=== PATIENT | male | born 1955 | race Caucasian/White ===

== ENCOUNTER → 2017-06-28 | Outpatient (CLI) | payer BC ==
--- NOTE | 2017-06-29 08:43 | CT ---
EXAMINATION TYPE: CT chest wo con DATE OF EXAM: 06/28/2017 COMPARISON: NONE HISTORY: Cough for [address] DLP: 187 mGycm. Automated Exposure Control for Dose Reduction was Utilized. TECHNIQUE: CT scan of the thorax is performed without IV contrast in the high-resolution chest CT pr otocol. This limits evaluation for pulmonary nodules given noncontiguous slices. FINDINGS: LUNGS: There is moderate centrilobular and paraseptal emphysema with scattered bulla in the left lung apex and blebs on the right. Peripheral basilar predominant honeycombing is present most pronounced at the right lung base. There is cylindrical type bronchiectasis throughout although also most pronou nced at the right lung base. No evidence of interlobular septal thickening. No focal consolidation, p leural effusion or pneumothorax. No evidence of air trapping between the supine and prone images. Mor e focal area of nodularity is seen within the right upper lobe peripherally on series 4 image 17 and series 7 image 21. This measures 6 mm and could relate to fibrosis as there is adjacent fibrosis more cranially and anteriorly, atelectasis or less likely pulmonary nodule. Focal pleural thickening is s een along the right upper lobe anteriorly on series 4 image 26. MEDIASTINUM: Lack of IV contrast is noted to limit evaluation for mediastinal and especially hilar ad enopathy. There are no definitive greater than 1 cm hilar or mediastinal lymph nodes. Multiple promin ent 1.0 cm lymph nodes are seen within the mediastinum. No cardiomegaly or pericardial effusion is s een. Mild coronary artery calcifications are noted. OTHER: There is thickening of the left adrenal gland although the adrenal gland maintains its normal adreniform shape. This finding is most likely related to adrenal gland hyperplasia. No discrete nodul arity. Multilevel moderate degenerative changes of the thoracic spine are seen. IMPRESSION: 1. Findings most compatible with pulmonary fibrosis, appearing moderate in degree. 2. 6 mm right upper lobe nodularity that could relate to fibrosis as there are other areas of adjacen t fibrosis, atelectasis or less likely pulmonary nodule. Follow-up CT is recommended in 12 months to ensure no interval growth. Additionally area of right upper lobe focal pleural thickening can be reas sessed at this time. 3. Prominent but nonenlarged mediastinal lymph nodes are likely reactive. 4. No focal consolidation to indicate pneumonia.
== END | disposition home or self-care (01) ==
LOC: RADCTMAIN 14:52
PROVIDERS: ATTEND Internal Medicine Critical Care Medicine
DX: R91.1 Solitary pulmonary nodule (principal); Z88.0 Allergy status to penicillin
CPT/HCPCS: 71250

== ENCOUNTER 2017-09-21 11:28 | Inpatient (IN) | payer BC ==
[2017-09-21] MEDS ORDERED: IPRATROPIUM-ALBUTEROL 3 ML NEB INHALATION PRN (12:45)
[2017-09-21] MEDS ORDERED: LEVOFLOXACIN 750MG-D5W PMX 750 MG in DEXTROSE/WATER 1 150ML.BAG IVPB SCH (13:00)
[2017-09-21] MEDS ORDERED: AZTREONAM 2 GM in SODIUM CHLORIDE 0.9% 100 ML IVPB SCH (14:00)
[2017-09-21 14:46] LABS: Anisocytosis Slight; Basophils % (A) 0 %; Eosinophils # (A) 0.1 k/uL (0-0.7); Eosinophils % (A) 0 %; HCT 35.9 % (39.0-53.0); HGB 11.8 gm/dL (13.0-17.5); Lymphocytes # (A) 0.5 k/uL (1.0-4.8); Lymphocytes % (A) 4 %; MCH 28.8 pg (25.0-35.0); MCV 87.3 fL (80.0-100.0); Mean Platelet Volume 7.5; Monocytes # (A) 0.7 k/uL (0-1.0); Monocytes % (A) 6 %; Neutrophils # (A) 11.1 k/uL (1.3-7.7); Neutrophils % (A) 87 %; Platelet Count 271 k/uL (150-450); RBC 4.11 m/uL (4.30-5.90); RDW 18.2 % (11.5-15.5); WBC 12.8 k/uL (3.8-10.6)
[2017-09-21 15:23] LABS: Albumin 3.4 g/dL (3.5-5.0); Calcium 8.1 mg/dL (8.4-10.2); Potassium 3.6 mmol/L (3.5-5.1); Total Bilirubin 0.6 mg/dL (0.2-1.3)
[2017-09-21] MEDS: methylPREDNISolone SOD SUCCI 40 MG/ML 1 ML VIAL IV SCH ×2 (16:13→23:43)
[2017-09-21] MEDS: IPRATROPIUM-ALBUTEROL 3 ML NEB INHALATION SCH ×2 (16:23→19:54)
--- NOTE | 2017-09-21 16:35 | P.CNPUL ---
History of Present Illness Consult date: 09/21/17 Reason for consult: dyspnea, COPD, pulmonary fibrosis History of present illness: This is a 62-year-old male patient, 1 on my own patients from the office, was seen today in our office for increased shortness of breath. The patient comes in with a one-week history of cough, fever and chills and shortness of breath and his condition was progressively getting worse. The patient had a chest x- ray showed airspace disease in the right upper lobe and the left upper lobe worse compared to the previous chest x-rays was done our office. He was also found to be more hypoxic and his pulse ox was in the 70s on room air. Note that he was not on any home oxygen prior. The patient was seen in our office and he was advised to be admitted to the hospital for antibiotic treatment for possible pneumonia. For that reason he was sent over to the hospital and a pulmonary consultation was requested also. The initial blood work also showed a component of acute kidney injury. The patient's creatinine was up to 5.8. Upon further questioning, the patient reported that he was having migraine headaches and he was getting high dose Motrin for headaches and he has taken around 5-6 tablets. At the same time he was having some diarrhea approximately 3 days ago which ultimately subsided. Currently does not have any ongoing diarrhea and nausea vomiting or abdominal pain. The patient noted some diminished urine output over the past 24 hours. The patient is not known to have any previous history of kidney injury is of kidney failures. No nephrolithiasis. The patient also admitted to have exposure to a friend who was hospitalized down in amount, as for an underlying pneumonia. This patient is known to me. I saw him in consultation on 06/17/2017. The patient as part of further workup underwent a high-resolution CAT scan of the chest and upon review of the films there is extensive emphysema in the upper lobes bilaterally addition to subpleural pulmonary fibrosis involving the lower lobes and early changes of honeycombing in the lung bases. This was consistent with IPF based on the radiographic findings. The pulmonary function test showed an FVC of 74% and a total lung capacity of 64% with a diffusion capacity of 50% of predicted consistent with a component of restrictive lung disease. His room air pulse ox back then was 97% and the patient back then did not qualify for oxygen. The patient was trying to quit smoking. Based on the overall clinical picture, I recommended this patient to start on anti-fibrotic treatment and the patient was started on Ovef, nintadanib, after confirming the patient's liver function tests her baseline were within normal limits. He was asked to continue the Ventolin rescue inhaler mastoids basis. Smoking cessation counseling was also done in the office back in June 2017. 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 He is living in [facility]. He lives in a farm. He has outdoor animals including a goat and a Pig and a horse. He has no exposure to birds products. No exposure to chicken, pigeons or doves. Review of Systems Constitutional Constitutional: no fever, no night sweats, no significant weight gain, no significant weight loss, no exercise intolerance Eyes Eyes: no dry eyes, no vision change, no irritation ENMT Ears: no difficulty hearing, no ear pain Nose: no frequent nosebleeds, no nose problems, no sinus problems Mouth/Throat: no sore throat, no bleeding gums, no snoring, no dry mouth, no mouth ulcers, no oral abnormalities, no teeth problems Cardiovascular Cardiovascular: no chest pain, no arm pain on exertion, no shortness of breath when lying down, no palpitations, no known heart murmur, shortness of breath when walking Respiratory Respiratory: no coughing up blood, no sleep apnea, cough, shortness of breath with interval worsening over the past 1 week in addition to development of an acute hypoxic respiratory failure Gastrointestinal Gastrointestinal: no abdominal pain, no nausea, no vomiting, no constipation, normal appetite, no diarrhea, not vomiting blood, no dyspepsia, no GERD Genitourinary Genitourinary: no incontinence, no difficulty urinating, no hematuria, no increased frequency Musculoskeletal Musculoskeletal: no muscle aches, no muscle weakness, no arthralgias/joint pain , no back pain, no swelling in the extremities Integumentary Skin: no abnormal mole, no jaundice, no rashes, no laceration Neurologic Neurologic: no loss of consciousness, no weakness, no numbness, no seizures, no dizziness, no migraines, no headaches, no tremor Psychiatric Psych: no depression, no sleep disturbances, feeling safe in a relationship, no alcohol abuse, no anxiety, no hallucinations, no suicidal thoughts Endocrine Endocrine: no fatigue Hematologic/Lymphatic Hematologic/Lymphatic no swollen glands, no bruising, no excessive bleeding Allergic/Immunologic Allergy/Immunologic: no runny nose, no sinus pressure, no itching, no hives, no frequent sneezing Past Medical History Past Medical History: COPD, Diabetes Mellitus, GERD/Reflux, Pneumonia Additional Past Medical History / Comment(s): Interstitial pulmonary fibrosis, emphysema with upper lobe predominance, smoker NIDDM type II, sinus problems, slight fatty liver, eczema, past hemeoccult positive stool-colonoscopy done. Hypertension, hyperlipidemia, depression, acid reflux History of Any Multi-Drug Resistant Organisms: None Reported Past Surgical History: Orthopedic Surgery Additional Past Surgical History / Comment(s): RT thumb mass removed, EGD/ colonoscopies Past Anesthesia/Blood Transfusion Reactions: No Reported Reaction Smoking Status: Former smoker - Past Family History Father Family Medical History: Myocardial Infarction ([place]) Additional Family Medical History / Comment(s): Father of a massive [place] at the age of 52 or 53yrs. Mother Family Medical History: Cancer Additional Family Medical History / Comment(s): Mother of breast cancer in her 60's. Medications and Allergies Home Medications Medication Instructions Recorded Confirmed Type ALPRAZolam [Xanax] 2 mg PO HS 08/31/13 09/21/17 History Aspirin 81 mg PO HS 08/31/13 09/21/17 History Atorvastatin Calcium [Lipitor] 40 mg PO HS 08/31/13 09/21/17 History Methylphenidate HCl 10 mg PO DAILY 08/31/13 09/21/17 History [Methylphenidate ER] Omeprazole [PriLOSEC] 20 mg PO AC-BRKFST 08/31/13 09/21/17 History Pioglitazone HCl [Actos] 45 mg PO DAILY 08/31/13 09/21/17 History lamoTRIgine [LaMICtal] 100 mg PO DAILY 08/31/13 09/21/17 History Cyanocobalamin (Vitamin B-12) 1,000 mcg PO DAILY 09/21/17 09/21/17 History [Vitamin B-12] Escitalopram [Lexapro] 20 mg PO DAILY 09/21/17 09/21/17 History Nintedanib Esylate [Ofev] 150 mg PO BID 09/21/17 09/21/17 History buPROPion XL [Wellbutrin Xl] 150 mg PO DAILY 09/21/17 09/21/17 History glipiZIDE XL [Glucotrol Xl] 2.5 mg PO DAILY 09/21/17 09/21/17 History Allergies Allergy/AdvReac Type Severity Reaction Status Date / Time aspartame Allergy Unknown MUSCLE Verified 09/21/17 13:10 PAINS Penicillins Allergy Unknown Rapid Verified 09/21/17 13:10 Heart Rate Physical Exam Vitals: Vital Signs Temp Pulse Resp BP Pulse Ox 09/21/17 12:51 97.3 F L 76 18 106/66 96 Intake and Output 09/20/17 09/21/17 09/21/17 22:59 06:59 14:59 Other: Weight 68.6 kg General Appearance no diaphoresis, no respiratory distress, speech not interrupted by breaths, no dyspnea, no pallor, not cachectic, well nourished, appears well HEENT no pursed lip breathing, no jugular venous distention, no mucous membrane cyanosis, no perioral cyanosis, mallampati classification: class 1 Chest no barrel chest, no retractions, no sternocleidomastoid muscle contractions, no supraclavicular retractions, no intercostal retractions, no decreased air movement, no rhonchi, no hyperinflation, (normal) adventitious sounds: rales / crackles: bilaterally: midlung sanchez, decreased air movement ( crackles in the lung bases) Heart no right ventricular heave, no distant heart sounds, no s3 gallop, (normal ) jugular vein: jugular venous distention: by 0cm, (normal) jugular vein GI bowel sounds: hyperactive (borborygmi), bowel sounds: diminished or absent Extremities no cyanosis, no clubbing, no edema Neurologic no decreased mental status, no somnolence, no confusion Assisstive Devices: ambulates with no assitive devices Gait and Mobility: gait WNL, full weight bearing Examination of the skin revealed no evidence of significant rashes, suspicious appearing nevi or other concerning lesions. Results - Laboratory Findings CBC and BMP: 09/21/17 14:23 09/21/17 14:23 Assessment and Plan Plan: Assessment 1 acute hypoxic history failure, likely on the basis of an underlying pneumonia 2 idiopathic pulmonary fibrosis involving the lung bases maintained on anti- fibrotic treatment/OVEF on outpatient basis 3 COPD with bullous emphysematous changes involving the left lobes bilaterally 4 acute kidney injury, probably due to a component of intravascular volume depletion/diarrhea in addition to use of nonsteroidal anti-inflammatory medications. The patient had a creatinine of 5.8 and a BUN of 68 and he is oliguric at this point. 5 hyperlipidemia 6 diabetes mellitus 7 smoker 8 depression 9 abnormal LFTs, probably secondary to OVEF 10 hypertension 11 acid reflux Plan Obtain sputum Gram stain and culture. Obtain blood cultures. Cover the patient with accommodation Levaquin and aztreonam. IV Solu-Medrol. Continue DuoNeb about treatments on the clock. Hold the OVEF treatment for now. Supplement the patient with oxygen 2 L/m nasal cannula. Initiate IV fluids at the rate of 100 mL an hour of normal saline. Obtain ultrasound the kidneys. Check a urine analysis. Nephrology consultation. Avoid nephrotoxic agents. Stop glipizide. Stop pioglitazone.. We'll review the chest x-ray. Monitor the blood sugar.
--- NOTE | 2017-09-21 16:38 | HP ---
Addendum patient creatinine 5.8 and BUN 68 and his baseline creatinine 0.9 and the BUN 14 which indicate new diagnosis of acute kidney injury with nonoliguric. Consultation with nephrology was requested. Patient also was immunocompromise under treatment for IPF with no suspicious of pneumonia medication was held and his agreement with Dr. Arzate. #3 also medication is adjusted with discontinuation of metformin as well pioglitazone as well as glipizide and currently he is on insulin to scale with the NovoLog/ Humalog short-acting if he is persistent the high will start him on long-acting as well. Patient on 2 antibiotic IV piggyback was started by the pulmonary. And adjusted the dose by the pharmacy. HISTORY AND PHYSICAL DATA: A 5 foot 5 inches, height, weight 68.6 kg. BSA 1.76 meter square, BMI 25.2 kg/ m2. ALLERGY: IS TO PENICILLIN AND ASPARTAME. CHIEF COMPLAINT: The patient was seen with the prolonged history of coughing, with phlegm and fever and diarrhea. Seen by Dr. Castro in his office and subsequently had a chest x-ray in his office and sent to the hospital for admission with the presence of pneumonia. HISTORY OF PRESENT ILLNESS: The patient history: He started his symptoms on September 11. He did not feel well and he continue with the fever intermittently, but at that time, he did not check it. He had on the Tuesday, coughing and phlegm and he had diarrhea and weak and Tuesday and Tuesday he was able to take his medication which has been prescribed by Dr. Cervantes for IPF, which is Ofev which Nintedanib capsule 150 mg twice a day and he taken 150 mg twice a day. However, the pill he has with it another medication that they sent with these medicines because of the side affect is diarrhea. It is unclear to me what is the medicine and we do not have it from Dr. Cervantes. However, he had this pills and did help the diarrhea and he took 2 and then 1 every 6 hours. Total pills received is 3 pills. The patient, his pill started was ended June 17 and then he reviewed it and subsequently he is doing better with the diarrhea, but he also stated that he lost his energy at 4:00 pm on Tuesday recently. He woke up feeling good. By 4 o'clock he has lost his energy and he had appointment for dinner. He cancelled it and he was sweating and Tuesday night a lot and as well as Tuesday with a fever. He thought that this is a sweating secondary to broke of the fever, but subsequently he started to check his temperature and was 101.4 and 101 and 100 started on September 18 and and with this continued coughing, he stayed in bed all the time and he called Dr. Cervantes's office and at that time, they saw him by Dr. Castro, and he did a x-ray in his office to compare it with the previous x-ray and he found that a big difference and indicating probability of pneumonia. At that time, he started him on Levaquin IV piggyback 750 mg once a day and actually in the hospital is already hanging on. He has also as he admitted direct admission by Dr. Castro, consultation with Dr. Cervantes was placed as well to follow the patient and who is Billy, his actually the pulmonary doctor. In the hospital, laboratory was only available just taken 12.8 white count with leukocytosis. His hemoglobin is 11.8 with mild anemia and his MCV 87.3, and his platelet count 271. Otherwise, we do not have any other data from the laboratories. He still as he admitted he had a sputum collection as well at his side. Today he felt better with coughing has been improving and no diarrhea, but he has still sore throat and he stated that he had migraine headaches in the past, however, not present at the time of the admission and he treated with ibuprofen. No heartburn and no hematochezia or hematemesis or melena, but he has severe generalized weakness and he has no soreness in any other places. He has a history of social alcohol intake and 3-4 per week. He had pets and that is 1 horse and 1 pig. He is a diabetic and he is on treatment, but also he is on high protein low carb diet and he drinks expresso coffee once a day. 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 He has 2 children, 2 boys. He is a former smoker, but he was a heavy smoker and he did it for 30 years. He used to do two packs and occasional 3, but most of them burned without inhalation. HIS ALLERGY IS MENTIONED, PENICILLIN AND ASPARTAME. ACTIVE MEDICATION: He was on vitamin C once a day 500 mg. He is on metoprolol tartrate 25 mg twice a day. He was on pioglitazone 45 mg 1 tablet daily for the diabetes mellitus and he was also on glipizide 2.5 mg once a day. He is on omeprazole 20 mg capsule, 1 capsule a.c. breakfast and he has atorvastatin 40 mg 1 tablet daily and aspirin enteric- coated 81 mg and he uses occasionally for stuffiness of his nose fluticasone nasal spray 2 sprays each nostril at bedtime. He also had history of vitamin D insufficiency and he has taken 2000 international unit capsules once a day. With the underlying depression, he has been treated by Dr. Wills the psychiatrist and he is taken lamotrigine 100 mg and he is also on alprazolam 0.[address] Wills, as well as he is on Methylphenidate 10 mg once a day by Dr. Wills. Also, he gets Propione 100 mg once a day. REVIEW OF THE SYSTEM: Mainly the shortness of breath. The cough, the fever, the chills, the sweating and underlying diabetes mellitus. Cardiovascular: He had no chest pain or anginal pain. On the respiratory, he is having short of breath which he understands with the association of the IPF as diagnosed. He has currently pneumonia and but we do not know the etiology of that pneumonia as we will be checking with the Pulmonary in that regard. He had basilar crackles from the interstitial lung disease. Gastrointestinal: He had diarrhea, however, not present at this time. Genitourinary: He has no tenderness on the bladder and his urine is fine and flowing normally. MUSCULOSKELETAL: Generalized weakness. No history of fractures and no edema of the lower extremities. Skin: Is fine, warm and dry. Neurological: Alert, oriented x3. No evidence of abnormality. With the underlying also added history that he was last week with friends and they were in a green party and they had contact with these green party and 1 of these friends he was sick and he went to the hospital and he was having pneumonia. We do not know if he had attracted that from him or not. IMPRESSION: 1. Underlying leukocytosis with cough and expectoration and community-acquired pneumonia with the chest x-ray per Dr. Castro who told the patient that he has pneumonia. Unfortunately, we do not have copy of the x-rays here in the hospital to review that. 2. Underlying interstitial lung the disease with IPF and he has been treated by Dr. Cervantes with the Ofev capsule which is Nintedanib capsule 150 mg twice a day for the time being with that could be affecting his immune response with holding until Dr. Cervantes sees the patient. 3. Diabetes mellitus type 2. Hemoglobin A1c was ordered, but he is on the treatment and will continue the current treatment for that purpose. 4. We will also obtain for Legionella urine antigen to see if any signs of infection. He had also sputum for culture and sensitivity. He has also a blood culture was ordered by Dr. Cervantes. PLAN: 1. We continue the Levaquin 750 and further treatment as lab ordered again for tomorrow and monitoring his temperature and also he has oxygen 2 L/minutes. 2. Further treatment depend on the result. YOSEPH / TIFFANY: [id number] / MTDD
[2017-09-21 16:39] LABS: INR 1.1 (<1.2); Partial Thromboplastin Time 28.1 sec (22.0-30.0)
[2017-09-21 16:51] LABS: Glucose,Whole Blood 171 mg/dL (75-99)
[2017-09-21] MEDS: INSULIN ASPART 100 UNIT/ML 1 ML 10 ML VIAL SQ SCH ×2 (17:34→22:00)
[2017-09-21] MEDS: SODIUM CHLORIDE 0.9% 1,000 ML IV SCH ×2 (17:48→22:02)
--- NOTE | 2017-09-21 18:01 | XR ---
EXAMINATION TYPE: XR chest 2V DATE OF EXAM: 09/21/2017 COMPARISON: 06/17/2017 HISTORY: Cough TECHNIQUE: Frontal and lateral views of the chest are obtained. FINDINGS: There is moderate diffuse pulmonary interstitial edema. Heart appears enlarged. Pulmonary vascularity is difficult to evaluate because of the extensive lung disease. There is no pleural effus ion. I see no definite heart failure. IMPRESSION: Extensive pulmonary interstitial infiltrates likely related to interstitial fibrosis gabrielle t has progressed compared to last exam. Cardiomegaly.
[2017-09-21] MEDS: BUDESONIDE 0.5 MG/2 ML NEBU INHALATION SCH (19:54)
[2017-09-21 20:23] LABS: Glucose,Whole Blood 249 mg/dL (75-99)
[2017-09-21] MEDS: ALPRAZolam 0.5 MG TAB PO SCH (22:01)
[2017-09-21] MEDS: ASPIRIN 81 MG PO SCH (22:09)
[2017-09-21] MEDS: ATORVASTATIN 40 MG TAB PO SCH (22:09)
[2017-09-21 23:01] LABS: Hemoglobin A1C 6.9 % (4.0-6.0)
[2017-09-21] MEDS: HEPARIN SODIUM,PORCINE 5,000 UNIT/ML 1 ML VIAL SQ SCH (23:42)
[2017-09-21] MEDS: AZTREONAM 1 GM in SODIUM CHLORIDE 0.9% 50 ML IVPB SCH (23:42)
--- NOTE | 2017-09-22 03:25 | US ---
EXAMINATION TYPE: US kidneys/renal and bladder DATE OF EXAM: 09/21/2017 COMPARISON: NONE CLINICAL HISTORY: MERRICK. MERRICK EXAM MEASUREMENTS: Right Kidney: 10.6 x 6.2 x 4.5 cm Left Kidney: 10.7 x 5.9 x 5.1 cm Right Kidney: Lobulated cortex. Left Kidney: Lobulated cortex question dromedary hump. Bladder: Anechoic Bilateral Jets seen: Yes There is no evidence for hydronephrosis at this point in time. No nephrolithiasis is seen. No jean s are identified. The urinary bladder is anechoic. Bilateral ureteral jets are seen. Bilateral lobulated cortex of kidneys. Suggestive of dromedary hump left kidney. IMPRESSION: No evidence of renal stone or obstruction. Normal urinary bladder.
[2017-09-22 07:04] LABS: Glucose,Whole Blood 266 mg/dL (75-99)
[2017-09-22] MEDS: IPRATROPIUM-ALBUTEROL 3 ML NEB INHALATION SCH ×4 (07:04→19:21)
[2017-09-22] MEDS: BUDESONIDE 0.5 MG/2 ML NEBU INHALATION SCH ×2 (07:04→19:18)
[2017-09-22] MEDS: AZTREONAM 1 GM in SODIUM CHLORIDE 0.9% 50 ML IVPB SCH ×2 (07:28→15:41)
[2017-09-22] MEDS: INSULIN ASPART 100 UNIT/ML 1 ML 10 ML VIAL SQ SCH ×4 (07:29→21:21)
[2017-09-22] MEDS: methylPREDNISolone SOD SUCCI 40 MG/ML 1 ML VIAL IV SCH ×2 (07:29→15:41)
[2017-09-22] MEDS: PANTOPRAZOLE 40 MG TABLET PO SCH (07:29)
[2017-09-22] MEDS: ESCITALOPRAM 20 MG TAB PO SCH (07:29)
[2017-09-22] MEDS: HEPARIN SODIUM,PORCINE 5,000 UNIT/ML 1 ML VIAL SQ SCH ×2 (07:29→15:41)
[2017-09-22] MEDS: buPROPion XL 150 MG TAB.ER.24H PO SCH (07:29)
[2017-09-22] MEDS: METHYLPHENIDATE HCL 5 MG TAB PO SCH ×2 (07:29→12:47)
[2017-09-22] MEDS: lamoTRIgine 100 MG TAB PO SCH (08:14)
[2017-09-22 08:27] LABS: Anisocytosis Slight; Basophils % (A) 0 %; Eosinophils % (A) 0 %; HCT 33.8 % (39.0-53.0); HGB 10.6 gm/dL (13.0-17.5); Hypochromasia Slight; Lymphocytes # (A) 0.3 k/uL (1.0-4.8); Lymphocytes % (A) 4 %; MCH 27.8 pg (25.0-35.0); MCHC 31.5 g/dL (31.0-37.0); MCV 88.3 fL (80.0-100.0); Mean Platelet Volume 8.5; Monocytes # (A) 0.2 k/uL (0-1.0); Monocytes % (A) 3 %; Neutrophils # (A) 7.1 k/uL (1.3-7.7); Neutrophils % (A) 92 %; Platelet Count 278 k/uL (150-450); RBC 3.83 m/uL (4.30-5.90); RDW 18.3 % (11.5-15.5); WBC 7.7 k/uL (3.8-10.6)
[2017-09-22 08:49] LABS: Albumin 2.9 g/dL (3.5-5.0); Calcium 7.8 mg/dL (8.4-10.2); Magnesium 2.5 mg/dL (1.6-2.3); Potassium 4.2 mmol/L (3.5-5.1); Total Bilirubin 0.4 mg/dL (0.2-1.3); Total Protein 5.9 g/dL (6.3-8.2)
[2017-09-22] MEDS ORDERED: ENOXAPARIN 40 MG/0.4 ML SYRINGE SQ SCH (09:00)
[2017-09-22] MEDS ORDERED: PIOGLITAZONE 45 MG TAB PO SCH (09:00)
--- NOTE | 2017-09-22 09:31 | XR ---
EXAMINATION TYPE: XR chest 2V DATE OF EXAM: 09/22/2017 COMPARISON: 09/21/2017 HISTORY: History of pneumonia TECHNIQUE: Frontal and lateral views of the chest are obtained. FINDINGS: There are persistent multifocal reticular opacities throughout the lungs most consolidated within the left upper lung and retrocardiac airspace. There is peripheral subpleural reticulation po ssibly relating to underlying fibrosis. Cardiomediastinal silhouette is mildly enlarged. Multilevel m oderate degenerative changes of the thoracic spine is seen with mild acromioclavicular arthropathy bi laterally. IMPRESSION: Similar-appearing multifocal reticular opacities that may represent atypical pneumonitis on a background of interstitial lung disease/pulmonary fibrosis. These are unchanged from the exam e emelina on the same date.
[2017-09-22 12:00] LABS: Glucose,Whole Blood 310 mg/dL (75-99)
[2017-09-22] MEDS ORDERED: BENZOCAINE/MENTHOL LOZENG 1 EACH LOZENGE MUCOUS MEM PRN (12:18)
[2017-09-22] MEDS: SODIUM CHLORIDE 0.9% 1,000 ML IV SCH ×2 (12:48→20:28)
--- NOTE | 2017-09-22 14:03 | PN ---
PROGRESS NOTE DATE OF SERVICE: 09/22/2017 DATA: His height is 5 foot 5 inches, weight 68.6 kg, BSA 1.76 m2, BMI 25.2 kg/m2. Allergy to PENICILLIN and ASPARTAME. His current diagnosis: The patient admitted with underlying worsening of his IPF as well as he is suspicious of pneumonia with the interstitial pneumonitis and was initially seen in the office of the Pulmonary group, seen by Dr. Castro, subsequently followed here in the hospital by Dr. Cervantes. Also found in his diagnosis, the second is acute kidney injury with the sudden rise with the baseline of creatinine 0.8 and BUN of 14. Currently, with the BUN was 68 on admission, his creatinine 5.8 and BUN 68. His coagulation was normal and at that time, yesterday on admission, his white count is 12.8 with a hemoglobin 11.8 with the presence of also mild anemia. With the elevated level of renal function with acute kidney injury, no previous history of chronic kidney disease, consultation with the Nephrology doctor, Dr. Angeles/Dr. Pierre. Patient at this time he has also underlying hemoglobin A1c on admission 6.9 and his plasma lactic acid was 1.1 on the admission date. His calcium is 8.1, sodium 135. His carbon dioxide was 18 on the acidotic side and his blood sugar has been fluctuating between 266 and 249, 171. With elevated creatinine, we stopped all the oral hypoglycemic agent and started only on insulin to scale. On the current since the patient in the morning and the patient was conscious, alert, oriented. He was going to be having the chest x-ray, which we reviewed it, subsequently and the chest x-ray repeat indicating multifocal reticular opacities and represent atypical pneumonitis on the background of interstitial lung disease and pulmonary fibrosis. LABORATORY: As was done today and his white count now is 7.7 with hemoglobin 10.6 and hematocrit 33.8, and platelet count is 278. His electrolyte was stable except that today his carbon dioxide is 18, which indicating that due to the acute kidney injury. His blood sugar is 249 and was done in the morning, subsequently 3:10 am and we will continue covering with the insulin to scale. His magnesium is 2.5 with calcium 7.8 and AST was elevated to 97 and ALT 70, alk phos was 189. His total protein slightly low 5.9 and albumin 2.9. PHYSICAL EXAMINATION: Patient is conscious, alert, oriented x3. He has still loss of appetite and his vital sign was Maharaj. His vital sign today indicating temperature 98, pulse rate 73, blood pressure 113/64 with mean pressure 80. His oxygen saturation was low 91 on 2 L nasal cannula. On the examination patient is conscious, alert, oriented. He had no icterus of the conjunctivae. Pupils equal, reactive. Oropharynx is negative. Neck was supple and the chest was there are dry rhonchi on the bases of the lung bilaterally and the heart was PMI in the 5th intercostal space. Normal S1, S2. No gallop. The abdomen was soft, nontender, positive bowel sounds and extremities no edema and positive pulses. No neurological deficit. ASSESSMENT: We did consult Nephrology as well as Dr. Cervantes. I did discuss with him yesterday with the underlying impression added to the IPF and interstitial pneumonitis as well as leukocytosis on admission with shortness of breath. He continued on inhalation therapy per Dr. Cervantes as well as the antibiotic and with the acute kidney injury, patient had a consultation with Nephrology, but so far they did not see him yet. . PLAN: We are continuing his IV fluids and probably we may have to start him on sodium bicarb once a day 325 mg or 650. Further evaluation by Nephrology will be followed as well. MMODL / IJN: [id number] /
[2017-09-22] MEDS: SODIUM BICARBONATE TAB 650 MG TAB PO SCH ×2 (15:41→21:22)
--- NOTE | 2017-09-22 15:49 | P.PN ---
Subjective Progress Note Date: 09/22/17 Principal diagnosis: This is a 62-year-old male patient, 1 on my own patients from the office, was seen today in our office for increased shortness of breath. The patient comes in with a one-week history of cough, fever and chills and shortness of breath and his condition was progressively getting worse. The patient had a chest x- ray showed airspace disease in the right upper lobe and the left upper lobe worse compared to the previous chest x-rays was done our office. He was also found to be more hypoxic and his pulse ox was in the 70s on room air. Note that he was not on any home oxygen prior. The patient was seen in our office and he was advised to be admitted to the hospital for antibiotic treatment for possible pneumonia. For that reason he was sent over to the hospital and a pulmonary consultation was requested also. The initial blood work also showed a component of acute kidney injury. The patient's creatinine was up to 5.8. Upon further questioning, the patient reported that he was having migraine headaches and he was getting high dose Motrin for headaches and he has taken around 5-6 tablets. At the same time he was having some diarrhea approximately 3 days ago which ultimately subsided. Currently does not have any ongoing diarrhea and nausea vomiting or abdominal pain. The patient noted some diminished urine output over the past 24 hours. The patient is not known to have any previous history of kidney injury is of kidney failures. No nephrolithiasis. The patient also admitted to have exposure to a friend who was hospitalized down in amount, as for an underlying pneumonia. This patient is known to me. I saw him in consultation on 06/17/2017. The patient as part of further workup underwent a high-resolution CAT scan of the chest and upon review of the films there is extensive emphysema in the upper lobes bilaterally addition to subpleural pulmonary fibrosis involving the lower lobes and early changes of honeycombing in the lung bases. This was consistent with IPF based on the radiographic findings. The pulmonary function test showed an FVC of 74% and a total lung capacity of 64% with a diffusion capacity of 50% of predicted consistent with a component of restrictive lung disease. His room air pulse ox back then was 97% and the patient back then did not qualify for oxygen. The patient was trying to quit smoking. Based on the overall clinical picture, I recommended this patient to start on anti-fibrotic treatment and the patient was started on Ovef, nintadanib, after confirming the patient's liver function tests her baseline were within normal limits. He was asked to continue the Ventolin rescue inhaler mastoids basis. Smoking cessation counseling was also done in the office back in June 2017. 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 He is living in [facility]. He lives in a farm. He has outdoor animals including a goat and a Pig and a horse. He has no exposure to birds products. No exposure to chicken, pigeons or doves. On 09/22/2017 patient seen again in follow-up on medical surgical floor. Resting in bed, still complaining of weakness and fatigue. But overall is feeling better. Not bringing up any sputum, denies any chest wall tenderness, lung sounds are positive for coarse crackles over left lower lobe, no wheezing. Today's labs were reviewed, and a PVC 7.7, hemoglobin is 10.6, renal profile is improving, BUN is down to 60, creatinine is 4.29. Patient is remains on IV hydration, receiving 0.9 normal saline at a rate of 100 per hour. Patient remains on empiric coverage in the form of Azactam, and Levaquin, today's chest x-ray showed multifocal reticular opacity pneumonia in the left lower and left upper lobe Objective - Vital Signs Vital signs: Vital Signs Temp 98.0 F 09/22/17 05:15 Pulse 76 09/22/17 15:19 Resp 18 09/22/17 07:58 BP 113/64 09/22/17 05:15 Pulse Ox 91 L 09/22/17 05:15 Intake & Output 09/21/17 09/22/17 09/22/17 18:59 06:59 18:59 Intake Total 850 800 Balance 850 800 Weight 68.6 kg Intake: Intake, IV Titration 850 800 Amount Aztreonam 1 gm In Sodium 50 Chloride 0.9% 50 ml @ 50 mls/hr IVPB Q8HR [facility] Rx#: [id number] Aztreonam 2 gm In Sodium 100 Chloride 0.9% 100 ml @ 100 mls/hr IVPB Q8HR [facility] Rx#:[id number] Sodium Chloride 0.9% 1, 800 700 000 ml @ 100 mls/hr IV . Q10H [facility] Rx#:[id number] Other: Voiding Method Toilet Toilet Toilet # Voids 2 - Exam General Appearance no diaphoresis, no respiratory distress, speech not interrupted by breaths, no dyspnea, no pallor, not cachectic, well nourished, appears well HEENT no pursed lip breathing, no jugular venous distention, no mucous membrane cyanosis, no perioral cyanosis, mallampati classification: class 1 Chest no barrel chest, no retractions, no sternocleidomastoid muscle contractions, no supraclavicular retractions, no intercostal retractions, no decreased air movement, no rhonchi, no hyperinflation, (normal) adventitious sounds: rales / crackles: bilaterally: midlung sanchez, decreased air movement ( crackles in the lung bases, worse over left posterior lower lobe) Heart no right ventricular heave, no distant heart sounds, no s3 gallop, (normal ) jugular vein: jugular venous distention: by 0cm, (normal) jugular vein GI bowel sounds: hyperactive (borborygmi), bowel sounds: diminished or absent Extremities no cyanosis, no clubbing, no edema Neurologic no decreased mental status, no somnolence, no confusion Assisstive Devices: ambulates with no assitive devices Gait and Mobility: gait WNL, full weight bearing Examination of the skin revealed no evidence of significant rashes, suspicious appearing nevi or other concerning lesions. - Labs CBC & Chem 7: 09/22/17 07:17 09/22/17 07:17 Labs: Abnormal Lab Results - Last 24 Hours (Table) 09/21/17 09/21/17 09/21/17 Range/Units 14:23 16:49 20:21 RBC (4.30-5.90) m/uL Hgb (13.0-17.5) gm/dL Hct (39.0-53.0) % RDW (11.5-15.5) % Lymphocytes # (1.0-4.8) k/uL Sodium (137-145) mmol/L Carbon Dioxide (22-30) mmol/L BUN (9-20) mg/dL Creatinine (0.66-1.25) mg/dL Glucose (74-99) mg/dL POC Glucose (mg/dL) 171 H 249 H (75-99) mg/dL Hemoglobin A1c 6.9 H (4.0-6.0) % Calcium (8.4-10.2) mg/dL Magnesium (1.6-2.3) mg/dL AST (17-59) U/L Alkaline Phosphatase (38-126) U/L Total Protein (6.3-8.2) g/dL Albumin (3.5-5.0) g/dL 09/22/17 09/22/17 09/22/17 Range/Units 07:01 07:17 07:17 RBC 3.83 L (4.30-5.90) m/uL Hgb 10.6 L (13.0-17.5) gm/dL Hct 33.8 L (39.0-53.0) % RDW 18.3 H (11.5-15.5) % Lymphocytes # 0.3 L (1.0-4.8) k/uL Sodium 135 L (137-145) mmol/L Carbon Dioxide 18 L (22-30) mmol/L BUN 68 H (9-20) mg/dL Creatinine 4.29 H (0.66-1.25) mg/dL Glucose 249 H (74-99) mg/dL POC Glucose (mg/dL) 266 H (75-99) mg/dL Hemoglobin A1c (4.0-6.0) % Calcium 7.8 L (8.4-10.2) mg/dL Magnesium 2.5 H (1.6-2.3) mg/dL AST 97 H (17-59) U/L Alkaline Phosphatase 189 H (38-126) U/L Total Protein 5.9 L (6.3-8.2) g/dL Albumin 2.9 L (3.5-5.0) g/dL 09/22/17 Range/Units 11:32 RBC (4.30-5.90) m/uL Hgb (13.0-17.5) gm/dL Hct (39.0-53.0) % RDW (11.5-15.5) % Lymphocytes # (1.0-4.8) k/uL Sodium (137-145) mmol/L Carbon Dioxide (22-30) mmol/L BUN (9-20) mg/dL Creatinine (0.66-1.25) mg/dL Glucose (74-99) mg/dL POC Glucose (mg/dL) 310 H (75-99) mg/dL Hemoglobin A1c (4.0-6.0) % Calcium (8.4-10.2) mg/dL Magnesium (1.6-2.3) mg/dL AST (17-59) U/L Alkaline Phosphatase (38-126) U/L Total Protein (6.3-8.2) g/dL Albumin (3.5-5.0) g/dL Assessment and Plan Plan: Assessment: 1 acute hypoxic history failure, likely on the basis of an underlying pneumonia 2 idiopathic pulmonary fibrosis involving the lung bases maintained on anti- fibrotic treatment/OVEF on outpatient basis 3 COPD with bullous emphysematous changes involving the left lobes bilaterally 4 acute kidney injury, probably due to a component of intravascular volume depletion/diarrhea in addition to use of nonsteroidal anti-inflammatory medications. The patient had a creatinine of 5.8 and a BUN of 68 and he is oliguric at this point. Today's labs on 09/22/2017 showing improvement in her renal profile and the patient is receiving IV hydration 5 hyperlipidemia 6 diabetes mellitus 7 smoker 8 depression 9 abnormal LFTs, probably secondary to OVEF 10 hypertension 11 acid reflux Plan Continue current antibiotic coverage, today's chest x-ray has been reviewed, and shows multifocal opacity in the left lower and left upper lobe consistent with pneumonia, cultures remain negative, patient is afebrile, not bringing up any sputum. Clinically he remains stable, renal profile is improving, continue with IV hydration. I performed a history & physical examination of the patient and discussed their management with my nurse practitioner, Kamila Pineda. I reviewed the nurse practitioner's note and agree with the documented findings and plan of care. Lung sounds are positive for coarse crackles over left lower lung. The findings and the impression was discussed with the patient. I attest to the documentation by the nurse practitioner. Time with Patient: Less than 30
[2017-09-22 17:17] LABS: Glucose,Whole Blood 389 mg/dL (75-99)
--- NOTE | 2017-09-22 17:51 | CONS ---
CONSULTATION REASON FOR CONSULT: Renal failure. HISTORY OF PRESENT ILLNESS: The patient is a 62-year-old male who was admitted to the hospital yesterday with a history of fever, cough and not feeling well. The patient also had diarrhea at home, which is now improved. He denies any prior history of kidney disease. He did admit to use of NSAIDs. He also took Imodium for diarrhea prior to admission. Serum creatinine was found to be 5.8 mg/dL this admission. Previous creatinine was 1.03 on 12/17/2013. Blood pressure has been on the lower side with systolic about 106 mmHg. Patient was not on MARILEE inhibitors at home. He did admit to use of nonsteroidal anti-inflammatory agents. Currently, he is maintained on IV fluids and patient states that his urine output has improved since he has been admitted. PAST MEDICAL HISTORY: Significant for type 2 diabetes, gastroesophageal reflux disease, bipolar disorder. SOCIAL HISTORY: Positive for the patient being a former smoker. There has been previous history of cocaine use as well. MEDICATIONS: Prior to admission included Glucotrol, Lamictal, Wellbutrin, Actos, Prilosec, Methylphenidate, Lexapro, vitamin B12, Lipitor, aspirin, Xanax. REVIEW OF SYSTEMS: As per HPI. Other systems negative. EXAMINATION: Patient is comfortable, awake, alert, oriented x3, not in any acute distress. Blood pressure is 123/63, heart rate 76 per minute. He is afebrile. Examination of the heart S1, S2. Examination of lungs bilateral breath sounds are heard. Abdomen is soft, nontender. Examination of lower extremities shows no evidence of edema. COMPOSITE BOND TECHNICIAN exam is grossly intact. Patient moving all 4 extremities. LAB: Show sodium 135, potassium 4.2, BUN of 68, serum creatinine 4.29, CO2 is 18, hemoglobin 10.6 g/dL, magnesium 2.5, calcium 7.8. UA is not available. ASSESSMENT: 1. Acute kidney injury, likely prerenal with some improvement with IV hydration. Most likely patient had acute tubular necrosis secondary to hypovolemia. I will check a urinalysis. We also need to check an ultrasound to rule out underlying obstruction. 2. Metabolic acidosis secondary to advanced renal failure, maintained on sodium bicarb, which we will continue. 3. Gastroesophageal reflux disease. 4. History of bipolar disorder. 5. Dyslipidemia, maintained on Lipitor. PLAN: Continue IV fluids. Check UA. Follow up on the ultrasound of the kidneys which was ordered. Check iron studies to workup the anemia. Thank you for this consultation. We will continue to follow the patient with you during his hospitalization. The patient does not need renal replacement therapy at this time. YOSEPH / TIFFANY: [id number] /
[2017-09-22 20:00] LABS: Glucose,Whole Blood 395 mg/dL (75-99)
[2017-09-22 20:01] LABS: Glucose,Whole Blood 407 mg/dL (75-99)
[2017-09-22] MEDS ORDERED: INSULIN DETEMIR 100 UNIT/ML 10 ML VIAL SQ SCH (21:00)
[2017-09-22] MEDS: ALPRAZolam 0.5 MG TAB PO SCH (21:20)
[2017-09-22] MEDS: ATORVASTATIN 40 MG TAB PO SCH (21:22)
[2017-09-22] MEDS: ASPIRIN 81 MG PO SCH (21:22)
[2017-09-23] MEDS: AZTREONAM 1 GM in SODIUM CHLORIDE 0.9% 50 ML IVPB SCH ×2 (00:34→07:38)
[2017-09-23] MEDS: HEPARIN SODIUM,PORCINE 5,000 UNIT/ML 1 ML VIAL SQ SCH ×3 (00:35→16:18)
[2017-09-23] MEDS: methylPREDNISolone SOD SUCCI 40 MG/ML 1 ML VIAL IV SCH ×3 (00:35→16:19)
[2017-09-23 02:12] LABS: Glucose,Whole Blood 376 mg/dL (75-99)
[2017-09-23 05:48] LABS: Appearance,Urine Clear (Clear); Bilirubin,Urine Negative (Negative); Blood,Urine Negative (Negative); Color,Urine Light Yellow; Glucose,Urine (UA) 2+ (Negative); Ketones,Urine Negative (Negative); Leukocyte Esterase,Urine Negative (Negative); Nitrite,Urine Negative (Negative); PH, Urine 5.5 (5.0-8.0); Protein,Urine Trace (Negative); Specific Gravity,Urine 1.009 (1.001-1.035); Urobilinogen,Urine <2.0 mg/dL (<2.0)
[2017-09-23] MEDS: IPRATROPIUM-ALBUTEROL 3 ML NEB INHALATION SCH ×4 (06:59→20:15)
[2017-09-23] MEDS: BUDESONIDE 0.5 MG/2 ML NEBU INHALATION SCH ×2 (06:59→20:15)
[2017-09-23 07:08] LABS: Glucose,Whole Blood 348 mg/dL (75-99)
[2017-09-23] MEDS: buPROPion XL 150 MG TAB.ER.24H PO SCH (07:42)
[2017-09-23] MEDS: lamoTRIgine 100 MG TAB PO SCH (07:42)
[2017-09-23] MEDS: PANTOPRAZOLE 40 MG TABLET PO SCH (07:42)
[2017-09-23] MEDS: METHYLPHENIDATE HCL 5 MG TAB PO SCH ×2 (07:42→14:01)
[2017-09-23] MEDS: SODIUM BICARBONATE TAB 650 MG TAB PO SCH ×3 (07:42→23:39)
[2017-09-23] MEDS: ESCITALOPRAM 20 MG TAB PO SCH (07:43)
[2017-09-23 07:45] LABS: Calcium 8.5 mg/dL (8.4-10.2); Potassium 3.9 mmol/L (3.5-5.1)
[2017-09-23] MEDS: INSULIN ASPART 100 UNIT/ML 1 ML 10 ML VIAL SQ SCH ×2 (07:54→12:16)
[2017-09-23] MEDS: LEVOFLOXACIN 500MG-D5W PMX 500 MG in DEXTROSE/WATER 1 100ML.BAG IVPB SCH (09:37)
[2017-09-23 11:37] LABS: Glucose,Whole Blood 357 mg/dL (75-99)
[2017-09-23 12:41] LABS: ABG Base Excess -8.9 mmol/L; ABG HCO3 18 mmol/L (21-25); ABG Oxygen Saturation 97.5 % (94-97); ABG PCO2 37 mmHg (35-45); ABG PH 7.29 (7.35-7.45); ABG PO2 100 mmHg (83-108); ABG TCO2 19 mmol/L (19-24)
[2017-09-23 12:53] LABS: Anisocytosis Slight; Basophils % (A) 0 %; Eosinophils % (A) 0 %; HCT 29.7 % (39.0-53.0); HGB 9.3 gm/dL (13.0-17.5); Hypochromasia Slight; Lymphocytes # (A) 0.3 k/uL (1.0-4.8); Lymphocytes % (A) 2 %; MCH 27.5 pg (25.0-35.0); MCHC 31.3 g/dL (31.0-37.0); MCV 87.8 fL (80.0-100.0); Mean Platelet Volume 7.7; Monocytes # (A) 0.6 k/uL (0-1.0); Monocytes % (A) 4 %; Neutrophils # (A) 14.1 k/uL (1.3-7.7); Neutrophils % (A) 93 %; Platelet Count 323 k/uL (150-450); RBC 3.38 m/uL (4.30-5.90); RDW 18.4 % (11.5-15.5); WBC 15.1 k/uL (3.8-10.6)
[2017-09-23] MEDS ORDERED: INSULIN REGULAR BOLUS (FROM DRIP BAG) IV PRN (12:53)
--- NOTE | 2017-09-23 12:55 | PN ---
PROGRESS NOTE Patient is seen for followup for acute kidney injury. His creatinine is improved from 5.8 on initial admission to 3.0 now. Patient is maintained on aggressive IV hydration. PHYSICAL EXAMINATION: Blood pressure today is 118/68, heart rate 83 per minute. He is afebrile. Examination of the heart, S1, S2. Examination of the lungs, bilateral breath sounds are heard. Abdomen is soft, nontender. Examination of the lower extremities shows no evidence of edema. EMPLOYEE DEVELOPMENT DIRECTOR exam is grossly intact. LABS: Show sodium 136, potassium 3.9, BUN 62, serum creatinine 3.0. ASSESSMENT: 1. Acute kidney injury, prerenal, currently improving with IV fluids. 2. Intravascular volume depletion, maintained on IV fluids. 3. Type 2 diabetes. 4. History of bipolar disorder. 5. Metabolic acidosis on oral sodium bicarb, which we will continue. PLAN: Continue with IV hydration. Repeat labs in a.m.. MMODL / IJN: [id number] /
--- NOTE | 2017-09-23 12:56 | XR ---
EXAMINATION TYPE: XR chest 1V portable DATE OF EXAM: 09/23/2017 COMPARISON: 09/22/2017 HISTORY: Shortness of breath TECHNIQUE: Frontal and lateral views of the chest are obtained. FINDINGS: Scattered senescent parenchymal changes noted. Hyperinflation compatible with COPD. Increased settling predominantly alveolar infiltrates left midlung zone and left lower lobe as well a s right mid lung zone. Correlate for underlying pneumonia. Heart size is stable. Mediastinal structures are stable and grossly unremarkable. No evidence for hilar prominence. Degenerative changes dorsal spine. IMPRESSION: 1. Increased settling predominantly alveolar infiltrates left midlung zone and left lower lobe as wel l as right mid lung zone. Correlate for underlying pneumonia.
[2017-09-23 13:52] LABS: Glucose,Whole Blood 373 mg/dL (75-99)
[2017-09-23] MEDS: SODIUM CHLORIDE 0.9% 1,000 ML IV SCH ×2 (13:59→18:37)
[2017-09-23] MEDS ORDERED: FUROSEMIDE 10 MG/ML 4 ML VIAL IV STA (14:26)
--- NOTE | 2017-09-23 14:34 | PN ---
PROGRESS NOTE DATE OF SERVICE: 09/23/2017 NEW DATA: Height 5 feet 5 inches. Weight 68.6 kg. BSA 1.76 meter square. BMI 25.2 kg/ meter square. ALLERGY AND ADVERSE EFFECT: PENICILLINS and ASPARTAME. The patient seen today evaluated on the date of service of 09/23/2017. At the time we seen patient, he has underlying acute hypoxemia with the oxygen saturation 54 and he had started to get the chest x-ray and I looked at it with the screen the portable and it appeared to be increased reticulation and questionable the infiltrate on the left lung. Also he was started on high-flow oxygen at 15 L until he will be transferred to telemetry units or ICU per the Critical Care Team, Dr. Cervantes. His laboratory, the ABGs was indicating his metabolic acidosis and that could be associated with the renal failure and the carbon dioxide 17. Today in spite that he is started on bicarb 325 mg twice a day and probably will be increasing. His estimated glomerular filtration rate is 21 and his blood sugar has been from the 200 to 300 persistently in spite that we increased his insulin to scale with NovoLog to steroid and adjust it as well and probably also with the adding Lantus and probably patient may be on insulin drip. His lactic acid has been also elevated and probably causing increase of the acidosis and could be associated with respiratory as well or mixed type and his lactic acid as I ordered it yesterday and found to be 3 lactic acid and prior to that was 2.7. His urinalysis today was 2+ glucose and no ketones. As the blood sugar was fluctuating between 348 and 357, and the lactic acid back again to 1.4 and calcium is 8.5. His ABG was indicating that a pH of 7.29 and the bicarb is 18, - 8.9. His sodium was 136 today, as well as the carbon dioxide. The patient on admission he has acute kidney injury associated with elevated creatinine to 5.8, as well as BUN. On reviewing the note of Dr. Angeles and consultation and she indicating in her note that her impression that the patient had acute kidney injury, likely prerenal some improvement with IV hydration and the patient may likely acute ATN and hypovolemia. She recommended checking the urine analysis which negative. Metabolic acidosis secondary advanced renal failure and will be maintained on sodium bicarb and we will continue that. However, the dose is minor and I will be adjusting it today. He had a GERD disease and he had a bipolar disorder and dyslipidemia and he is on Lipitor. She advised to the IV fluid and ultrasound of the kidney and patient does not need renal replacement therapy at this time. With continuation of the current vital sign indicating temperature today afebrile, 97.8, pulse rate 83, blood pressure 118/68 with mean 84. He has high flow at this time with the desaturation to 54 with acute hypoxemia. He had underlying IPF, which is deteriorating. On the chest x-ray that was done and we do not have the official report yet, however, I did look at it and it seems to me that there is some worsening of the left lung and retrocardiac with the underlying reticulation and progression of the disease to 2/3 of the left lung and with also fluffy infiltrate. We did order the urine for Legionella and it is sent out and we do not have the results yet available to us. On examination, patient is still conscious, alert, oriented. He has no confusion. He has a Ventimask for high-flow oxygen. His lung is respiratory expiratory dry rhonchi mainly the x-ray was affected on the left side more than right side, but present bilaterally with the extension to the upper lobe on the left and retrocardiac. The heart is currently tachycardic that is because of the current emotion and the hypoxemia that started and the PA of Dr. Cervantes is present at the time of the discussion and she told me that the patient will be moved up to selective or ICU . His abdomen is soft, positive bowel sounds and extremities no edema. His medications has been continued the same including the steroid, however, the steroid has been adjusted and because of the high sugar glucose in the blood due to the steroid effect with the underlying diabetes mellitus. He is currently getting now 40 mg of IV methylprednisolone every 8 hours per the Pulmonary and he is also getting the sodium bicarb, which we will be addressing that to increase it from 325 to 650 three times a day. His blood pressure as mentioned 118/68 and the patient unstable at this time and will be moved to pvc monitor bed upstairs or the ICU per the Critical Care order and continue the insulin and probably he may be on insulin drips for controlling blood sugars. The patient's prognosis is guarded with his underlyin. IPF. 2. Interstitial pneumonitis. 3. Underlying other viral versus bacterial pneumonia as well. 4. History of chronic obstructive pulmonary disease as well as underlying gastroesophageal reflux disease as well. PLAN: Continue the current treatment. Check laboratory tomorrow and he had a chest x-ray today as mentioned above. Continue the antibiotic. MMODL / IJN: [id number] /
--- NOTE | 2017-09-23 14:52 | P.PN ---
Subjective Progress Note Date: 09/23/17 This is a 62-year-old male patient, 1 on my own patients from the office, was seen today in our office for increased shortness of breath. The patient comes in with a one-week history of cough, fever and chills and shortness of breath and his condition was progressively getting worse. The patient had a chest x- ray showed airspace disease in the right upper lobe and the left upper lobe worse compared to the previous chest x-rays was done our office. He was also found to be more hypoxic and his pulse ox was in the 70s on room air. Note that he was not on any home oxygen prior. The patient was seen in our office and he was advised to be admitted to the hospital for antibiotic treatment for possible pneumonia. For that reason he was sent over to the hospital and a pulmonary consultation was requested also. The initial blood work also showed a component of acute kidney injury. The patient's creatinine was up to 5.8. Upon further questioning, the patient reported that he was having migraine headaches and he was getting high dose Motrin for headaches and he has taken around 5-6 tablets. At the same time he was having some diarrhea approximately 3 days ago which ultimately subsided. Currently does not have any ongoing diarrhea and nausea vomiting or abdominal pain. The patient noted some diminished urine output over the past 24 hours. The patient is not known to have any previous history of kidney injury is of kidney failures. No nephrolithiasis. The patient also admitted to have exposure to a friend who was hospitalized down in amount, as for an underlying pneumonia. This patient is known to me. I saw him in consultation on 06/17/2017. The patient as part of further workup underwent a high-resolution CAT scan of the chest and upon review of the films there is extensive emphysema in the upper lobes bilaterally addition to subpleural pulmonary fibrosis involving the lower lobes and early changes of honeycombing in the lung bases. This was consistent with IPF based on the radiographic findings. The pulmonary function test showed an FVC of 74% and a total lung capacity of 64% with a diffusion capacity of 50% of predicted consistent with a component of restrictive lung disease. His room air pulse ox back then was 97% and the patient back then did not qualify for oxygen. The patient was trying to quit smoking. Based on the overall clinical picture, I recommended this patient to start on anti-fibrotic treatment and the patient was started on Ovef, nintadanib, after confirming the patient's liver function tests her baseline were within normal limits. He was asked to continue the Ventolin rescue inhaler mastoids basis. Smoking cessation counseling was also done in the office back in June 2017. 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 He is living in [facility]. He lives in a farm. He has outdoor animals including a goat and a Pig and a horse. He has no exposure to birds products. No exposure to chicken, pigeons or doves. On 09/22/2017 patient seen again in follow-up on medical surgical floor. Resting in bed, still complaining of weakness and fatigue. But overall is feeling better. Not bringing up any sputum, denies any chest wall tenderness, lung sounds are positive for coarse crackles over left lower lobe, no wheezing. Today's labs were reviewed, and a PVC 7.7, hemoglobin is 10.6, renal profile is improving, BUN is down to 60, creatinine is 4.29. Patient is remains on IV hydration, receiving 0.9 normal saline at a rate of 100 per hour. Patient remains on empiric coverage in the form of Azactam, and Levaquin, today's chest x-ray showed multifocal reticular opacity pneumonia in the left lower and left upper lobe On 09/23/2017, the patient was seen in follow-up. I noted that the patient was progressively getting more short of breath and lethargic. Earlier this morning the patient became significantly hypoxic and he desaturated. He was placed on 100% nonrebreather facemask. A chest x-ray was done and showed worsening of the right the pulmonary infiltrates with increased alveolar infiltrates in the left midlung zone on the left lower lobe as well as the right midlung area. Note that the patient was already covered with antibiotics and was receiving a combination of Levaquin and aztreonam. Afebrile. Hemodynamically stable currently 100% on a beta facemasks. Blood gases was done and showed a pH of 7.29 with a pCO2 of 37 and pO2 100%. The patient got transferred to the ICU. No chest pain. No fever. No chills. No nausea. No vomiting. No diarrhea. He was receiving normal saline at the rate of 100 mL an hour and the creatinine is down to 3.0. Objective - Vital Signs Vital signs: Vital Signs Temp 97.8 F 09/23/17 05:17 Pulse 69 09/23/17 11:00 Resp 16 09/23/17 07:55 BP 118/68 09/23/17 05:17 Pulse Ox 90 L 09/23/17 05:17 Intake & Output 09/22/17 09/23/17 09/23/17 18:59 06:59 18:59 Intake Total 800 750 20 Output Total 400 0 Balance 800 350 20 Weight 68.6 kg Intake: IV 20 Sodium Chloride 0.9% 1, 20 000 ml @ 100 mls/hr IV . Q10H JIMENEZ Rx#:[id number] Intake, IV Titration 800 750 Amount Aztreonam 1 gm In Sodium 50 Chloride 0.9% 50 ml @ 50 mls/hr IVPB Q8HR JIMENEZ Rx#: [id number] Aztreonam 2 gm In Sodium 100 Chloride 0.9% 100 ml @ 100 mls/hr IVPB Q8HR JIMENEZ Rx#:[id number] Sodium Chloride 0.9% 1, 700 700 000 ml @ 100 mls/hr IV . Q10H JIMENEZ Rx#:[id number] Output: Urine 400 0 Other: Voiding Method Toilet Toilet Toilet # Voids 1 0 - Exam General Appearance no diaphoresis, no respiratory distress, speech not interrupted by breaths, no dyspnea, no pallor, not cachectic, well nourished, appears well HEENT no pursed lip breathing, no jugular venous distention, no mucous membrane cyanosis, no perioral cyanosis, mallampati classification: class 1 Chest no barrel chest, no retractions, no sternocleidomastoid muscle contractions, no supraclavicular retractions, no intercostal retractions, no decreased air movement, no rhonchi, no hyperinflation, (normal) adventitious sounds: rales / crackles: bilaterally: midlung sanchez, decreased air movement ( crackles in the lung bases, worse over left posterior lower lobe) Heart no right ventricular heave, no distant heart sounds, no s3 gallop, (normal ) jugular vein: jugular venous distention: by 0cm, (normal) jugular vein GI bowel sounds: hyperactive (borborygmi), bowel sounds: diminished or absent Extremities no cyanosis, no clubbing, no edema Neurologic no decreased mental status, no somnolence, no confusion Assisstive Devices: ambulates with no assitive devices Gait and Mobility: gait WNL, full weight bearing Examination of the skin revealed no evidence of significant rashes, suspicious appearing nevi or other concerning lesions. - Labs CBC & Chem 7: 09/23/17 12:34 09/23/17 07:15 Labs: Abnormal Lab Results - Last 24 Hours (Table) 09/21/17 09/22/17 09/22/17 Range/Units 17:41 16:56 19:52 WBC (3.8-10.6) k/uL RBC (4.30-5.90) m/uL Hgb (13.0-17.5) gm/dL Hct (39.0-53.0) % RDW (11.5-15.5) % Neutrophils # (1.3-7.7) k/uL Lymphocytes # (1.0-4.8) k/uL ABG pH (7.35-7.45) ABG HCO3 (21-25) mmol/L ABG O2 Saturation (94-97) % Sodium (137-145) mmol/L Chloride (98-107) mmol/L Carbon Dioxide (22-30) mmol/L BUN (9-20) mg/dL Creatinine (0.66-1.25) mg/dL Glucose (74-99) mg/dL POC Glucose (mg/dL) 389 H (75-99) mg/dL Plasma Lactic Acid Heriberto 2.7 H* (0.7-2.0) mmol/L Urine Protein (Negative) Urine Glucose (UA) (Negative) Urine Legionella Ag DETECTED H (Not detected) 09/22/17 09/22/17 09/22/17 Range/Units 19:58 20:00 23:45 WBC (3.8-10.6) k/uL RBC (4.30-5.90) m/uL Hgb (13.0-17.5) gm/dL Hct (39.0-53.0) % RDW (11.5-15.5) % Neutrophils # (1.3-7.7) k/uL Lymphocytes # (1.0-4.8) k/uL ABG pH (7.35-7.45) ABG HCO3 (21-25) mmol/L ABG O2 Saturation (94-97) % Sodium (137-145) mmol/L Chloride (98-107) mmol/L Carbon Dioxide (22-30) mmol/L BUN (9-20) mg/dL Creatinine (0.66-1.25) mg/dL Glucose (74-99) mg/dL POC Glucose (mg/dL) 395 H 407 H (75-99) mg/dL Plasma Lactic Acid Heriberto 3.0 H* (0.7-2.0) mmol/L Urine Protein (Negative) Urine Glucose (UA) (Negative) Urine Legionella Ag (Not detected) 09/23/17 09/23/17 09/23/17 Range/Units 02:10 04:58 07:07 WBC (3.8-10.6) k/uL RBC (4.30-5.90) m/uL Hgb (13.0-17.5) gm/dL Hct (39.0-53.0) % RDW (11.5-15.5) % Neutrophils # (1.3-7.7) k/uL Lymphocytes # (1.0-4.8) k/uL ABG pH (7.35-7.45) ABG HCO3 (21-25) mmol/L ABG O2 Saturation (94-97) % Sodium (137-145) mmol/L Chloride (98-107) mmol/L Carbon Dioxide (22-30) mmol/L BUN (9-20) mg/dL Creatinine (0.66-1.25) mg/dL Glucose (74-99) mg/dL POC Glucose (mg/dL) 376 H 348 H (75-99) mg/dL Plasma Lactic Acid Heriberto (0.7-2.0) mmol/L Urine Protein Trace H (Negative) Urine Glucose (UA) 2+ H (Negative) Urine Legionella Ag (Not detected) 09/23/17 09/23/17 09/23/17 Range/Units 07:15 11:36 12:30 WBC (3.8-10.6) k/uL RBC (4.30-5.90) m/uL Hgb (13.0-17.5) gm/dL Hct (39.0-53.0) % RDW (11.5-15.5) % Neutrophils # (1.3-7.7) k/uL Lymphocytes # (1.0-4.8) k/uL ABG pH 7.29 L (7.35-7.45) ABG HCO3 18 L (21-25) mmol/L ABG O2 Saturation 97.5 H (94-97) % Sodium 136 L (137-145) mmol/L Chloride 108 H (98-107) mmol/L Carbon Dioxide 17 L (22-30) mmol/L BUN 62 H (9-20) mg/dL Creatinine 3.00 H (0.66-1.25) mg/dL Glucose 299 H (74-99) mg/dL POC Glucose (mg/dL) 357 H (75-99) mg/dL Plasma Lactic Acid Heriberto (0.7-2.0) mmol/L Urine Protein (Negative) Urine Glucose (UA) (Negative) Urine Legionella Ag (Not detected) 09/23/17 09/23/17 Range/Units 12:34 13:50 WBC 15.1 H (3.8-10.6) k/uL RBC 3.38 L (4.30-5.90) m/uL Hgb 9.3 L (13.0-17.5) gm/dL Hct 29.7 L (39.0-53.0) % RDW 18.4 H (11.5-15.5) % Neutrophils # 14.1 H (1.3-7.7) k/uL Lymphocytes # 0.3 L (1.0-4.8) k/uL ABG pH (7.35-7.45) ABG HCO3 (21-25) mmol/L ABG O2 Saturation (94-97) % Sodium (137-145) mmol/L Chloride (98-107) mmol/L Carbon Dioxide (22-30) mmol/L BUN (9-20) mg/dL Creatinine (0.66-1.25) mg/dL Glucose (74-99) mg/dL POC Glucose (mg/dL) 373 H (75-99) mg/dL Plasma Lactic Acid Heriberto (0.7-2.0) mmol/L Urine Protein (Negative) Urine Glucose (UA) (Negative) Urine Legionella Ag (Not detected) Microbiology - Last 24 Hours (Table) 09/21/17 14:29 Blood Culture - Preliminary Blood No Growth after 24 hours 09/21/17 14:23 Blood Culture - Preliminary Blood No Growth after 24 hours Assessment and Plan Plan: Assessment 1 acute hypoxic history failure, likely on the basis of an underlying pneumonia. The patient's condition decompensated on today's evaluation the patient was found to be progressively more hypoxic and currently is on NONREBREATHER FACEMASK WITH INTERVAL WORSENING OF THE BILATERAL PULMONARY INFILTRATES. RULE OUT WORSENING PNEUMONIA. RULE OUT DEVELOPMENT OF FLUID OVERLOAD/CHF. 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 The patient had a creatinine of 5.8 and the patient was resuscitated IV fluids and currently the creatinine is down to 3.0. 5 hyperlipidemia 6 diabetes mellitus 7 smoker 8 depression 9 abnormal LFTs, probably secondary to OVEF 10 hypertension 11 acid reflux 12 non-anion gap metabolic acidosis 13 chronic anemia Plan Hold the patient to the intensive care unit. Kept on IV fluids to 40 mL an hour. Given a dose of Lasix 40 mg IV push. Obtain an echocardiogram. Stopped aztreonam and broaden antibiotic coverage to include a combination of cefepime and Levaquin. Keep the 100% nonrebreather facemask. Continue the bronchodilators. Continue the systemic steroids. Continue monitoring the renal function. We'll continue to follow.
[2017-09-23 15:03] LABS: Glucose,Whole Blood 363 mg/dL (75-99)
[2017-09-23] MEDS: INSULIN REGULAR 100 UNIT in SODIUM CHLORIDE 0.9% 100 ML IV SCH ×2 (15:05→21:49)
[2017-09-23 15:20] LABS: Glucose,Whole Blood 369 mg/dL (75-99)
[2017-09-23 15:31] LABS: Glucose,Whole Blood 373 mg/dL (75-99)
[2017-09-23 15:44] LABS: Glucose,Whole Blood 356 mg/dL (75-99)
[2017-09-23 16:03] LABS: Glucose,Whole Blood 347 mg/dL (75-99)
[2017-09-23 16:18] LABS: Glucose,Whole Blood 344 mg/dL (75-99)
[2017-09-23] MEDS: CEFEPIME 2 GM in SODIUM CHLORIDE 0.9% 50 ML IVPB SCH (16:45)
[2017-09-23 16:51] LABS: Glucose,Whole Blood 307 mg/dL (75-99)
[2017-09-23 17:57] LABS: Glucose,Whole Blood 236 mg/dL (75-99)
[2017-09-23] MEDS ORDERED: VANCOMYCIN IV PER PHARMACY 1 EACH MISC MISCELLANE PRN (18:32)
[2017-09-23 18:58] LABS: Glucose,Whole Blood 251 mg/dL (75-99)
[2017-09-23] MEDS ORDERED: VANCOMYCIN 1,500 MG in SODIUM CHLORIDE 0.9% 250 ML IVPB ONE (19:00)
[2017-09-23 19:05] LABS: Glucose,Whole Blood 228 mg/dL (75-99)
[2017-09-23 20:13] LABS: Glucose,Whole Blood 226 mg/dL (75-99)
[2017-09-23 20:50] LABS: Glucose,Whole Blood 230 mg/dL (75-99)
[2017-09-23] MEDS ORDERED: INSULIN DETEMIR 100 UNIT/ML 10 ML VIAL SQ SCH (21:00)
[2017-09-23] MEDS: ATORVASTATIN 40 MG TAB PO SCH (21:34)
[2017-09-23] MEDS: ASPIRIN 81 MG PO SCH (21:34)
[2017-09-23] MEDS: ALPRAZolam 0.5 MG TAB PO SCH (21:34)
[2017-09-23 21:49] LABS: Glucose,Whole Blood 256 mg/dL (75-99)
[2017-09-23 22:31] LABS: Glucose,Whole Blood 265 mg/dL (75-99)
[2017-09-23 23:27] LABS: Glucose,Whole Blood 222 mg/dL (75-99)
[2017-09-24] MEDS: HEPARIN SODIUM,PORCINE 5,000 UNIT/ML 1 ML VIAL SQ SCH ×3 (00:07→16:41)
[2017-09-24] MEDS: methylPREDNISolone SOD SUCCI 40 MG/ML 1 ML VIAL IV SCH ×3 (00:07→16:42)
[2017-09-24 00:11] LABS: Glucose,Whole Blood 240 mg/dL (75-99)
[2017-09-24 00:59] LABS: Glucose,Whole Blood 194 mg/dL (75-99)
[2017-09-24 02:12] LABS: Glucose,Whole Blood 186 mg/dL (75-99)
[2017-09-24] MEDS: CEFEPIME 2 GM in SODIUM CHLORIDE 0.9% 50 ML IVPB SCH (02:44)
[2017-09-24 02:59] LABS: Glucose,Whole Blood 184 mg/dL (75-99)
[2017-09-24 03:58] LABS: Glucose,Whole Blood 140 mg/dL (75-99)
[2017-09-24] MEDS: INSULIN REGULAR 100 UNIT in SODIUM CHLORIDE 0.9% 100 ML IV SCH ×2 (03:58→15:55)
[2017-09-24 05:01] LABS: Glucose,Whole Blood 144 mg/dL (75-99)
[2017-09-24 06:04] LABS: Anisocytosis Slight; Basophils % (A) 0 %; Eosinophils % (A) 0 %; HCT 29.9 % (39.0-53.0); HGB 9.4 gm/dL (13.0-17.5); Hypochromasia Slight; Lymphocytes # (A) 0.2 k/uL (1.0-4.8); Lymphocytes % (A) 1 %; MCH 27.8 pg (25.0-35.0); MCHC 31.5 g/dL (31.0-37.0); MCV 88.3 fL (80.0-100.0); Mean Platelet Volume 8.3; Monocytes # (A) 0.7 k/uL (0-1.0); Monocytes % (A) 4 %; Neutrophils # (A) 15.6 k/uL (1.3-7.7); Neutrophils % (A) 94 %; Platelet Count 364 k/uL (150-450); RBC 3.39 m/uL (4.30-5.90); RDW 18.7 % (11.5-15.5); WBC 16.7 k/uL (3.8-10.6)
[2017-09-24 06:05] LABS: Glucose,Whole Blood 149 mg/dL (75-99)
[2017-09-24 06:20] LABS: ABG Base Excess -4.7 mmol/L; ABG HCO3 22 mmol/L (21-25); ABG Oxygen Saturation 93.5 % (94-97); ABG PCO2 47 mmHg (35-45); ABG PH 7.28 (7.35-7.45); ABG PO2 74 mmHg (83-108); ABG TCO2 24 mmol/L (19-24)
[2017-09-24 06:31] LABS: Albumin 2.7 g/dL (3.5-5.0); Calcium 8.9 mg/dL (8.4-10.2); Magnesium 2.3 mg/dL (1.6-2.3); Phosphorus 3.7 mg/dL (2.5-4.5); Total Bilirubin 0.5 mg/dL (0.2-1.3); Total Protein 5.7 g/dL (6.3-8.2)
--- NOTE | 2017-09-24 06:54 | XR ---
EXAMINATION TYPE: XR chest 1V DATE OF EXAM: 09/24/2017 HISTORY: pneumonia. REFERENCE: Previous study dated 09/23/2017. FINDINGS: There is worsening, bilateral airspace disease. The heart is enlarged. No definite pleural fluid is seen. IMPRESSION: 1. WORSENING, BILATERAL INFILTRATES. 2. CARDIOMEGALY.
[2017-09-24 07:01] LABS: Glucose,Whole Blood 125 mg/dL (75-99)
[2017-09-24] MEDS: BUDESONIDE 0.5 MG/2 ML NEBU INHALATION SCH ×3 (08:07→20:15)
[2017-09-24] MEDS: IPRATROPIUM-ALBUTEROL 3 ML NEB INHALATION SCH ×5 (08:07→20:15)
[2017-09-24 08:09] LABS: Glucose,Whole Blood 148 mg/dL (75-99)
[2017-09-24] MEDS: PANTOPRAZOLE 40 MG TABLET PO SCH (08:19)
[2017-09-24] MEDS: buPROPion XL 150 MG TAB.ER.24H PO SCH (08:20)
[2017-09-24] MEDS: lamoTRIgine 100 MG TAB PO SCH (08:20)
[2017-09-24] MEDS: ESCITALOPRAM 20 MG TAB PO SCH (08:21)
[2017-09-24] MEDS: SODIUM BICARBONATE TAB 650 MG TAB PO SCH ×3 (08:21→21:42)
[2017-09-24] MEDS: METHYLPHENIDATE HCL 5 MG TAB PO SCH (08:45)
--- NOTE | 2017-09-24 08:45 | ECHOF ---
Referral Reason:shortness of breath, hypoxemia MEASUREMENTS -------- HEIGHT: 165.1 cm WEIGHT: 68.5 kg BP: 131/65 IVSd: 1.3 cm (0.6 - 1.1) LVIDd: 3.5 cm (3.9 - 5.3) LVPWd: 1.2 cm (0.6 - 1.1) IVSs: 1.6 cm LVIDs: 3.3 cm LVPWs: 1.1 cm LA Diam: 2.8 cm (2.7 - 3.8) LAESV Index (A-L): 26.34 ml/m Ao Diam: 3.5 cm (2.0 - 3.7) AV Cusp: 1.7 cm (1.5 - 2.6) LA Diam: 3.7 cm (2.7 - 3.8) MV EXCURSION: 20.130 mm (> 18.000) MV EF SLOPE: 103 mm/s (70 - 150) EPSS: 0.4 cm MV E Lamont: 1.23 m/s MV DecT: 285 ms MV A Lamont: 1.13 m/s MV E/A Ratio: 1.09 RAP: 5.00 mmHg RVSP: 73.56 mmHg FINDINGS -------- Sinus rhythm. This was a technically adequate study. The left ventricular size is normal. There is mild concentric left ventricular hypertrophy. Overa ll left ventricular systolic function is normal with, an EF between 55 - 60 %. The right ventricle is normal in size. The left atrial size is normal. The right atrial size is normal. There is mild aortic valve sclerosis. There is no evidence of aortic regurgitation. Mild mitral annular calcification present. Mild mitral regurgitation is present. Mild tricuspid regurgitation present. There is moderate to severe pulmonary hypertension. The rig ht ventricular systolic pressure, as measured by Doppler, is 73.56mmHg. Trace/mild (physiologic) pulmonic regurgitation. The aortic root size is normal. Normal inferior vena cava with normal inspiratory collapse consistent with estimated right atrial pre ssure of 5 mmHg. There is no pericardial effusion. CONCLUSIONS -------- 1. The left ventricular size is normal. 2. There is mild concentric left ventricular hypertrophy. 3. Overall left ventricular systolic function is normal with, an EF between 55 - 60 %. 4. The right ventricle is normal in size. 5. The left atrial size is normal. 6. The right atrial size is normal. 7. There is mild aortic valve sclerosis. 8. Mild mitral annular calcification present. 9. Mild mitral regurgitation is present. 10. Mild tricuspid regurgitation present. 11. There is moderate to severe pulmonary hypertension. 12. The right ventricular systolic pressure, as measured by Doppler, is 73.56mmHg. 13. Trace/mild (physiologic) pulmonic regurgitation. 14. The aortic root size is normal. 15. Normal inferior vena cava with normal inspiratory collapse consistent with estimated right atrial pressure of 5 mmHg. 16. There is no pericardial effusion. CORE DRILLING SUPERVISOR: Jordana Min RDCS
[2017-09-24 09:02] LABS: Glucose,Whole Blood 170 mg/dL (75-99)
[2017-09-24] MEDS ORDERED: PROPOFOL 100 ML IV ONE (09:57)
[2017-09-24] MEDS ORDERED: CISATRACURIUM 2 MG/ML 5 ML VIAL IV ONE ×3 (09:59→14:23)
[2017-09-24 10:10] LABS: Glucose,Whole Blood 173 mg/dL (75-99)
--- NOTE | 2017-09-24 10:49 | P.PN ---
Subjective Patient is seen in follow-up for acute kidney injury. Renal function continues to improve with creatinine down to 2.6 today. Patient was intubated this morning. He is noted to have Legionella pneumonia. He is nonoliguric. He is currently maintained on normal saline at 40 mL an hour. Not on pressors. Vital signs are stable. General: Intubated. HEENT: Head exam is unremarkable. Neck is without jugular venous distension. LUNGS: Scattered rhonchi. HEART: Rate and Rhythm are regular. First and second heart sounds normal. No murmurs, rubs or gallops. ABDOMEN: Abdominal exam reveals normal bowel sounds. Non-tender and non- distended. No evidence of peritonitis. EXTREMITITES: No clubbing, cyanosis, or edema. Objective - Vital Signs Vital signs: Vital Signs Temp 98.6 F 09/24/17 04:00 Pulse 100 09/24/17 08:20 Resp 41 H 09/24/17 08:00 BP 125/63 09/24/17 08:00 Pulse Ox 93 L 09/24/17 08:00 Intake & Output 09/23/17 09/24/17 09/24/17 18:59 06:59 18:59 Intake Total 273.092 658.119 118.986 Output Total 800 1150 0 Balance -526.908 -491.881 118.986 Weight 68.6 kg 63.1 kg Intake: IV 210 530 80 Cefepime 2 gm In Sodium 50 50 Chloride 0.9% 50 ml @ 100 mls/hr IVPB Q12H [facility] Rx# :[id number] Sodium Chloride 0.9% 1, 160 480 80 000 ml @ 40 mls/hr IV . Q24H [facility] Rx#:[id number] Intake, IV Titration 63.092 128.119 38.986 Amount Insulin Regular 100 unit 63.092 128.119 38.986 In Sodium Chloride 0.9% 100 ml @ Per Protocol IV .Q0M [facility] Rx#:[id number] Output: Urine 800 1150 0 Other: Voiding Method Toilet Urinal Urinal # Voids 0 0 0 - Labs CBC & Chem 7: 09/24/17 05:05 09/24/17 05:05 Labs: Abnormal Lab Results - Last 24 Hours (Table) 09/21/17 09/23/17 09/23/17 Range/Units 17:41 11:36 12:30 WBC (3.8-10.6) k/uL RBC (4.30-5.90) m/uL Hgb (13.0-17.5) gm/dL Hct (39.0-53.0) % RDW (11.5-15.5) % Neutrophils # (1.3-7.7) k/uL Lymphocytes # (1.0-4.8) k/uL ABG pH 7.29 L (7.35-7.45) ABG pCO2 (35-45) mmHg ABG pO2 (83-108) mmHg ABG HCO3 18 L (21-25) mmol/L ABG O2 Saturation 97.5 H (94-97) % Chloride (98-107) mmol/L Carbon Dioxide (22-30) mmol/L BUN (9-20) mg/dL Creatinine (0.66-1.25) mg/dL Glucose (74-99) mg/dL POC Glucose (mg/dL) 357 H (75-99) mg/dL AST (17-59) U/L ALT (21-72) U/L Alkaline Phosphatase (38-126) U/L Total Protein (6.3-8.2) g/dL Albumin (3.5-5.0) g/dL Urine Legionella Ag DETECTED H (Not detected) 09/23/17 09/23/17 09/23/17 Range/Units 12:34 13:50 15:01 WBC 15.1 H (3.8-10.6) k/uL RBC 3.38 L (4.30-5.90) m/uL Hgb 9.3 L (13.0-17.5) gm/dL Hct 29.7 L (39.0-53.0) % RDW 18.4 H (11.5-15.5) % Neutrophils # 14.1 H (1.3-7.7) k/uL Lymphocytes # 0.3 L (1.0-4.8) k/uL ABG pH (7.35-7.45) ABG pCO2 (35-45) mmHg ABG pO2 (83-108) mmHg ABG HCO3 (21-25) mmol/L ABG O2 Saturation (94-97) % Chloride (98-107) mmol/L Carbon Dioxide (22-30) mmol/L BUN (9-20) mg/dL Creatinine (0.66-1.25) mg/dL Glucose (74-99) mg/dL POC Glucose (mg/dL) 373 H 363 H (75-99) mg/dL AST (17-59) U/L ALT (21-72) U/L Alkaline Phosphatase (38-126) U/L Total Protein (6.3-8.2) g/dL Albumin (3.5-5.0) g/dL Urine Legionella Ag (Not detected) 09/23/17 09/23/17 09/23/17 Range/Units 15:18 15:29 15:43 WBC (3.8-10.6) k/uL RBC (4.30-5.90) m/uL Hgb (13.0-17.5) gm/dL Hct (39.0-53.0) % RDW (11.5-15.5) % Neutrophils # (1.3-7.7) k/uL Lymphocytes # (1.0-4.8) k/uL ABG pH (7.35-7.45) ABG pCO2 (35-45) mmHg ABG pO2 (83-108) mmHg ABG HCO3 (21-25) mmol/L ABG O2 Saturation (94-97) % Chloride (98-107) mmol/L Carbon Dioxide (22-30) mmol/L BUN (9-20) mg/dL Creatinine (0.66-1.25) mg/dL Glucose (74-99) mg/dL POC Glucose (mg/dL) 369 H 373 H 356 H (75-99) mg/dL AST (17-59) U/L ALT (21-72) U/L Alkaline Phosphatase (38-126) U/L Total Protein (6.3-8.2) g/dL Albumin (3.5-5.0) g/dL Urine Legionella Ag (Not detected) 09/23/17 09/23/17 09/23/17 Range/Units 16:01 16:16 16:50 WBC (3.8-10.6) k/uL RBC (4.30-5.90) m/uL Hgb (13.0-17.5) gm/dL Hct (39.0-53.0) % RDW (11.5-15.5) % Neutrophils # (1.3-7.7) k/uL Lymphocytes # (1.0-4.8) k/uL ABG pH (7.35-7.45) ABG pCO2 (35-45) mmHg ABG pO2 (83-108) mmHg ABG HCO3 (21-25) mmol/L ABG O2 Saturation (94-97) % Chloride (98-107) mmol/L Carbon Dioxide (22-30) mmol/L BUN (9-20) mg/dL Creatinine (0.66-1.25) mg/dL Glucose (74-99) mg/dL POC Glucose (mg/dL) 347 H 344 H 307 H (75-99) mg/dL AST (17-59) U/L ALT (21-72) U/L Alkaline Phosphatase (38-126) U/L Total Protein (6.3-8.2) g/dL Albumin (3.5-5.0) g/dL Urine Legionella Ag (Not detected) 09/23/17 09/23/17 09/23/17 Range/Units 17:56 18:39 19:03 WBC (3.8-10.6) k/uL RBC (4.30-5.90) m/uL Hgb (13.0-17.5) gm/dL Hct (39.0-53.0) % RDW (11.5-15.5) % Neutrophils # (1.3-7.7) k/uL Lymphocytes # (1.0-4.8) k/uL ABG pH (7.35-7.45) ABG pCO2 (35-45) mmHg ABG pO2 (83-108) mmHg ABG HCO3 (21-25) mmol/L ABG O2 Saturation (94-97) % Chloride (98-107) mmol/L Carbon Dioxide (22-30) mmol/L BUN (9-20) mg/dL Creatinine (0.66-1.25) mg/dL Glucose (74-99) mg/dL POC Glucose (mg/dL) 236 H 251 H 228 H (75-99) mg/dL AST (17-59) U/L ALT (21-72) U/L Alkaline Phosphatase (38-126) U/L Total Protein (6.3-8.2) g/dL Albumin (3.5-5.0) g/dL Urine Legionella Ag (Not detected) 09/23/17 09/23/17 09/23/17 Range/Units 20:09 20:49 21:48 WBC (3.8-10.6) k/uL RBC (4.30-5.90) m/uL Hgb (13.0-17.5) gm/dL Hct (39.0-53.0) % RDW (11.5-15.5) % Neutrophils # (1.3-7.7) k/uL Lymphocytes # (1.0-4.8) k/uL ABG pH (7.35-7.45) ABG pCO2 (35-45) mmHg ABG pO2 (83-108) mmHg ABG HCO3 (21-25) mmol/L ABG O2 Saturation (94-97) % Chloride (98-107) mmol/L Carbon Dioxide (22-30) mmol/L BUN (9-20) mg/dL Creatinine (0.66-1.25) mg/dL Glucose (74-99) mg/dL POC Glucose (mg/dL) 226 H 230 H 256 H (75-99) mg/dL AST (17-59) U/L ALT (21-72) U/L Alkaline Phosphatase (38-126) U/L Total Protein (6.3-8.2) g/dL Albumin (3.5-5.0) g/dL Urine Legionella Ag (Not detected) 09/23/17 09/23/17 09/24/17 Range/Units 22:28 23:24 00:10 WBC (3.8-10.6) k/uL RBC (4.30-5.90) m/uL Hgb (13.0-17.5) gm/dL Hct (39.0-53.0) % RDW (11.5-15.5) % Neutrophils # (1.3-7.7) k/uL Lymphocytes # (1.0-4.8) k/uL ABG pH (7.35-7.45) ABG pCO2 (35-45) mmHg ABG pO2 (83-108) mmHg ABG HCO3 (21-25) mmol/L ABG O2 Saturation (94-97) % Chloride (98-107) mmol/L Carbon Dioxide (22-30) mmol/L BUN (9-20) mg/dL Creatinine (0.66-1.25) mg/dL Glucose (74-99) mg/dL POC Glucose (mg/dL) 265 H 222 H 240 H (75-99) mg/dL AST (17-59) U/L ALT (21-72) U/L Alkaline Phosphatase (38-126) U/L Total Protein (6.3-8.2) g/dL Albumin (3.5-5.0) g/dL Urine Legionella Ag (Not detected) 09/24/17 09/24/17 09/24/17 Range/Units 00:57 02:10 02:57 WBC (3.8-10.6) k/uL RBC (4.30-5.90) m/uL Hgb (13.0-17.5) gm/dL Hct (39.0-53.0) % RDW (11.5-15.5) % Neutrophils # (1.3-7.7) k/uL Lymphocytes # (1.0-4.8) k/uL ABG pH (7.35-7.45) ABG pCO2 (35-45) mmHg ABG pO2 (83-108) mmHg ABG HCO3 (21-25) mmol/L ABG O2 Saturation (94-97) % Chloride (98-107) mmol/L Carbon Dioxide (22-30) mmol/L BUN (9-20) mg/dL Creatinine (0.66-1.25) mg/dL Glucose (74-99) mg/dL POC Glucose (mg/dL) 194 H 186 H 184 H (75-99) mg/dL AST (17-59) U/L ALT (21-72) U/L Alkaline Phosphatase (38-126) U/L Total Protein (6.3-8.2) g/dL Albumin (3.5-5.0) g/dL Urine Legionella Ag (Not detected) 09/24/17 09/24/17 09/24/17 Range/Units 03:57 04:59 05:05 WBC 16.7 H (3.8-10.6) k/uL RBC 3.39 L (4.30-5.90) m/uL Hgb 9.4 L (13.0-17.5) gm/dL Hct 29.9 L (39.0-53.0) % RDW 18.7 H (11.5-15.5) % Neutrophils # 15.6 H (1.3-7.7) k/uL Lymphocytes # 0.2 L (1.0-4.8) k/uL ABG pH (7.35-7.45) ABG pCO2 (35-45) mmHg ABG pO2 (83-108) mmHg ABG HCO3 (21-25) mmol/L ABG O2 Saturation (94-97) % Chloride (98-107) mmol/L Carbon Dioxide (22-30) mmol/L BUN (9-20) mg/dL Creatinine (0.66-1.25) mg/dL Glucose (74-99) mg/dL POC Glucose (mg/dL) 140 H 144 H (75-99) mg/dL AST (17-59) U/L ALT (21-72) U/L Alkaline Phosphatase (38-126) U/L Total Protein (6.3-8.2) g/dL Albumin (3.5-5.0) g/dL Urine Legionella Ag (Not detected) 09/24/17 09/24/17 09/24/17 Range/Units 05:05 06:04 06:14 WBC (3.8-10.6) k/uL RBC (4.30-5.90) m/uL Hgb (13.0-17.5) gm/dL Hct (39.0-53.0) % RDW (11.5-15.5) % Neutrophils # (1.3-7.7) k/uL Lymphocytes # (1.0-4.8) k/uL ABG pH 7.28 L (7.35-7.45) ABG pCO2 47 H (35-45) mmHg ABG pO2 74 L (83-108) mmHg ABG HCO3 (21-25) mmol/L ABG O2 Saturation 93.5 L (94-97) % Chloride 111 H (98-107) mmol/L Carbon Dioxide 19 L (22-30) mmol/L BUN 53 H (9-20) mg/dL Creatinine 2.60 H (0.66-1.25) mg/dL Glucose 132 H (74-99) mg/dL POC Glucose (mg/dL) 149 H (75-99) mg/dL AST 91 H (17-59) U/L ALT 79 H (21-72) U/L Alkaline Phosphatase 179 H (38-126) U/L Total Protein 5.7 L (6.3-8.2) g/dL Albumin 2.7 L (3.5-5.0) g/dL Urine Legionella Ag (Not detected) 09/24/17 09/24/17 09/24/17 Range/Units 06:59 08:06 09:00 WBC (3.8-10.6) k/uL RBC (4.30-5.90) m/uL Hgb (13.0-17.5) gm/dL Hct (39.0-53.0) % RDW (11.5-15.5) % Neutrophils # (1.3-7.7) k/uL Lymphocytes # (1.0-4.8) k/uL ABG pH (7.35-7.45) ABG pCO2 (35-45) mmHg ABG pO2 (83-108) mmHg ABG HCO3 (21-25) mmol/L ABG O2 Saturation (94-97) % Chloride (98-107) mmol/L Carbon Dioxide (22-30) mmol/L BUN (9-20) mg/dL Creatinine (0.66-1.25) mg/dL Glucose (74-99) mg/dL POC Glucose (mg/dL) 125 H 148 H 170 H (75-99) mg/dL AST (17-59) U/L ALT (21-72) U/L Alkaline Phosphatase (38-126) U/L Total Protein (6.3-8.2) g/dL Albumin (3.5-5.0) g/dL Urine Legionella Ag (Not detected) 09/24/17 Range/Units 10:08 WBC (3.8-10.6) k/uL RBC (4.30-5.90) m/uL Hgb (13.0-17.5) gm/dL Hct (39.0-53.0) % RDW (11.5-15.5) % Neutrophils # (1.3-7.7) k/uL Lymphocytes # (1.0-4.8) k/uL ABG pH (7.35-7.45) ABG pCO2 (35-45) mmHg ABG pO2 (83-108) mmHg ABG HCO3 (21-25) mmol/L ABG O2 Saturation (94-97) % Chloride (98-107) mmol/L Carbon Dioxide (22-30) mmol/L BUN (9-20) mg/dL Creatinine (0.66-1.25) mg/dL Glucose (74-99) mg/dL POC Glucose (mg/dL) 173 H (75-99) mg/dL AST (17-59) U/L ALT (21-72) U/L Alkaline Phosphatase (38-126) U/L Total Protein (6.3-8.2) g/dL Albumin (3.5-5.0) g/dL Urine Legionella Ag (Not detected) Microbiology - Last 24 Hours (Table) 09/21/17 14:29 Blood Culture - Preliminary Blood No Growth after 48 hours 09/21/17 14:23 Blood Culture - Preliminary Blood No Growth after 48 hours Assessment and Plan Plan: Assessment: 1. Nonoliguric acute kidney injury mostly prerenal improving with IV hydration. Creatinine down to 2.6 today. Urinalysis is quite benign. 2. Legionella pneumonia. Maintain on antibiotics. 3. Acute hypoxic respiratory failure secondary to pneumonia and ARDS. 4. History of pulmonary fibrosis. 5. Metabolic acidosis. 6. Diabetes mellitus. Plan: Increase normal saline to 75 mL an hour. Monitor bicarb. Avoid nephrotoxic agents and hypotensive episodes. Continue to monitor renal function and urine output closely. Wean FiO2 as tolerated.
[2017-09-24 10:52] LABS: ABG Base Excess -6.4 mmol/L; ABG HCO3 23 mmol/L (21-25); ABG Oxygen Saturation 94.8 % (94-97); ABG PCO2 65 mmHg (35-45); ABG PO2 92 mmHg (83-108); ABG TCO2 25 mmol/L (19-24)
--- NOTE | 2017-09-24 10:52 | P.PN ---
Subjective Progress Note Date: 09/24/17 Principal diagnosis: Diagnosis: #1 bilateral pneumonia with the organism probably Legionella with the positive urine antigen for Legionella. #2 respiratory failure acute #3 transferred to the ICU 614 bed 1, patient intubated by Dr. Rowland now at 10 :30 AM with the underlying bronchoscopy and NG tube placement. #4 metabolic acidosis. #5 acute renal failure with the basal lying creatinine 0.9 admitted with creatinine 5.8. #6 diabetes mellitus type 2 with the associated hyperglycemia secondary to steroid, currently insulin-dependent. 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 #8 prognosis very guarded. #9 patient on high oxygen flow and currently he will be on ventilatory. #9 patient on quinolone group for Legionella and questionable if need Bactrim IV which may cause problem with the presence of diabetes. This is a dictation on progress note date of service is 09/24/2017. Patient was on the fifth floor admitted directly from Dr. Edwards and Dr. Cervantes from the office. Patient progressively worsening, and his shortness of breath has progressed. They did the Legionella urine antigen on admission was send out and we don't have the result until today which was positive, indicating patient had Legionella disease could be contacted with different source. And it is reportable to the health department. Patient found also that he had acute kidney injury with the high creatinine on admission with the acute ATN. Patient vital sign still stable no vasopressors per. And he is now intubated. On examination prior to the intubation he was awake alert conscious, and his HEENT was negative, the lung was bilateral dry bronchitis and extended on the left side by the chest x-ray yesterday with the bilateral pneumonia. Patient is having increased respiratory rate with the progressing to ARDS. With the prognosis is worsening. His heart is tachycardic at this time with the compensation for his lung. And the abdomen was soft positive bowel sounds probably he will have also NG tube for his medication. Currently he is on bicarb tablet 650 3 times a day he still borderline acidotic. Extremities no edema and positive pulses bilateral and symmetric. The Assessment: Patient worsening condition with the underlying Legionella bilateral pneumonia, acute renal failure has been improving with the improving the creatinine with the underlying ATN. Increasing respiratory rate status post intubation today on the 714 at 10:15 AM. Plan patient in ICU. We'll continue monitoring by , monitoring the patient closely in the ICU prognosis is guarded. Objective - Vital Signs Vital signs: Vital Signs Temp 98.6 F 09/24/17 04:00 Pulse 100 09/24/17 08:20 Resp 41 H 09/24/17 08:00 BP 125/63 09/24/17 08:00 Pulse Ox 93 L 09/24/17 08:00 Intake & Output 09/23/17 09/24/17 09/24/17 18:59 06:59 18:59 Intake Total 273.092 658.119 118.986 Output Total 800 1150 0 Balance -526.908 -491.881 118.986 Weight 68.6 kg 63.1 kg Intake: IV 210 530 80 Cefepime 2 gm In Sodium 50 50 Chloride 0.9% 50 ml @ 100 mls/hr IVPB Q12H [facility] Rx# :[id number] Sodium Chloride 0.9% 1, 160 480 80 000 ml @ 40 mls/hr IV . Q24H [facility] Rx#:[id number] Intake, IV Titration 63.092 128.119 38.986 Amount Insulin Regular 100 unit 63.092 128.119 38.986 In Sodium Chloride 0.9% 100 ml @ Per Protocol IV .Q0M [facility] Rx#:[id number] Output: Urine 800 1150 0 Other: Voiding Method Toilet Urinal Urinal # Voids 0 0 0 - Labs CBC & Chem 7: 09/24/17 05:05 09/24/17 05:05 Labs: Abnormal Lab Results - Last 24 Hours (Table) 09/21/17 09/23/17 09/23/17 Range/Units 17:41 11:36 12:30 WBC (3.8-10.6) k/uL RBC (4.30-5.90) m/uL Hgb (13.0-17.5) gm/dL Hct (39.0-53.0) % RDW (11.5-15.5) % Neutrophils # (1.3-7.7) k/uL Lymphocytes # (1.0-4.8) k/uL ABG pH 7.29 L (7.35-7.45) ABG pCO2 (35-45) mmHg ABG pO2 (83-108) mmHg ABG HCO3 18 L (21-25) mmol/L ABG O2 Saturation 97.5 H (94-97) % Chloride (98-107) mmol/L Carbon Dioxide (22-30) mmol/L BUN (9-20) mg/dL Creatinine (0.66-1.25) mg/dL Glucose (74-99) mg/dL POC Glucose (mg/dL) 357 H (75-99) mg/dL AST (17-59) U/L ALT (21-72) U/L Alkaline Phosphatase (38-126) U/L Total Protein (6.3-8.2) g/dL Albumin (3.5-5.0) g/dL Urine Legionella Ag DETECTED H (Not detected) 09/23/17 09/23/17 09/23/17 Range/Units 12:34 13:50 15:01 WBC 15.1 H (3.8-10.6) k/uL RBC 3.38 L (4.30-5.90) m/uL Hgb 9.3 L (13.0-17.5) gm/dL Hct 29.7 L (39.0-53.0) % RDW 18.4 H (11.5-15.5) % Neutrophils # 14.1 H (1.3-7.7) k/uL Lymphocytes # 0.3 L (1.0-4.8) k/uL ABG pH (7.35-7.45) ABG pCO2 (35-45) mmHg ABG pO2 (83-108) mmHg ABG HCO3 (21-25) mmol/L ABG O2 Saturation (94-97) % Chloride (98-107) mmol/L Carbon Dioxide (22-30) mmol/L BUN (9-20) mg/dL Creatinine (0.66-1.25) mg/dL Glucose (74-99) mg/dL POC Glucose (mg/dL) 373 H 363 H (75-99) mg/dL AST (17-59) U/L ALT (21-72) U/L Alkaline Phosphatase (38-126) U/L Total Protein (6.3-8.2) g/dL Albumin (3.5-5.0) g/dL Urine Legionella Ag (Not detected) 09/23/17 09/23/17 09/23/17 Range/Units 15:18 15:29 15:43 WBC (3.8-10.6) k/uL RBC (4.30-5.90) m/uL Hgb (13.0-17.5) gm/dL Hct (39.0-53.0) % RDW (11.5-15.5) % Neutrophils # (1.3-7.7) k/uL Lymphocytes # (1.0-4.8) k/uL ABG pH (7.35-7.45) ABG pCO2 (35-45) mmHg ABG pO2 (83-108) mmHg ABG HCO3 (21-25) mmol/L ABG O2 Saturation (94-97) % Chloride (98-107) mmol/L Carbon Dioxide (22-30) mmol/L BUN (9-20) mg/dL Creatinine (0.66-1.25) mg/dL Glucose (74-99) mg/dL POC Glucose (mg/dL) 369 H 373 H 356 H (75-99) mg/dL AST (17-59) U/L ALT (21-72) U/L Alkaline Phosphatase (38-126) U/L Total Protein (6.3-8.2) g/dL Albumin (3.5-5.0) g/dL Urine Legionella Ag (Not detected) 09/23/17 09/23/17 09/23/17 Range/Units 16:01 16:16 16:50 WBC (3.8-10.6) k/uL RBC (4.30-5.90) m/uL Hgb (13.0-17.5) gm/dL Hct (39.0-53.0) % RDW (11.5-15.5) % Neutrophils # (1.3-7.7) k/uL Lymphocytes # (1.0-4.8) k/uL ABG pH (7.35-7.45) ABG pCO2 (35-45) mmHg ABG pO2 (83-108) mmHg ABG HCO3 (21-25) mmol/L ABG O2 Saturation (94-97) % Chloride (98-107) mmol/L Carbon Dioxide (22-30) mmol/L BUN (9-20) mg/dL Creatinine (0.66-1.25) mg/dL Glucose (74-99) mg/dL POC Glucose (mg/dL) 347 H 344 H 307 H (75-99) mg/dL AST (17-59) U/L ALT (21-72) U/L Alkaline Phosphatase (38-126) U/L Total Protein (6.3-8.2) g/dL Albumin (3.5-5.0) g/dL Urine Legionella Ag (Not detected) 09/23/17 09/23/17 09/23/17 Range/Units 17:56 18:39 19:03 WBC (3.8-10.6) k/uL RBC (4.30-5.90) m/uL Hgb (13.0-17.5) gm/dL Hct (39.0-53.0) % RDW (11.5-15.5) % Neutrophils # (1.3-7.7) k/uL Lymphocytes # (1.0-4.8) k/uL ABG pH (7.35-7.45) ABG pCO2 (35-45) mmHg ABG pO2 (83-108) mmHg ABG HCO3 (21-25) mmol/L ABG O2 Saturation (94-97) % Chloride (98-107) mmol/L Carbon Dioxide (22-30) mmol/L BUN (9-20) mg/dL Creatinine (0.66-1.25) mg/dL Glucose (74-99) mg/dL POC Glucose (mg/dL) 236 H 251 H 228 H (75-99) mg/dL AST (17-59) U/L ALT (21-72) U/L Alkaline Phosphatase (38-126) U/L Total Protein (6.3-8.2) g/dL Albumin (3.5-5.0) g/dL Urine Legionella Ag (Not detected) 09/23/17 09/23/17 09/23/17 Range/Units 20:09 20:49 21:48 WBC (3.8-10.6) k/uL RBC (4.30-5.90) m/uL Hgb (13.0-17.5) gm/dL Hct (39.0-53.0) % RDW (11.5-15.5) % Neutrophils # (1.3-7.7) k/uL Lymphocytes # (1.0-4.8) k/uL ABG pH (7.35-7.45) ABG pCO2 (35-45) mmHg ABG pO2 (83-108) mmHg ABG HCO3 (21-25) mmol/L ABG O2 Saturation (94-97) % Chloride (98-107) mmol/L Carbon Dioxide (22-30) mmol/L BUN (9-20) mg/dL Creatinine (0.66-1.25) mg/dL Glucose (74-99) mg/dL POC Glucose (mg/dL) 226 H 230 H 256 H (75-99) mg/dL AST (17-59) U/L ALT (21-72) U/L Alkaline Phosphatase (38-126) U/L Total Protein (6.3-8.2) g/dL Albumin (3.5-5.0) g/dL Urine Legionella Ag (Not detected) 09/23/17 09/23/17 09/24/17 Range/Units 22:28 23:24 00:10 WBC (3.8-10.6) k/uL RBC (4.30-5.90) m/uL Hgb (13.0-17.5) gm/dL Hct (39.0-53.0) % RDW (11.5-15.5) % Neutrophils # (1.3-7.7) k/uL Lymphocytes # (1.0-4.8) k/uL ABG pH (7.35-7.45) ABG pCO2 (35-45) mmHg ABG pO2 (83-108) mmHg ABG HCO3 (21-25) mmol/L ABG O2 Saturation (94-97) % Chloride (98-107) mmol/L Carbon Dioxide (22-30) mmol/L BUN (9-20) mg/dL Creatinine (0.66-1.25) mg/dL Glucose (74-99) mg/dL POC Glucose (mg/dL) 265 H 222 H 240 H (75-99) mg/dL AST (17-59) U/L ALT (21-72) U/L Alkaline Phosphatase (38-126) U/L Total Protein (6.3-8.2) g/dL Albumin (3.5-5.0) g/dL Urine Legionella Ag (Not detected) 09/24/17 09/24/17 09/24/17 Range/Units 00:57 02:10 02:57 WBC (3.8-10.6) k/uL RBC (4.30-5.90) m/uL Hgb (13.0-17.5) gm/dL Hct (39.0-53.0) % RDW (11.5-15.5) % Neutrophils # (1.3-7.7) k/uL Lymphocytes # (1.0-4.8) k/uL ABG pH (7.35-7.45) ABG pCO2 (35-45) mmHg ABG pO2 (83-108) mmHg ABG HCO3 (21-25) mmol/L ABG O2 Saturation (94-97) % Chloride (98-107) mmol/L Carbon Dioxide (22-30) mmol/L BUN (9-20) mg/dL Creatinine (0.66-1.25) mg/dL Glucose (74-99) mg/dL POC Glucose (mg/dL) 194 H 186 H 184 H (75-99) mg/dL AST (17-59) U/L ALT (21-72) U/L Alkaline Phosphatase (38-126) U/L Total Protein (6.3-8.2) g/dL Albumin (3.5-5.0) g/dL Urine Legionella Ag (Not detected) 09/24/17 09/24/17 09/24/17 Range/Units 03:57 04:59 05:05 WBC 16.7 H (3.8-10.6) k/uL RBC 3.39 L (4.30-5.90) m/uL Hgb 9.4 L (13.0-17.5) gm/dL Hct 29.9 L (39.0-53.0) % RDW 18.7 H (11.5-15.5) % Neutrophils # 15.6 H (1.3-7.7) k/uL Lymphocytes # 0.2 L (1.0-4.8) k/uL ABG pH (7.35-7.45) ABG pCO2 (35-45) mmHg ABG pO2 (83-108) mmHg ABG HCO3 (21-25) mmol/L ABG O2 Saturation (94-97) % Chloride (98-107) mmol/L Carbon Dioxide (22-30) mmol/L BUN (9-20) mg/dL Creatinine (0.66-1.25) mg/dL Glucose (74-99) mg/dL POC Glucose (mg/dL) 140 H 144 H (75-99) mg/dL AST (17-59) U/L ALT (21-72) U/L Alkaline Phosphatase (38-126) U/L Total Protein (6.3-8.2) g/dL Albumin (3.5-5.0) g/dL Urine Legionella Ag (Not detected) 09/24/17 09/24/17 09/24/17 Range/Units 05:05 06:04 06:14 WBC (3.8-10.6) k/uL RBC (4.30-5.90) m/uL Hgb (13.0-17.5) gm/dL Hct (39.0-53.0) % RDW (11.5-15.5) % Neutrophils # (1.3-7.7) k/uL Lymphocytes # (1.0-4.8) k/uL ABG pH 7.28 L (7.35-7.45) ABG pCO2 47 H (35-45) mmHg ABG pO2 74 L (83-108) mmHg ABG HCO3 (21-25) mmol/L ABG O2 Saturation 93.5 L (94-97) % Chloride 111 H (98-107) mmol/L Carbon Dioxide 19 L (22-30) mmol/L BUN 53 H (9-20) mg/dL Creatinine 2.60 H (0.66-1.25) mg/dL Glucose 132 H (74-99) mg/dL POC Glucose (mg/dL) 149 H (75-99) mg/dL AST 91 H (17-59) U/L ALT 79 H (21-72) U/L Alkaline Phosphatase 179 H (38-126) U/L Total Protein 5.7 L (6.3-8.2) g/dL Albumin 2.7 L (3.5-5.0) g/dL Urine Legionella Ag (Not detected) 09/24/17 09/24/17 09/24/17 Range/Units 06:59 08:06 09:00 WBC (3.8-10.6) k/uL RBC (4.30-5.90) m/uL Hgb (13.0-17.5) gm/dL Hct (39.0-53.0) % RDW (11.5-15.5) % Neutrophils # (1.3-7.7) k/uL Lymphocytes # (1.0-4.8) k/uL ABG pH (7.35-7.45) ABG pCO2 (35-45) mmHg ABG pO2 (83-108) mmHg ABG HCO3 (21-25) mmol/L ABG O2 Saturation (94-97) % Chloride (98-107) mmol/L Carbon Dioxide (22-30) mmol/L BUN (9-20) mg/dL Creatinine (0.66-1.25) mg/dL Glucose (74-99) mg/dL POC Glucose (mg/dL) 125 H 148 H 170 H (75-99) mg/dL AST (17-59) U/L ALT (21-72) U/L Alkaline Phosphatase (38-126) U/L Total Protein (6.3-8.2) g/dL Albumin (3.5-5.0) g/dL Urine Legionella Ag (Not detected) 09/24/17 Range/Units 10:08 WBC (3.8-10.6) k/uL RBC (4.30-5.90) m/uL Hgb (13.0-17.5) gm/dL Hct (39.0-53.0) % RDW (11.5-15.5) % Neutrophils # (1.3-7.7) k/uL Lymphocytes # (1.0-4.8) k/uL ABG pH (7.35-7.45) ABG pCO2 (35-45) mmHg ABG pO2 (83-108) mmHg ABG HCO3 (21-25) mmol/L ABG O2 Saturation (94-97) % Chloride (98-107) mmol/L Carbon Dioxide (22-30) mmol/L BUN (9-20) mg/dL Creatinine (0.66-1.25) mg/dL Glucose (74-99) mg/dL POC Glucose (mg/dL) 173 H (75-99) mg/dL AST (17-59) U/L ALT (21-72) U/L Alkaline Phosphatase (38-126) U/L Total Protein (6.3-8.2) g/dL Albumin (3.5-5.0) g/dL Urine Legionella Ag (Not detected) Microbiology - Last 24 Hours (Table) 09/21/17 14:29 Blood Culture - Preliminary Blood No Growth after 48 hours 09/21/17 14:23 Blood Culture - Preliminary Blood No Growth after 48 hours
[2017-09-24 10:53] LABS: ABG PH 7.15 (7.35-7.45)
--- NOTE | 2017-09-24 11:12 | XR ---
EXAMINATION TYPE: XR chest 1V portable DATE OF EXAM: 09/24/2017 HISTORY: Tube placement. REFERENCE: Previous study dated 09/24/2017. FINDINGS: The patient has been intubated. ET tube is in satisfactory position approximately 4.8 cm fr om the celi. A left subclavian catheter is been inserted. Its tip is in the superior vena cava. There is improved aeration of both lungs. The heart is enlarged. Pleural spaces are clear. IMPRESSION: 1. SATISFACTORY ET TUBE PLACEMENT. 2. SLIGHT IMPROVEMENT IN AERATION OF BOTH LUNGS.
--- NOTE | 2017-09-24 11:17 | P.PN ---
Subjective Progress Note Date: 09/24/17 This is a 62-year-old male patient, 1 on my own patients from the office, was seen today in our office for increased shortness of breath. The patient comes in with a one-week history of cough, fever and chills and shortness of breath and his condition was progressively getting worse. The patient had a chest x- ray showed airspace disease in the right upper lobe and the left upper lobe worse compared to the previous chest x-rays was done our office. He was also found to be more hypoxic and his pulse ox was in the 70s on room air. Note that he was not on any home oxygen prior. The patient was seen in our office and he was advised to be admitted to the hospital for antibiotic treatment for possible pneumonia. For that reason he was sent over to the hospital and a pulmonary consultation was requested also. The initial blood work also showed a component of acute kidney injury. The patient's creatinine was up to 5.8. Upon further questioning, the patient reported that he was having migraine headaches and he was getting high dose Motrin for headaches and he has taken around 5-6 tablets. At the same time he was having some diarrhea approximately 3 days ago which ultimately subsided. Currently does not have any ongoing diarrhea and nausea vomiting or abdominal pain. The patient noted some diminished urine output over the past 24 hours. The patient is not known to have any previous history of kidney injury is of kidney failures. No nephrolithiasis. The patient also admitted to have exposure to a friend who was hospitalized down in amount, as for an underlying pneumonia. This patient is known to me. I saw him in consultation on 06/17/2017. The patient as part of further workup underwent a high-resolution CAT scan of the chest and upon review of the films there is extensive emphysema in the upper lobes bilaterally addition to subpleural pulmonary fibrosis involving the lower lobes and early changes of honeycombing in the lung bases. This was consistent with IPF based on the radiographic findings. The pulmonary function test showed an FVC of 74% and a total lung capacity of 64% with a diffusion capacity of 50% of predicted consistent with a component of restrictive lung disease. His room air pulse ox back then was 97% and the patient back then did not qualify for oxygen. The patient was trying to quit smoking. Based on the overall clinical picture, I recommended this patient to start on anti-fibrotic treatment and the patient was started on Ovef, nintadanib, after confirming the patient's liver function tests her baseline were within normal limits. He was asked to continue the Ventolin rescue inhaler mastoids basis. Smoking cessation counseling was also done in the office back in June 2017. 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 He is living in [facility]. He lives in a farm. He has outdoor animals including a goat and a Pig and a horse. He has no exposure to birds products. No exposure to chicken, pigeons or doves. On 09/22/2017 patient seen again in follow-up on medical surgical floor. Resting in bed, still complaining of weakness and fatigue. But overall is feeling better. Not bringing up any sputum, denies any chest wall tenderness, lung sounds are positive for coarse crackles over left lower lobe, no wheezing. Today's labs were reviewed, and a PVC 7.7, hemoglobin is 10.6, renal profile is improving, BUN is down to 60, creatinine is 4.29. Patient is remains on IV hydration, receiving 0.9 normal saline at a rate of 100 per hour. Patient remains on empiric coverage in the form of Azactam, and Levaquin, today's chest x-ray showed multifocal reticular opacity pneumonia in the left lower and left upper lobe On 09/23/2017, the patient was seen in follow-up. I noted that the patient was progressively getting more short of breath and lethargic. Earlier this morning the patient became significantly hypoxic and he desaturated. He was placed on 100% nonrebreather facemask. A chest x-ray was done and showed worsening of the right the pulmonary infiltrates with increased alveolar infiltrates in the left midlung zone on the left lower lobe as well as the right midlung area. Note that the patient was already covered with antibiotics and was receiving a combination of Levaquin and aztreonam. Afebrile. Hemodynamically stable currently 100% on a beta facemasks. Blood gases was done and showed a pH of 7.29 with a pCO2 of 37 and pO2 100%. The patient got transferred to the ICU. No chest pain. No fever. No chills. No nausea. No vomiting. No diarrhea. He was receiving normal saline at the rate of 100 mL an hour and the creatinine is down to 3.0. On 09/24/2017, the patient ICU yesterday because of worsening shortness of breath and respiratory failure and worsening oxygenation and hypoxic respiratory failure. The patient initially was on 100% nonrebreather facemask. He was placed on high flow oxygen and he failed and subsequently the patient was placed on a BiPAP at a pressure of 10/5 with an FiO2 of 100%. Earlier this morning he was breathing in the mid 40s and he was struggling to breathe and he was very short of breath using excessive muscle breathing and he was having periodic desaturations was pulsatile drop in the low 80s. At that point he was also diagnosed having Legionella pneumonia and a chest x-ray was getting worse. Progressive worsening of breath upon infiltrates and I suspect underlying IPF with a superimposed Legionella pneumonia and ARDS picture. I intubated this patient and put him on assist-control mode at the rate of 26 with a tidal volume of 400 with an FiO2 of 100% and a PEEP of 18. The patient is sedated with Diprivan and is calm and comfortable and hemodynamically stable. Blood gases and chest x-ray post intubation are still pending. Meanwhile a triple lumen catheter and a Artline Was also inserted for hemodynamic monitoring. As mentioned, the Legionella urine antigen was positive. The patient will be kept on cefepime and Levaquin combination. We'll discontinue the vancomycin. We'll continue the IV Solu-Medrol. We'll continue the supportive care. A bronchoscopy will be done to rule out any superimposed infection on top of his Legionella pneumonia. His white count is elevated at 16.7. Hemoglobin stable at 9.4. Objective - Vital Signs Vital signs: Vital Signs Temp 98.6 F 09/24/17 04:00 Pulse 100 09/24/17 08:20 Resp 41 H 09/24/17 08:00 BP 125/63 09/24/17 08:00 Pulse Ox 93 L 09/24/17 08:00 Intake & Output 09/23/17 09/24/17 09/24/17 18:59 06:59 18:59 Intake Total 273.092 658.119 118.986 Output Total 800 1150 0 Balance -526.908 -491.881 118.986 Weight 68.6 kg 63.1 kg Intake: IV 210 530 80 Cefepime 2 gm In Sodium 50 50 Chloride 0.9% 50 ml @ 100 mls/hr IVPB Q12H JIMENEZ Rx# :[id number] Sodium Chloride 0.9% 1, 160 480 80 000 ml @ 40 mls/hr IV . Q24H JIMENEZ Rx#:[id number] Intake, IV Titration 63.092 128.119 38.986 Amount Insulin Regular 100 unit 63.092 128.119 38.986 In Sodium Chloride 0.9% 100 ml @ Per Protocol IV .Q0M JIMENEZ Rx#:[id number] Output: Urine 800 1150 0 Other: Voiding Method Toilet Urinal Urinal # Voids 0 0 0 - Exam General Appearance a mechanical ventilator. Orotracheal tube is in place. The patient is sedated with propofol Head exam was generally normal. There was no scleral icterus or corneal arcus. Mucous membranes were moist. Neck was supple and without jugular venous distension, thyromegaly, or carotid bruits. Carotids were easily palpable bilaterally. There was no adenopathy. Heart no right ventricular heave, no distant heart sounds, no s3 gallop, (normal ) jugular vein: jugular venous distention: by 0cm, (normal) jugular vein GI bowel sounds: hyperactive (borborygmi), bowel sounds: diminished or absent We'll coarse crackles in the mid and lower lung sanchez bilaterally. The patient currently on an assist-control mode of ventilation. Extremities no cyanosis, no clubbing, no edema Neurologic synchronous with the mechanical ventilator. Examination of the skin revealed no evidence of significant rashes, suspicious appearing nevi or other concerning lesions. - Labs CBC & Chem 7: 09/24/17 05:05 09/24/17 05:05 Labs: Abnormal Lab Results - Last 24 Hours (Table) 09/21/17 09/23/17 09/23/17 Range/Units 17:41 11:36 12:30 WBC (3.8-10.6) k/uL RBC (4.30-5.90) m/uL Hgb (13.0-17.5) gm/dL Hct (39.0-53.0) % RDW (11.5-15.5) % Neutrophils # (1.3-7.7) k/uL Lymphocytes # (1.0-4.8) k/uL ABG pH 7.29 L (7.35-7.45) ABG pCO2 (35-45) mmHg ABG pO2 (83-108) mmHg ABG HCO3 18 L (21-25) mmol/L ABG O2 Saturation 97.5 H (94-97) % Chloride (98-107) mmol/L Carbon Dioxide (22-30) mmol/L BUN (9-20) mg/dL Creatinine (0.66-1.25) mg/dL Glucose (74-99) mg/dL POC Glucose (mg/dL) 357 H (75-99) mg/dL AST (17-59) U/L ALT (21-72) U/L Alkaline Phosphatase (38-126) U/L Total Protein (6.3-8.2) g/dL Albumin (3.5-5.0) g/dL Urine Legionella Ag DETECTED H (Not detected) 09/23/17 09/23/17 09/23/17 Range/Units 12:34 13:50 15:01 WBC 15.1 H (3.8-10.6) k/uL RBC 3.38 L (4.30-5.90) m/uL Hgb 9.3 L (13.0-17.5) gm/dL Hct 29.7 L (39.0-53.0) % RDW 18.4 H (11.5-15.5) % Neutrophils # 14.1 H (1.3-7.7) k/uL Lymphocytes # 0.3 L (1.0-4.8) k/uL ABG pH (7.35-7.45) ABG pCO2 (35-45) mmHg ABG pO2 (83-108) mmHg ABG HCO3 (21-25) mmol/L ABG O2 Saturation (94-97) % Chloride (98-107) mmol/L Carbon Dioxide (22-30) mmol/L BUN (9-20) mg/dL Creatinine (0.66-1.25) mg/dL Glucose (74-99) mg/dL POC Glucose (mg/dL) 373 H 363 H (75-99) mg/dL AST (17-59) U/L ALT (21-72) U/L Alkaline Phosphatase (38-126) U/L Total Protein (6.3-8.2) g/dL Albumin (3.5-5.0) g/dL Urine Legionella Ag (Not detected) 09/23/17 09/23/17 09/23/17 Range/Units 15:18 15:29 15:43 WBC (3.8-10.6) k/uL RBC (4.30-5.90) m/uL Hgb (13.0-17.5) gm/dL Hct (39.0-53.0) % RDW (11.5-15.5) % Neutrophils # (1.3-7.7) k/uL Lymphocytes # (1.0-4.8) k/uL ABG pH (7.35-7.45) ABG pCO2 (35-45) mmHg ABG pO2 (83-108) mmHg ABG HCO3 (21-25) mmol/L ABG O2 Saturation (94-97) % Chloride (98-107) mmol/L Carbon Dioxide (22-30) mmol/L BUN (9-20) mg/dL Creatinine (0.66-1.25) mg/dL Glucose (74-99) mg/dL POC Glucose (mg/dL) 369 H 373 H 356 H (75-99) mg/dL AST (17-59) U/L ALT (21-72) U/L Alkaline Phosphatase (38-126) U/L Total Protein (6.3-8.2) g/dL Albumin (3.5-5.0) g/dL Urine Legionella Ag (Not detected) 09/23/17 09/23/17 09/23/17 Range/Units 16:01 16:16 16:50 WBC (3.8-10.6) k/uL RBC (4.30-5.90) m/uL Hgb (13.0-17.5) gm/dL Hct (39.0-53.0) % RDW (11.5-15.5) % Neutrophils # (1.3-7.7) k/uL Lymphocytes # (1.0-4.8) k/uL ABG pH (7.35-7.45) ABG pCO2 (35-45) mmHg ABG pO2 (83-108) mmHg ABG HCO3 (21-25) mmol/L ABG O2 Saturation (94-97) % Chloride (98-107) mmol/L Carbon Dioxide (22-30) mmol/L BUN (9-20) mg/dL Creatinine (0.66-1.25) mg/dL Glucose (74-99) mg/dL POC Glucose (mg/dL) 347 H 344 H 307 H (75-99) mg/dL AST (17-59) U/L ALT (21-72) U/L Alkaline Phosphatase (38-126) U/L Total Protein (6.3-8.2) g/dL Albumin (3.5-5.0) g/dL Urine Legionella Ag (Not detected) 09/23/17 09/23/17 09/23/17 Range/Units 17:56 18:39 19:03 WBC (3.8-10.6) k/uL RBC (4.30-5.90) m/uL Hgb (13.0-17.5) gm/dL Hct (39.0-53.0) % RDW (11.5-15.5) % Neutrophils # (1.3-7.7) k/uL Lymphocytes # (1.0-4.8) k/uL ABG pH (7.35-7.45) ABG pCO2 (35-45) mmHg ABG pO2 (83-108) mmHg ABG HCO3 (21-25) mmol/L ABG O2 Saturation (94-97) % Chloride (98-107) mmol/L Carbon Dioxide (22-30) mmol/L BUN (9-20) mg/dL Creatinine (0.66-1.25) mg/dL Glucose (74-99) mg/dL POC Glucose (mg/dL) 236 H 251 H 228 H (75-99) mg/dL AST (17-59) U/L ALT (21-72) U/L Alkaline Phosphatase (38-126) U/L Total Protein (6.3-8.2) g/dL Albumin (3.5-5.0) g/dL Urine Legionella Ag (Not detected) 09/23/17 09/23/17 09/23/17 Range/Units 20:09 20:49 21:48 WBC (3.8-10.6) k/uL RBC (4.30-5.90) m/uL Hgb (13.0-17.5) gm/dL Hct (39.0-53.0) % RDW (11.5-15.5) % Neutrophils # (1.3-7.7) k/uL Lymphocytes # (1.0-4.8) k/uL ABG pH (7.35-7.45) ABG pCO2 (35-45) mmHg ABG pO2 (83-108) mmHg ABG HCO3 (21-25) mmol/L ABG O2 Saturation (94-97) % Chloride (98-107) mmol/L Carbon Dioxide (22-30) mmol/L BUN (9-20) mg/dL Creatinine (0.66-1.25) mg/dL Glucose (74-99) mg/dL POC Glucose (mg/dL) 226 H 230 H 256 H (75-99) mg/dL AST (17-59) U/L ALT (21-72) U/L Alkaline Phosphatase (38-126) U/L Total Protein (6.3-8.2) g/dL Albumin (3.5-5.0) g/dL Urine Legionella Ag (Not detected) 09/23/17 09/23/17 09/24/17 Range/Units 22:28 23:24 00:10 WBC (3.8-10.6) k/uL RBC (4.30-5.90) m/uL Hgb (13.0-17.5) gm/dL Hct (39.0-53.0) % RDW (11.5-15.5) % Neutrophils # (1.3-7.7) k/uL Lymphocytes # (1.0-4.8) k/uL ABG pH (7.35-7.45) ABG pCO2 (35-45) mmHg ABG pO2 (83-108) mmHg ABG HCO3 (21-25) mmol/L ABG O2 Saturation (94-97) % Chloride (98-107) mmol/L Carbon Dioxide (22-30) mmol/L BUN (9-20) mg/dL Creatinine (0.66-1.25) mg/dL Glucose (74-99) mg/dL POC Glucose (mg/dL) 265 H 222 H 240 H (75-99) mg/dL AST (17-59) U/L ALT (21-72) U/L Alkaline Phosphatase (38-126) U/L Total Protein (6.3-8.2) g/dL Albumin (3.5-5.0) g/dL Urine Legionella Ag (Not detected) 09/24/17 09/24/17 09/24/17 Range/Units 00:57 02:10 02:57 WBC (3.8-10.6) k/uL RBC (4.30-5.90) m/uL Hgb (13.0-17.5) gm/dL Hct (39.0-53.0) % RDW (11.5-15.5) % Neutrophils # (1.3-7.7) k/uL Lymphocytes # (1.0-4.8) k/uL ABG pH (7.35-7.45) ABG pCO2 (35-45) mmHg ABG pO2 (83-108) mmHg ABG HCO3 (21-25) mmol/L ABG O2 Saturation (94-97) % Chloride (98-107) mmol/L Carbon Dioxide (22-30) mmol/L BUN (9-20) mg/dL Creatinine (0.66-1.25) mg/dL Glucose (74-99) mg/dL POC Glucose (mg/dL) 194 H 186 H 184 H (75-99) mg/dL AST (17-59) U/L ALT (21-72) U/L Alkaline Phosphatase (38-126) U/L Total Protein (6.3-8.2) g/dL Albumin (3.5-5.0) g/dL Urine Legionella Ag (Not detected) 09/24/17 09/24/17 09/24/17 Range/Units 03:57 04:59 05:05 WBC 16.7 H (3.8-10.6) k/uL RBC 3.39 L (4.30-5.90) m/uL Hgb 9.4 L (13.0-17.5) gm/dL Hct 29.9 L (39.0-53.0) % RDW 18.7 H (11.5-15.5) % Neutrophils # 15.6 H (1.3-7.7) k/uL Lymphocytes # 0.2 L (1.0-4.8) k/uL ABG pH (7.35-7.45) ABG pCO2 (35-45) mmHg ABG pO2 (83-108) mmHg ABG HCO3 (21-25) mmol/L ABG O2 Saturation (94-97) % Chloride (98-107) mmol/L Carbon Dioxide (22-30) mmol/L BUN (9-20) mg/dL Creatinine (0.66-1.25) mg/dL Glucose (74-99) mg/dL POC Glucose (mg/dL) 140 H 144 H (75-99) mg/dL AST (17-59) U/L ALT (21-72) U/L Alkaline Phosphatase (38-126) U/L Total Protein (6.3-8.2) g/dL Albumin (3.5-5.0) g/dL Urine Legionella Ag (Not detected) 09/24/17 09/24/17 09/24/17 Range/Units 05:05 06:04 06:14 WBC (3.8-10.6) k/uL RBC (4.30-5.90) m/uL Hgb (13.0-17.5) gm/dL Hct (39.0-53.0) % RDW (11.5-15.5) % Neutrophils # (1.3-7.7) k/uL Lymphocytes # (1.0-4.8) k/uL ABG pH 7.28 L (7.35-7.45) ABG pCO2 47 H (35-45) mmHg ABG pO2 74 L (83-108) mmHg ABG HCO3 (21-25) mmol/L ABG O2 Saturation 93.5 L (94-97) % Chloride 111 H (98-107) mmol/L Carbon Dioxide 19 L (22-30) mmol/L BUN 53 H (9-20) mg/dL Creatinine 2.60 H (0.66-1.25) mg/dL Glucose 132 H (74-99) mg/dL POC Glucose (mg/dL) 149 H (75-99) mg/dL AST 91 H (17-59) U/L ALT 79 H (21-72) U/L Alkaline Phosphatase 179 H (38-126) U/L Total Protein 5.7 L (6.3-8.2) g/dL Albumin 2.7 L (3.5-5.0) g/dL Urine Legionella Ag (Not detected) 09/24/17 09/24/17 09/24/17 Range/Units 06:59 08:06 09:00 WBC (3.8-10.6) k/uL RBC (4.30-5.90) m/uL Hgb (13.0-17.5) gm/dL Hct (39.0-53.0) % RDW (11.5-15.5) % Neutrophils # (1.3-7.7) k/uL Lymphocytes # (1.0-4.8) k/uL ABG pH (7.35-7.45) ABG pCO2 (35-45) mmHg ABG pO2 (83-108) mmHg ABG HCO3 (21-25) mmol/L ABG O2 Saturation (94-97) % Chloride (98-107) mmol/L Carbon Dioxide (22-30) mmol/L BUN (9-20) mg/dL Creatinine (0.66-1.25) mg/dL Glucose (74-99) mg/dL POC Glucose (mg/dL) 125 H 148 H 170 H (75-99) mg/dL AST (17-59) U/L ALT (21-72) U/L Alkaline Phosphatase (38-126) U/L Total Protein (6.3-8.2) g/dL Albumin (3.5-5.0) g/dL Urine Legionella Ag (Not detected) 09/24/17 Range/Units 10:08 WBC (3.8-10.6) k/uL RBC (4.30-5.90) m/uL Hgb (13.0-17.5) gm/dL Hct (39.0-53.0) % RDW (11.5-15.5) % Neutrophils # (1.3-7.7) k/uL Lymphocytes # (1.0-4.8) k/uL ABG pH (7.35-7.45) ABG pCO2 (35-45) mmHg ABG pO2 (83-108) mmHg ABG HCO3 (21-25) mmol/L ABG O2 Saturation (94-97) % Chloride (98-107) mmol/L Carbon Dioxide (22-30) mmol/L BUN (9-20) mg/dL Creatinine (0.66-1.25) mg/dL Glucose (74-99) mg/dL POC Glucose (mg/dL) 173 H (75-99) mg/dL AST (17-59) U/L ALT (21-72) U/L Alkaline Phosphatase (38-126) U/L Total Protein (6.3-8.2) g/dL Albumin (3.5-5.0) g/dL Urine Legionella Ag (Not detected) Microbiology - Last 24 Hours (Table) 09/21/17 14:29 Blood Culture - Preliminary Blood No Growth after 48 hours 09/21/17 14:23 Blood Culture - Preliminary Blood No Growth after 48 hours Assessment and Plan Plan: Assessment 1 acute hypoxic history failure, pneumonia with progressive worsening in by the pulmonary infiltrates, possibly secondary to evolving ARDS. Currently intubated on a mechanical ventilator. Bronchoscopy was done. We'll use a low tidal volume strategy and will monitor the chest x-ray and a blood gas and make further adjustments accordingly. 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 5 hyperlipidemia 6 diabetes mellitus, on insulin drip for BS control 7 smoker 8 depression 9 abnormal LFTs, probably secondary to OVEF 10 hypertension 11 acid reflux 12 non-anion gap metabolic acidosis 13 chronic anemia Plan Ventilator. Continue vent support. Use low tidal volume strategy. Monitor chest x-ray. Monitor blood gases. Continue IV Levaquin. Continue cefepime. Dr. vancomycin. Initiate tube feeds. Continue the systemic steroids. Family was updated on the condition. Condition is critical. The patient carries a very high mortality based on the above-mentioned comorbidities. I think the patient is currently in acute respiratory failure secondary to pneumonia/ARDS. the evaluation was done in > than 40 minutes excluding time to do any procedures. Time with Patient: Greater than 30
[2017-09-24] MEDS ORDERED: CISATRACURIUM 2 MG/ML 5 ML VIAL IV STA (11:44)
[2017-09-24] MEDS ORDERED: VANCOMYCIN 1,250 MG in SODIUM CHLORIDE 0.9% 250 ML IVPB ONE (12:00)
[2017-09-24] MEDS: fentaNYL (PF) 2,500 MCG in SODIUM CHLORIDE 0.9% 200 ML IV SCH (12:10)
[2017-09-24 12:21] LABS: Glucose,Whole Blood 156 mg/dL (75-99)
[2017-09-24 12:42] LABS: Appearance,BF Bloody; Color,BF Red; Nucleated Cells, Body Fluid 60 /uL; RBC, Body Fluid 80300 /uL
[2017-09-24 12:44] LABS: Mononuclear WBC,Body Fluid 10 %; Polynuclear WBC,Body Fluid 90 %; Total Cells Counted,Body Fluid 100
[2017-09-24] MEDS: PROPOFOL 1,000 MG in EMPTY BAG 1 BAG IV SCH ×2 (13:57→19:51)
[2017-09-24 14:49] LABS: Glucose,Whole Blood 158 mg/dL (75-99)
[2017-09-24] MEDS: CISATRACURIUM 200 MG in SODIUM CHLORIDE 0.9% 180 ML IV SCH (14:49)
[2017-09-24 15:11] LABS: ABG Base Excess -10.8 mmol/L; ABG HCO3 20 mmol/L (21-25); ABG Oxygen Saturation 99.6 % (94-97); ABG PO2 231 mmHg (83-108); ABG TCO2 22 mmol/L (19-24)
[2017-09-24 15:13] LABS: ABG PCO2 70 mmHg (35-45); ABG PH 7.06 (7.35-7.45)
--- NOTE | 2017-09-24 15:23 | PCN ---
PROCEDURE NOTE TRIPLE LUMEN CATHETER PLACEMENT: Indication Hemodynamic monitoring/Intravenous access. A time-out was completed verifying correct patient, procedure, site, positioning, and implant(s) or special equipment if applicable. The patient was placed in a dependent position appropriate for triple lumen catheter placement based on the vein to be cannulated. The patient's left shoulder was prepped and draped in sterile fashion. Lidocaine 1% was used to anesthetize the surrounding skin area. A triple lumen 9F Cordis catheter was introduced into the left subclavian vein using Seldinger technique. The catheter was threaded smoothly over the guidewire and appropriate blood return was obtained. Each lumen of the catheter was evacuated of air and flushed with sterile saline. The catheter was then sutured in place to the skin and a sterile dressing applied. Perfusion to the extremity distal to the point of catheter insertion was checked and found to be adequate. No bedside complications or bleeding. No pneumothorax. MMODL / IJN: [id number] /
--- NOTE | 2017-09-24 15:23 | PCN ---
PROCEDURE NOTE PREOPERATIVE DIAGNOSIS: Acute respiratory failure/bilateral pneumonia. POSTOPERATIVE DIAGNOSIS: Acute respiratory failure/bilateral pneumonia. PROCEDURE: Intubation. DESCRIPTION OF PROCEDURE: A time-out was completed verifying correct patient, procedure, site, positioning, and implant(s) or special equipment if applicable. The patient was positioned appropriately and I used a #4 MAC blade and the patient was intubated by a #8 orotracheal tube. Orotracheal tube was placed under direct laryngoscopy. The tube was anchored at 22 cm at the teeth. Correct placement was confirmed by presence of bilateral breath sounds without air sounds in the abdomen on auscultation. An end-tidal CO2 monitor was also used to confirm tracheal placement of the orotracheal tube. A chest x-ray was ordered to assess for pneumothorax and verify orotracheal tube placement. The patient tolerated the procedure well and there were no complications. MMODL / IJN: [id number] /
--- NOTE | 2017-09-24 15:23 | PCN ---
PROCEDURE NOTE ARTERIAL LINE PLACEMENT: Indications: Hemodynamic monitoring. A time-out was completed verifying correct patient, procedure, site, positioning, and implant(s) or special equipment if applicable. Xavi's test was performed to ensure adequate perfusion. The patient's right wrist was prepped and draped in sterile fashion. Lidocaine 1% was used to anesthetize the area. An 18G Arrow arterial line was introduced into the right radial artery. The catheter was threaded over the guidewire and the needle was removed with appropriate pulsatile blood return. Blood loss was minimal. The catheter was then sutured in place to the skin and a sterile dressing applied. Perfusion to the extremity distal to the point of catheter insertion was checked and found to be adequate. The patient tolerated the procedure well and there were no complications. MMNEELAML / IJN: [id number] /
--- NOTE | 2017-09-24 15:26 | PCN ---
PROCEDURE NOTE PROCEDURE: Bronchoscopy. PREOPERATIVE DIAGNOSIS: Acute respiratory failure with bilateral pneumonia. POSTOPERATIVE DIAGNOSIS: Acute respiratory failure with bilateral pneumonia. This procedure was done in the intensive care unit. The patient was already intubated on a mechanical ventilator. The patient was sedated with Diprivan. The patient was hemodynamically stable. The patient was on 18 of PEEP with an FiO2 of 100%. An adapter was attached to the orotracheal tube and following that, a flexible bronchoscope was advanced through the orotracheal tube. It was advanced to the lower trachea. The tip of the orotracheal tube was seen around 2 cm above the celi. A quick airway inspection was done. There were some bloody respiratory secretions throughout the airway and the mucosa was somewhat inflamed and erythematous. Diffuse mucosal inflammatory changes were seen bilaterally in the upper and lower lobes. Airway inspection was completed and the visualized airways included trachea, bilateral mainstem bronchi, right upper lobe bronchus, bronchus intermedius, right middle lobe bronchus, right lower lobe bronchus, left upper lobe bronchus, left lower lobe bronchus, left mainstem bronchus. The airways were patent and there were no foreign bodies or any abnormalities such as lesions or tumors. As mentioned, the mucosa itself was inflamed and erythematous. The bronchoscope was wedged in the lingula. A total of 100 mL of fluid was infused and 25 to 30 mL of bronchoalveolar lavage was aspirated from the superior segment of the lingula. The patient tolerated the procedure well. Pulse ox remained above 90% throughout the procedure. Bronchoscope was removed and the fluid was sent for microbial analysis. No complications during the procedure. MMODL / IJN: [id number] /
[2017-09-24] MEDS: NOREPINEPHRIN 16 MG-0.9%NS PMX 16 MG/250 ML ML IV SCH (15:30)
--- NOTE | 2017-09-24 15:31 | P.CONS ---
History of Present Illness - Reason for Consult Consult date: 09/24/17 - Chief Complaint Shortness of breath - History of Present Illness 62-year-old male who has a long-standing history of pulmonary fibrosis which is treated with Ofev, Presented to Hospital with rapidly progressive shortness of breath. He had x-rays performed that shows evidence of right upper lobe and left upper lobe worsening infiltration and there is evidence of progressive hypoxemia. At the time he presents to Hospital after being seen in the office there is evidence of acute renal failure. It is noted that the patient was having headache associated with the increasing shortness of breath and was taking [id number] Motrin and somewhat high dose for at least 3 days before he came in. He also is having some difficulty with some diarrhea and progressive weakness. At presentation he is with evidence of significant shortness of breath he required intubation with sedation and mechanical ventilation. Today there has been some further difficulties and likely will require paralysis and vasopressor therapy. 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 They have a pond in the utilize their well to pump some of the water to the pond. The patient apparently was working on the pump with the filters last week. It neck she has just a few days before he started to get sick with the progressive shortness of breath and then the diarrhea. The patient's is not ill at all. They do live in the same home. She relates that there is been no work on the hot water tank for the home. There is one well that supplies water for the home as well as the barn. The barn his home to a miniature horse a goat and a pig. The patient himself provides most of the care for the animals. Including taking care of the maneuver. The however do not have chickens or other bird exposures. The relates that he's had no recent travel. He does not have experience or international travel. Pets dog and cat do live in the home. 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 Review of Systems ROS unobtainable: due to endotracheal tube Past Medical History Past Medical History: COPD, Diabetes Mellitus, GERD/Reflux, Pneumonia Additional Past Medical History / Comment(s): Interstitial pulmonary fibrosis, emphysema with upper lobe predominance, smoker NIDDM type II, sinus problems, slight fatty liver, eczema, past hemeoccult positive stool-colonoscopy done. Hypertension, hyperlipidemia, depression, acid reflux History of Any Multi-Drug Resistant Organisms: None Reported Past Surgical History: Orthopedic Surgery Additional Past Surgical History / Comment(s): RT thumb mass removed, EGD/ colonoscopies Past Anesthesia/Blood Transfusion Reactions: No Reported Reaction Smoking Status: Former smoker - Past Family History Father Family Medical History: Myocardial Infarction (MD) Additional Family Medical History / Comment(s): Father of a massive MD at the age of 52 or 53yrs. Mother Family Medical History: Cancer Additional Family Medical History / Comment(s): Mother of breast cancer in her 60's. Medications and Allergies Home Medications and Allergies Comment(s): Current Medications Albuterol/Ipratropium (Duoneb 0.5 Mg-3 Mg/3 Ml Soln) 3 ml INHALATION RT-QID [facility] Last Admin: 09/24/17 12:20 Dose: 3 ml Albuterol/Ipratropium (Duoneb 0.5 Mg-3 Mg/3 Ml Soln) 3 ml INHALATION RT-QID PRN PRN Reason: Shortness Of Breath Or Wheezing Last Admin: 09/22/17 05:14 Dose: 3 ml Aspirin (Aspirin) 81 mg PO HS [facility] Last Admin: 09/23/17 21:34 Dose: 81 mg Atorvastatin Calcium (Lipitor) 40 mg PO HS [facility] Last Admin: 09/23/17 21:34 Dose: 40 mg Budesonide (Pulmicort) 0.5 mg INHALATION RT-BID [facility] Last Admin: 09/24/17 08:07 Dose: 0.5 mg Bupropion HCl (Wellbutrin Xl) 150 mg PO DAILY [facility] Last Admin: 09/24/17 08:20 Dose: 150 mg Chlorhexidine Gluconate (Peridex) 15 ml MUCOUS MEM BID [facility] Escitalopram Oxalate (Lexapro) 20 mg PO DAILY [facility] Last Admin: 09/24/17 08:21 Dose: 20 mg Heparin Sodium (Porcine) (Heparin) 5,000 unit SQ Q8HR [facility] Last Admin: 09/24/17 08:19 Dose: 5,000 unit Sodium Chloride (Saline 0.9%) 1,000 mls @ 75 mls/hr IV .[id number] [facility] Last Admin: 09/23/17 18:37 Dose: Not Given Levofloxacin 500 mg/ IV (Solution) 100 mls @ 100 mls/hr IVPB Q48H [facility] Last Admin: 09/23/17 09:37 Dose: 100 mls/hr Insulin Human Regular 100 unit (/ Sodium Chloride) 101 mls @ 0 mls/hr IV .Q0M [facility]; Protocol Last Titration: 09/24/17 14:48 Dose: 9 unit/hr, 9.09 mls/hr Propofol 1,000 mg/ IV Solution 100 mls @ 0 mls/hr IV .Q0M [facility]; Protocol Last Admin: 09/24/17 13:57 Dose: 50 mcg/kg/min, 18.93 mls/hr Fentanyl Citrate 2,500 mcg/ (Sodium Chloride) 250 mls @ 10 mls/hr IV .Q24H [facility] ; Protocol Last Admin: 09/24/17 12:10 Dose: 100 mcg/hr, 10 mls/hr Cisatracurium Besylate 200 mg/ (Sodium Chloride) 200 mls @ 3.78 mls/hr IV .Q24H [facility]; Protocol Last Admin: 09/24/17 14:49 Dose: 1 mcg/kg/min, 3.78 mls/hr Norepinephrine Bitartrate (Levophed-0.9% Nacl 16 Mg/250ml Pmx) 16 mg in 250 mls @ 0 mls/hr IV .Q0M [facility]; Protocol Cefepime HCl 2 gm/ Sodium (Chloride) 50 mls @ 100 mls/hr IVPB DAILY [facility] Lamotrigine (Lamictal) 100 mg PO DAILY [facility] Last Admin: 09/24/17 08:20 Dose: 100 mg Methylprednisolone Sodium Succinate (Solu-Medrol) 40 mg IV Q8HR [facility] Last Admin: 09/24/17 08:20 Dose: 40 mg Miscellaneous Information (Pharmacy To Dose Iv Vancomycin) 1 each MISCELLANE DIRECTED PRN PRN Reason: Per Protocol Pantoprazole Sodium (Protonix) 40 mg PO AC-BRKFST [facility] Last Admin: 09/24/17 08:19 Dose: 40 mg Sodium Bicarbonate (Sodium Bicarbonate Tab) 650 mg PO TID [facility] Last Admin: 09/24/17 08:21 Dose: 650 mg Home Medications Medication Instructions Recorded Confirmed Type ALPRAZolam [Xanax] 2 mg PO 08/31/13 09/21/17 History Aspirin 81 mg PO HS 08/31/13 09/21/17 History Atorvastatin Calcium [Lipitor] 40 mg PO HS 08/31/13 09/21/17 History Methylphenidate HCl 10 mg PO DAILY 08/31/13 09/21/17 History [Methylphenidate ER] Omeprazole [PriLOSEC] 20 mg PO AC-BRKFST 08/31/13 09/21/17 History Pioglitazone HCl [Actos] 45 mg PO DAILY 08/31/13 09/21/17 History lamoTRIgine [LaMICtal] 100 mg PO DAILY 08/31/13 09/21/17 History Cyanocobalamin (Vitamin B-12) 1,000 mcg PO DAILY 09/21/17 09/21/17 History [Vitamin B-12] Escitalopram [Lexapro] 20 mg PO DAILY 09/21/17 09/21/17 History Nintedanib Esylate [Ofev] 150 mg PO BID 09/21/17 09/21/17 History buPROPion XL [Wellbutrin Xl] 150 mg PO DAILY 09/21/17 09/21/17 History glipiZIDE XL [Glucotrol Xl] 2.5 mg PO DAILY 09/21/17 09/21/17 History Allergies Allergy/AdvReac Type Severity Reaction Status Date / Time aspartame Allergy Unknown MUSCLE Verified 09/21/17 13:10 PAINS Penicillins Allergy Unknown Rapid Verified 09/21/17 13:10 Heart Rate Physical Exam Vitals: Vital Signs Temp Pulse Pulse Resp BP Pulse Ox 09/24/17 13:00 136 H 26 H 145/73 96 09/24/17 12:33 125 H 09/24/17 12:30 135 H 26 H 145/73 96 09/24/17 12:23 125 H 09/24/17 12:00 120 H 26 H 145/73 94 L 09/24/17 11:00 121 H 29 H 93 L 09/24/17 10:30 105 H 25 H 161/81 81 L 09/24/17 10:20 107 H 36 H 177/110 66 L 09/24/17 10:00 115 H 43 H 157/74 91 L 09/24/17 09:30 96 34 H 135/67 89 L 09/24/17 09:00 93 41 H 125/61 93 L 09/24/17 08:30 101 H 39 H 124/54 89 L 09/24/17 08:20 100 09/24/17 08:07 90 09/24/17 08:00 98 F 90 41 H 125/63 93 L 09/24/17 07:00 84 26 H 129/68 95 09/24/17 06:00 78 35 H 137/69 93 L 09/24/17 05:00 83 32 H 133/65 94 L 09/24/17 04:00 98.6 F 88 22 117/64 93 L 09/24/17 03:00 95 22 123/64 88 L 09/24/17 02:00 80 20 121/62 87 L 09/24/17 01:08 95 09/24/17 01:00 87 28 H 120/60 92 L 09/24/17 00:00 98.2 F 86 27 H 119/62 95 09/23/17 23:27 82 20 122/65 93 L 09/23/17 23:14 96 09/23/17 23:00 93 20 99/72 90 L 09/23/17 22:17 93 L 09/23/17 22:00 81 21 114/54 97 09/23/17 21:30 92 L 09/23/17 21:00 90 27 H 99/53 90 L 09/23/17 20:36 78 09/23/17 20:16 80 94 L 09/23/17 20:00 97.3 F L 93 83 26 H 102/63 84 L 09/23/17 19:00 85 18 124/57 95 09/23/17 18:55 92 L 09/23/17 18:00 94 20 135/63 89 L 09/23/17 17:00 86 21 140/66 94 L 09/23/17 16:00 97.7 F 91 83 18 140/66 93 L Intake and Output 09/24/17 09/24/17 09/24/17 06:59 14:59 22:59 Intake Total 455.547 693.442 Output Total 800 730 Balance -344.453 -36.558 Intake: IV 370 600 Cefepime 2 gm In Sodium 50 Chloride 0.9% 50 ml @ 100 mls/hr IVPB Q12H [facility] Rx# :[id number] Sodium Chloride 0.9% 1, 320 350 000 ml @ 75 mls/hr IV . [id number] [facility] Rx#:[id number] Vancomycin 1,250 mg In 250 Sodium Chloride 0.9% 250 ml @ 125 mls/hr IVPB ONCE ONE Rx#:[id number] Intake, IV Titration 85.547 93.442 Amount Insulin Regular 100 unit 85.547 93.442 In Sodium Chloride 0.9% 100 ml @ Per Protocol IV .Q0M [facility] Rx#:[id number] Output: Urine 800 730 Other: Voiding Method Urinal Urinal # Voids 0 0 Weight 63.1 kg 63.1 kg ABP, PAP, CO, CI - Last 8 Hours Arterial Blood Pressure 105/60 Arterial Blood Pressure 112/61 Arterial Blood Pressure 100/52 Arterial Blood Pressure 155/75 62-year-old male who is intubated sedated and mechanically ventilated, seems comfortable but is having difficulty with full syncope with the ventilator. Blood pressure is also starting to drift below. HEENT: Anicteric conjunctiva are pink and moist nasal mucosa grossly intact without significant lesions, there is no thrush. Pupils were reactive. Neck: The neck is supple without significant lymphadenopathy or thyromegaly. Lungs: There is symmetrical bilateral air entry. There are coarse crackles and wheezes to the lung sanchez. Heart: Tachycardic but regular with an audible S1 and S2 soft S4 no distinct murmur click or rub Abdomen: Positive bowel sounds soft nonrigid without palpable masses or organomegaly. Extremities: The upper extremities have excellent pulses they are symmetric, no significant petechiae or telangiectasia. No splinter hemorrhages were noted. The lower extremities are free from significant edema. The peripheral pulses were 2+ and symmetric. IV sites are intact Neuro: Intubated sedated and mechanically ventilated Results CBC & Chem 7: 09/24/17 05:05 09/24/17 05:05 Labs: Abnormal Lab Results - Last 24 Hours (Table) 09/23/17 09/23/17 09/23/17 Range/Units 15:18 15:29 15:43 WBC (3.8-10.6) k/uL RBC (4.30-5.90) m/uL Hgb (13.0-17.5) gm/dL Hct (39.0-53.0) % RDW (11.5-15.5) % Neutrophils # (1.3-7.7) k/uL Lymphocytes # (1.0-4.8) k/uL ABG pH (7.35-7.45) ABG pCO2 (35-45) mmHg ABG pO2 (83-108) mmHg ABG HCO3 (21-25) mmol/L ABG Total CO2 (19-24) mmol/L ABG O2 Saturation (94-97) % Chloride (98-107) mmol/L Carbon Dioxide (22-30) mmol/L BUN (9-20) mg/dL Creatinine (0.66-1.25) mg/dL Glucose (74-99) mg/dL POC Glucose (mg/dL) 369 H 373 H 356 H (75-99) mg/dL AST (17-59) U/L ALT (21-72) U/L Alkaline Phosphatase (38-126) U/L Total Protein (6.3-8.2) g/dL Albumin (3.5-5.0) g/dL 09/23/17 09/23/17 09/23/17 Range/Units 16:01 16:16 16:50 WBC (3.8-10.6) k/uL RBC (4.30-5.90) m/uL Hgb (13.0-17.5) gm/dL Hct (39.0-53.0) % RDW (11.5-15.5) % Neutrophils # (1.3-7.7) k/uL Lymphocytes # (1.0-4.8) k/uL ABG pH (7.35-7.45) ABG pCO2 (35-45) mmHg ABG pO2 (83-108) mmHg ABG HCO3 (21-25) mmol/L ABG Total CO2 (19-24) mmol/L ABG O2 Saturation (94-97) % Chloride (98-107) mmol/L Carbon Dioxide (22-30) mmol/L BUN (9-20) mg/dL Creatinine (0.66-1.25) mg/dL Glucose (74-99) mg/dL POC Glucose (mg/dL) 347 H 344 H 307 H (75-99) mg/dL AST (17-59) U/L ALT (21-72) U/L Alkaline Phosphatase (38-126) U/L Total Protein (6.3-8.2) g/dL Albumin (3.5-5.0) g/dL 09/23/17 09/23/17 09/23/17 Range/Units 17:56 18:39 19:03 WBC (3.8-10.6) k/uL RBC (4.30-5.90) m/uL Hgb (13.0-17.5) gm/dL Hct (39.0-53.0) % RDW (11.5-15.5) % Neutrophils # (1.3-7.7) k/uL Lymphocytes # (1.0-4.8) k/uL ABG pH (7.35-7.45) ABG pCO2 (35-45) mmHg ABG pO2 (83-108) mmHg ABG HCO3 (21-25) mmol/L ABG Total CO2 (19-24) mmol/L ABG O2 Saturation (94-97) % Chloride (98-107) mmol/L Carbon Dioxide (22-30) mmol/L BUN (9-20) mg/dL Creatinine (0.66-1.25) mg/dL Glucose (74-99) mg/dL POC Glucose (mg/dL) 236 H 251 H 228 H (75-99) mg/dL AST (17-59) U/L ALT (21-72) U/L Alkaline Phosphatase (38-126) U/L Total Protein (6.3-8.2) g/dL Albumin (3.5-5.0) g/dL 09/23/17 09/23/17 09/23/17 Range/Units 20:09 20:49 21:48 WBC (3.8-10.6) k/uL RBC (4.30-5.90) m/uL Hgb (13.0-17.5) gm/dL Hct (39.0-53.0) % RDW (11.5-15.5) % Neutrophils # (1.3-7.7) k/uL Lymphocytes # (1.0-4.8) k/uL ABG pH (7.35-7.45) ABG pCO2 (35-45) mmHg ABG pO2 (83-108) mmHg ABG HCO3 (21-25) mmol/L ABG Total CO2 (19-24) mmol/L ABG O2 Saturation (94-97) % Chloride (98-107) mmol/L Carbon Dioxide (22-30) mmol/L BUN (9-20) mg/dL Creatinine (0.66-1.25) mg/dL Glucose (74-99) mg/dL POC Glucose (mg/dL) 226 H 230 H 256 H (75-99) mg/dL AST (17-59) U/L ALT (21-72) U/L Alkaline Phosphatase (38-126) U/L Total Protein (6.3-8.2) g/dL Albumin (3.5-5.0) g/dL 09/23/17 09/23/17 09/24/17 Range/Units 22:28 23:24 00:10 WBC (3.8-10.6) k/uL RBC (4.30-5.90) m/uL Hgb (13.0-17.5) gm/dL Hct (39.0-53.0) % RDW (11.5-15.5) % Neutrophils # (1.3-7.7) k/uL Lymphocytes # (1.0-4.8) k/uL ABG pH (7.35-7.45) ABG pCO2 (35-45) mmHg ABG pO2 (83-108) mmHg ABG HCO3 (21-25) mmol/L ABG Total CO2 (19-24) mmol/L ABG O2 Saturation (94-97) % Chloride (98-107) mmol/L Carbon Dioxide (22-30) mmol/L BUN (9-20) mg/dL Creatinine (0.66-1.25) mg/dL Glucose (74-99) mg/dL POC Glucose (mg/dL) 265 H 222 H 240 H (75-99) mg/dL AST (17-59) U/L ALT (21-72) U/L Alkaline Phosphatase (38-126) U/L Total Protein (6.3-8.2) g/dL Albumin (3.5-5.0) g/dL 09/24/17 09/24/17 09/24/17 Range/Units 00:57 02:10 02:57 WBC (3.8-10.6) k/uL RBC (4.30-5.90) m/uL Hgb (13.0-17.5) gm/dL Hct (39.0-53.0) % RDW (11.5-15.5) % Neutrophils # (1.3-7.7) k/uL Lymphocytes # (1.0-4.8) k/uL ABG pH (7.35-7.45) ABG pCO2 (35-45) mmHg ABG pO2 (83-108) mmHg ABG HCO3 (21-25) mmol/L ABG Total CO2 (19-24) mmol/L ABG O2 Saturation (94-97) % Chloride (98-107) mmol/L Carbon Dioxide (22-30) mmol/L BUN (9-20) mg/dL Creatinine (0.66-1.25) mg/dL Glucose (74-99) mg/dL POC Glucose (mg/dL) 194 H 186 H 184 H (75-99) mg/dL AST (17-59) U/L ALT (21-72) U/L Alkaline Phosphatase (38-126) U/L Total Protein (6.3-8.2) g/dL Albumin (3.5-5.0) g/dL 09/24/17 09/24/17 09/24/17 Range/Units 03:57 04:59 05:05 WBC 16.7 H (3.8-10.6) k/uL RBC 3.39 L (4.30-5.90) m/uL Hgb 9.4 L (13.0-17.5) gm/dL Hct 29.9 L (39.0-53.0) % RDW 18.7 H (11.5-15.5) % Neutrophils # 15.6 H (1.3-7.7) k/uL Lymphocytes # 0.2 L (1.0-4.8) k/uL ABG pH (7.35-7.45) ABG pCO2 (35-45) mmHg ABG pO2 (83-108) mmHg ABG HCO3 (21-25) mmol/L ABG Total CO2 (19-24) mmol/L ABG O2 Saturation (94-97) % Chloride (98-107) mmol/L Carbon Dioxide (22-30) mmol/L BUN (9-20) mg/dL Creatinine (0.66-1.25) mg/dL Glucose (74-99) mg/dL POC Glucose (mg/dL) 140 H 144 H (75-99) mg/dL AST (17-59) U/L ALT (21-72) U/L Alkaline Phosphatase (38-126) U/L Total Protein (6.3-8.2) g/dL Albumin (3.5-5.0) g/dL 09/24/17 09/24/17 09/24/17 Range/Units 05:05 06:04 06:14 WBC (3.8-10.6) k/uL RBC (4.30-5.90) m/uL Hgb (13.0-17.5) gm/dL Hct (39.0-53.0) % RDW (11.5-15.5) % Neutrophils # (1.3-7.7) k/uL Lymphocytes # (1.0-4.8) k/uL ABG pH 7.28 L (7.35-7.45) ABG pCO2 47 H (35-45) mmHg ABG pO2 74 L (83-108) mmHg ABG HCO3 (21-25) mmol/L ABG Total CO2 (19-24) mmol/L ABG O2 Saturation 93.5 L (94-97) % Chloride 111 H (98-107) mmol/L Carbon Dioxide 19 L (22-30) mmol/L BUN 53 H (9-20) mg/dL Creatinine 2.60 H (0.66-1.25) mg/dL Glucose 132 H (74-99) mg/dL POC Glucose (mg/dL) 149 H (75-99) mg/dL AST 91 H (17-59) U/L ALT 79 H (21-72) U/L Alkaline Phosphatase 179 H (38-126) U/L Total Protein 5.7 L (6.3-8.2) g/dL Albumin 2.7 L (3.5-5.0) g/dL 09/24/17 09/24/17 09/24/17 Range/Units 06:59 08:06 09:00 WBC (3.8-10.6) k/uL RBC (4.30-5.90) m/uL Hgb (13.0-17.5) gm/dL Hct (39.0-53.0) % RDW (11.5-15.5) % Neutrophils # (1.3-7.7) k/uL Lymphocytes # (1.0-4.8) k/uL ABG pH (7.35-7.45) ABG pCO2 (35-45) mmHg ABG pO2 (83-108) mmHg ABG HCO3 (21-25) mmol/L ABG Total CO2 (19-24) mmol/L ABG O2 Saturation (94-97) % Chloride (98-107) mmol/L Carbon Dioxide (22-30) mmol/L BUN (9-20) mg/dL Creatinine (0.66-1.25) mg/dL Glucose (74-99) mg/dL POC Glucose (mg/dL) 125 H 148 H 170 H (75-99) mg/dL AST (17-59) U/L ALT (21-72) U/L Alkaline Phosphatase (38-126) U/L Total Protein (6.3-8.2) g/dL Albumin (3.5-5.0) g/dL 09/24/17 09/24/17 09/24/17 Range/Units 10:08 10:51 12:20 WBC (3.8-10.6) k/uL RBC (4.30-5.90) m/uL Hgb (13.0-17.5) gm/dL Hct (39.0-53.0) % RDW (11.5-15.5) % Neutrophils # (1.3-7.7) k/uL Lymphocytes # (1.0-4.8) k/uL ABG pH 7.15 L* (7.35-7.45) ABG pCO2 65 H (35-45) mmHg ABG pO2 (83-108) mmHg ABG HCO3 (21-25) mmol/L ABG Total CO2 25 H (19-24) mmol/L ABG O2 Saturation (94-97) % Chloride (98-107) mmol/L Carbon Dioxide (22-30) mmol/L BUN (9-20) mg/dL Creatinine (0.66-1.25) mg/dL Glucose (74-99) mg/dL POC Glucose (mg/dL) 173 H 156 H (75-99) mg/dL AST (17-59) U/L ALT (21-72) U/L Alkaline Phosphatase (38-126) U/L Total Protein (6.3-8.2) g/dL Albumin (3.5-5.0) g/dL 09/24/17 09/24/17 Range/Units 14:46 15:10 WBC (3.8-10.6) k/uL RBC (4.30-5.90) m/uL Hgb (13.0-17.5) gm/dL Hct (39.0-53.0) % RDW (11.5-15.5) % Neutrophils # (1.3-7.7) k/uL Lymphocytes # (1.0-4.8) k/uL ABG pH 7.06 L* (7.35-7.45) ABG pCO2 70 H* (35-45) mmHg ABG pO2 231 H (83-108) mmHg ABG HCO3 20 L (21-25) mmol/L ABG Total CO2 (19-24) mmol/L ABG O2 Saturation 99.6 H (94-97) % Chloride (98-107) mmol/L Carbon Dioxide (22-30) mmol/L BUN (9-20) mg/dL Creatinine (0.66-1.25) mg/dL Glucose (74-99) mg/dL POC Glucose (mg/dL) 158 H (75-99) mg/dL AST (17-59) U/L ALT (21-72) U/L Alkaline Phosphatase (38-126) U/L Total Protein (6.3-8.2) g/dL Albumin (3.5-5.0) g/dL Microbiology - Last 24 Hours (Table) 09/23/17 12:40 Blood Culture - Preliminary Blood No Growth after 24 hours 09/21/17 14:29 Blood Culture - Preliminary Blood No Growth after 48 hours 09/21/17 14:23 Blood Culture - Preliminary Blood No Growth after 48 hours Laboratory Results WBC 16.7 k/uL (3.8-10.6) H 09/24/17 05:05 RBC 3.39 m/uL (4.30-5.90) L 09/24/17 05:05 Hgb 9.4 gm/dL (13.0-17.5) L 09/24/17 05:05 Hct 29.9 % (39.0-53.0) L 09/24/17 05:05 MCV 88.3 fL (80.0-100.0) 09/24/17 05:05 MCH 27.8 pg (25.0-35.0) 09/24/17 05:05 MCHC 31.5 g/dL (31.0-37.0) 09/24/17 05:05 RDW 18.7 % (11.5-15.5) H 09/24/17 05:05 Plt Count 364 k/uL (150-450) 09/24/17 05:05 Neutrophils % 94 % 09/24/17 05:05 Lymphocytes % 1 % 09/24/17 05:05 Monocytes % 4 % 09/24/17 05:05 Eosinophils % 0 % 09/24/17 05:05 Basophils % 0 % 09/24/17 05:05 Neutrophils # 15.6 k/uL (1.3-7.7) H 09/24/17 05:05 Lymphocytes # 0.2 k/uL (1.0-4.8) L 09/24/17 05:05 Monocytes # 0.7 k/uL (0-1.0) 09/24/17 05:05 Eosinophils # 0.0 k/uL (0-0.7) 09/24/17 05:05 Basophils # 0.0 k/uL (0-0.2) 09/24/17 05:05 Hypochromasia Slight 09/24/17 05:05 Anisocytosis Slight 09/24/17 05:05 PT 11.0 sec (9.0-12.0) 09/21/17 16:16 INR 1.1 (<1.2) 09/21/17 16:16 APTT 28.1 sec (22.0-30.0) 09/21/17 16:16 Sample Site caro 09/24/17 15:10 ABG pH 7.06 (7.35-7.45) L* 09/24/17 15:10 ABG pCO2 70 mmHg (35-45) H* 09/24/17 15:10 ABG pO2 231 mmHg (83-108) H 09/24/17 15:10 ABG HCO3 20 mmol/L (21-25) L 09/24/17 15:10 ABG Total CO2 22 mmol/L (19-24) 09/24/17 15:10 ABG O2 Saturation 99.6 % (94-97) H 09/24/17 15:10 ABG Base Excess -10.8 mmol/L 09/24/17 15:10 Xavi Test no 09/24/17 15:10 FiO2 100 % 09/24/17 15:10 Sodium 141 mmol/L (137-145) 09/24/17 05:05 Potassium 4.0 mmol/L (3.5-5.1) 09/24/17 05:05 Chloride 111 mmol/L (98-107) H 09/24/17 05:05 Carbon Dioxide 19 mmol/L (22-30) L 09/24/17 05:05 Anion Gap 11 mmol/L 09/24/17 05:05 BUN 53 mg/dL (9-20) H 09/24/17 05:05 Creatinine 2.60 mg/dL (0.66-1.25) H 09/24/17 05:05 Est GFR (CKD-EPI)AfAm 29 (>60 ml/min/1.73 sqM) 09/24/17 05:05 Est GFR (CKD-EPI)NonAf 25 (>60 ml/min/1.73 sqM) 09/24/17 05:05 Glucose 132 mg/dL (74-99) H 09/24/17 05:05 POC Glucose (mg/dL) 158 mg/dL (75-99) H 09/24/17 14:46 POC Glu Dramatic Art Teacher ID Josh Rob 09/24/17 14:[address] Glu mg/dL 151 09/21/17 14:23 Hemoglobin A1c 6.9 % (4.0-6.0) H 09/21/17 14:23 Lactic Ac Sepsis Rflx Y 09/22/17 20:26 Plasma Lactic Acid Heriberto 1.7 mmol/L (0.7-2.0) 09/23/17 12:34 Calcium 8.9 mg/dL (8.4-10.2) 09/24/17 05:05 Phosphorus 3.7 mg/dL (2.5-4.5) 09/24/17 05:05 Magnesium 2.3 mg/dL (1.6-2.3) 09/24/17 05:05 Total Bilirubin 0.5 mg/dL (0.2-1.3) 09/24/17 05:05 AST 91 U/L (17-59) H 09/24/17 05:05 ALT 79 U/L (21-72) H 09/24/17 05:05 Alkaline Phosphatase 179 U/L (38-126) H 09/24/17 05:05 Total Protein 5.7 g/dL (6.3-8.2) L 09/24/17 05:05 Albumin 2.7 g/dL (3.5-5.0) L 09/24/17 05:05 Urine Color Light Yellow 09/23/17 04:58 Urine Appearance Clear (Clear) 09/23/17 04:58 Urine pH 5.5 (5.0-8.0) 09/23/17 04:58 Ur Specific [place] 1.009 (1.001-1.035) 09/23/17 04:58 Urine Protein Trace (Negative) H 09/23/17 04:58 Urine Glucose (UA) 2+ (Negative) H 09/23/17 04:58 Urine Ketones Negative (Negative) 09/23/17 04:58 Urine Blood Negative (Negative) 09/23/17 04:58 Urine Nitrite Negative (Negative) 09/23/17 04:58 Urine Bilirubin Negative (Negative) 09/23/17 04:58 Urine Urobilinogen <2.0 mg/dL (<2.0) 09/23/17 04:58 Ur Leukocyte Esterase Negative (Negative) 09/23/17 04:58 Fluid Source Bronchial Wash 09/24/17 11:15 Fluid Color Red 09/24/17 11:15 Fluid Appearance Bloody 09/24/17 11:15 Fluid RBC 14125 /uL 09/24/17 11:15 Fluid Nucleated Cells 60 /uL 09/24/17 11:15 Fluid Polynuclear WBCs 90 % 09/24/17 11:15 Fluid Mononuclear WBCs 10 % 09/24/17 11:15 Urine Legionella Ag DETECTED (Not detected) H 09/21/17 17:41 Microbiology 09/23/17 12:40 Blood Blood Culture - Preliminary No Growth after 24 hours 09/21/17 14:29 Blood Blood Culture - Preliminary No Growth after 48 hours 09/21/17 14:23 Blood Blood Culture - Preliminary No Growth after 48 hours Assessment and Plan (1) Legionella pneumonia Narrative/Plan: 62-year-old male with a known history of pulmonary fibrosis who is 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 Receives Ofev from the vehicle maintenance technician and has been relatively stable until this onset of Acute illness. The patient now is evidence of bilateral pneumonia which is on the basis of Legionella infection. Patient's does relate that one of their family friends did have pneumonia recently hospitalized only for a couple of days and has recovered well. We do discuss that Legionella is an environmental pathogen and does not have person-to -person transmission. She is at risk if there is Legionella with no water to the home, is at less risk if the Legionella is only related to the filtering system for the pond. That system would require chlorination if Legionella is present there. The patient's is well and she knows to present if she becomes ill at all. For treatment he does have acute renal failure and levofloxacin is being dosed at the appropriate renally adjusted dose. Given his severe underlying illness and until we have final cultures will also treat for other gram-negative pathogens and cefepime is being used and this has now been dose adjusted also for his current renal failure. Blood cultures and sputum cultures are process. The patient is profoundly ill and there are increasing difficulties with his oxygenation. The patient's understands that he is very ill at this point in time although he is comfortable. The patient has been an ongoing smoker despite his underlying pulmonary disease and is receiving multiple breathing treatments at this time also Leukocytosis is increased a bit and is likely in the basis of the utilization of steroids to improve his pulmonary status. Patient does have acute renal failure but this is improving is being followed by nephrology. Maintaining adequate blood pressure and hydration are part of goals. Prognosis is poor. Current Visit: Yes Status: Acute Code(s): A48.1 - LEGIONNAIRES' DISEASE SNOMED Code(s): 582468151
[2017-09-24] MEDS ORDERED: SODIUM CHLORIDE 0.9% 1,000 ML IV ONE ×2 (15:36→21:33)
--- NOTE | 2017-09-24 16:37 | XR ---
EXAMINATION TYPE: XR chest 1V portable DATE OF EXAM: 09/24/2017 CLINICAL HISTORY: Difficulty breathing had to be intubated TECHNIQUE: Single AP portable semiupright view of the chest is obtained. COMPARISON: Chest x-ray from earlier today and older studies. CT chest June 28, 2017 FINDINGS: There is stable positioning of left subclavian central venous catheter and endotracheal tu be. There is new orogastric tube projecting below diaphragm. Cardiac silhouette size is stable and mildly enlarged with atherosclerotic thoracic aorta. Reticular interstitial changes with increased opacity throughout both lungs remain present. No large pleural ef fusion or pneumothorax is identified bilaterally. IMPRESSION: 1. New OGT is satisfactory in position. 2. There is background mild cardiomegaly with bilateral peripheral interstitial fibrosis with new per sistent diffuse bilateral edema and/or infiltrates, latter not significantly changed from most recent chest x-ray.
[2017-09-24 17:01] LABS: Glucose,Whole Blood 156 mg/dL (75-99)
[2017-09-24] MEDS ORDERED: FUROSEMIDE 10 MG/ML 2 ML VIAL IV ONE (18:57)
[2017-09-24] MEDS ORDERED: FUROSEMIDE 10 MG/ML 4 ML VIAL ONE (18:58)
[2017-09-24 19:11] LABS: Glucose,Whole Blood 157 mg/dL (75-99)
[2017-09-24 20:09] LABS: ABG Base Excess -11.5 mmol/L; ABG HCO3 19 mmol/L (21-25); ABG Oxygen Saturation 98.2 % (94-97); ABG PO2 132 mmHg (83-108); ABG TCO2 22 mmol/L (19-24)
[2017-09-24 20:11] LABS: ABG PCO2 73 mmHg (35-45); ABG PH 7.03 (7.35-7.45)
[2017-09-24] MEDS: SODIUM CHLORIDE 0.9% 1,000 ML IV SCH (20:26)
[2017-09-24] MEDS: ASPIRIN 81 MG PO SCH (20:27)
[2017-09-24] MEDS: ATORVASTATIN 40 MG TAB PO SCH (20:27)
[2017-09-24] MEDS: CHLORHEXIDINE GLUCONATE 15 ML CUP MUCOUS MEM SCH (20:27)
[2017-09-24 21:04] LABS: Glucose,Whole Blood 164 mg/dL (75-99)
[2017-09-25] MEDS: ARTIFICIAL TEARS-HYPROMELLOSE DROPS 15 ML BTL BOTH EYES SCH ×6 (00:45→20:37)
[2017-09-25] MEDS: HEPARIN SODIUM,PORCINE 5,000 UNIT/ML 1 ML VIAL SQ SCH ×3 (00:45→15:32)
[2017-09-25] MEDS: methylPREDNISolone SOD SUCCI 40 MG/ML 1 ML VIAL IV SCH ×3 (00:46→15:32)
[2017-09-25] MEDS: PROPOFOL 1,000 MG in EMPTY BAG 1 BAG IV SCH ×5 (01:11→22:07)
[2017-09-25 05:04] LABS: ABG Base Excess -11.8 mmol/L; ABG HCO3 19 mmol/L (21-25); ABG Oxygen Saturation 98.8 % (94-97); ABG PO2 155 mmHg (83-108); ABG TCO2 21 mmol/L (19-24)
[2017-09-25 05:08] LABS: ABG PCO2 70 mmHg (35-45); ABG PH 7.04 (7.35-7.45)
[2017-09-25] MEDS: INSULIN REGULAR 100 UNIT in SODIUM CHLORIDE 0.9% 100 ML IV SCH ×4 (05:51→22:06)
[2017-09-25 05:59] LABS: Anisocytosis Slight; HCT 33.1 % (39.0-53.0); Hypochromasia Marked; MCH 28.2 pg (25.0-35.0); MCHC 30.2 g/dL (31.0-37.0); Mean Platelet Volume 7.2; Platelet Count 445 k/uL (150-450); Poikilocytosis Slight; RBC 3.54 m/uL (4.30-5.90); RDW 19.1 % (11.5-15.5)
[2017-09-25 06:10] LABS: Calcium 7.8 mg/dL (8.4-10.2); Magnesium 2.3 mg/dL (1.6-2.3)
[2017-09-25 06:17] LABS: Phosphorus 8.3 mg/dL (2.5-4.5); Potassium 6.2 mmol/L (3.5-5.1)
[2017-09-25] MEDS ORDERED: SODIUM BICARB 8.4% 50 ML SYR (1 MEQ/ML) IV STA (06:27)
[2017-09-25] MEDS ORDERED: DEXTROSE 50%-WATER 50 ML SYRINGE IVP STA (06:28)
[2017-09-25] MEDS ORDERED: INSULIN REGULAR 100 UNIT/ML VIAL IV ONE (06:29)
[2017-09-25 06:46] LABS: WBC 32.2 k/uL (3.8-10.6)
[2017-09-25 06:47] LABS: MCV 93.5 fL (80.0-100.0)
[2017-09-25 07:13] LABS: Glucose,Whole Blood 300 mg/dL (75-99)
--- NOTE | 2017-09-25 08:08 | XR ---
EXAMINATION TYPE: XR chest 1V portable DATE OF EXAM: 09/25/2017 HISTORY: Tube placement. REFERENCE: Previous study dated 09/24/2017. FINDINGS: The patient's NG tube and left subclavian catheter remain in place, unchanged in appearance . There continues to be interstitial and alveolar airspace disease. The heart is mildly prominent. Pl eural spaces appear clear. IMPRESSION: VERY SLIGHT IMPROVED AERATION OF BOTH LUNGS.
[2017-09-25 08:15] LABS: ABG Base Excess -9.2 mmol/L; ABG HCO3 20 mmol/L (21-25); ABG Oxygen Saturation 97.9 % (94-97); ABG PCO2 66 mmHg (35-45); ABG PO2 109 mmHg (83-108)
[2017-09-25 08:17] LABS: ABG PH 7.11 (7.35-7.45)
[2017-09-25] MEDS: IPRATROPIUM-ALBUTEROL 3 ML NEB INHALATION SCH ×4 (08:39→19:49)
[2017-09-25] MEDS: BUDESONIDE 0.5 MG/2 ML NEBU INHALATION SCH ×2 (08:40→19:49)
[2017-09-25] MEDS: PANTOPRAZOLE 40 MG TABLET PO SCH (09:13)
[2017-09-25] MEDS: buPROPion XL 150 MG TAB.ER.24H PO SCH (09:16)
[2017-09-25 09:19] LABS: Glucose,Whole Blood 226 mg/dL (75-99)
[2017-09-25] MEDS: DEXTROSE 5% IN WATER 1,000 ML with SODIUM BICARB (1 MEQ/ML) 150 ML IV SCH ×2 (09:30→19:14)
[2017-09-25] MEDS: SODIUM CHLORIDE 0.9% 1,000 ML IV SCH (09:30)
[2017-09-25] MEDS: CEFEPIME 2 GM in SODIUM CHLORIDE 0.9% 50 ML IVPB SCH (09:52)
[2017-09-25] MEDS: CHLORHEXIDINE GLUCONATE 15 ML CUP MUCOUS MEM SCH ×2 (09:53→20:38)
[2017-09-25] MEDS: ESCITALOPRAM 20 MG TAB PO SCH (09:53)
[2017-09-25] MEDS: lamoTRIgine 100 MG TAB PO SCH (09:54)
[2017-09-25] MEDS: SODIUM BICARBONATE TAB 650 MG TAB PO SCH ×3 (09:54→22:08)
[2017-09-25] MEDS: LEVOFLOXACIN 500MG-D5W PMX 500 MG in DEXTROSE/WATER 1 100ML.BAG IVPB SCH (09:54)
[2017-09-25] MEDS: buPROPion 75 MG TAB PO SCH ×2 (09:55→20:39)
--- NOTE | 2017-09-25 10:48 | P.PN ---
Subjective Patient is seen in follow-up for acute kidney injury. Renal function is worse today with creatinine at 3.9. He is oliguric. He is noted to have Legionella pneumonia. Patient was intubated on September 24. He is currently on 7.5 mics of Levophed. He is receiving tube feeds and is also maintained on bicarb drip at 100 mL an hour. Potassium was high this morning which was medically treated and repeat was 4.9. Vital signs are stable. General: Intubated. HEENT: Head exam is unremarkable. Neck is without jugular venous distension. LUNGS: Scattered rhonchi. HEART: Rate and Rhythm are regular. First and second heart sounds normal. No murmurs, rubs or gallops. ABDOMEN: Abdominal exam reveals normal bowel sounds. Non-tender and non- distended. No evidence of peritonitis. EXTREMITITES: No clubbing, cyanosis, or edema. Objective - Vital Signs Vital signs: Vital Signs Temp 98 F 09/25/17 07:45 Pulse 109 H 09/25/17 10:30 Resp 34 H 09/25/17 10:30 BP 122/72 09/25/17 06:15 Pulse Ox 96 09/25/17 10:30 Intake & Output 09/24/17 09/25/17 09/25/17 18:59 06:59 18:59 Intake Total 2144.152 2830.272 622.486 Output Total 825 84 25 Balance 7293.781 0154.272 597.486 Weight 63.1 kg 68 [place]: [place] [address] 225 Cefepime 2 gm In Sodium 50 Chloride 0.9% 50 ml @ 100 mls/hr IVPB DAILY [facility] Rx #:[id number] Sodium Chloride 0.9% 1, 725 825 225 000 ml @ 75 mls/hr IV . [id number] [facility] Rx#:[id number] Sodium Chloride 0.9% 1, 1000 000 ml @ 999 mls/hr IV . Q1H1M [facility] Rx#:[id number] Sodium Chloride 0.9% 1, 1000 000 ml @ 999 mls/hr IV . Q1H1M [facility] Rx#:[id number] Vancomycin 1,250 mg In 250 Sodium Chloride 0.9% 250 ml @ 125 mls/hr IVPB ONCE [facility] Rx#:[id number] Intake, IV Titration 129.152 525.272 277.486 Amount Insulin Regular 100 unit 111.386 90.395 56.038 In Sodium Chloride 0.9% 100 ml @ Per Protocol IV .Q0M [facility] Rx#:[id number] Norepinephrin 16 mg-0.9% 17.766 134.877 3.781 Ns Pmx 16 mg In 250 ml @ Titrate IV .Q0M [facility] Rx#: [id number] Propofol 1,000 mg In 300 Empty Bag 1 bag @ Titrate IV .Q0M [facility] Rx#: [id number] fentaNYL (PF) 2,500 mcg 217.667 In Sodium Chloride 0.9% 200 ml @ 100 MCG/HR 10 mls/hr IV .Q24H [facility] Rx#: [id number] Tube Feeding 40 340 120 Other 90 Output: Urine 825 84 25 Other: Voiding Method Indwelling Catheter Indwelling Catheter Indwelling Catheter # Voids 0 0 ABP, PAP, CO, CI - Last Documented Arterial Blood Pressure 99/53 - Labs CBC & Chem 7: 09/25/17 05:44 09/25/17 08:48 Labs: Abnormal Lab Results - Last 24 Hours (Table) 09/24/17 09/24/17 09/24/17 Range/Units 10:51 12:20 14:46 WBC (3.8-10.6) k/uL RBC (4.30-5.90) m/uL Hgb (13.0-17.5) gm/dL Hct (39.0-53.0) % MCHC (31.0-37.0) g/dL RDW (11.5-15.5) % ABG pH 7.15 L* (7.35-7.45) ABG pCO2 65 H (35-45) mmHg ABG pO2 (83-108) mmHg ABG HCO3 (21-25) mmol/L ABG Total CO2 25 H (19-24) mmol/L ABG O2 Saturation (94-97) % Potassium (3.5-5.1) mmol/L Chloride (98-107) mmol/L Carbon Dioxide (22-30) mmol/L BUN (9-20) mg/dL Creatinine (0.66-1.25) mg/dL Glucose (74-99) mg/dL POC Glucose (mg/dL) 156 H 158 H (75-99) mg/dL Calcium (8.4-10.2) mg/dL Phosphorus (2.5-4.5) mg/dL 09/24/17 09/24/17 09/24/17 Range/Units 15:10 17:00 19:09 WBC (3.8-10.6) k/uL RBC (4.30-5.90) m/uL Hgb (13.0-17.5) gm/dL Hct (39.0-53.0) % MCHC (31.0-37.0) g/dL RDW (11.5-15.5) % ABG pH 7.06 L* (7.35-7.45) ABG pCO2 70 H* (35-45) mmHg ABG pO2 231 H (83-108) mmHg ABG HCO3 20 L (21-25) mmol/L ABG Total CO2 (19-24) mmol/L ABG O2 Saturation 99.6 H (94-97) % Potassium (3.5-5.1) mmol/L Chloride (98-107) mmol/L Carbon Dioxide (22-30) mmol/L BUN (9-20) mg/dL Creatinine (0.66-1.25) mg/dL Glucose (74-99) mg/dL POC Glucose (mg/dL) 156 H 157 H (75-99) mg/dL Calcium (8.4-10.2) mg/dL Phosphorus (2.5-4.5) mg/dL 09/24/17 09/24/17 09/25/17 Range/Units 20:07 21:02 05:02 WBC (3.8-10.6) k/uL RBC (4.30-5.90) m/uL Hgb (13.0-17.5) gm/dL Hct (39.0-53.0) % MCHC (31.0-37.0) g/dL RDW (11.5-15.5) % ABG pH 7.03 L* 7.04 L* (7.35-7.45) ABG pCO2 73 H* 70 H* (35-45) mmHg ABG pO2 132 H 155 H (83-108) mmHg ABG HCO3 19 L 19 L (21-25) mmol/L ABG Total CO2 (19-24) mmol/L ABG O2 Saturation 98.2 H 98.8 H (94-97) % Potassium (3.5-5.1) mmol/L Chloride (98-107) mmol/L Carbon Dioxide (22-30) mmol/L BUN (9-20) mg/dL Creatinine (0.66-1.25) mg/dL Glucose (74-99) mg/dL POC Glucose (mg/dL) 164 H (75-99) mg/dL Calcium (8.4-10.2) mg/dL Phosphorus (2.5-4.5) mg/dL 09/25/17 09/25/17 09/25/17 Range/Units 05:44 05:44 07:12 WBC 32.2 H* (3.8-10.6) k/uL RBC 3.54 L (4.30-5.90) m/uL Hgb 10.0 L (13.0-17.5) gm/dL Hct 33.1 L (39.0-53.0) % MCHC 30.2 L (31.0-37.0) g/dL RDW 19.1 H (11.5-15.5) % ABG pH (7.35-7.45) ABG pCO2 (35-45) mmHg ABG pO2 (83-108) mmHg ABG HCO3 (21-25) mmol/L ABG Total CO2 (19-24) mmol/L ABG O2 Saturation (94-97) % Potassium 6.2 H* (3.5-5.1) mmol/L Chloride 114 H (98-107) mmol/L Carbon Dioxide 18 L (22-30) mmol/L BUN 55 H (9-20) mg/dL Creatinine 3.90 H (0.66-1.25) mg/dL Glucose 218 H (74-99) mg/dL POC Glucose (mg/dL) 300 H (75-99) mg/dL Calcium 7.8 L (8.4-10.2) mg/dL Phosphorus 8.3 H* (2.5-4.5) mg/dL 09/25/17 09/25/17 Range/Units 08:05 09:12 WBC (3.8-10.6) k/uL RBC (4.30-5.90) m/uL Hgb (13.0-17.5) gm/dL Hct (39.0-53.0) % MCHC (31.0-37.0) g/dL RDW (11.5-15.5) % ABG pH 7.11 L* (7.35-7.45) ABG pCO2 66 H (35-45) mmHg ABG pO2 109 H (83-108) mmHg ABG HCO3 20 L (21-25) mmol/L ABG Total CO2 (19-24) mmol/L ABG O2 Saturation 97.9 H (94-97) % Potassium (3.5-5.1) mmol/L Chloride (98-107) mmol/L Carbon Dioxide (22-30) mmol/L BUN (9-20) mg/dL Creatinine (0.66-1.25) mg/dL Glucose (74-99) mg/dL POC Glucose (mg/dL) 226 H (75-99) mg/dL Calcium (8.4-10.2) mg/dL Phosphorus (2.5-4.5) mg/dL Microbiology - Last 24 Hours (Table) 09/24/17 11:15 Gram Stain - Preliminary Bronchial Washings - Right Bronchial Washings Culture - Preliminary 09/21/17 14:23 Blood Culture - Preliminary Blood No Growth after 72 hours 09/21/17 14:29 Blood Culture - Preliminary Blood No Growth after 72 hours 09/24/17 11:15 Acid Fast Bacilli Culture - Preliminary Bronchial Washings - Right 09/24/17 11:15 Fungal Culture - Preliminary Bronchial Washings - Right 09/23/17 12:40 Blood Culture - Preliminary Blood No Growth after 24 hours Assessment and Plan Plan: Assessment: 1. Oliguric acute kidney injury secondary to ATN secondary to sepsis/ hypotension. Urinalysis is quite benign. 2. Legionella pneumonia. Maintained on antibiotics. 3. Acute hypoxic respiratory failure secondary to pneumonia and ARDS. 4. History of pulmonary fibrosis. 5. Metabolic acidosis. 6. Diabetes mellitus. 7. Hypotension maintained on Levophed. 8. Hyperkalemia secondary to anabolic acidosis and acute kidney injury. He was medically treated and repeat was normal. 9. Hyperphosphatemia secondary to acute kidney injury. Plan: Continue bicarb drip at 100 mL an hour. Wean vasopressors. Avoid nephrotoxic agents and hypotensive episodes. Continue to monitor renal function and urine output closely. Wean FiO2 as tolerated. Lasix 80 mg IV once today. Add PhosLo 3 times a day. If no improvement in his renal function and urine output, will require renal replacement therapy.
[2017-09-25] MEDS ORDERED: FUROSEMIDE 10 MG/ML 10 ML VIAL IV STA (10:49)
--- NOTE | 2017-09-25 10:50 | P.PN ---
Subjective Progress Note Date: 09/25/17 This is a 62-year-old male patient, 1 on my own patients from the office, was seen today in our office for increased shortness of breath. The patient comes in with a one-week history of cough, fever and chills and shortness of breath and his condition was progressively getting worse. The patient had a chest x- ray showed airspace disease in the right upper lobe and the left upper lobe worse compared to the previous chest x-rays was done our office. He was also found to be more hypoxic and his pulse ox was in the 70s on room air. Note that he was not on any home oxygen prior. The patient was seen in our office and he was advised to be admitted to the hospital for antibiotic treatment for possible pneumonia. For that reason he was sent over to the hospital and a pulmonary consultation was requested also. The initial blood work also showed a component of acute kidney injury. The patient's creatinine was up to 5.8. Upon further questioning, the patient reported that he was having migraine headaches and he was getting high dose Motrin for headaches and he has taken around 5-6 tablets. At the same time he was having some diarrhea approximately 3 days ago which ultimately subsided. Currently does not have any ongoing diarrhea and nausea vomiting or abdominal pain. The patient noted some diminished urine output over the past 24 hours. The patient is not known to have any previous history of kidney injury is of kidney failures. No nephrolithiasis. The patient also admitted to have exposure to a friend who was hospitalized down in amount, as for an underlying pneumonia. This patient is known to me. I saw him in consultation on 06/17/2017. The patient as part of further workup underwent a high-resolution CAT scan of the chest and upon review of the films there is extensive emphysema in the upper lobes bilaterally addition to subpleural pulmonary fibrosis involving the lower lobes and early changes of honeycombing in the lung bases. This was consistent with IPF based on the radiographic findings. The pulmonary function test showed an FVC of 74% and a total lung capacity of 64% with a diffusion capacity of 50% of predicted consistent with a component of restrictive lung disease. His room air pulse ox back then was 97% and the patient back then did not qualify for oxygen. The patient was trying to quit smoking. Based on the overall clinical picture, I recommended this patient to start on anti-fibrotic treatment and the patient was started on Ovef, nintadanib, after confirming the patient's liver function tests her baseline were within normal limits. He was asked to continue the Ventolin rescue inhaler mastoids basis. Smoking cessation counseling was also done in the office back in June 2017. 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 He is living in [facility]. He lives in a farm. He has outdoor animals including a goat and a Pig and a horse. He has no exposure to birds products. No exposure to chicken, pigeons or doves. On 09/22/2017 patient seen again in follow-up on medical surgical floor. Resting in bed, still complaining of weakness and fatigue. But overall is feeling better. Not bringing up any sputum, denies any chest wall tenderness, lung sounds are positive for coarse crackles over left lower lobe, no wheezing. Today's labs were reviewed, and a PVC 7.7, hemoglobin is 10.6, renal profile is improving, BUN is down to 60, creatinine is 4.29. Patient is remains on IV hydration, receiving 0.9 normal saline at a rate of 100 per hour. Patient remains on empiric coverage in the form of Azactam, and Levaquin, today's chest x-ray showed multifocal reticular opacity pneumonia in the left lower and left upper lobe On 09/23/2017, the patient was seen in follow-up. I noted that the patient was progressively getting more short of breath and lethargic. Earlier this morning the patient became significantly hypoxic and he desaturated. He was placed on 100% nonrebreather facemask. A chest x-ray was done and showed worsening of the right the pulmonary infiltrates with increased alveolar infiltrates in the left midlung zone on the left lower lobe as well as the right midlung area. Note that the patient was already covered with antibiotics and was receiving a combination of Levaquin and aztreonam. Afebrile. Hemodynamically stable currently 100% on a beta facemasks. Blood gases was done and showed a pH of 7.29 with a pCO2 of 37 and pO2 100%. The patient got transferred to the ICU. No chest pain. No fever. No chills. No nausea. No vomiting. No diarrhea. He was receiving normal saline at the rate of 100 mL an hour and the creatinine is down to 3.0. On 09/24/2017, the patient ICU yesterday because of worsening shortness of breath and respiratory failure and worsening oxygenation and hypoxic respiratory failure. The patient initially was on 100% nonrebreather facemask. He was placed on high flow oxygen and he failed and subsequently the patient was placed on a BiPAP at a pressure of 10/5 with an FiO2 of 100%. Earlier this morning he was breathing in the mid 40s and he was struggling to breathe and he was very short of breath using excessive muscle breathing and he was having periodic desaturations was pulsatile drop in the low 80s. At that point he was also diagnosed having Legionella pneumonia and a chest x-ray was getting worse. Progressive worsening of breath upon infiltrates and I suspect underlying IPF with a superimposed Legionella pneumonia and ARDS picture. I intubated this patient and put him on assist-control mode at the rate of 26 with a tidal volume of 400 with an FiO2 of 100% and a PEEP of 18. The patient is sedated with Diprivan and is calm and comfortable and hemodynamically stable. Blood gases and chest x-ray post intubation are still pending. Meanwhile a triple lumen catheter and a Artline Was also inserted for hemodynamic monitoring. As mentioned, the Legionella urine antigen was positive. The patient will be kept on cefepime and Levaquin combination. We'll discontinue the vancomycin. We'll continue the IV Solu-Medrol. We'll continue the supportive care. A bronchoscopy will be done to rule out any superimposed infection on top of his Legionella pneumonia. His white count is elevated at 16.7. Hemoglobin stable at 9.4. On 09/25/2017 the patient remains critically ill. He was intubated and placed on a mechanical ventilator. As mentioned, he has IPF and he is course was further complicated by Legionella pneumonia and secondary ARDS. This morning he is sedated with a combination of propofol and fentanyl. He is paralyzed with Nimbex. He is an assist-control mode of ventilation at the rate of 32, tidal volume of 380, FiO2 of 70% with a PEEP of 15. Peak airway pressures around 38. Static pressures around 36. Chest x-ray still showing diffuse but the pulmonary infiltrates. Bronchoscopy was done yesterday and the results of the bronchioloalveolar lavage are still pending. Meanwhile, the patient is on a combination of Levaquin and cefepime. The patient had a blood gases this morning that showed a pH of 7.03 with a pCO2 of 73 and pO2 of 132. Based on this I increased his tidal volume to 410. I also dropped FiO2 down to 60%. A repeat blood gas showed a pH of 7.11 with a pCO2 of 66 and pO2 of 109. He had a potassium of 6.2 today which was probably related to his acute renal failure and his acidosis. Based on this, he was given grams of bicarb, he was given D50 and insulin protocol, and he was started on a bicarb drip and currently bicarb is running at the rate of 75 mL an hour in the form of D5 with 3 ampules of sodium bicarbonate. This will hopefully counteract his respiratory acidosis. Repeat potassium level is down to 4.9. He is on pressors. He became hypotensive yesterday and currently is on norepinephrine infusion at the rate of 15 mics. The patient has diminished urine output in the order of 50-20 mL an hour. He is in a positive fluid balance and overnight he received a total of 2 L of additional IV fluids. His creatinine is up to 3.9. His white cell count is up to 32. Is on enteral feeding for nutritional support. He is critically ill. Family has been updated on his condition. Objective - Vital Signs Vital signs: Vital Signs Temp 98 F 09/25/17 07:45 Pulse 109 H 09/25/17 10:30 Resp 34 H 09/25/17 10:30 BP 122/72 09/25/17 06:15 Pulse Ox 96 09/25/17 10:30 Intake & Output 09/24/17 09/25/17 09/25/17 18:59 06:59 18:59 Intake Total 2144.152 2830.272 622.486 Output Total 825 84 25 Balance 4087.351 0730.272 597.486 Weight 63.1 kg 68 kg Intake: IV 1974 Cefepime 2 gm In Sodium 50 Chloride 0.9% 50 ml @ 100 mls/hr IVPB DAILY [facility] Rx #:[id number] Sodium Chloride 0.9% 1, 72 825 225 000 ml @ 75 mls/hr IV . [id number] [facility] Rx#:[id number] Sodium Chloride 0.9% 1, 1000 000 ml @ 999 mls/hr IV . Q1H1M [facility] Rx#:[id number] Sodium Chloride 0.9% 1, 1000 000 ml @ 999 mls/hr IV . Q1H1M ONE Rx#:[id number] Vancomycin 1,250 mg In 250 Sodium Chloride 0.9% 250 ml @ 125 mls/hr IVPB ONCE ONE Rx#:[id number] Intake, IV Titration 129.152 525.272 277.486 Amount Insulin Regular 100 unit 111.386 90.395 56.038 In Sodium Chloride 0.9% 100 ml @ Per Protocol IV .Q0M [facility] Rx#:[id number] Norepinephrin 16 mg-0.9% 17.766 134.877 3.781 Ns Pmx 16 mg In 250 ml @ Titrate IV .Q0M [facility] Rx#: [id number] Propofol 1,000 mg In 300 Empty Bag 1 bag @ Titrate IV .Q0M [facility] Rx#: [id number] fentaNYL (PF) 2,500 mcg 217.667 In Sodium Chloride 0.9% 200 ml @ 100 MCG/HR 10 mls/hr IV .Q24H [facility] Rx#: [id number] Tube Feeding 40 340 120 Other 90 Output: Urine 825 84 25 Other: Voiding Method Indwelling Catheter Indwelling Catheter Indwelling Catheter # Voids 0 0 ABP, PAP, CO, CI - Last Documented Arterial Blood Pressure 99/53 - Exam General Appearance a mechanical ventilator. Orotracheal tube is in place. The patient is sedated with propofol and fentanyl. The patient is also paralyzed with Nimbex. Head exam was generally normal. There was no scleral icterus or corneal arcus. Mucous membranes were moist. Neck was supple and without jugular venous distension, thyromegaly, or carotid bruits. Carotids were easily palpable bilaterally. There was no adenopathy. Heart no right ventricular heave, no distant heart sounds, no s3 gallop, (normal ) jugular vein: jugular venous distention: by 0cm, (normal) jugular vein GI bowel sounds: hyperactive (borborygmi), bowel sounds: diminished or absent We'll coarse crackles in the mid and lower lung sanchez bilaterally. The patient currently on an assist-control mode of ventilation. Extremities no cyanosis, no clubbing, no edema Neurologic synchronous with the mechanical ventilator. Patient is sedated and paralyzed. Examination of the skin revealed no evidence of significant rashes, suspicious appearing nevi or other concerning lesions. - Labs CBC & Chem 7: 09/25/17 05:44 09/25/17 08:48 Labs: Abnormal Lab Results - Last 24 Hours (Table) 09/24/17 09/24/17 09/24/17 Range/Units 10:51 12:20 14:46 WBC (3.8-10.6) k/uL RBC (4.30-5.90) m/uL Hgb (13.0-17.5) gm/dL Hct (39.0-53.0) % MCHC (31.0-37.0) g/dL RDW (11.5-15.5) % ABG pH 7.15 L* (7.35-7.45) ABG pCO2 65 H (35-45) mmHg ABG pO2 (83-108) mmHg ABG HCO3 (21-25) mmol/L ABG Total CO2 25 H (19-24) mmol/L ABG O2 Saturation (94-97) % Potassium (3.5-5.1) mmol/L Chloride (98-107) mmol/L Carbon Dioxide (22-30) mmol/L BUN (9-20) mg/dL Creatinine (0.66-1.25) mg/dL Glucose (74-99) mg/dL POC Glucose (mg/dL) 156 H 158 H (75-99) mg/dL Calcium (8.4-10.2) mg/dL Phosphorus (2.5-4.5) mg/dL 09/24/17 09/24/17 09/24/17 Range/Units 15:10 17:00 19:09 WBC (3.8-10.6) k/uL RBC (4.30-5.90) m/uL Hgb (13.0-17.5) gm/dL Hct (39.0-53.0) % MCHC (31.0-37.0) g/dL RDW (11.5-15.5) % ABG pH 7.06 L* (7.35-7.45) ABG pCO2 70 H* (35-45) mmHg ABG pO2 231 H (83-108) mmHg ABG HCO3 20 L (21-25) mmol/L ABG Total CO2 (19-24) mmol/L ABG O2 Saturation 99.6 H (94-97) % Potassium (3.5-5.1) mmol/L Chloride (98-107) mmol/L Carbon Dioxide (22-30) mmol/L BUN (9-20) mg/dL Creatinine (0.66-1.25) mg/dL Glucose (74-99) mg/dL POC Glucose (mg/dL) 156 H 157 H (75-99) mg/dL Calcium (8.4-10.2) mg/dL Phosphorus (2.5-4.5) mg/dL 09/24/17 09/24/17 09/25/17 Range/Units 20:07 21:02 05:02 WBC (3.8-10.6) k/uL RBC (4.30-5.90) m/uL Hgb (13.0-17.5) gm/dL Hct (39.0-53.0) % MCHC (31.0-37.0) g/dL RDW (11.5-15.5) % ABG pH 7.03 L* 7.04 L* (7.35-7.45) ABG pCO2 73 H* 70 H* (35-45) mmHg ABG pO2 132 H 155 H (83-108) mmHg ABG HCO3 19 L 19 L (21-25) mmol/L ABG Total CO2 (19-24) mmol/L ABG O2 Saturation 98.2 H 98.8 H (94-97) % Potassium (3.5-5.1) mmol/L Chloride (98-107) mmol/L Carbon Dioxide (22-30) mmol/L BUN (9-20) mg/dL Creatinine (0.66-1.25) mg/dL Glucose (74-99) mg/dL POC Glucose (mg/dL) 164 H (75-99) mg/dL Calcium (8.4-10.2) mg/dL Phosphorus (2.5-4.5) mg/dL 09/25/17 09/25/17 09/25/17 Range/Units 05:44 05:44 07:12 WBC 32.2 H* (3.8-10.6) k/uL RBC 3.54 L (4.30-5.90) m/uL Hgb 10.0 L (13.0-17.5) gm/dL Hct 33.1 L (39.0-53.0) % MCHC 30.2 L (31.0-37.0) g/dL RDW 19.1 H (11.5-15.5) % ABG pH (7.35-7.45) ABG pCO2 (35-45) mmHg ABG pO2 (83-108) mmHg ABG HCO3 (21-25) mmol/L ABG Total CO2 (19-24) mmol/L ABG O2 Saturation (94-97) % Potassium 6.2 H* (3.5-5.1) mmol/L Chloride 114 H (98-107) mmol/L Carbon Dioxide 18 L (22-30) mmol/L BUN 55 H (9-20) mg/dL Creatinine 3.90 H (0.66-1.25) mg/dL Glucose 218 H (74-99) mg/dL POC Glucose (mg/dL) 300 H (75-99) mg/dL Calcium 7.8 L (8.4-10.2) mg/dL Phosphorus 8.3 H* (2.5-4.5) mg/dL 09/25/17 09/25/17 Range/Units 08:05 09:12 WBC (3.8-10.6) k/uL RBC (4.30-5.90) m/uL Hgb (13.0-17.5) gm/dL Hct (39.0-53.0) % MCHC (31.0-37.0) g/dL RDW (11.5-15.5) % ABG pH 7.11 L* (7.35-7.45) ABG pCO2 66 H (35-45) mmHg ABG pO2 109 H (83-108) mmHg ABG HCO3 20 L (21-25) mmol/L ABG Total CO2 (19-24) mmol/L ABG O2 Saturation 97.9 H (94-97) % Potassium (3.5-5.1) mmol/L Chloride (98-107) mmol/L Carbon Dioxide (22-30) mmol/L BUN (9-20) mg/dL Creatinine (0.66-1.25) mg/dL Glucose (74-99) mg/dL POC Glucose (mg/dL) 226 H (75-99) mg/dL Calcium (8.4-10.2) mg/dL Phosphorus (2.5-4.5) mg/dL Microbiology - Last 24 Hours (Table) 09/24/17 11:15 Gram Stain - Preliminary Bronchial Washings - Right Bronchial Washings Culture - Preliminary 09/21/17 14:23 Blood Culture - Preliminary Blood No Growth after 72 hours 09/21/17 14:29 Blood Culture - Preliminary Blood No Growth after 72 hours 09/24/17 11:15 Acid Fast Bacilli Culture - Preliminary Bronchial Washings - Right 09/24/17 11:15 Fungal Culture - Preliminary Bronchial Washings - Right 09/23/17 12:40 Blood Culture - Preliminary Blood No Growth after 24 hours Assessment and Plan Plan: Assessment 1 acute hypoxic history failure, pneumonia with progressive worsening in by the pulmonary infiltrates, possibly secondary to evolving ARDS. The patient is currently sedated and paralyzed. The patient remains on assist control mode of ventilation. We are using permissive hypercapnia with low tidal volume ventilation. He did develop some respiratory and metabolic acidosis and for that reason he was started on a bicarb drip. His oxidation is improved and the patient is currently on 15 of PEEP with an FiO2 of 60% maintaining his saturation above 90%. 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 Renal function continues to be impaired with a creatinine of 3.9 and the patient has become oliguric condition to an underlying component of respiratory and metabolic acidosis currently on a bicarb drip. 5 acute hypotension possibly secondary to underlying sepsis as the patient developed worsening leukocytosis addition to drop in the blood pressure. The patient was aggressively resuscitated IV fluids. Patient is also on pressors currently on norepinephrine infusion at the rate of 50 g per KG pigmented. 6 diabetes mellitus, on insulin drip for BS control 7 smoker 8 depression 9 abnormal LFTs, probably secondary to OVEF 10 hypertension 11 acid reflux 12 non-anion gap metabolic acidosis, in addition to respirator acidosis currently on a bicarb drip 13 chronic anemia Plan Continue vent support the necessary vent changes were done. Continue same antibiotic coverage including a combination of cefepime vancomycin and Levaquin. Continue bronchodilators. Continue steroids. Continue vent support. Keep the patient sedated and give the patient and paralytic holiday and assess his readiness to come off the paralysis and this will largely depend on his synchrony with the mechanical ventilator. We will start bicarb drip and monitor the patient's electrolytes. Potassium is down to 4.8. Monitor urine output. Monitor white count. Monitor the cultures. Continue enteral feeding for nutritional support. Condition is very critical. Family has been updated on the condition. He carries a very high mortality especially his underlying pulmonary fibrosis at baseline. We'll continue to follow. This examination was on a more than 40 minutes. This is a critically care evaluation.
[2017-09-25 10:51] LABS: Glucose,Whole Blood 230 mg/dL (75-99)
[2017-09-25] MEDS ORDERED: ACETAMINOPHEN TAB 325 MG TAB PO PRN (11:26)
[2017-09-25] MEDS: CALCIUM ACETATE 667 MG CAP PO SCH ×2 (11:45→16:59)
--- NOTE | 2017-09-25 11:48 | PN ---
PROGRESS NOTE DATE OF SERVICE: 09/25/2017. The patient is seen today and evaluated in the ICU and the patient so far is sedated on the ventilator with the oral NG tube for feeding as well as on multiple medication antibiotic as well including Levaquin , evaluated by Dr. Nimesh Mcdermott and he did see him yesterday with the continuation with the same impression, bilateral basilar pneumonia with the Legionella positive for Legionella disease. He had also underlying autoimmune with was treated for the IPF with pulmonary fibrosis with OBEF which currently discontinued. Also, the patient has underlying diabetes mellitus and type 2, currently insulin dependent and because of the steroid, he had not controlled initially and we started him on the insulin drip. With the sedation because of the ventilator, is the blood pressure dropped with this procedure and he is on norepinephrine drip. Subsequently, as patient now on a thrombotic compression stockings as well and so far had continued the monitoring and evaluation. Yesterday, post placement, the endotracheal tube for ventilator had a chest x-ray and chest x-ray showed that cardiac silhouette, however, this is a portable x-ray and mildly enlarged. He has also reticular interstitial changes with increased opacity throughout both lungs and with no evidence of pneumothorax and we are looking at a picture of ARDS as well. He had oral gastric tube in satisfactory position and mild cardiomegaly. Bilateral peripheral interstitial fibrosis and new persistent diffuse bilateral edema or infiltrate. The patient also today on the 25 of September had a chest x-ray again and for monitoring and found that very slight improvement in both lung sanchez with the continuation of the treatment. His vital signs today in the ICU indicating blood pressure 99/53 to 98/49, and that is with the sedation and the treatment is dropping down, but he is also on norepinephrine to maintain blood pressure above 90. He has underlying acute kidney injury and his renal failure has been associated with metabolic acidosis and currently he is on IV bicarb as well and he monitored by the Dr. Cervantes as well as Dr. Pierre the yarn finisher. His current laboratory indicating that his white count is 32.2 with the leukocytosis, which is a part of the demargination of the use of steroids as well as the stress. His hemoglobin is 10 and hematocrit 33.1 with the marketed hypochromasia and poikilocytosis and anisocytosis slide. His ABG today indicating that his pH of 7.11, which is acidotic and he is maintaining on the sodium bicarb. His PO2 was 109 and pCO2 was 66, which is indicating the still retained carbon dioxide and he is treated with management of the vent by Dr. Cervantes. On the chemistry profile, he had 6.2 potassium but repeated again it was 4.9, which is normal. Sodium 142, and chloride 114. Due to the IV, his carbon dioxide is 18 with the indicating metabolic acidosis. His BUN is 55 and creatinine 3.9. His estimated glomerular filtration rate is for non- is 15 and his blood sugar has been 300-226 and covered with insulin drip. His phosphate is elevated to 8.3, and that is associated with the acute kidney injury and magnesium is normal 2.3. He had history of vancomycin IV and his random vancomycin is 22, which is therapeutic. On reviewing the microbiology, he had yesterday bronchial washing with the bronchoscopy and acid-fast bacilli culture and that is not available yet and in the progress. He has also the acid-fast in the pending progress and the preliminary of the Gram stain of the bronchial washing few polymorph nuclear leukocytes and no further, blood culture is negative and that is x3. No growth for 72 hour and 24 hours. The patient has, on examination, he had respiratory rhonchis with crackles, dry. No evidence of pulmonary edema. That is on the chest auscultation. The heart was regular sinus and the abdomen was positive bowel sounds and he has NG tube in place. Extremities: He is on the compression stocking. ASSESSMENT: 1. Legionella pneumonia. 2. IPF. 3. Immunocompromised. 4. Diabetes mellitus type 2, currently insulin dependent and uncontrolled. 5. Metabolic acidosis secondary to acute renal failure with acute tubular necrosis. 6. Acute respiratory failure and he is on ventilator, sedated as well. 7. Underlying depression. 8. Hyperlipidemia. 9. History of hypertension. Currently hypotensive induced by the sedation medication that has been given for the respirator and ventilator. The patient is also on heparin and analgesics. We will continue the patient currently in ICU and will continue the current management and treatment by the Critical Care and Nephrology, by Dr. Cervantes and Dr. Pierre. Followup in the ICU. The prognosis is poor. MMODL / IJN: [id number] / [facility]
[2017-09-25] MEDS ORDERED: VANCOMYCIN 1,250 MG in SODIUM CHLORIDE 0.9% 250 ML IVPB ONE (12:00)
[2017-09-25 13:50] LABS: Glucose,Whole Blood 512 mg/dL (75-99)
[2017-09-25 13:50] LABS: Glucose,Whole Blood 243 mg/dL (75-99)
[2017-09-25 15:32] LABS: Glucose,Whole Blood 251 mg/dL (75-99)
--- NOTE | 2017-09-25 16:22 | P.PN ---
Subjective Progress Note Date: 09/25/17 62-year-old male who has a long-standing history of pulmonary fibrosis which is treated with Ofev, Presented to Hospital with rapidly progressive shortness of breath. He had x-rays performed that shows evidence of right upper lobe and left upper lobe worsening infiltration and there is evidence of progressive hypoxemia. At the time he presents to Hospital after being seen in the office there is evidence of acute renal failure. It is noted that the patient was having headache associated with the increasing shortness of breath and was taking [id number] Motrin and somewhat high dose for at least 3 days before he came in. He also is having some difficulty with some diarrhea and progressive weakness. At presentation he is with evidence of significant shortness of breath he required intubation with sedation and mechanical ventilation. Today there has been some further difficulties and likely will require paralysis and vasopressor therapy. 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 They have a pond in the utilize their well to pump some of the water to the pond. The patient apparently was working on the pump with the filters last week. It neck she has just a few days before he started to get sick with the progressive shortness of breath and then the diarrhea. The patient's is not ill at all. They do live in the same home. She relates that there is been no work on the hot water tank for the home. There is one well that supplies water for the home as well as the barn. The barn his home to a miniature horse a goat and a pig. The patient himself provides most of the care for the animals. Including taking care of the maneuver. The however do not have chickens or other bird exposures. The relates that he's had no recent travel. He does not have experience or international travel. Pets dog and cat do live in the home. 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 09/25/2017 Patient remains in the intensive care unit intubated sedated and mechanically ventilated now paralyzed because of the difficulties with ventilation. He is he hemodynamically stable at this point in time but is requiring norepinephrine. There has been a slight improvement in his oxygenation at the FiO2 has been dropped to 60% with ongoing adequate oxygenation with his high frequency and high PEEP Objective - Vital Signs Vital signs: Vital Signs Temp 98 F 09/25/17 13:00 Pulse 101 H 09/25/17 15:49 Resp 34 H 09/25/17 15:15 BP 105/58 09/25/17 15:00 Pulse Ox 98 09/25/17 15:15 Intake & Output 09/24/17 09/25/17 09/25/17 18:59 06:59 18:59 Intake Total 2144.152 2830.272 2470.356 Output Total 825 84 185 Balance 1980.026 1699.272 2285.356 Weight 63.1 kg 68 kg Intake: IV 1974 1875 1479 0.9 carriers 60 Cefepime 2 gm In Sodium 50 50 Chloride 0.9% 50 ml @ 100 mls/hr IVPB DAILY [facility] Rx #:[id number] Dextrose 5% in Water 1, 650 000 ml @ 100 mls/hr IV . [id number] [facility] with Sodium Bicarb (1 Meq/ml) 150 ml Rx#:[id number] Levofloxacin 500Mg-D5w 100 Pmx 500 mg In Dextrose/ Water 1 100ml.bag @ 100 mls/hr IVPB Q48H [facility] Rx#: [id number] Sodium Chloride 0.9% 1, 725 825 345 000 ml @ 75 mls/hr IV . [id number] [facility] Rx#:[id number] Sodium Chloride 0.9% 1, 1000 000 ml @ 999 mls/hr IV . Q1H1M [facility] Rx#:[id number] Sodium Chloride 0.9% 1, 1000 000 ml @ 999 mls/hr IV . Q1H1M ONE Rx#:[id number] Vancomycin 1,250 mg In 250 Sodium Chloride 0.9% 250 ml @ 125 mls/hr IVPB ONCE ONE Rx#:[id number] Vancomycin 1,250 mg In 250 Sodium Chloride 0.9% 250 ml @ 125 mls/hr IVPB ONCE ONE Rx#:[id number] pressure bag 0.9 24 Intake, IV Titration 129.152 525.272 571.356 Amount Cisatracurium 200 mg In 64.008 Sodium Chloride 0.9% 180 ml @ 1 MCG/KG/MIN 3.78 mls/hr IV .Q24H [facility] Rx#: [id number] Insulin Regular 100 unit 111.386 90.395 136.182 In Sodium Chloride 0.9% 100 ml @ Per Protocol IV .Q0M [facility] Rx#:[id number] Norepinephrin 16 mg-0.9% 17.766 134.877 62.319 Ns Pmx 16 mg In 250 ml @ Titrate IV .Q0M [facility] Rx#: [id number] Propofol 1,000 mg In 300 91.18 Empty Bag 1 bag @ Titrate IV .Q0M [facility] Rx#: [id number] fentaNYL (PF) 2,500 mcg 217.667 In Sodium Chloride 0.9% 200 ml @ 100 MCG/HR 10 mls/hr IV .Q24H [facility] Rx#: [id number] Tube Feeding 40 340 420 Other 90 Output: Urine 825 84 185 Other: Voiding Method Indwelling Catheter Indwelling Catheter Indwelling Catheter # Voids 0 0 ABP, PAP, CO, CI - Last Documented Arterial Blood Pressure 116/57 - Exam 62-year-old male who is intubated sedated and mechanically ventilated, and now paralyzed, blood pressure is improved with norepinephrine therapy. HEENT: Anicteric conjunctiva are pink and moist nasal mucosa grossly intact without significant lesions, there is no thrush. Pupils were reactive. Neck: The neck is supple without significant lymphadenopathy or thyromegaly. Lungs: There is symmetrical bilateral air entry. There are coarse crackles and wheezes to the lung sanchez. Heart: Tachycardic but regular with an audible S1 and S2 soft S4 no distinct murmur click or rub Abdomen: Positive bowel sounds soft nonrigid without palpable masses or organomegaly. Extremities: The upper extremities have excellent pulses they are symmetric, no significant petechiae or telangiectasia. No splinter hemorrhages were noted. The lower extremities are free from significant edema. The peripheral pulses were 2+ and symmetric. IV sites are intact Neuro: Intubated sedated and mechanically ventilated and paralyzed. - Labs CBC & Chem 7: 09/25/17 05:44 09/25/17 08:48 Labs: Abnormal Lab Results - Last 24 Hours (Table) 09/24/17 09/24/17 09/24/17 Range/Units 17:00 19:09 20:07 WBC (3.8-10.6) k/uL RBC (4.30-5.90) m/uL Hgb (13.0-17.5) gm/dL Hct (39.0-53.0) % MCHC (31.0-37.0) g/dL RDW (11.5-15.5) % ABG pH 7.03 L* (7.35-7.45) ABG pCO2 73 H* (35-45) mmHg ABG pO2 132 H (83-108) mmHg ABG HCO3 19 L (21-25) mmol/L ABG O2 Saturation 98.2 H (94-97) % Potassium (3.5-5.1) mmol/L Chloride (98-107) mmol/L Carbon Dioxide (22-30) mmol/L BUN (9-20) mg/dL Creatinine (0.66-1.25) mg/dL Glucose (74-99) mg/dL POC Glucose (mg/dL) 156 H 157 H (75-99) mg/dL Calcium (8.4-10.2) mg/dL Phosphorus (2.5-4.5) mg/dL 09/24/17 09/25/17 09/25/17 Range/Units 21:02 05:02 05:44 WBC (3.8-10.6) k/uL RBC (4.30-5.90) m/uL Hgb (13.0-17.5) gm/dL Hct (39.0-53.0) % MCHC (31.0-37.0) g/dL RDW (11.5-15.5) % ABG pH 7.04 L* (7.35-7.45) ABG pCO2 70 H* (35-45) mmHg ABG pO2 155 H (83-108) mmHg ABG HCO3 19 L (21-25) mmol/L ABG O2 Saturation 98.8 H (94-97) % Potassium 6.2 H* (3.5-5.1) mmol/L Chloride 114 H (98-107) mmol/L Carbon Dioxide 18 L (22-30) mmol/L BUN 55 H (9-20) mg/dL Creatinine 3.90 H (0.66-1.25) mg/dL Glucose 218 H (74-99) mg/dL POC Glucose (mg/dL) 164 H (75-99) mg/dL Calcium 7.8 L (8.4-10.2) mg/dL Phosphorus 8.3 H* (2.5-4.5) mg/dL 09/25/17 09/25/17 09/25/17 Range/Units 05:44 07:12 08:05 WBC 32.2 H* (3.8-10.6) k/uL RBC 3.54 L (4.30-5.90) m/uL Hgb 10.0 L (13.0-17.5) gm/dL Hct 33.1 L (39.0-53.0) % MCHC 30.2 L (31.0-37.0) g/dL RDW 19.1 H (11.5-15.5) % ABG pH 7.11 L* (7.35-7.45) ABG pCO2 66 H (35-45) mmHg ABG pO2 109 H (83-108) mmHg ABG HCO3 20 L (21-25) mmol/L ABG O2 Saturation 97.9 H (94-97) % Potassium (3.5-5.1) mmol/L Chloride (98-107) mmol/L Carbon Dioxide (22-30) mmol/L BUN (9-20) mg/dL Creatinine (0.66-1.25) mg/dL Glucose (74-99) mg/dL POC Glucose (mg/dL) 300 H (75-99) mg/dL Calcium (8.4-10.2) mg/dL Phosphorus (2.5-4.5) mg/dL 09/25/17 09/25/17 09/25/17 Range/Units 09:12 10:48 13:48 WBC (3.8-10.6) k/uL RBC (4.30-5.90) m/uL Hgb (13.0-17.5) gm/dL Hct (39.0-53.0) % MCHC (31.0-37.0) g/dL RDW (11.5-15.5) % ABG pH (7.35-7.45) ABG pCO2 (35-45) mmHg ABG pO2 (83-108) mmHg ABG HCO3 (21-25) mmol/L ABG O2 Saturation (94-97) % Potassium (3.5-5.1) mmol/L Chloride (98-107) mmol/L Carbon Dioxide (22-30) mmol/L BUN (9-20) mg/dL Creatinine (0.66-1.25) mg/dL Glucose (74-99) mg/dL POC Glucose (mg/dL) 226 H 230 H 512 H (75-99) mg/dL Calcium (8.4-10.2) mg/dL Phosphorus (2.5-4.5) mg/dL 09/25/17 09/25/17 Range/Units 13:49 15:29 WBC (3.8-10.6) k/uL RBC (4.30-5.90) m/uL Hgb (13.0-17.5) gm/dL Hct (39.0-53.0) % MCHC (31.0-37.0) g/dL RDW (11.5-15.5) % ABG pH (7.35-7.45) ABG pCO2 (35-45) mmHg ABG pO2 (83-108) mmHg ABG HCO3 (21-25) mmol/L ABG O2 Saturation (94-97) % Potassium (3.5-5.1) mmol/L Chloride (98-107) mmol/L Carbon Dioxide (22-30) mmol/L BUN (9-20) mg/dL Creatinine (0.66-1.25) mg/dL Glucose (74-99) mg/dL POC Glucose (mg/dL) 243 H 251 H (75-99) mg/dL Calcium (8.4-10.2) mg/dL Phosphorus (2.5-4.5) mg/dL Microbiology - Last 24 Hours (Table) 09/23/17 12:40 Blood Culture - Preliminary Blood No Growth after 48 hours 09/24/17 11:15 Gram Stain - Preliminary Bronchial Washings - Right Bronchial Washings Culture - Preliminary 09/21/17 14:23 Blood Culture - Preliminary Blood No Growth after 72 hours 09/21/17 14:29 Blood Culture - Preliminary Blood No Growth after 72 hours 09/24/17 11:15 Acid Fast Bacilli Culture - Preliminary Bronchial Washings - Right 09/24/17 11:15 Fungal Culture - Preliminary Bronchial Washings - Right Laboratory Results WBC 32.2 k/uL (3.8-10.6) H* 09/25/17 05:44 RBC 3.54 m/uL (4.30-5.90) L 09/25/17 05:44 Hgb 10.0 gm/dL (13.0-17.5) L 09/25/17 05:44 Hct 33.1 % (39.0-53.0) L 09/25/17 05:44 MCV 93.5 fL (80.0-100.0) D 09/25/17 05:44 MCH 28.2 pg (25.0-35.0) 09/25/17 05:44 MCHC 30.2 g/dL (31.0-37.0) L 09/25/17 05:44 RDW 19.1 % (11.5-15.5) H 09/25/17 05:44 Plt Count 445 k/uL (150-450) 09/25/17 05:44 Neutrophils % 94 % 09/24/17 05:05 Lymphocytes % 1 % 09/24/17 05:05 Monocytes % 4 % 09/24/17 05:05 Eosinophils % 0 % 09/24/17 05:05 Basophils % 0 % 09/24/17 05:05 Neutrophils # 15.6 k/uL (1.3-7.7) H 09/24/17 05:05 Lymphocytes # 0.2 k/uL (1.0-4.8) L 09/24/17 05:05 Monocytes # 0.7 k/uL (0-1.0) 09/24/17 05:05 Eosinophils # 0.0 k/uL (0-0.7) 09/24/17 05:05 Basophils # 0.0 k/uL (0-0.2) 09/24/17 05:05 Hypochromasia Marked 09/25/17 05:44 Poikilocytosis Slight 09/25/17 05:44 Anisocytosis Slight 09/25/17 05:44 PT 11.0 sec (9.0-12.0) 09/21/17 16:16 INR 1.1 (<1.2) 09/21/17 16:16 APTT 28.1 sec (22.0-30.0) 09/21/17 16:16 Sample Site A LINE 09/25/17 08:05 ABG pH 7.11 (7.35-7.45) L* 09/25/17 08:05 ABG pCO2 66 mmHg (35-45) H 09/25/17 08:05 ABG pO2 109 mmHg (83-108) H 09/25/17 08:05 ABG HCO3 20 mmol/L (21-25) L 09/25/17 08:05 ABG Total CO2 21 mmol/L (19-24) 09/25/17 05:02 ABG O2 Saturation 97.9 % (94-97) H 09/25/17 08:05 ABG Base Excess -9.2 mmol/L 09/25/17 08:05 Xavi Test Yes 09/25/17 08:05 FiO2 70 % 09/25/17 08:05 Sodium 142 mmol/L (137-145) 09/25/17 05:44 Potassium 4.9 mmol/L (3.5-5.1) 09/25/17 08:48 Chloride 114 mmol/L (98-107) H 09/25/17 05:44 Carbon Dioxide 18 mmol/L (22-30) L 09/25/17 05:44 Anion Gap 10 mmol/L 09/25/17 05:44 BUN 55 mg/dL (9-20) H 09/25/17 05:44 Creatinine 3.90 mg/dL (0.66-1.25) H 09/25/17 05:44 Est GFR (CKD-EPI)AfAm 18 (>60 ml/min/1.73 sqM) 09/25/17 05:44 Est GFR (CKD-EPI)NonAf 15 (>60 ml/min/1.73 sqM) 09/25/17 05:44 Glucose 218 mg/dL (74-99) H 09/25/17 05:44 POC Glucose (mg/dL) 251 mg/dL (75-99) H 09/25/17 15:29 POC Glu Lug Loader ID Josh Rob 09/25/17 15:[address] Glu mg/dL 151 09/21/17 14:23 Hemoglobin A1c 6.9 % (4.0-6.0) H 09/21/17 14:23 Lactic Ac Sepsis Rflx Y 09/22/17 20:26 Plasma Lactic Acid Heriberto 1.7 mmol/L (0.7-2.0) 09/23/17 12:34 Calcium 7.8 mg/dL (8.4-10.2) L 09/25/17 05:44 Phosphorus 8.3 mg/dL (2.5-4.5) H* 09/25/17 05:44 Magnesium 2.3 mg/dL (1.6-2.3) 09/25/17 05:44 Total Bilirubin 0.5 mg/dL (0.2-1.3) 09/24/17 05:05 AST 91 U/L (17-59) H 09/24/17 05:05 ALT 79 U/L (21-72) H 09/24/17 05:05 Alkaline Phosphatase 179 U/L (38-126) H 09/24/17 05:05 Total Protein 5.7 g/dL (6.3-8.2) L 09/24/17 05:05 Albumin 2.7 g/dL (3.5-5.0) L 09/24/17 05:05 Urine Color Light Yellow 09/23/17 04:58 Urine Appearance Clear (Clear) 09/23/17 04:58 Urine pH 5.5 (5.0-8.0) 09/23/17 04:58 Ur Specific [place] 1.009 (1.001-1.035) 09/23/17 04:58 Urine Protein Trace (Negative) H 09/23/17 04:58 Urine Glucose (UA) 2+ (Negative) H 09/23/17 04:58 Urine Ketones Negative (Negative) 09/23/17 04:58 Urine Blood Negative (Negative) 09/23/17 04:58 Urine Nitrite Negative (Negative) 09/23/17 04:58 Urine Bilirubin Negative (Negative) 09/23/17 04:58 Urine Urobilinogen <2.0 mg/dL (<2.0) 09/23/17 04:58 Ur Leukocyte Esterase Negative (Negative) 09/23/17 04:58 Fluid Source Bronchial Wash 09/24/17 11:15 Fluid Color Red 09/24/17 11:15 Fluid Appearance Bloody 09/24/17 11:15 Fluid RBC 59893 /uL 09/24/17 11:15 Fluid Nucleated Cells 60 /uL 09/24/17 11:15 Fluid Polynuclear WBCs 90 % 09/24/17 11:15 Fluid Mononuclear WBCs 10 % 09/24/17 11:15 Random Vancomycin 22.0 ug/mL 09/25/17 05:44 Urine Legionella Ag DETECTED (Not detected) H 09/21/17 17:41 Microbiology 09/23/17 12:40 Blood Blood Culture - Preliminary No Growth after 48 hours 09/24/17 11:15 Bronchial Washings - Right Gram Stain - Preliminary 09/24/17 11:15 Bronchial Washings - Right Bronchial Washings Culture - Preliminary 09/21/17 14:23 Blood Blood Culture - Preliminary No Growth after 72 hours 09/21/17 14:29 Blood Blood Culture - Preliminary No Growth after 72 hours 09/24/17 11:15 Bronchial Washings - Right Acid Fast Bacilli Culture - Preliminary 09/24/17 11:15 Bronchial Washings - Right Fungal Culture - Preliminary Assessment and Plan (1) Legionella pneumonia Narrative/Plan: 62-year-old male with a known history of pulmonary fibrosis who is cared for with his script writer. Receives Ofev from the script writer and has been relatively stable until this onset of Acute illness. The patient now is evidence of bilateral pneumonia which is on the basis of Legionella infection. Patient's does relate that one of their family friends did have pneumonia recently hospitalized only for a couple of days and has recovered well. We do discuss that Legionella is an environmental pathogen and does not have person-to -person transmission. She is at risk if there is Legionella with no water to the home, is at less risk if the Legionella is only related to the filtering system for the pond. That system would require chlorination if Legionella is present there. The patient's is well and she knows to present if she becomes ill at all. For treatment he does have acute renal failure and levofloxacin is being dosed at the appropriate renally adjusted dose. Given his severe underlying illness and until we have final cultures will also treat for other gram-negative pathogens and cefepime is being used and this has now been dose adjusted also for his current renal failure. Blood cultures and sputum cultures are process. The patient is profoundly ill and there are increasing difficulties with his oxygenation. The patient's understands that he is very ill at this point in time although he is comfortable. The patient has been an ongoing smoker despite his underlying pulmonary disease and is receiving multiple breathing treatments at this time also Leukocytosis is increased a bit and is likely in the basis of the utilization of steroids to improve his pulmonary status. Patient does have acute renal failure but this is improving is being followed by nephrology. Maintaining adequate blood pressure and hydration are part of goals. Prognosis is poor. 09/25/2017 reveals the patient to be profoundly ill. He is on high PEEP with high-frequency ventilation, and is hypotensive requiring vasopressor therapy. As noted the patient appears to have Legionella infection and is on appropriate antibiotic therapy. Bronchoscopy was performed and antibiotic therapy is also being utilized for other gram-negative pathogens until those results are available. Blood cultures are process. He has profound leukocytosis and the base of underlying severe pneumonia and the steroids are being utilized. Current Visit: Yes Status: Acute Code(s): A48.1 - LEGIONNAIRES' DISEASE SNOMED Code(s): 956964662
[2017-09-25 17:41] LABS: Glucose,Whole Blood 251 mg/dL (75-99)
[2017-09-25 18:05] LABS: Glucose,Whole Blood 260 mg/dL (75-99)
[2017-09-25 18:33] LABS: Calcium 7.2 mg/dL (8.4-10.2); Potassium 4.3 mmol/L (3.5-5.1)
[2017-09-25 18:50] LABS: Glucose,Whole Blood 219 mg/dL (75-99)
[2017-09-25] MEDS: ATORVASTATIN 40 MG TAB PO SCH (20:38)
[2017-09-25] MEDS: ASPIRIN 81 MG PO SCH (20:38)
[2017-09-25] MEDS: CISATRACURIUM 200 MG in SODIUM CHLORIDE 0.9% 180 ML IV SCH (22:03)
[2017-09-25] MEDS: fentaNYL (PF) 2,500 MCG in SODIUM CHLORIDE 0.9% 200 ML IV SCH (22:04)
[2017-09-25] MEDS: NOREPINEPHRIN 16 MG-0.9%NS PMX 16 MG/250 ML ML IV SCH (22:05)
[2017-09-25 23:12] LABS: Glucose,Whole Blood 188 mg/dL (75-99)
[2017-09-26] MEDS: CEFEPIME 2 GM in SODIUM CHLORIDE 0.9% 50 ML IVPB SCH ×2 (00:26→09:19)
[2017-09-26] MEDS: ARTIFICIAL TEARS-HYPROMELLOSE DROPS 15 ML BTL BOTH EYES SCH ×7 (00:27→23:42)
[2017-09-26] MEDS: methylPREDNISolone SOD SUCCI 40 MG/ML 1 ML VIAL IV SCH ×4 (00:27→23:42)
[2017-09-26] MEDS: HEPARIN SODIUM,PORCINE 5,000 UNIT/ML 1 ML VIAL SQ SCH ×4 (00:28→23:42)
--- NOTE | 2017-09-26 00:41 | XR ---
EXAMINATION TYPE: XR chest 1V portable DATE OF EXAM: 09/26/2017 COMPARISON: Yesterday HISTORY: Check tube placement TECHNIQUE: Single frontal view of the chest is obtained. FINDINGS: There is nasogastric tube that has the tip probably in the distal stomach. There is extens emilee pulmonary edema. There is central venous catheter with the tip over the top of the right atrium. Upper lung sanchez are not included on the exam. IMPRESSION: Nasogastric tube appears in good position.
[2017-09-26 01:18] LABS: Glucose,Whole Blood 139 mg/dL (75-99)
[2017-09-26 01:56] LABS: Glucose,Whole Blood 145 mg/dL (75-99)
[2017-09-26] MEDS: INSULIN REGULAR 100 UNIT in SODIUM CHLORIDE 0.9% 100 ML IV SCH ×3 (02:02→18:00)
[2017-09-26 03:00] LABS: Glucose,Whole Blood 131 mg/dL (75-99)
[2017-09-26] MEDS: PROPOFOL 1,000 MG in EMPTY BAG 1 BAG IV SCH ×3 (03:06→18:22)
[2017-09-26 04:06] LABS: Glucose,Whole Blood 122 mg/dL (75-99)
[2017-09-26 05:01] LABS: Glucose,Whole Blood 140 mg/dL (75-99)
[2017-09-26 05:03] LABS: ABG Base Excess -5.8 mmol/L; ABG HCO3 23 mmol/L (21-25); ABG Oxygen Saturation 97.3 % (94-97); ABG PCO2 68 mmHg (35-45); ABG PO2 106 mmHg (83-108); ABG TCO2 25 mmol/L (19-24)
[2017-09-26 05:04] LABS: ABG PH 7.14 (7.35-7.45)
[2017-09-26 06:02] LABS: Glucose,Whole Blood 199 mg/dL (75-99)
[2017-09-26 06:16] LABS: Anisocytosis Slight; Calcium 7.3 mg/dL (8.4-10.2); HCT 27.9 % (39.0-53.0); HGB 8.6 gm/dL (13.0-17.5); Hypochromasia Marked; MCH 27.7 pg (25.0-35.0); MCHC 30.8 g/dL (31.0-37.0); MCV 89.9 fL (80.0-100.0); Magnesium 2.3 mg/dL (1.6-2.3); Phosphorus 7.8 mg/dL (2.5-4.5); Platelet Count 315 k/uL (150-450); Poikilocytosis Slight; Potassium 4.9 mmol/L (3.5-5.1); RBC 3.11 m/uL (4.30-5.90); RDW 19.3 % (11.5-15.5)
[2017-09-26 06:21] LABS: Vancomycin,Random 28.9 ug/mL
[2017-09-26 06:36] LABS: Band Neutrophils % 9 %; Metamyelocytes # (M) 1.47 k/uL (0); Metamyelocytes % 7 %; Monocytes # (M) 1.47 k/uL (0-1.0); Myelocytes # (M) 0.42 k/uL (0); Myelocytes % 2 %; Neutrophils % (M) 74 %; Nucleated Red Blood Cells 0 /100 WBC (0-0); Promyelocytes # (M) 0.21 k/uL (0); Promyelocytes % 1 %; Total Cells Counted 200
[2017-09-26 06:38] LABS: Toxic Granulation Present; Toxic Vacuolation Present
[2017-09-26 07:20] LABS: Glucose,Whole Blood 161 mg/dL (75-99)
[2017-09-26] MEDS: IPRATROPIUM-ALBUTEROL 3 ML NEB INHALATION SCH ×4 (07:37→20:06)
[2017-09-26] MEDS: BUDESONIDE 0.5 MG/2 ML NEBU INHALATION SCH ×2 (07:37→20:06)
--- NOTE | 2017-09-26 07:52 | XR ---
EXAMINATION TYPE: XR chest 1V portable DATE OF EXAM: 09/26/2017 COMPARISON: 09/26/2017 HISTORY: Orogastric tube placement. Ventilatory dependent respiratory failure. TECHNIQUE: Single frontal view of the chest is obtained. FINDINGS: There is redemonstration of diffuse reticular interstitial opacities throughout the lungs. Cardiomegaly is redemonstrated. Left-sided enteric tube courses beyond the distal [id number], pro perly placed. Left-sided subclavian central venous catheter terminates in the superior vena cava. End otracheal tube terminates at the level of the aortic arch. IMPRESSION: Stable lines and tubes. Persistent diffuse reticular interstitial opacities somewhat on the basis of the known moderate pulmonary fibrosis and additionally may relate to superimposed pneumo nitis or pulmonary edema.
[2017-09-26 08:30] LABS: Glucose,Whole Blood 140 mg/dL (75-99)
[2017-09-26] MEDS: PANTOPRAZOLE 40 MG TABLET PO SCH (09:19)
[2017-09-26] MEDS: buPROPion 75 MG TAB PO SCH ×2 (09:19→20:50)
[2017-09-26] MEDS: CALCIUM ACETATE 667 MG CAP PO SCH ×3 (09:19→15:50)
[2017-09-26] MEDS: lamoTRIgine 100 MG TAB PO SCH (09:20)
[2017-09-26] MEDS: SODIUM BICARBONATE TAB 650 MG TAB PO SCH ×3 (09:20→21:12)
[2017-09-26] MEDS: CHLORHEXIDINE GLUCONATE 15 ML CUP MUCOUS MEM SCH ×2 (09:20→20:50)
[2017-09-26] MEDS: ESCITALOPRAM 20 MG TAB PO SCH (09:20)
--- NOTE | 2017-09-26 09:28 | P.PN ---
Subjective Patient is seen in follow-up for acute kidney injury. Renal function is worse today with creatinine at 5.3. He is oliguric. He is noted to have Legionella pneumonia. Patient was intubated on September 24. He is currently on 3 mics of Levophed. He is receiving tube feeds and is also maintained on normal saline at 30 mL an hour. Vital signs are stable. General: Intubated. HEENT: Head exam is unremarkable. Neck is without jugular venous distension. LUNGS: Scattered rhonchi. HEART: Rate and Rhythm are regular. First and second heart sounds normal. No murmurs, rubs or gallops. ABDOMEN: Abdominal exam reveals normal bowel sounds. Non-tender and non- distended. No evidence of peritonitis. EXTREMITITES: No clubbing, cyanosis, or edema. Objective - Vital Signs Vital signs: Vital Signs Temp 98 F 09/26/17 08:00 Pulse 107 H 09/26/17 09:00 Resp 34 H 09/26/17 09:00 BP 110/56 09/26/17 09:00 Pulse Ox 97 09/26/17 09:00 Intake & Output 09/25/17 09/26/17 09/26/17 18:59 06:59 18:59 Intake Total 3420.800 1491.291 440.402 Output Total 310 150 26 Balance 3110.800 1341.291 414.402 Weight 72.1 kg Intake: IV 1878 396 149 0.9 carriers 150 360 90 Cefepime 2 gm In Sodium 50 50 Chloride 0.9% 50 ml @ 100 mls/hr IVPB DAILY [facility] Rx #:[id number] Dextrose 5% in Water 1, 950 000 ml @ 100 mls/hr IV . [id number] JIMENEZ with Sodium Bicarb (1 Meq/ml) 150 ml Rx#:[id number] Levofloxacin 500Mg-D5w 100 Pmx 500 mg In Dextrose/ Water 1 100ml.bag @ 100 mls/hr IVPB Q48H [facility] Rx#: [id number] Sodium Chloride 0.9% 1, 345 000 ml @ 75 mls/hr IV . [id number] JIMENEZ Rx#:[id number] Vancomycin 1,250 mg In 250 Sodium Chloride 0.9% 250 ml @ 125 mls/hr IVPB ONCE ONE Rx#:[id number] pressure bag 0.9 33 36 9 Intake, IV Titration 750.800 459.291 57.402 Amount Cisatracurium 200 mg In 64.008 38.115 Sodium Chloride 0.9% 180 ml @ 1 MCG/KG/MIN 3.78 mls/hr IV .Q24H JIMENEZ Rx#: [id number] Insulin Regular 100 unit 202.000 185.876 57.402 In Sodium Chloride 0.9% 100 ml @ Per Protocol IV .Q0M [facility]ENEZ Rx#:[id number] Norepinephrin 16 mg-0.9% 75.945 9.127 Ns Pmx 16 mg In 250 ml @ Titrate IV .Q0M JIMENEZ Rx#: [id number] Propofol 1,000 mg In 191.18 193.84 Empty Bag 1 bag @ Titrate IV .Q0M [facility]IMENEZ Rx#: [id number] fentaNYL (PF) 2,500 mcg 217.667 32.333 In Sodium Chloride 0.9% 200 ml @ 100 MCG/HR 10 mls/hr IV .Q24H [facility]IM[facility]Z Rx#: [id number] Tube Feeding 612 576 144 Other 180 60 90 Output: Urine 310 150 26 Other: Voiding Method Indwelling Catheter Indwelling Catheter # Voids 0 ABP, PAP, CO, CI - Last Documented Arterial Blood Pressure 121/54 - Labs CBC & Chem 7: 09/26/17 05:32 09/26/17 05:32 Labs: Abnormal Lab Results - Last 24 Hours (Table) 09/25/17 09/25/17 09/25/17 Range/Units 10:48 13:48 13:49 WBC (3.8-10.6) k/uL RBC (4.30-5.90) m/uL Hgb (13.0-17.5) gm/dL Hct (39.0-53.0) % MCHC (31.0-37.0) g/dL RDW (11.5-15.5) % Neutrophils # (Manual) (1.3-7.7) k/uL Monocytes # (Manual) (0-1.0) k/uL Metamyelocytes # (Man) (0) k/uL Myelocytes # (Manual) (0) k/uL Promyelocytes # (Man) (0) k/uL ABG pH (7.35-7.45) ABG pCO2 (35-45) mmHg ABG Total CO2 (19-24) mmol/L ABG O2 Saturation (94-97) % Chloride (98-107) mmol/L BUN (9-20) mg/dL Creatinine (0.66-1.25) mg/dL Glucose (74-99) mg/dL POC Glucose (mg/dL) 230 H 512 H 243 H (75-99) mg/dL Calcium (8.4-10.2) mg/dL Phosphorus (2.5-4.5) mg/dL 09/25/17 09/25/17 09/25/17 Range/Units 15:29 17:20 18:03 WBC (3.8-10.6) k/uL RBC (4.30-5.90) m/uL Hgb (13.0-17.5) gm/dL Hct (39.0-53.0) % MCHC (31.0-37.0) g/dL RDW (11.5-15.5) % Neutrophils # (Manual) (1.3-7.7) k/uL Monocytes # (Manual) (0-1.0) k/uL Metamyelocytes # (Man) (0) k/uL Myelocytes # (Manual) (0) k/uL Promyelocytes # (Man) (0) k/uL ABG pH (7.35-7.45) ABG pCO2 (35-45) mmHg ABG Total CO2 (19-24) mmol/L ABG O2 Saturation (94-97) % Chloride (98-107) mmol/L BUN (9-20) mg/dL Creatinine (0.66-1.25) mg/dL Glucose (74-99) mg/dL POC Glucose (mg/dL) 251 H 251 H 260 H (75-99) mg/dL Calcium (8.4-10.2) mg/dL Phosphorus (2.5-4.5) mg/dL 09/25/17 09/25/17 09/25/17 Range/Units 18:06 18:48 23:10 WBC (3.8-10.6) k/uL RBC (4.30-5.90) m/uL Hgb (13.0-17.5) gm/dL Hct (39.0-53.0) % MCHC (31.0-37.0) g/dL RDW (11.5-15.5) % Neutrophils # (Manual) (1.3-7.7) k/uL Monocytes # (Manual) (0-1.0) k/uL Metamyelocytes # (Man) (0) k/uL Myelocytes # (Manual) (0) k/uL Promyelocytes # (Man) (0) k/uL ABG pH (7.35-7.45) ABG pCO2 (35-45) mmHg ABG Total CO2 (19-24) mmol/L ABG O2 Saturation (94-97) % Chloride 111 H (98-107) mmol/L BUN 63 H (9-20) mg/dL Creatinine 4.50 H (0.66-1.25) mg/dL Glucose 250 H (74-99) mg/dL POC Glucose (mg/dL) 219 H 188 H (75-99) mg/dL Calcium 7.2 L (8.4-10.2) mg/dL Phosphorus (2.5-4.5) mg/dL 09/26/17 09/26/17 09/26/17 Range/Units 01:17 01:54 02:58 WBC (3.8-10.6) k/uL RBC (4.30-5.90) m/uL Hgb (13.0-17.5) gm/dL Hct (39.0-53.0) % MCHC (31.0-37.0) g/dL RDW (11.5-15.5) % Neutrophils # (Manual) (1.3-7.7) k/uL Monocytes # (Manual) (0-1.0) k/uL Metamyelocytes # (Man) (0) k/uL Myelocytes # (Manual) (0) k/uL Promyelocytes # (Man) (0) k/uL ABG pH (7.35-7.45) ABG pCO2 (35-45) mmHg ABG Total CO2 (19-24) mmol/L ABG O2 Saturation (94-97) % Chloride (98-107) mmol/L BUN (9-20) mg/dL Creatinine (0.66-1.25) mg/dL Glucose (74-99) mg/dL POC Glucose (mg/dL) 139 H 145 H 131 H (75-99) mg/dL Calcium (8.4-10.2) mg/dL Phosphorus (2.5-4.5) mg/dL 09/26/17 09/26/17 09/26/17 Range/Units 04:04 04:59 05:00 WBC (3.8-10.6) k/uL RBC (4.30-5.90) m/uL Hgb (13.0-17.5) gm/dL Hct (39.0-53.0) % MCHC (31.0-37.0) g/dL RDW (11.5-15.5) % Neutrophils # (Manual) (1.3-7.7) k/uL Monocytes # (Manual) (0-1.0) k/uL Metamyelocytes # (Man) (0) k/uL Myelocytes # (Manual) (0) k/uL Promyelocytes # (Man) (0) k/uL ABG pH 7.14 L* (7.35-7.45) ABG pCO2 68 H (35-45) mmHg ABG Total CO2 25 H (19-24) mmol/L ABG O2 Saturation 97.3 H (94-97) % Chloride (98-107) mmol/L BUN (9-20) mg/dL Creatinine (0.66-1.25) mg/dL Glucose (74-99) mg/dL POC Glucose (mg/dL) 122 H 140 H (75-99) mg/dL Calcium (8.4-10.2) mg/dL Phosphorus (2.5-4.5) mg/dL 09/26/17 09/26/17 09/26/17 Range/Units 05:32 05:32 06:01 WBC 21.0 H (3.8-10.6) k/uL RBC 3.11 L (4.30-5.90) m/uL Hgb 8.6 L (13.0-17.5) gm/dL Hct 27.9 L (39.0-53.0) % MCHC 30.8 L (31.0-37.0) g/dL RDW 19.3 H (11.5-15.5) % Neutrophils # (Manual) 17.40 H (1.3-7.7) k/uL Monocytes # (Manual) 1.47 H (0-1.0) k/uL Metamyelocytes # (Man) 1.47 H (0) k/uL Myelocytes # (Manual) 0.42 H (0) k/uL Promyelocytes # (Man) 0.21 H (0) k/uL ABG pH (7.35-7.45) ABG pCO2 (35-45) mmHg ABG Total CO2 (19-24) mmol/L ABG O2 Saturation (94-97) % Chloride 109 H (98-107) mmol/L BUN 70 H (9-20) mg/dL Creatinine 5.30 H* (0.66-1.25) mg/dL Glucose 156 H (74-99) mg/dL POC Glucose (mg/dL) 199 H (75-99) mg/dL Calcium 7.3 L (8.4-10.2) mg/dL Phosphorus 7.8 H (2.5-4.5) mg/dL 09/26/17 09/26/17 Range/Units 07:17 08:28 WBC (3.8-10.6) k/uL RBC (4.30-5.90) m/uL Hgb (13.0-17.5) gm/dL Hct (39.0-53.0) % MCHC (31.0-37.0) g/dL RDW (11.5-15.5) % Neutrophils # (Manual) (1.3-7.7) k/uL Monocytes # (Manual) (0-1.0) k/uL Metamyelocytes # (Man) (0) k/uL Myelocytes # (Manual) (0) k/uL Promyelocytes # (Man) (0) k/uL ABG pH (7.35-7.45) ABG pCO2 (35-45) mmHg ABG Total CO2 (19-24) mmol/L ABG O2 Saturation (94-97) % Chloride (98-107) mmol/L BUN (9-20) mg/dL Creatinine (0.66-1.25) mg/dL Glucose (74-99) mg/dL POC Glucose (mg/dL) 161 H 140 H (75-99) mg/dL Calcium (8.4-10.2) mg/dL Phosphorus (2.5-4.5) mg/dL Microbiology - Last 24 Hours (Table) 09/24/17 11:15 Acid Fast Bacilli Smear - Final Bronchial Washings - Right Acid Fast Bacilli Culture - Preliminary 09/21/17 14:23 Blood Culture - Preliminary Blood No Growth after 96 hours 09/21/17 14:29 Blood Culture - Preliminary Blood No Growth after 96 hours 09/23/17 12:40 Blood Culture - Preliminary Blood No Growth after 48 hours 09/24/17 11:15 Gram Stain - Preliminary Bronchial Washings - Right Bronchial Washings Culture - Preliminary Assessment and Plan Plan: Assessment: 1. Oliguric acute kidney injury secondary to ATN secondary to sepsis/ hypotension. Urinalysis is quite benign. Creatinine up to 5.3 today. 2. Legionella pneumonia. Maintained on antibiotics. 3. Acute hypoxic respiratory failure secondary to pneumonia and ARDS. 4. History of pulmonary fibrosis. 5. Metabolic acidosis secondary to acute kidney injury. Improved. 6. Diabetes mellitus. 7. Hypotension maintained on Levophed. 8. Hyperkalemia secondary to metabolic acidosis and acute kidney injury. He was medically treated and repeat was normal. 9. Hyperphosphatemia secondary to acute kidney injury maintained on PhosLo. Plan: Maintain tube feeds. Wean vasopressors. Avoid nephrotoxic agents and hypotensive episodes. Continue to monitor renal function and urine output closely. Wean FiO2 as tolerated. Due to worsening renal function and oliguria, will consult vascular surgery for dialysis catheter placement and initiate renal replacement therapy today.
[2017-09-26 10:02] LABS: Glucose,Whole Blood 110 mg/dL (75-99)
[2017-09-26] MEDS: fentaNYL (PF) 2,500 MCG in SODIUM CHLORIDE 0.9% 200 ML IV SCH (10:11)
[2017-09-26 10:32] LABS: INR 1.1 (<1.2)
--- NOTE | 2017-09-26 10:52 | P.PN ---
Subjective Progress Note Date: 09/26/17 Principal diagnosis: Acute hypoxic respiratory failure secondary to bilateral pneumonia, ARDS, and underlying interstitial lung disease/pulmonary fibrosis. This is a 62-year-old male patient, 1 on my own patients from the office, was seen today in our office for increased shortness of breath. The patient comes in with a one-week history of cough, fever and chills and shortness of breath and his condition was progressively getting worse. The patient had a chest x- ray showed airspace disease in the right upper lobe and the left upper lobe worse compared to the previous chest x-rays was done our office. He was also found to be more hypoxic and his pulse ox was in the 70s on room air. Note that he was not on any home oxygen prior. The patient was seen in our office and he was advised to be admitted to the hospital for antibiotic treatment for possible pneumonia. For that reason he was sent over to the hospital and a pulmonary consultation was requested also. The initial blood work also showed a component of acute kidney injury. The patient's creatinine was up to 5.8. Upon further questioning, the patient reported that he was having migraine headaches and he was getting high dose Motrin for headaches and he has taken around 5-6 tablets. At the same time he was having some diarrhea approximately 3 days ago which ultimately subsided. Currently does not have any ongoing diarrhea and nausea vomiting or abdominal pain. The patient noted some diminished urine output over the past 24 hours. The patient is not known to have any previous history of kidney injury is of kidney failures. No nephrolithiasis. The patient also admitted to have exposure to a friend who was hospitalized down in amount, as for an underlying pneumonia. This patient is known to me. I saw him in consultation on 06/17/2017. The patient as part of further workup underwent a high-resolution CAT scan of the chest and upon review of the films there is extensive emphysema in the upper lobes bilaterally addition to subpleural pulmonary fibrosis involving the lower lobes and early changes of honeycombing in the lung bases. This was consistent with IPF based on the radiographic findings. The pulmonary function test showed an FVC of 74% and a total lung capacity of 64% with a diffusion capacity of 50% of predicted consistent with a component of restrictive lung disease. His room air pulse ox back then was 97% and the patient back then did not qualify for oxygen. The patient was trying to quit smoking. Based on the overall clinical picture, I recommended this patient to start on anti-fibrotic treatment and the patient was started on Ovef, nintadanib, after confirming the patient's liver function tests her baseline were within normal limits. He was asked to continue the Ventolin rescue inhaler mastoids basis. Smoking cessation counseling was also done in the office back in June 2017. 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 He is living in [facility]. He lives in a farm. He has outdoor animals including a goat and a Pig and a horse. He has no exposure to birds products. No exposure to chicken, pigeons or doves. On 09/22/2017 patient seen again in follow-up on medical surgical floor. Resting in bed, still complaining of weakness and fatigue. But overall is feeling better. Not bringing up any sputum, denies any chest wall tenderness, lung sounds are positive for coarse crackles over left lower lobe, no wheezing. Today's labs were reviewed, and a PVC 7.7, hemoglobin is 10.6, renal profile is improving, BUN is down to 60, creatinine is 4.29. Patient is remains on IV hydration, receiving 0.9 normal saline at a rate of 100 per hour. Patient remains on empiric coverage in the form of Azactam, and Levaquin, today's chest x-ray showed multifocal reticular opacity pneumonia in the left lower and left upper lobe On 09/23/2017, the patient was seen in follow-up. I noted that the patient was progressively getting more short of breath and lethargic. Earlier this morning the patient became significantly hypoxic and he desaturated. He was placed on 100% nonrebreather facemask. A chest x-ray was done and showed worsening of the right the pulmonary infiltrates with increased alveolar infiltrates in the left midlung zone on the left lower lobe as well as the right midlung area. Note that the patient was already covered with antibiotics and was receiving a combination of Levaquin and aztreonam. Afebrile. Hemodynamically stable currently 100% on a beta facemasks. Blood gases was done and showed a pH of 7.29 with a pCO2 of 37 and pO2 100%. The patient got transferred to the ICU. No chest pain. No fever. No chills. No nausea. No vomiting. No diarrhea. He was receiving normal saline at the rate of 100 mL an hour and the creatinine is down to 3.0. On 09/24/2017, the patient ICU yesterday because of worsening shortness of breath and respiratory failure and worsening oxygenation and hypoxic respiratory failure. The patient initially was on 100% nonrebreather facemask. He was placed on high flow oxygen and he failed and subsequently the patient was placed on a BiPAP at a pressure of 10/5 with an FiO2 of 100%. Earlier this morning he was breathing in the mid 40s and he was struggling to breathe and he was very short of breath using excessive muscle breathing and he was having periodic desaturations was pulsatile drop in the low 80s. At that point he was also diagnosed having Legionella pneumonia and a chest x-ray was getting worse. Progressive worsening of breath upon infiltrates and I suspect underlying IPF with a superimposed Legionella pneumonia and ARDS picture. I intubated this patient and put him on assist-control mode at the rate of 26 with a tidal volume of 400 with an FiO2 of 100% and a PEEP of 18. The patient is sedated with Diprivan and is calm and comfortable and hemodynamically stable. Blood gases and chest x-ray post intubation are still pending. Meanwhile a triple lumen catheter and a Artline Was also inserted for hemodynamic monitoring. As mentioned, the Legionella urine antigen was positive. The patient will be kept on cefepime and Levaquin combination. We'll discontinue the vancomycin. We'll continue the IV Solu-Medrol. We'll continue the supportive care. A bronchoscopy will be done to rule out any superimposed infection on top of his Legionella pneumonia. His white count is elevated at 16.7. Hemoglobin stable at 9.4. On 09/25/2017 the patient remains critically ill. He was intubated and placed on a mechanical ventilator. As mentioned, he has IPF and he is course was further complicated by Legionella pneumonia and secondary ARDS. This morning he is sedated with a combination of propofol and fentanyl. He is paralyzed with Nimbex. He is an assist-control mode of ventilation at the rate of 32, tidal volume of 380, FiO2 of 70% with a PEEP of 15. Peak airway pressures around 38. Static pressures around 36. Chest x-ray still showing diffuse but the pulmonary infiltrates. Bronchoscopy was done yesterday and the results of the bronchioloalveolar lavage are still pending. Meanwhile, the patient is on a combination of Levaquin and cefepime. The patient had a blood gases this morning that showed a pH of 7.03 with a pCO2 of 73 and pO2 of 132. Based on this I increased his tidal volume to 410. I also dropped FiO2 down to 60%. A repeat blood gas showed a pH of 7.11 with a pCO2 of 66 and pO2 of 109. He had a potassium of 6.2 today which was probably related to his acute renal failure and his acidosis. Based on this, he was given grams of bicarb, he was given D50 and insulin protocol, and he was started on a bicarb drip and currently bicarb is running at the rate of 75 mL an hour in the form of D5 with 3 ampules of sodium bicarbonate. This will hopefully counteract his respiratory acidosis. Repeat potassium level is down to 4.9. He is on pressors. He became hypotensive yesterday and currently is on norepinephrine infusion at the rate of 15 mics. The patient has diminished urine output in the order of 50-20 mL an hour. He is in a positive fluid balance and overnight he received a total of 2 L of additional IV fluids. His creatinine is up to 3.9. His white cell count is up to 32. Is on enteral feeding for nutritional support. He is critically ill. Family has been updated on his condition. On 09/26/2017, patient remains intubated, on mechanical ventilation, his ventilator settings are tidal volume of 410, assist control rate of 34, FiO2 of 50%, and PEEP is 15. ABG earlier today showed a pO2 of 106 and this was on 60% . PCO2 of 68, and pH of 7.14. Patient remains on Nimbex drip, he is also on fentanyl drip, and propofol. Hemodynamically stable, not requiring any norepinephrine at this point. As a matter of fact his blood pressure is elevated, and I recommended that we increase his fentanyl drip. Based on the ABG and based on his chest x-ray, patient is clearly not ready for any form of weaning trial or spontaneous breathing trial. He is not ready to be taken off Nimbex at this point yet. Patient remains on nutritional support via enteral feeding. He is fully sedated and paralyzed, microbiology remains negative so far including his bronchial washings and cultures. WBC count is down to 21.0 hemoglobin is 8.6. Continues to have significant bandemia of 9%. Renal functioning seems to be getting worse, and renal output is minimal. Hence the patient is going to be dialyzed today by nephrology. Again I have no plans to consider any weaning trials at this point. Objective - Vital Signs Vital signs: Vital Signs Temp 98 F 09/26/17 08:00 Pulse 107 H 09/26/17 09:00 Resp 34 H 09/26/17 09:00 BP 110/56 09/26/17 09:00 Pulse Ox 97 09/26/17 09:00 Intake & Output 09/25/17 09/26/17 09/26/17 18:59 06:59 18:59 Intake Total 3420.800 1491.291 528.260 Output Total 310 150 26 Balance 3110.800 1341.291 502.260 Weight 72.1 kg Intake: IV 1878 396 149 0.9 carriers 150 360 90 Cefepime 2 gm In Sodium 50 50 Chloride 0.9% 50 ml @ 100 mls/hr IVPB DAILY [facility] Rx #:[id number] Dextrose 5% in Water 1, 950 000 ml @ 100 mls/hr IV . [id number] [facility] with Sodium Bicarb (1 Meq/ml) 150 ml Rx#:[id number] Levofloxacin 500Mg-D5w 100 Pmx 500 mg In Dextrose/ Water 1 100ml.bag @ 100 mls/hr IVPB Q48H [facility] Rx#: [id number] Sodium Chloride 0.9% 1, 345 000 ml @ 75 mls/hr IV . [id number] [facility] Rx#:[id number] Vancomycin 1,250 mg In 250 Sodium Chloride 0.9% 250 ml @ 125 mls/hr IVPB ONCE ONE Rx#:[id number] pressure bag 0.9 33 36 9 Intake, IV Titration 750.800 459.291 145.260 Amount Cisatracurium 200 mg In 64.008 38.115 Sodium Chloride 0.9% 180 ml @ 1 MCG/KG/MIN 3.78 mls/hr IV .Q24H [facility] Rx#: [id number] Insulin Regular 100 unit 202.000 185.876 84.385 In Sodium Chloride 0.9% 100 ml @ Per Protocol IV .Q0M [facility] Rx#:[id number] Norepinephrin 16 mg-0.9% 75.945 9.127 Ns Pmx 16 mg In 250 ml @ Titrate IV .Q0M [facility] Rx#: [id number] Propofol 1,000 mg In 191.18 193.84 Empty Bag 1 bag @ Titrate IV .Q0M [facility] Rx#: [id number] fentaNYL (PF) 2,500 mcg 217.667 32.333 60.875 In Sodium Chloride 0.9% 200 ml @ 100 MCG/HR 10 mls/hr IV .Q24H [facility] Rx#: [id number] Tube Feeding 612 576 144 Other 180 60 90 Output: Urine 310 150 26 Other: Voiding Method Indwelling Catheter Indwelling Catheter # Voids 0 ABP, PAP, CO, CI - Last Documented Arterial Blood Pressure 121/54 - Exam Physical Exam: Revealed a 62-year-old white male, sedated and paralyzed, on Nimbex, on mechanical ventilation, in no distress. Head: Atraumatic, normocephalic. Endotracheal tube and orogastric tubes are intact. HEENT:[Neck is supple.] [No neck masses.] [No thyromegaly.] [No JVD.] Moist mucous membranes, PERRLA, EOMI, no icterus. Chest: [Crackles at the bases, no rhonchi, no wheezes. Symmetrical chest expansion was noted.] Cardiac Exam: [Normal S1 and S2, no S3 gallop, no murmur.] Abdomen: [Soft, nontender, no megaly, no rebound, no guarding, normal bowel sounds.] Extremities: [No clubbing, no edema, no cyanosis.] Neurological Exam: Cannot be assessed, patient is on propofol and is also on Nimbex. Lymphatics: No lymphadenopathy. Psychiatric: Could not be assessed. Skin: No rashes. Musculoskeletal: Could not be assessed. Patient is paralyzed and sedated. - Labs CBC & Chem 7: 09/26/17 05:32 09/26/17 05:32 Labs: Abnormal Lab Results - Last 24 Hours (Table) 09/25/17 09/25/17 09/25/17 Range/Units 10:48 13:48 13:49 WBC (3.8-10.6) k/uL RBC (4.30-5.90) m/uL Hgb (13.0-17.5) gm/dL Hct (39.0-53.0) % MCHC (31.0-37.0) g/dL RDW (11.5-15.5) % Neutrophils # (Manual) (1.3-7.7) k/uL Monocytes # (Manual) (0-1.0) k/uL Metamyelocytes # (Man) (0) k/uL Myelocytes # (Manual) (0) k/uL Promyelocytes # (Man) (0) k/uL ABG pH (7.35-7.45) ABG pCO2 (35-45) mmHg ABG Total CO2 (19-24) mmol/L ABG O2 Saturation (94-97) % Chloride (98-107) mmol/L BUN (9-20) mg/dL Creatinine (0.66-1.25) mg/dL Glucose (74-99) mg/dL POC Glucose (mg/dL) 230 H 512 H 243 H (75-99) mg/dL Calcium (8.4-10.2) mg/dL Phosphorus (2.5-4.5) mg/dL 09/25/17 09/25/17 09/25/17 Range/Units 15:29 17:20 18:03 WBC (3.8-10.6) k/uL RBC (4.30-5.90) m/uL Hgb (13.0-17.5) gm/dL Hct (39.0-53.0) % MCHC (31.0-37.0) g/dL RDW (11.5-15.5) % Neutrophils # (Manual) (1.3-7.7) k/uL Monocytes # (Manual) (0-1.0) k/uL Metamyelocytes # (Man) (0) k/uL Myelocytes # (Manual) (0) k/uL Promyelocytes # (Man) (0) k/uL ABG pH (7.35-7.45) ABG pCO2 (35-45) mmHg ABG Total CO2 (19-24) mmol/L ABG O2 Saturation (94-97) % Chloride (98-107) mmol/L BUN (9-20) mg/dL Creatinine (0.66-1.25) mg/dL Glucose (74-99) mg/dL POC Glucose (mg/dL) 251 H 251 H 260 H (75-99) mg/dL Calcium (8.4-10.2) mg/dL Phosphorus (2.5-4.5) mg/dL 09/25/17 09/25/17 09/25/17 Range/Units 18:06 18:48 23:10 WBC (3.8-10.6) k/uL RBC (4.30-5.90) m/uL Hgb (13.0-17.5) gm/dL Hct (39.0-53.0) % MCHC (31.0-37.0) g/dL RDW (11.5-15.5) % Neutrophils # (Manual) (1.3-7.7) k/uL Monocytes # (Manual) (0-1.0) k/uL Metamyelocytes # (Man) (0) k/uL Myelocytes # (Manual) (0) k/uL Promyelocytes # (Man) (0) k/uL ABG pH (7.35-7.45) ABG pCO2 (35-45) mmHg ABG Total CO2 (19-24) mmol/L ABG O2 Saturation (94-97) % Chloride 111 H (98-107) mmol/L BUN 63 H (9-20) mg/dL Creatinine 4.50 H (0.66-1.25) mg/dL Glucose 250 H (74-99) mg/dL POC Glucose (mg/dL) 219 H 188 H (75-99) mg/dL Calcium 7.2 L (8.4-10.2) mg/dL Phosphorus (2.5-4.5) mg/dL 09/26/17 09/26/17 09/26/17 Range/Units 01:17 01:54 02:58 WBC (3.8-10.6) k/uL RBC (4.30-5.90) m/uL Hgb (13.0-17.5) gm/dL Hct (39.0-53.0) % MCHC (31.0-37.0) g/dL RDW (11.5-15.5) % Neutrophils # (Manual) (1.3-7.7) k/uL Monocytes # (Manual) (0-1.0) k/uL Metamyelocytes # (Man) (0) k/uL Myelocytes # (Manual) (0) k/uL Promyelocytes # (Man) (0) k/uL ABG pH (7.35-7.45) ABG pCO2 (35-45) mmHg ABG Total CO2 (19-24) mmol/L ABG O2 Saturation (94-97) % Chloride (98-107) mmol/L BUN (9-20) mg/dL Creatinine (0.66-1.25) mg/dL Glucose (74-99) mg/dL POC Glucose (mg/dL) 139 H 145 H 131 H (75-99) mg/dL Calcium (8.4-10.2) mg/dL Phosphorus (2.5-4.5) mg/dL 09/26/17 09/26/17 09/26/17 Range/Units 04:04 04:59 05:00 WBC (3.8-10.6) k/uL RBC (4.30-5.90) m/uL Hgb (13.0-17.5) gm/dL Hct (39.0-53.0) % MCHC (31.0-37.0) g/dL RDW (11.5-15.5) % Neutrophils # (Manual) (1.3-7.7) k/uL Monocytes # (Manual) (0-1.0) k/uL Metamyelocytes # (Man) (0) k/uL Myelocytes # (Manual) (0) k/uL Promyelocytes # (Man) (0) k/uL ABG pH 7.14 L* (7.35-7.45) ABG pCO2 68 H (35-45) mmHg ABG Total CO2 25 H (19-24) mmol/L ABG O2 Saturation 97.3 H (94-97) % Chloride (98-107) mmol/L BUN (9-20) mg/dL Creatinine (0.66-1.25) mg/dL Glucose (74-99) mg/dL POC Glucose (mg/dL) 122 H 140 H (75-99) mg/dL Calcium (8.4-10.2) mg/dL Phosphorus (2.5-4.5) mg/dL 09/26/17 09/26/17 09/26/17 Range/Units 05:32 05:32 06:01 WBC 21.0 H (3.8-10.6) k/uL RBC 3.11 L (4.30-5.90) m/uL Hgb 8.6 L (13.0-17.5) gm/dL Hct 27.9 L (39.0-53.0) % MCHC 30.8 L (31.0-37.0) g/dL RDW 19.3 H (11.5-15.5) % Neutrophils # (Manual) 17.40 H (1.3-7.7) k/uL Monocytes # (Manual) 1.47 H (0-1.0) k/uL Metamyelocytes # (Man) 1.47 H (0) k/uL Myelocytes # (Manual) 0.42 H (0) k/uL Promyelocytes # (Man) 0.21 H (0) k/uL ABG pH (7.35-7.45) ABG pCO2 (35-45) mmHg ABG Total CO2 (19-24) mmol/L ABG O2 Saturation (94-97) % Chloride 109 H (98-107) mmol/L BUN 70 H (9-20) mg/dL Creatinine 5.30 H* (0.66-1.25) mg/dL Glucose 156 H (74-99) mg/dL POC Glucose (mg/dL) 199 H (75-99) mg/dL Calcium 7.3 L (8.4-10.2) mg/dL Phosphorus 7.8 H (2.5-4.5) mg/dL 09/26/17 09/26/17 09/26/17 Range/Units 07:17 08:28 09:58 WBC (3.8-10.6) k/uL RBC (4.30-5.90) m/uL Hgb (13.0-17.5) gm/dL Hct (39.0-53.0) % MCHC (31.0-37.0) g/dL RDW (11.5-15.5) % Neutrophils # (Manual) (1.3-7.7) k/uL Monocytes # (Manual) (0-1.0) k/uL Metamyelocytes # (Man) (0) k/uL Myelocytes # (Manual) (0) k/uL Promyelocytes # (Man) (0) k/uL ABG pH (7.35-7.45) ABG pCO2 (35-45) mmHg ABG Total CO2 (19-24) mmol/L ABG O2 Saturation (94-97) % Chloride (98-107) mmol/L BUN (9-20) mg/dL Creatinine (0.66-1.25) mg/dL Glucose (74-99) mg/dL POC Glucose (mg/dL) 161 H 140 H 110 H (75-99) mg/dL Calcium (8.4-10.2) mg/dL Phosphorus (2.5-4.5) mg/dL Microbiology - Last 24 Hours (Table) 09/24/17 11:15 Acid Fast Bacilli Smear - Final Bronchial Washings - Right Acid Fast Bacilli Culture - Preliminary 09/21/17 14:23 Blood Culture - Preliminary Blood No Growth after 96 hours 09/21/17 14:29 Blood Culture - Preliminary Blood No Growth after 96 hours 09/23/17 12:40 Blood Culture - Preliminary Blood No Growth after 48 hours 09/24/17 11:15 Gram Stain - Preliminary Bronchial Washings - Right Bronchial Washings Culture - Preliminary Assessment and Plan Assessment: 1 acute hypoxic history failure, pneumonia with progressive worsening in by the pulmonary infiltrates, possibly secondary to evolving ARDS. The patient is currently sedated and paralyzed. The patient remains on assist control mode of ventilation. We are using permissive hypercapnia with low tidal volume ventilation. He did develop some respiratory and metabolic acidosis and for that reason he was started on a bicarb drip. Considering his oxygenation was a bit better this morning, went ahead and cut down his FiO2 from 60% to 50%, however I kept him on PEEP of 15, increased his flow rates in order to increase his expiratory time. 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 Renal function continues to be impaired with a creatinine of 3.9 and the patient has become oliguric condition to an underlying component of respiratory and metabolic acidosis currently on a bicarb drip. Dialysis is going to be started today as per nephrology. 5 acute hypotension possibly secondary to underlying sepsis as the patient developed worsening leukocytosis addition to drop in the blood pressure. The patient was aggressively resuscitated IV fluids. Patient is off pressors at this point. 6 diabetes mellitus, on insulin drip for BS control 7 smoker 8 depression 9 abnormal LFTs, probably secondary to OVEF 10 hypertension 11 acid reflux 12 non-anion gap metabolic acidosis, in addition to respirator acidosis currently on a bicarb drip 13 chronic anemia Recommendation: Continue ventilatory support, continue antibiotics including cefepime vancomycin and Levaquin cultures so far are nondiagnostic. Continue nutritional support, hemodynamic support if needed, patient is to remain presently on Nimbex, PEEP remains at 15, once the PEEP is lowered, may consider stopping his Nimbex. We'll continue to monitor labs, hemodynamics, nutritional status, continue GI and DVT prophylaxis, prognosis is definitely poor and guarded, chances of survival out of this episode is going to be very marginal. We'll update his family members on his condition, and we'll continue to follow. Discussed his condition with the ross furnace operator on the case. Critical care time is 40 minutes. Time with Patient: Greater than 30
[2017-09-26 11:46] LABS: Glucose,Whole Blood 109 mg/dL (75-99)
[2017-09-26 14:05] LABS: Glucose,Whole Blood 228 mg/dL (75-99)
[2017-09-26] MEDS: CISATRACURIUM 200 MG in SODIUM CHLORIDE 0.9% 180 ML IV SCH (15:09)
[2017-09-26 15:50] LABS: Glucose,Whole Blood 186 mg/dL (75-99)
--- NOTE | 2017-09-26 16:55 | PCN ---
PROCEDURE NOTE PREOPERATIVE DIAGNOSIS: Acute and chronic renal failure secondary to sepsis or acute tubular necrosis. PROCEDURE: Placement of the dialysis catheter right femoral approach. The patient was seen in his room. Right side of the groin was prepped and draped applied usual manner. 1% lidocaine was infiltrated. Then micropuncture right femoral vein and micropuncture guidewire was passed. Then, 4-Maltese dilator advanced on top of the guidewire and we passed a regular guidewire. Then we passed a dilator and sheath was sheath was advanced. Then we placed a dialysis catheter and flushed with heparin saline and secured with 3-0 nylon. Dressing applied. Patient tolerated the procedure well. MMODL / IJN: [id number] /
--- NOTE | 2017-09-26 17:01 | CONS ---
CONSULTATION This is a 62-year-old gentleman seen in Intensive Care Unit. He has been intubated. Needs placement of urgent dialysis catheter. The patient has history of oliguria, acute kidney injury secondary to ATN secondary to sepsis and hypertension. The patient also has a history of respiratory failure and has been intubated. Patient has history of hyperkalemia, hyperphosphatemia. PHYSICAL EXAMINATION: Patient was seen in his room. Patient is on a ventilator. His neck is supple. Chest has crackles bilaterally. ABDOMEN: Soft, nontender. Femoral pulses are present. PLAN: Placement of the dialysis catheter. Risks and complications were discussed. MMODL / IJN: [id number] /
[2017-09-26] MEDS ORDERED: LIDOCAINE 1% INJ 10MG/ML (20 ML MDV) ONE (18:00)
[2017-09-26] MEDS ORDERED: HEPARIN SODIUM 1,000 UN/ML (10ML VL) ONE (18:00)
[2017-09-26 18:12] LABS: Glucose,Whole Blood 116 mg/dL (75-99)
--- NOTE | 2017-09-26 18:40 | PN ---
PROGRESS NOTE DATE OF SERVICE: 09/26/2017 FULL CODE. Height 5 feet 5 inches. Weight 72.1 kg, BSA 1.79 m2, BMI 26.5 kg/m2. ALLERGIES: 1. ASPARTAME. 2. PENICILLIN. The patient was seen today and evaluated in the ICU. He is currently planned for acute dialysis with anuria and also no improvement with hydration with the underlying acute kidney injury. LABORATORY: His blood sugar has been fairly controlled in the ICU with insulin drip. PT is 11, INR 1.1. The morning blood sugar was 110 and subsequently at 11:30 109. With the steroid, the blood sugar continues to be occasionally and intermittently elevated. He has a positive detected urine legionella antigen. His vancomycin is 28.9 today. Yesterday it was 22. His sodium today is 141, potassium 4.9, chloride 109, carbon dioxide 24, and the anion gap is 8. BUN is 70 and creatinine is back up to 5.3. He has metabolic acidosis and we started him orally with sodium bicarb 650 three times a day. Subsequently he was seen by Dr. Pierre, Nephrology, and he started him on IV sodium bicarb. Currently carbon dioxide is 24, which is very good from low of 17. Glucose 156 in the morning. His calcium is 7.3, phosphorus 7.8, magnesium 2.3. With these findings, Dr. Pierre checked with Dr. Phillips, the vascular surgeon, to have a right femoral dialysis catheter, which was initiated this morning and subsequently he is going to have hemodialysis to support his kidney as well as to give him a chance to heal from the underlying legionella pneumonia as well as interstitial pulmonary fibrosis. He has severe hypoxemia. He is on the ventilator at this time. He had an oral NG tube and he has started feeding with protein. His diabetes mellitus is controlled with insulin drip. Patient today was seen by Pulmonary Critical Care, Dr. Castro, as well as Dr. Phillips in consultation. Dr. Phillips said the patient was seen in Intensive Care; he was intubated and he needs urgent dialysis and dialysis catheter was placed with underlying MERRICK and ATN and hypertension, now hypotensive. He has underlying electrolyte imbalance with hyperphosphatemia and hyperkalemia and fluctuating renal function. The patient's dialysis catheter was placed today on September 26. The patient was seen also by Dr. Castro, and he stated that the patient has acute hypoxic respiratory failure secondary to bilateral pneumonia, ARDS, as well as underlying interstitial lung disease with pulmonary fibrosis. Creatinine is going up again, progressively worsening, and ABG showed severe metabolic acidosis. Dr. Castro's impression is acute hypoxic respiratory failure, pneumonia, bilateral, progressively worsening with infiltrate and involving ARDS. Patient is sedated and paralyzed, on assist-control mode ventilation. He has hypercapnia with a low tidal volume. He did develop respiratory and metabolic acidosis and he is on bicarb drip. His oxygenation is improving. They increased his oxygen to 60% and 50% and he was kept on PEEP of 15. Also he pulmonary fibrosis on the lung bases. He was on treatment with OFEV; however, it has been discontinued with the acute pneumonia. He had COPD with bullous emphysematous areas involving the left lobe. He has also acute kidney injury and hypotension secondary to underlying sepsis, leukocytosis with the IV resuscitation done, diabetes mellitus, smoker, depression, normal left ventricular function, probably secondary to OFEV, hypertension, acid reflux, non-anion gap metabolic acidosis, chronic anemia. Currently the patient also is followed by Infectious Disease, Dr. Mcdermott. He is currently on cefepime, vancomycin and Levaquin. Hemodynamics support. He also updated the family as well. I spoke with his with and his son in the ICU today when I was present and I spoke with Dr. Pierre as well; he has been preparing for the dialysis. Patient's current prognosis is guarded to poor. We will continue with the same medication. Time with the patient was greater than 30 minutes. ADDENDUM: On examination, patient has bilateral dry rhonchi. The heart was tachycardic. The abdomen had positive bowel sounds. He had an NG tube in place. EXTREMITIES: He has the compression stockings for DVT prophylaxis. MMODL / IJN: [id number] /
[2017-09-26 20:01] LABS: Glucose,Whole Blood 132 mg/dL (75-99)
[2017-09-26] MEDS: ASPIRIN 81 MG PO SCH (20:49)
[2017-09-26] MEDS: ATORVASTATIN 40 MG TAB PO SCH (20:50)
--- NOTE | 2017-09-26 21:24 | P.PN ---
Subjective Progress Note Date: 09/26/17 62-year-old male who has a long-standing history of pulmonary fibrosis which is treated with Ofev, Presented to Hospital with rapidly progressive shortness of breath. He had x-rays performed that shows evidence of right upper lobe and left upper lobe worsening infiltration and there is evidence of progressive hypoxemia. At the time he presents to Hospital after being seen in the office there is evidence of acute renal failure. It is noted that the patient was having headache associated with the increasing shortness of breath and was taking [id number] Motrin and somewhat high dose for at least 3 days before he came in. He also is having some difficulty with some diarrhea and progressive weakness. At presentation he is with evidence of significant shortness of breath he required intubation with sedation and mechanical ventilation. Today there has been some further difficulties and likely will require paralysis and vasopressor therapy. 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 They have a pond in the utilize their well to pump some of the water to the pond. The patient apparently was working on the pump with the filters last week. It neck she has just a few days before he started to get sick with the progressive shortness of breath and then the diarrhea. The patient's is not ill at all. They do live in the same home. She relates that there is been no work on the hot water tank for the home. There is one well that supplies water for the home as well as the barn. The barn his home to a miniature horse a goat and a pig. The patient himself provides most of the care for the animals. Including taking care of the maneuver. The however do not have chickens or other bird exposures. The relates that he's had no recent travel. He does not have experience or international travel. Pets dog and cat do live in the home. 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 09/25/2017 Patient remains in the intensive care unit intubated sedated and mechanically ventilated now paralyzed because of the difficulties with ventilation. He is he hemodynamically stable at this point in time but is requiring norepinephrine. There has been a slight improvement in his oxygenation at the FiO2 has been dropped to 60% with ongoing adequate oxygenation with his high frequency and high PEEP 09/26/2017 patient remains profoundly ill , intubated sedated and mechanically ventilated and paralyzed at this time however vasopressor therapy has been discontinued. If the patient has Legionnaires' disease as etiology of his respiratory failure and sepsis and multisystem organ failure. Risk factor is his pulmonary fibrosis. The leukocytosis and renal failure related to this profound infection. Objective - Vital Signs Vital signs: Vital Signs Temp 98.4 F 09/26/17 16:00 Pulse 94 09/26/17 20:20 Resp 34 H 09/26/17 20:20 BP 105/58 09/26/17 19:00 Pulse Ox 96 09/26/17 19:00 Intake & Output 09/26/17 09/26/17 09/27/17 06:59 18:59 06:59 Intake Total 9952.344 9172.316 33 Output Total 150 92 10 Balance 2775.092 2494.316 23 Weight 72.1 kg Intake: IV 396 446 33 0.9 carriers 360 360 30 Cefepime 2 gm In Sodium 50 Chloride 0.9% 50 ml @ 100 mls/hr IVPB DAILY JIMENEZ Rx #:[id number] pressure bag 0.9 36 36 3 Intake, IV Titration 459.291 550.316 Amount Cisatracurium 200 mg In 38.115 64.638 Sodium Chloride 0.9% 180 ml @ 1 MCG/KG/MIN 3.78 mls/hr IV .Q24H JIMENEZ Rx#: [id number] Insulin Regular 100 unit 185.876 182.532 In Sodium Chloride 0.9% 100 ml @ Per Protocol IV .Q0M JIMENEZ Rx#:[id number] Norepinephrin 16 mg-0.9% 9.127 28.646 Ns Pmx 16 mg In 250 ml @ Titrate IV .Q0M JIMENEZ Rx#: [id number] Propofol 1,000 mg In 193.84 200 Empty Bag 1 bag @ Titrate IV .Q0M JIMENEZ Rx#: [id number] fentaNYL (PF) 2,500 mcg 32.333 74.500 In Sodium Chloride 0.9% 200 ml @ 100 MCG/HR 10 mls/hr IV .Q24H JIMENEZ Rx#: [id number] Tube Feeding 576 528 Other 60 150 Output: Urine 150 92 10 Other: Voiding Method Indwelling Catheter Indwelling Catheter ABP, PAP, CO, CI - Last Documented Arterial Blood Pressure 125/58 - Exam 62-year-old male who is intubated sedated and mechanically ventilated, and now paralyzed, blood pressure is improved with norepinephrine therapy. HEENT: Anicteric conjunctiva are pink and moist nasal mucosa grossly intact without significant lesions, there is no thrush. Pupils were reactive. Neck: The neck is supple without significant lymphadenopathy or thyromegaly. Lungs: There is symmetrical bilateral air entry. There are coarse crackles and wheezes to the lung sanchez. Heart: Tachycardic but regular with an audible S1 and S2 soft S4 no distinct murmur click or rub Abdomen: Positive bowel sounds soft nonrigid without palpable masses or organomegaly. Extremities: The upper extremities have excellent pulses they are symmetric, no significant petechiae or telangiectasia. No splinter hemorrhages were noted. The lower extremities are free from significant edema. The peripheral pulses were 2+ and symmetric. IV sites are intact Neuro: Intubated sedated and mechanically ventilated and paralyzed. - Labs CBC & Chem 7: 09/26/17 05:32 09/26/17 05:32 Labs: Abnormal Lab Results - Last 24 Hours (Table) 09/25/17 09/26/17 09/26/17 Range/Units 23:10 01:17 01:54 WBC (3.8-10.6) k/uL RBC (4.30-5.90) m/uL Hgb (13.0-17.5) gm/dL Hct (39.0-53.0) % MCHC (31.0-37.0) g/dL RDW (11.5-15.5) % Neutrophils # (Manual) (1.3-7.7) k/uL Monocytes # (Manual) (0-1.0) k/uL Metamyelocytes # (Man) (0) k/uL Myelocytes # (Manual) (0) k/uL Promyelocytes # (Man) (0) k/uL ABG pH (7.35-7.45) ABG pCO2 (35-45) mmHg ABG Total CO2 (19-24) mmol/L ABG O2 Saturation (94-97) % Chloride (98-107) mmol/L BUN (9-20) mg/dL Creatinine (0.66-1.25) mg/dL Glucose (74-99) mg/dL POC Glucose (mg/dL) 188 H 139 H 145 H (75-99) mg/dL Calcium (8.4-10.2) mg/dL Phosphorus (2.5-4.5) mg/dL 09/26/17 09/26/17 09/26/17 Range/Units 02:58 04:04 04:59 WBC (3.8-10.6) k/uL RBC (4.30-5.90) m/uL Hgb (13.0-17.5) gm/dL Hct (39.0-53.0) % MCHC (31.0-37.0) g/dL RDW (11.5-15.5) % Neutrophils # (Manual) (1.3-7.7) k/uL Monocytes # (Manual) (0-1.0) k/uL Metamyelocytes # (Man) (0) k/uL Myelocytes # (Manual) (0) k/uL Promyelocytes # (Man) (0) k/uL ABG pH (7.35-7.45) ABG pCO2 (35-45) mmHg ABG Total CO2 (19-24) mmol/L ABG O2 Saturation (94-97) % Chloride (98-107) mmol/L BUN (9-20) mg/dL Creatinine (0.66-1.25) mg/dL Glucose (74-99) mg/dL POC Glucose (mg/dL) 131 H 122 H 140 H (75-99) mg/dL Calcium (8.4-10.2) mg/dL Phosphorus (2.5-4.5) mg/dL 09/26/17 09/26/17 09/26/17 Range/Units 05:00 05:32 05:32 WBC 21.0 H (3.8-10.6) k/uL RBC 3.11 L (4.30-5.90) m/uL Hgb 8.6 L (13.0-17.5) gm/dL Hct 27.9 L (39.0-53.0) % MCHC 30.8 L (31.0-37.0) g/dL RDW 19.3 H (11.5-15.5) % Neutrophils # (Manual) 17.40 H (1.3-7.7) k/uL Monocytes # (Manual) 1.47 H (0-1.0) k/uL Metamyelocytes # (Man) 1.47 H (0) k/uL Myelocytes # (Manual) 0.42 H (0) k/uL Promyelocytes # (Man) 0.21 H (0) k/uL ABG pH 7.14 L* (7.35-7.45) ABG pCO2 68 H (35-45) mmHg ABG Total CO2 25 H (19-24) mmol/L ABG O2 Saturation 97.3 H (94-97) % Chloride 109 H (98-107) mmol/L BUN 70 H (9-20) mg/dL Creatinine 5.30 H* (0.66-1.25) mg/dL Glucose 156 H (74-99) mg/dL POC Glucose (mg/dL) (75-99) mg/dL Calcium 7.3 L (8.4-10.2) mg/dL Phosphorus 7.8 H (2.5-4.5) mg/dL 09/26/17 09/26/17 09/26/17 Range/Units 06:01 07:17 08:28 WBC (3.8-10.6) k/uL RBC (4.30-5.90) m/uL Hgb (13.0-17.5) gm/dL Hct (39.0-53.0) % MCHC (31.0-37.0) g/dL RDW (11.5-15.5) % Neutrophils # (Manual) (1.3-7.7) k/uL Monocytes # (Manual) (0-1.0) k/uL Metamyelocytes # (Man) (0) k/uL Myelocytes # (Manual) (0) k/uL Promyelocytes # (Man) (0) k/uL ABG pH (7.35-7.45) ABG pCO2 (35-45) mmHg ABG Total CO2 (19-24) mmol/L ABG O2 Saturation (94-97) % Chloride (98-107) mmol/L BUN (9-20) mg/dL Creatinine (0.66-1.25) mg/dL Glucose (74-99) mg/dL POC Glucose (mg/dL) 199 H 161 H 140 H (75-99) mg/dL Calcium (8.4-10.2) mg/dL Phosphorus (2.5-4.5) mg/dL 09/26/17 09/26/17 09/26/17 Range/Units 09:58 11:42 14:03 WBC (3.8-10.6) k/uL RBC (4.30-5.90) m/uL Hgb (13.0-17.5) gm/dL Hct (39.0-53.0) % MCHC (31.0-37.0) g/dL RDW (11.5-15.5) % Neutrophils # (Manual) (1.3-7.7) k/uL Monocytes # (Manual) (0-1.0) k/uL Metamyelocytes # (Man) (0) k/uL Myelocytes # (Manual) (0) k/uL Promyelocytes # (Man) (0) k/uL ABG pH (7.35-7.45) ABG pCO2 (35-45) mmHg ABG Total CO2 (19-24) mmol/L ABG O2 Saturation (94-97) % Chloride (98-107) mmol/L BUN (9-20) mg/dL Creatinine (0.66-1.25) mg/dL Glucose (74-99) mg/dL POC Glucose (mg/dL) 110 H 109 H 228 H (75-99) mg/dL Calcium (8.4-10.2) mg/dL Phosphorus (2.5-4.5) mg/dL 09/26/17 09/26/17 09/26/17 Range/Units 15:48 18:11 20:00 WBC (3.8-10.6) k/uL RBC (4.30-5.90) m/uL Hgb (13.0-17.5) gm/dL Hct (39.0-53.0) % MCHC (31.0-37.0) g/dL RDW (11.5-15.5) % Neutrophils # (Manual) (1.3-7.7) k/uL Monocytes # (Manual) (0-1.0) k/uL Metamyelocytes # (Man) (0) k/uL Myelocytes # (Manual) (0) k/uL Promyelocytes # (Man) (0) k/uL ABG pH (7.35-7.45) ABG pCO2 (35-45) mmHg ABG Total CO2 (19-24) mmol/L ABG O2 Saturation (94-97) % Chloride (98-107) mmol/L BUN (9-20) mg/dL Creatinine (0.66-1.25) mg/dL Glucose (74-99) mg/dL POC Glucose (mg/dL) 186 H 116 H 132 H (75-99) mg/dL Calcium (8.4-10.2) mg/dL Phosphorus (2.5-4.5) mg/dL Microbiology - Last 24 Hours (Table) 09/21/17 14:29 Blood Culture - Preliminary Blood No Growth after 120 hours 09/21/17 14:23 Blood Culture - Preliminary Blood No Growth after 120 hours 09/23/17 12:40 Blood Culture - Preliminary Blood No Growth after 72 hours 09/24/17 11:15 Gram Stain - Final Bronchial Washings - Right Bronchial Washings Culture - Final 09/24/17 11:15 Acid Fast Bacilli Smear - Final Bronchial Washings - Right Acid Fast Bacilli Culture - Preliminary Laboratory Results WBC 21.0 k/uL (3.8-10.6) H 09/26/17 05:32 RBC 3.11 m/uL (4.30-5.90) L 09/26/17 05:32 Hgb 8.6 gm/dL (13.0-17.5) L 09/26/17 05:32 Hct 27.9 % (39.0-53.0) L 09/26/17 05:32 MCV 89.9 fL (80.0-100.0) 09/26/17 05:32 MCH 27.7 pg (25.0-35.0) 09/26/17 05:32 MCHC 30.8 g/dL (31.0-37.0) L 09/26/17 05:32 RDW 19.3 % (11.5-15.5) H 09/26/17 05:32 Plt Count 315 k/uL (150-450) 09/26/17 05:32 Neutrophils % 94 % 09/24/17 05:05 Neutrophils % (Manual) 74 % 09/26/17 05:32 Band Neutrophils % 9 % 09/26/17 05:32 Lymphocytes % 1 % 09/24/17 05:05 Monocytes % 4 % 09/24/17 05:05 Monocytes % (Manual) 7 % 09/26/17 05:32 Eosinophils % 0 % 09/24/17 05:05 Basophils % 0 % 09/24/17 05:05 Metamyelocytes % 7 % 09/26/17 05:32 Myelocytes % 2 % 09/26/17 05:32 Promyelocytes % 1 % 09/26/17 05:32 Neutrophils # 15.6 k/uL (1.3-7.7) H 09/24/17 05:05 Neutrophils # (Manual) 17.40 k/uL (1.3-7.7) H 09/26/17 05:32 Lymphocytes # 0.2 k/uL (1.0-4.8) L 09/24/17 05:05 Monocytes # 0.7 k/uL (0-1.0) 09/24/17 05:05 Monocytes # (Manual) 1.47 k/uL (0-1.0) H 09/26/17 05:32 Eosinophils # 0.0 k/uL (0-0.7) 09/24/17 05:05 Basophils # 0.0 k/uL (0-0.2) 09/24/17 05:05 Metamyelocytes # (Man) 1.47 k/uL (0) H 09/26/17 05:32 Myelocytes # (Manual) 0.42 k/uL (0) H 09/26/17 05:32 Promyelocytes # (Man) 0.21 k/uL (0) H 09/26/17 05:32 Nucleated RBCs 0 /100 WBC (0-0) 09/26/17 05:32 Manual Slide Review Performed 09/26/17 05:32 Toxic Granulation Present 09/26/17 05:32 Toxic Vacuolation Present 09/26/17 05:32 Hypochromasia Marked 09/26/17 05:32 Poikilocytosis Slight 09/26/17 05:32 Anisocytosis Slight 09/26/17 05:32 PT 11.0 sec (9.0-12.0) 09/26/17 10:00 INR 1.1 (<1.2) 09/26/17 10:00 APTT 28.1 sec (22.0-30.0) 09/21/17 16:16 Sample Site NADIRA 09/26/17 05:00 ABG pH 7.14 (7.35-7.45) L* 09/26/17 05:00 ABG pCO2 68 mmHg (35-45) H 09/26/17 05:00 ABG pO2 106 mmHg (83-108) 09/26/17 05:00 ABG HCO3 23 mmol/L (21-25) 09/26/17 05:00 ABG Total CO2 25 mmol/L (19-24) H 09/26/17 05:00 ABG O2 Saturation 97.3 % (94-97) H 09/26/17 05:00 ABG Base Excess -5.8 mmol/L 09/26/17 05:00 Xavi Test Yes 09/26/17 05:00 FiO2 60 % 09/26/17 05:00 Sodium 141 mmol/L (137-145) 09/26/17 05:32 Potassium 4.9 mmol/L (3.5-5.1) 09/26/17 05:32 Chloride 109 mmol/L (98-107) H 09/26/17 05:32 Carbon Dioxide 24 mmol/L (22-30) 09/26/17 05:32 Anion Gap 8 mmol/L 09/26/17 05:32 BUN 70 mg/dL (9-20) H 09/26/17 05:32 Creatinine 5.30 mg/dL (0.66-1.25) H* 09/26/17 05:32 Est GFR (CKD-EPI)AfAm 12 (>60 ml/min/1.73 sqM) 09/26/17 05:32 Est GFR (CKD-EPI)NonAf 11 (>60 ml/min/1.73 sqM) 09/26/17 05:32 Glucose 156 mg/dL (74-99) H 09/26/17 05:32 POC Glucose (mg/dL) 132 mg/dL (75-99) H 09/26/17 20:00 POC Glu Wall [employer] Department Supervisor ID Noah Jeff Dal 09/26/17 20:[address] Glu mg/dL 151 09/21/17 14:23 Hemoglobin A1c 6.9 % (4.0-6.0) H 09/21/17 14:23 Lactic Ac Sepsis Rflx Y 09/22/17 20:26 Plasma Lactic Acid Heriberto 1.7 mmol/L (0.7-2.0) 09/23/17 12:34 Calcium 7.3 mg/dL (8.4-10.2) L 09/26/17 05:32 Phosphorus 7.8 mg/dL (2.5-4.5) H 09/26/17 05:32 Magnesium 2.3 mg/dL (1.6-2.3) 09/26/17 05:32 Total Bilirubin 0.5 mg/dL (0.2-1.3) 09/24/17 05:05 AST 91 U/L (17-59) H 09/24/17 05:05 ALT 79 U/L (21-72) H 09/24/17 05:05 Alkaline Phosphatase 179 U/L (38-126) H 09/24/17 05:05 Total Protein 5.7 g/dL (6.3-8.2) L 09/24/17 05:05 Albumin 2.7 g/dL (3.5-5.0) L 09/24/17 05:05 Urine Color Light Yellow 09/23/17 04:58 Urine Appearance Clear (Clear) 09/23/17 04:58 Urine pH 5.5 (5.0-8.0) 09/23/17 04:58 Ur Specific [place] 1.009 (1.001-1.035) 09/23/17 04:58 Urine Protein Trace (Negative) H 09/23/17 04:58 Urine Glucose (UA) 2+ (Negative) H 09/23/17 04:58 Urine Ketones Negative (Negative) 09/23/17 04:58 Urine Blood Negative (Negative) 09/23/17 04:58 Urine Nitrite Negative (Negative) 09/23/17 04:58 Urine Bilirubin Negative (Negative) 09/23/17 04:58 Urine Urobilinogen <2.0 mg/dL (<2.0) 09/23/17 04:58 Ur Leukocyte Esterase Negative (Negative) 09/23/17 04:58 Fluid Source Bronchial Wash 09/24/17 11:15 Fluid Color Red 09/24/17 11:15 Fluid Appearance Bloody 09/24/17 11:15 Fluid RBC 64764 /uL 09/24/17 11:15 Fluid Nucleated Cells 60 /uL 09/24/17 11:15 Fluid Polynuclear WBCs 90 % 09/24/17 11:15 Fluid Mononuclear WBCs 10 % 09/24/17 11:15 Random Vancomycin 28.9 ug/mL 09/26/17 05:32 Urine Legionella Ag DETECTED (Not detected) H 09/21/17 17:41 Microbiology 09/21/17 14:29 Blood Blood Culture - Preliminary No Growth after 120 hours 09/21/17 14:23 Blood Blood Culture - Preliminary No Growth after 120 hours 09/23/17 12:40 Blood Blood Culture - Preliminary No Growth after 72 hours 09/24/17 11:15 Bronchial Washings - Right Gram Stain - Final 09/24/17 11:15 Bronchial Washings - Right Bronchial Washings Culture - Final 09/24/17 11:15 Bronchial Washings - Right Acid Fast Bacilli Smear - Final 09/24/17 11:15 Bronchial Washings - Right Acid Fast Bacilli Culture - Preliminary 09/24/17 11:15 Bronchial Washings - Right Fungal Culture - Preliminary Assessment and Plan (1) Legionella pneumonia Narrative/Plan: 62-year-old male with a known history of pulmonary fibrosis who is cared for with his radiation safety officer. Receives Ofev from the radiation safety officer and has been relatively stable until this onset of Acute illness. The patient now is evidence of bilateral pneumonia which is on the basis of Legionella infection. Patient's does relate that one of their family friends did have pneumonia recently hospitalized only for a couple of days and has recovered well. We do discuss that Legionella is an environmental pathogen and does not have person-to -person transmission. She is at risk if there is Legionella with no water to the home, is at less risk if the Legionella is only related to the filtering system for the pond. That system would require chlorination if Legionella is present there. The patient's is well and she knows to present if she becomes ill at all. For treatment he does have acute renal failure and levofloxacin is being dosed at the appropriate renally adjusted dose. Given his severe underlying illness and until we have final cultures will also treat for other gram-negative pathogens and cefepime is being used and this has now been dose adjusted also for his current renal failure. Blood cultures and sputum cultures are process. The patient is profoundly ill and there are increasing difficulties with his oxygenation. The patient's understands that he is very ill at this point in time although he is comfortable. The patient has been an ongoing smoker despite his underlying pulmonary disease and is receiving multiple breathing treatments at this time also Leukocytosis is increased a bit and is likely in the basis of the utilization of steroids to improve his pulmonary status. Patient does have acute renal failure but this is improving is being followed by nephrology. Maintaining adequate blood pressure and hydration are part of goals. Prognosis is poor. 09/25/2017 reveals the patient to be profoundly ill. He is on high PEEP with high-frequency ventilation, and is hypotensive requiring vasopressor therapy. As noted the patient appears to have Legionella infection and is on appropriate antibiotic therapy. Bronchoscopy was performed and antibiotic therapy is also being utilized for other gram-negative pathogens until those results are available. Blood cultures are process. He has profound leukocytosis and the base of underlying severe pneumonia and the steroids are being utilized. 09/26/2017 patient remains profoundly ill with high-frequency ventilation, high PEEP and multisystem organ failure. Fortunately he is no longer hypotensive requiring vasopressor therapy. With current available cultures the vancomycin therapy is discontinued continue the levofloxacin and Maxipime for now pending further culture results. Bronchoscopy was performed which may further help direct antimicrobial therapy. Regardless will need to complete a multiweek course of fluoroquinolone for his Legionella if he continues to survive. Current Visit: Yes Status: Acute Code(s): A48.1 - LEGIONNAIRES' DISEASE SNOMED Code(s): 483802191
[2017-09-26 22:09] LABS: Glucose,Whole Blood 197 mg/dL (75-99)
[2017-09-26 23:48] LABS: Glucose,Whole Blood 172 mg/dL (75-99)
[2017-09-27 02:06] LABS: Glucose,Whole Blood 111 mg/dL (75-99)
[2017-09-27] MEDS: ARTIFICIAL TEARS-HYPROMELLOSE DROPS 15 ML BTL BOTH EYES SCH ×5 (03:39→20:13)
[2017-09-27 03:47] LABS: Glucose,Whole Blood 116 mg/dL (75-99)
[2017-09-27] MEDS: PROPOFOL 1,000 MG in EMPTY BAG 1 BAG IV SCH ×3 (04:48→20:20)
[2017-09-27 05:52] LABS: Glucose,Whole Blood 198 mg/dL (75-99)
[2017-09-27 06:14] LABS: Calcium 7.2 mg/dL (8.4-10.2); Potassium 5.2 mmol/L (3.5-5.1)
[2017-09-27 06:36] LABS: Anisocytosis Slight; HCT 26.6 % (39.0-53.0); Hypochromasia Marked; MCH 27.1 pg (25.0-35.0); MCHC 30.1 g/dL (31.0-37.0); MCV 90.1 fL (80.0-100.0); Mean Platelet Volume 10.5; Platelet Count 284 k/uL (150-450); Poikilocytosis Slight; RBC 2.95 m/uL (4.30-5.90); RDW 19.4 % (11.5-15.5); WBC 19.9 k/uL (3.8-10.6)
[2017-09-27] MEDS: INSULIN REGULAR 100 UNIT in SODIUM CHLORIDE 0.9% 100 ML IV SCH ×2 (06:50→17:03)
[2017-09-27 07:38] LABS: Magnesium 2.5 mg/dL (1.6-2.3); Phosphorus 7.8 mg/dL (2.5-4.5)
--- NOTE | 2017-09-27 07:43 | P.PN ---
Subjective Patient is seen in follow-up for acute kidney injury. He remains oliguric. He was started on dialysis on September 26. He is noted to have Legionella pneumonia. Patient was intubated on September 24. He's been requiring vasopressor support as well. He is receiving tube feeds and is also maintained on normal saline at 30 mL an hour. He is requiring 50% FiO2 at this time. Tolerated dialysis well yesterday. Vital signs are stable. General: Intubated. HEENT: Head exam is unremarkable. Neck is without jugular venous distension. LUNGS: Scattered rhonchi. HEART: Rate and Rhythm are regular. First and second heart sounds normal. No murmurs, rubs or gallops. ABDOMEN: Abdominal exam reveals normal bowel sounds. Non-tender and non- distended. No evidence of peritonitis. EXTREMITITES: No clubbing, cyanosis, or edema. Objective - Vital Signs Vital signs: Vital Signs Temp 97.6 F 09/27/17 04:00 Pulse 94 09/27/17 07:00 Resp 34 H 09/27/17 07:00 BP 109/57 09/27/17 07:00 Pulse Ox 95 09/27/17 07:00 Intake & Output 09/26/17 09/27/17 09/27/17 18:59 06:59 18:59 Intake Total 1674.316 814.6 33 Output Total 92 85 5 Balance 1582.316 729.6 28 Weight 71.6 kg Intake: IV 446 396 33 0.9 carriers 360 360 30 Cefepime 2 gm In Sodium 50 Chloride 0.9% 50 ml @ 100 mls/hr IVPB DAILY [facility] Rx #:[id number] pressure bag 0.9 36 36 3 Intake, IV Titration 550.316 196.6 Amount Cisatracurium 200 mg In 64.638 Sodium Chloride 0.9% 180 ml @ 1 MCG/KG/MIN 3.78 mls/hr IV .Q24H [facility] Rx#: [id number] Insulin Regular 100 unit 182.532 96.6 In Sodium Chloride 0.9% 100 ml @ Per Protocol IV .Q0M [facility] Rx#:[id number] Norepinephrin 16 mg-0.9% 28.646 Ns Pmx 16 mg In 250 ml @ Titrate IV .Q0M [facility] Rx#: [id number] Propofol 1,000 mg In 200 100 Empty Bag 1 bag @ Titrate IV .Q0M [facility] Rx#: [id number] fentaNYL (PF) 2,500 mcg 74.500 In Sodium Chloride 0.9% 200 ml @ 100 MCG/HR 10 mls/hr IV .Q24H [facility] Rx#: [id number] Tube Feeding 528 192 Other 150 30 Output: Urine 92 85 5 Other: Voiding Method Indwelling Catheter Indwelling Catheter ABP, PAP, CO, CI - Last Documented Arterial Blood Pressure 122/53 - Labs CBC & Chem 7: 09/27/17 03:50 09/27/17 03:50 Labs: Abnormal Lab Results - Last 24 Hours (Table) 09/26/17 09/26/17 09/26/17 Range/Units 08:28 09:58 11:42 WBC (3.8-10.6) k/uL RBC (4.30-5.90) m/uL Hgb (13.0-17.5) gm/dL Hct (39.0-53.0) % MCHC (31.0-37.0) g/dL RDW (11.5-15.5) % Potassium (3.5-5.1) mmol/L BUN (9-20) mg/dL Creatinine (0.66-1.25) mg/dL Glucose (74-99) mg/dL POC Glucose (mg/dL) 140 H 110 H 109 H (75-99) mg/dL Calcium (8.4-10.2) mg/dL 09/26/17 09/26/17 09/26/17 Range/Units 14:03 15:48 18:11 WBC (3.8-10.6) k/uL RBC (4.30-5.90) m/uL Hgb (13.0-17.5) gm/dL Hct (39.0-53.0) % MCHC (31.0-37.0) g/dL RDW (11.5-15.5) % Potassium (3.5-5.1) mmol/L BUN (9-20) mg/dL Creatinine (0.66-1.25) mg/dL Glucose (74-99) mg/dL POC Glucose (mg/dL) 228 H 186 H 116 H (75-99) mg/dL Calcium (8.4-10.2) mg/dL 09/26/17 09/26/17 09/26/17 Range/Units 20:00 22:07 23:43 WBC (3.8-10.6) k/uL RBC (4.30-5.90) m/uL Hgb (13.0-17.5) gm/dL Hct (39.0-53.0) % MCHC (31.0-37.0) g/dL RDW (11.5-15.5) % Potassium (3.5-5.1) mmol/L BUN (9-20) mg/dL Creatinine (0.66-1.25) mg/dL Glucose (74-99) mg/dL POC Glucose (mg/dL) 132 H 197 H 172 H (75-99) mg/dL Calcium (8.4-10.2) mg/dL 09/27/17 09/27/17 09/27/17 Range/Units 01:52 03:45 03:50 WBC (3.8-10.6) k/uL RBC (4.30-5.90) m/uL Hgb (13.0-17.5) gm/dL Hct (39.0-53.0) % MCHC (31.0-37.0) g/dL RDW (11.5-15.5) % Potassium 5.2 H (3.5-5.1) mmol/L BUN 84 H* (9-20) mg/dL Creatinine 5.00 H* (0.66-1.25) mg/dL Glucose 109 H (74-99) mg/dL POC Glucose (mg/dL) 111 H 116 H (75-99) mg/dL Calcium 7.2 L (8.4-10.2) mg/dL 09/27/17 09/27/17 Range/Units 03:50 05:51 WBC 19.9 H (3.8-10.6) k/uL RBC 2.95 L (4.30-5.90) m/uL Hgb 8.0 L (13.0-17.5) gm/dL Hct 26.6 L (39.0-53.0) % MCHC 30.1 L (31.0-37.0) g/dL RDW 19.4 H (11.5-15.5) % Potassium (3.5-5.1) mmol/L BUN (9-20) mg/dL Creatinine (0.66-1.25) mg/dL Glucose (74-99) mg/dL POC Glucose (mg/dL) 198 H (75-99) mg/dL Calcium (8.4-10.2) mg/dL Microbiology - Last 24 Hours (Table) 09/21/17 14:29 Blood Culture - Preliminary Blood No Growth after 120 hours 09/21/17 14:23 Blood Culture - Preliminary Blood No Growth after 120 hours 09/23/17 12:40 Blood Culture - Preliminary Blood No Growth after 72 hours 09/24/17 11:15 Gram Stain - Final Bronchial Washings - Right Bronchial Washings Culture - Final Assessment and Plan Plan: Assessment: 1. Oliguric acute kidney injury secondary to ATN secondary to sepsis/ hypotension. Urinalysis is quite benign. Creatinine up to 5.3 on September 26 and was started on hemodialysis. 2. Legionella pneumonia. Maintained on antibiotics. 3. Acute hypoxic respiratory failure secondary to pneumonia and ARDS. 4. History of pulmonary fibrosis. 5. Metabolic acidosis secondary to acute kidney injury. Improved. 6. Diabetes mellitus. 7. Hypotension maintained on Levophed. 8. Hyperkalemia secondary to metabolic acidosis and acute kidney injury. 9. Hyperphosphatemia secondary to acute kidney injury maintained on PhosLo. Plan: Maintain tube feeds. Wean vasopressors. Avoid nephrotoxic agents and hypotensive episodes. Continue to monitor renal function and urine output closely. Wean FiO2 as tolerated. Second treatment of hemodialysis today.
[2017-09-27] MEDS: BUDESONIDE 0.5 MG/2 ML NEBU INHALATION SCH ×2 (08:03→19:06)
[2017-09-27] MEDS: IPRATROPIUM-ALBUTEROL 3 ML NEB INHALATION SCH ×4 (08:04→19:06)
--- NOTE | 2017-09-27 08:16 | XR ---
EXAMINATION TYPE: XR chest 1V portable DATE OF EXAM: 09/27/2017 Comparison: 09/26/2017 Clinical History: 62-year-old male Tube placement Findings: ET and NG tubes remain in place. Left subclavian CVC tip at the cavoatrial junction. Heart remains jayne rderline to mildly enlarged. Diffuse coarse interstitial densities persist. Aeration may be minimally improved in the midlungs. No significant pleural effusion on the frontal view. Impression: Continued diffuse acute on chronic interstitial lung disease. Aeration stable to minimally improved i n the midlungs.
[2017-09-27 08:22] LABS: Glucose,Whole Blood 139 mg/dL (75-99)
[2017-09-27] MEDS: PANTOPRAZOLE 40 MG TABLET PO SCH (08:28)
[2017-09-27] MEDS: CALCIUM ACETATE 667 MG CAP PO SCH ×3 (08:28→18:03)
[2017-09-27] MEDS: LEVOFLOXACIN 500MG-D5W PMX 500 MG in DEXTROSE/WATER 1 100ML.BAG IVPB SCH (08:29)
[2017-09-27] MEDS: CEFEPIME 2 GM in SODIUM CHLORIDE 0.9% 50 ML IVPB SCH (08:29)
[2017-09-27] MEDS: methylPREDNISolone SOD SUCCI 40 MG/ML 1 ML VIAL IV SCH ×2 (08:29→17:00)
[2017-09-27] MEDS: HEPARIN SODIUM,PORCINE 5,000 UNIT/ML 1 ML VIAL SQ SCH ×2 (08:29→17:00)
[2017-09-27] MEDS: CHLORHEXIDINE GLUCONATE 15 ML CUP MUCOUS MEM SCH ×2 (08:29→20:13)
[2017-09-27] MEDS: SODIUM BICARBONATE TAB 650 MG TAB PO SCH ×3 (08:29→22:08)
[2017-09-27] MEDS: ESCITALOPRAM 20 MG TAB PO SCH (08:29)
[2017-09-27] MEDS: buPROPion 75 MG TAB PO SCH ×2 (08:30→20:13)
[2017-09-27] MEDS: lamoTRIgine 100 MG TAB PO SCH (08:30)
[2017-09-27 08:42] LABS: Band Neutrophils % 3 %; Metamyelocytes % 3 %; Monocytes # (M) 1.59 k/uL (0-1.0); Myelocytes % 4 %; Neutrophils % (M) 82 %; Nucleated Red Blood Cells 0 /100 WBC (0-0); Total Cells Counted 200
[2017-09-27 08:43] LABS: Ovalocytes Present; Target Cells Present
[2017-09-27 09:02] LABS: ABG Base Excess -3.5 mmol/L; ABG HCO3 24 mmol/L (21-25); ABG PCO2 62 mmHg (35-45); ABG PH 7.21 (7.35-7.45); ABG PO2 110 mmHg (83-108); ABG TCO2 11 mmol/L (19-24)
[2017-09-27 09:11] LABS: Glucose,Whole Blood 138 mg/dL (75-99)
[2017-09-27 10:10] LABS: Glucose,Whole Blood 154 mg/dL (75-99)
--- NOTE | 2017-09-27 11:44 | P.PN ---
Subjective Progress Note Date: 09/27/17 Principal diagnosis: Acute hypoxic respiratory failure secondary to bilateral pneumonia, ARDS, and underlying interstitial lung disease/pulmonary fibrosis. This is a 62-year-old male patient, 1 on my own patients from the office, was seen today in our office for increased shortness of breath. The patient comes in with a one-week history of cough, fever and chills and shortness of breath and his condition was progressively getting worse. The patient had a chest x- ray showed airspace disease in the right upper lobe and the left upper lobe worse compared to the previous chest x-rays was done our office. He was also found to be more hypoxic and his pulse ox was in the 70s on room air. Note that he was not on any home oxygen prior. The patient was seen in our office and he was advised to be admitted to the hospital for antibiotic treatment for possible pneumonia. For that reason he was sent over to the hospital and a pulmonary consultation was requested also. The initial blood work also showed a component of acute kidney injury. The patient's creatinine was up to 5.8. Upon further questioning, the patient reported that he was having migraine headaches and he was getting high dose Motrin for headaches and he has taken around 5-6 tablets. At the same time he was having some diarrhea approximately 3 days ago which ultimately subsided. Currently does not have any ongoing diarrhea and nausea vomiting or abdominal pain. The patient noted some diminished urine output over the past 24 hours. The patient is not known to have any previous history of kidney injury is of kidney failures. No nephrolithiasis. The patient also admitted to have exposure to a friend who was hospitalized down in amount, as for an underlying pneumonia. This patient is known to me. I saw him in consultation on 06/17/2017. The patient as part of further workup underwent a high-resolution CAT scan of the chest and upon review of the films there is extensive emphysema in the upper lobes bilaterally addition to subpleural pulmonary fibrosis involving the lower lobes and early changes of honeycombing in the lung bases. This was consistent with IPF based on the radiographic findings. The pulmonary function test showed an FVC of 74% and a total lung capacity of 64% with a diffusion capacity of 50% of predicted consistent with a component of restrictive lung disease. His room air pulse ox back then was 97% and the patient back then did not qualify for oxygen. The patient was trying to quit smoking. Based on the overall clinical picture, I recommended this patient to start on anti-fibrotic treatment and the patient was started on Ovef, nintadanib, after confirming the patient's liver function tests her baseline were within normal limits. He was asked to continue the Ventolin rescue inhaler mastoids basis. Smoking cessation counseling was also done in the office back in June 2017. 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 He is living in [facility]. He lives in a farm. He has outdoor animals including a goat and a Pig and a horse. He has no exposure to birds products. No exposure to chicken, pigeons or doves. On 09/22/2017 patient seen again in follow-up on medical surgical floor. Resting in bed, still complaining of weakness and fatigue. But overall is feeling better. Not bringing up any sputum, denies any chest wall tenderness, lung sounds are positive for coarse crackles over left lower lobe, no wheezing. Today's labs were reviewed, and a PVC 7.7, hemoglobin is 10.6, renal profile is improving, BUN is down to 60, creatinine is 4.29. Patient is remains on IV hydration, receiving 0.9 normal saline at a rate of 100 per hour. Patient remains on empiric coverage in the form of Azactam, and Levaquin, today's chest x-ray showed multifocal reticular opacity pneumonia in the left lower and left upper lobe On 09/23/2017, the patient was seen in follow-up. I noted that the patient was progressively getting more short of breath and lethargic. Earlier this morning the patient became significantly hypoxic and he desaturated. He was placed on 100% nonrebreather facemask. A chest x-ray was done and showed worsening of the right the pulmonary infiltrates with increased alveolar infiltrates in the left midlung zone on the left lower lobe as well as the right midlung area. Note that the patient was already covered with antibiotics and was receiving a combination of Levaquin and aztreonam. Afebrile. Hemodynamically stable currently 100% on a beta facemasks. Blood gases was done and showed a pH of 7.29 with a pCO2 of 37 and pO2 100%. The patient got transferred to the ICU. No chest pain. No fever. No chills. No nausea. No vomiting. No diarrhea. He was receiving normal saline at the rate of 100 mL an hour and the creatinine is down to 3.0. On 09/24/2017, the patient ICU yesterday because of worsening shortness of breath and respiratory failure and worsening oxygenation and hypoxic respiratory failure. The patient initially was on 100% nonrebreather facemask. He was placed on high flow oxygen and he failed and subsequently the patient was placed on a BiPAP at a pressure of 10/5 with an FiO2 of 100%. Earlier this morning he was breathing in the mid 40s and he was struggling to breathe and he was very short of breath using excessive muscle breathing and he was having periodic desaturations was pulsatile drop in the low 80s. At that point he was also diagnosed having Legionella pneumonia and a chest x-ray was getting worse. Progressive worsening of breath upon infiltrates and I suspect underlying IPF with a superimposed Legionella pneumonia and ARDS picture. I intubated this patient and put him on assist-control mode at the rate of 26 with a tidal volume of 400 with an FiO2 of 100% and a PEEP of 18. The patient is sedated with Diprivan and is calm and comfortable and hemodynamically stable. Blood gases and chest x-ray post intubation are still pending. Meanwhile a triple lumen catheter and a Artline Was also inserted for hemodynamic monitoring. As mentioned, the Legionella urine antigen was positive. The patient will be kept on cefepime and Levaquin combination. We'll discontinue the vancomycin. We'll continue the IV Solu-Medrol. We'll continue the supportive care. A bronchoscopy will be done to rule out any superimposed infection on top of his Legionella pneumonia. His white count is elevated at 16.7. Hemoglobin stable at 9.4. On 09/25/2017 the patient remains critically ill. He was intubated and placed on a mechanical ventilator. As mentioned, he has IPF and he is course was further complicated by Legionella pneumonia and secondary ARDS. This morning he is sedated with a combination of propofol and fentanyl. He is paralyzed with Nimbex. He is an assist-control mode of ventilation at the rate of 32, tidal volume of 380, FiO2 of 70% with a PEEP of 15. Peak airway pressures around 38. Static pressures around 36. Chest x-ray still showing diffuse but the pulmonary infiltrates. Bronchoscopy was done yesterday and the results of the bronchioloalveolar lavage are still pending. Meanwhile, the patient is on a combination of Levaquin and cefepime. The patient had a blood gases this morning that showed a pH of 7.03 with a pCO2 of 73 and pO2 of 132. Based on this I increased his tidal volume to 410. I also dropped FiO2 down to 60%. A repeat blood gas showed a pH of 7.11 with a pCO2 of 66 and pO2 of 109. He had a potassium of 6.2 today which was probably related to his acute renal failure and his acidosis. Based on this, he was given grams of bicarb, he was given D50 and insulin protocol, and he was started on a bicarb drip and currently bicarb is running at the rate of 75 mL an hour in the form of D5 with 3 ampules of sodium bicarbonate. This will hopefully counteract his respiratory acidosis. Repeat potassium level is down to 4.9. He is on pressors. He became hypotensive yesterday and currently is on norepinephrine infusion at the rate of 15 mics. The patient has diminished urine output in the order of 50-20 mL an hour. He is in a positive fluid balance and overnight he received a total of 2 L of additional IV fluids. His creatinine is up to 3.9. His white cell count is up to 32. Is on enteral feeding for nutritional support. He is critically ill. Family has been updated on his condition. On 09/26/2017, patient remains intubated, on mechanical ventilation, his ventilator settings are tidal volume of 410, assist control rate of 34, FiO2 of 50%, and PEEP is 15. ABG earlier today showed a pO2 of 106 and this was on 60% . PCO2 of 68, and pH of 7.14. Patient remains on Nimbex drip, he is also on fentanyl drip, and propofol. Hemodynamically stable, not requiring any norepinephrine at this point. As a matter of fact his blood pressure is elevated, and I recommended that we increase his fentanyl drip. Based on the ABG and based on his chest x-ray, patient is clearly not ready for any form of weaning trial or spontaneous breathing trial. He is not ready to be taken off Nimbex at this point yet. Patient remains on nutritional support via enteral feeding. He is fully sedated and paralyzed, microbiology remains negative so far including his bronchial washings and cultures. WBC count is down to 21.0 hemoglobin is 8.6. Continues to have significant bandemia of 9%. Renal functioning seems to be getting worse, and renal output is minimal. Hence the patient is going to be dialyzed today by nephrology. Again I have no plans to consider any weaning trials at this point. Reevaluated today on 09/27/2017, remains intubated, on mechanical ventilation. Ventilator settings are tidal volume of 410, assist control rate of 34 FiO2 50% PEEP was 15 and I cut it down to 12. ABG showed a pO2 of 110 pCO2 of 62 pH of 7.21, patient will be dialyzed again today, he is already on sodium bicarb tablets, and I cut down his PEEP from 15-12 since his pO2 is 110 today. The FiO2 at 50%. Renal functioning is worsening, patient is scheduled for dialysis today. WBC count is 19.9 hemoglobin is 8.0. Chest x-ray continues to show diffuse interstitial lung disease minimal improvement in aeration of both lungs. Patient is not requiring any pressors at this point. He is tolerating nutrition okay but frequently has been placed on hold because of high residual, hence I recommended starting Reglan and cutting down on the floor rate of his nutritional formula. Objective - Vital Signs Vital signs: Vital Signs Temp 98 F 09/27/17 08:00 Pulse 87 09/27/17 11:00 Resp 39 H 09/27/17 11:00 BP 103/54 09/27/17 09:30 Pulse Ox 97 09/27/17 11:00 Intake & Output 09/26/17 09/27/17 09/27/17 18:59 06:59 18:59 Intake Total 1674.316 814.6 796.637 Output Total 92 85 37 Balance 1582.316 729.6 759.637 Weight 71.6 kg Intake: IV 446 396 315 0.9 carriers 360 360 150 Cefepime 2 gm In Sodium 50 50 Chloride 0.9% 50 ml @ 100 mls/hr IVPB DAILY [facility] Rx #:[id number] Levofloxacin 500Mg-D5w 100 Pmx 500 mg In Dextrose/ Water 1 100ml.bag @ 100 mls/hr IVPB Q48H [facility] Rx#: [id number] pressure bag 0.9 36 36 15 Intake, IV Titration 550.316 196.6 247.637 Amount Cisatracurium 200 mg In 64.638 Sodium Chloride 0.9% 180 ml @ 1 MCG/KG/MIN 3.78 mls/hr IV .Q24H [facility] Rx#: [id number] Insulin Regular 100 unit 182.532 96.6 31.5 In Sodium Chloride 0.9% 100 ml @ Per Protocol IV .Q0M [facility] Rx#:[id number] Norepinephrin 16 mg-0.9% 28.646 Ns Pmx 16 mg In 250 ml @ Titrate IV .Q0M [facility] Rx#: [id number] Propofol 1,000 mg In 200 100 99.62 Empty Bag 1 bag @ Titrate IV .Q0M [facility] Rx#: [id number] fentaNYL (PF) 2,500 mcg 74.500 116.517 In Sodium Chloride 0.9% 200 ml @ 100 MCG/HR 10 mls/hr IV .Q24H [facility] Rx#: [id number] Tube Feeding 528 192 144 Other 150 30 90 Output: Urine 92 85 37 Other: Voiding Method Indwelling Catheter Indwelling Catheter Indwelling Catheter ABP, PAP, CO, CI - Last Documented Arterial Blood Pressure 133/56 - Exam Physical Exam: Revealed a 62-year-old white male, sedated and paralyzed, on Nimbex, on mechanical ventilation, in no distress. Head: Atraumatic, normocephalic. Endotracheal tube and orogastric tubes are intact. HEENT:[Neck is supple.] [No neck masses.] [No thyromegaly.] [No JVD.] Moist mucous membranes, PERRLA, EOMI, no icterus. Chest: [Crackles at the bases, no rhonchi, no wheezes. Symmetrical chest expansion was noted.] Cardiac Exam: [Normal S1 and S2, no S3 gallop, no murmur.] Abdomen: [Soft, nontender, no megaly, no rebound, no guarding, normal bowel sounds.] Extremities: [No clubbing, no edema, no cyanosis.] Neurological Exam: Cannot be assessed, patient is on propofol and is also on Nimbex. Lymphatics: No lymphadenopathy. Psychiatric: Could not be assessed. Skin: No rashes. Musculoskeletal: Could not be assessed. Patient is paralyzed and sedated. - Labs CBC & Chem 7: 09/27/17 03:50 09/27/17 03:50 Labs: Abnormal Lab Results - Last 24 Hours (Table) 09/26/17 09/26/17 09/26/17 Range/Units 11:42 14:03 15:48 WBC (3.8-10.6) k/uL RBC (4.30-5.90) m/uL Hgb (13.0-17.5) gm/dL Hct (39.0-53.0) % MCHC (31.0-37.0) g/dL RDW (11.5-15.5) % Neutrophils # (Manual) (1.3-7.7) k/uL Lymphocytes # (Manual) (1.0-4.8) k/uL Monocytes # (Manual) (0-1.0) k/uL Metamyelocytes # (Man) (0) k/uL Myelocytes # (Manual) (0) k/uL ABG pH (7.35-7.45) ABG pCO2 (35-45) mmHg ABG pO2 (83-108) mmHg ABG Total CO2 (19-24) mmol/L ABG O2 Saturation (94-97) % Potassium (3.5-5.1) mmol/L BUN (9-20) mg/dL Creatinine (0.66-1.25) mg/dL Glucose (74-99) mg/dL POC Glucose (mg/dL) 109 H 228 H 186 H (75-99) mg/dL Calcium (8.4-10.2) mg/dL Phosphorus (2.5-4.5) mg/dL Magnesium (1.6-2.3) mg/dL 09/26/17 09/26/17 09/26/17 Range/Units 18:11 20:00 22:07 WBC (3.8-10.6) k/uL RBC (4.30-5.90) m/uL Hgb (13.0-17.5) gm/dL Hct (39.0-53.0) % MCHC (31.0-37.0) g/dL RDW (11.5-15.5) % Neutrophils # (Manual) (1.3-7.7) k/uL Lymphocytes # (Manual) (1.0-4.8) k/uL Monocytes # (Manual) (0-1.0) k/uL Metamyelocytes # (Man) (0) k/uL Myelocytes # (Manual) (0) k/uL ABG pH (7.35-7.45) ABG pCO2 (35-45) mmHg ABG pO2 (83-108) mmHg ABG Total CO2 (19-24) mmol/L ABG O2 Saturation (94-97) % Potassium (3.5-5.1) mmol/L BUN (9-20) mg/dL Creatinine (0.66-1.25) mg/dL Glucose (74-99) mg/dL POC Glucose (mg/dL) 116 H 132 H 197 H (75-99) mg/dL Calcium (8.4-10.2) mg/dL Phosphorus (2.5-4.5) mg/dL Magnesium (1.6-2.3) mg/dL 09/26/17 09/27/17 09/27/17 Range/Units 23:43 01:52 03:45 WBC (3.8-10.6) k/uL RBC (4.30-5.90) m/uL Hgb (13.0-17.5) gm/dL Hct (39.0-53.0) % MCHC (31.0-37.0) g/dL RDW (11.5-15.5) % Neutrophils # (Manual) (1.3-7.7) k/uL Lymphocytes # (Manual) (1.0-4.8) k/uL Monocytes # (Manual) (0-1.0) k/uL Metamyelocytes # (Man) (0) k/uL Myelocytes # (Manual) (0) k/uL ABG pH (7.35-7.45) ABG pCO2 (35-45) mmHg ABG pO2 (83-108) mmHg ABG Total CO2 (19-24) mmol/L ABG O2 Saturation (94-97) % Potassium (3.5-5.1) mmol/L BUN (9-20) mg/dL Creatinine (0.66-1.25) mg/dL Glucose (74-99) mg/dL POC Glucose (mg/dL) 172 H 111 H 116 H (75-99) mg/dL Calcium (8.4-10.2) mg/dL Phosphorus (2.5-4.5) mg/dL Magnesium (1.6-2.3) mg/dL 09/27/17 09/27/17 09/27/17 Range/Units 03:50 03:50 03:50 WBC 19.9 H (3.8-10.6) k/uL RBC 2.95 L (4.30-5.90) m/uL Hgb 8.0 L (13.0-17.5) gm/dL Hct 26.6 L (39.0-53.0) % MCHC 30.1 L (31.0-37.0) g/dL RDW 19.4 H (11.5-15.5) % Neutrophils # (Manual) 16.90 H (1.3-7.7) k/uL Lymphocytes # (Manual) 0.20 L (1.0-4.8) k/uL Monocytes # (Manual) 1.59 H (0-1.0) k/uL Metamyelocytes # (Man) 0.60 H (0) k/uL Myelocytes # (Manual) 0.80 H (0) k/uL ABG pH (7.35-7.45) ABG pCO2 (35-45) mmHg ABG pO2 (83-108) mmHg ABG Total CO2 (19-24) mmol/L ABG O2 Saturation (94-97) % Potassium 5.2 H (3.5-5.1) mmol/L BUN 84 H* (9-20) mg/dL Creatinine 5.00 H* (0.66-1.25) mg/dL Glucose 109 H (74-99) mg/dL POC Glucose (mg/dL) (75-99) mg/dL Calcium 7.2 L (8.4-10.2) mg/dL Phosphorus 7.8 H (2.5-4.5) mg/dL Magnesium 2.5 H (1.6-2.3) mg/dL 09/27/17 09/27/17 09/27/17 Range/Units 05:51 08:19 08:25 WBC (3.8-10.6) k/uL RBC (4.30-5.90) m/uL Hgb (13.0-17.5) gm/dL Hct (39.0-53.0) % MCHC (31.0-37.0) g/dL RDW (11.5-15.5) % Neutrophils # (Manual) (1.3-7.7) k/uL Lymphocytes # (Manual) (1.0-4.8) k/uL Monocytes # (Manual) (0-1.0) k/uL Metamyelocytes # (Man) (0) k/uL Myelocytes # (Manual) (0) k/uL ABG pH 7.21 L (7.35-7.45) ABG pCO2 62 H (35-45) mmHg ABG pO2 110 H (83-108) mmHg ABG Total CO2 11 L (19-24) mmol/L ABG O2 Saturation 98.0 H (94-97) % Potassium (3.5-5.1) mmol/L BUN (9-20) mg/dL Creatinine (0.66-1.25) mg/dL Glucose (74-99) mg/dL POC Glucose (mg/dL) 198 H 139 H (75-99) mg/dL Calcium (8.4-10.2) mg/dL Phosphorus (2.5-4.5) mg/dL Magnesium (1.6-2.3) mg/dL 09/27/17 09/27/17 Range/Units 09:09 10:08 WBC (3.8-10.6) k/uL RBC (4.30-5.90) m/uL Hgb (13.0-17.5) gm/dL Hct (39.0-53.0) % MCHC (31.0-37.0) g/dL RDW (11.5-15.5) % Neutrophils # (Manual) (1.3-7.7) k/uL Lymphocytes # (Manual) (1.0-4.8) k/uL Monocytes # (Manual) (0-1.0) k/uL Metamyelocytes # (Man) (0) k/uL Myelocytes # (Manual) (0) k/uL ABG pH (7.35-7.45) ABG pCO2 (35-45) mmHg ABG pO2 (83-108) mmHg ABG Total CO2 (19-24) mmol/L ABG O2 Saturation (94-97) % Potassium (3.5-5.1) mmol/L BUN (9-20) mg/dL Creatinine (0.66-1.25) mg/dL Glucose (74-99) mg/dL POC Glucose (mg/dL) 138 H 154 H (75-99) mg/dL Calcium (8.4-10.2) mg/dL Phosphorus (2.5-4.5) mg/dL Magnesium (1.6-2.3) mg/dL Microbiology - Last 24 Hours (Table) 09/21/17 14:29 Blood Culture - Preliminary Blood No Growth after 120 hours 09/21/17 14:23 Blood Culture - Preliminary Blood No Growth after 120 hours 09/23/17 12:40 Blood Culture - Preliminary Blood No Growth after 72 hours 09/24/17 11:15 Gram Stain - Final Bronchial Washings - Right Bronchial Washings Culture - Final Assessment and Plan Assessment: 1 acute hypoxic history failure, Legionella pneumonia with progressive worsening in by the pulmonary infiltrates, possibly secondary to evolving ARDS. The patient is currently sedated and paralyzed. The patient remains on assist control mode of ventilation. We are using permissive hypercapnia with low tidal volume ventilation. 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 Renal function continues to be impaired with a creatinine of 3.9 and the patient has become oliguric condition to an underlying component of respiratory and metabolic acidosis currently on a bicarb drip. Dialysis is going to be started today as per nephrology. 5 acute hypotension possibly secondary to underlying sepsis as the patient developed worsening leukocytosis addition to drop in the blood pressure. The patient was aggressively resuscitated IV fluids. Patient is off pressors at this point. 6 diabetes mellitus, on insulin drip for BS control 7 smoker 8 depression 9 abnormal LFTs, probably secondary to OVEF 10 hypertension 11 acid reflux 12 non-anion gap metabolic acidosis, in addition to respirator acidosis currently on a bicarb drip 13 chronic anemia Recommendation: Continue ventilatory support, continue antibiotics , patient remains on cefepime, and Levaquin. Continue nutritional support, continue to taper the PEEP down and hopefully I can get it down to 10 today, then I would likely discontinue Nimbex, and try to manage with propofol and fentanyl only. Continue Solu-Medrol, and continue GI and DVT prophylaxis. Patient remains very critically ill, prognosis remains extremely poor and guarded, we'll update his family members on his condition today, and we'll continue to follow closely. Reglan was started. Critical care time is 40 minutes. Time with Patient: Greater than 30
[2017-09-27 12:03] LABS: Glucose,Whole Blood 129 mg/dL (75-99)
--- NOTE | 2017-09-27 13:01 | P.PN ---
Subjective Progress Note Date: 09/27/17 (Patient on the vent) Principal diagnosis: Diagnosis: #1 bilateral pneumonia with the organism probably Legionella with the positive urine antigen for Legionella. #2 respiratory failure acute #3 transferred to the ICU 614 bed 1, patient intubated by Dr. Rowland now at 10 :30 AM with the underlying bronchoscopy and NG tube placement. #4 metabolic acidosis. #5 acute renal failure with the basal lying creatinine 0.9 admitted with creatinine 5.8. #6 diabetes mellitus type 2 with the associated hyperglycemia secondary to steroid, currently insulin-dependent. 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 #8 prognosis very guarded. #9 patient on high oxygen flow and currently he will be on ventilatory. #9 patient on quinolone group for Legionella and questionable if need Bactrim IV which may cause problem with the presence of diabetes. This is a dictation on progress note date of service is 09/24/2017. Patient was on the fifth floor admitted directly from Dr. Edwards and Dr. Cervantes from the office. Patient progressively worsening, and his shortness of breath has progressed. They did the Legionella urine antigen on admission was send out and we don't have the result until today which was positive, indicating patient had Legionella disease could be contacted with different source. And it is reportable to the health department. Patient found also that he had acute kidney injury with the high creatinine on admission with the acute ATN. Patient vital sign still stable no vasopressors per. And he is now intubated. On examination prior to the intubation he was awake alert conscious, and his HEENT was negative, the lung was bilateral dry bronchitis and extended on the left side by the chest x-ray yesterday with the bilateral pneumonia. Patient is having increased respiratory rate with the progressing to ARDS. With the prognosis is worsening. His heart is tachycardic at this time with the compensation for his lung. And the abdomen was soft positive bowel sounds probably he will have also NG tube for his medication. Currently he is on bicarb tablet 650 3 times a day he still borderline acidotic. Extremities no edema and positive pulses bilateral and symmetric. The Assessment: Patient worsening condition with the underlying Legionella bilateral pneumonia, acute renal failure has been improving with the improving the creatinine with the underlying ATN. Increasing respiratory rate status post intubation today on the 714 at 10:15 AM. Plan patient in ICU. We'll continue monitoring by , monitoring the patient closely in the ICU prognosis is guarded. Objective - Vital Signs Vital signs: Vital Signs Temp 98 F 09/27/17 08:00 Pulse 83 09/27/17 12:01 Resp 39 H 09/27/17 11:00 BP 103/54 09/27/17 09:30 Pulse Ox 97 09/27/17 11:00 Intake & Output 09/26/17 09/27/17 09/27/17 18:59 06:59 18:59 Intake Total 1674.316 814.6 796.637 Output Total 92 85 37 Balance 1582.316 729.6 759.637 Weight 71.6 kg 71.6 kg Intake: IV 446 396 315 0.9 carriers 360 360 150 Cefepime 2 gm In Sodium 50 50 Chloride 0.9% 50 ml @ 100 mls/hr IVPB DAILY [facility] Rx #:[id number] Levofloxacin 500Mg-D5w 100 Pmx 500 mg In Dextrose/ Water 1 100ml.bag @ 100 mls/hr IVPB Q48H [facility] Rx#: [id number] pressure bag 0.9 36 36 15 Intake, IV Titration 550.316 196.6 247.637 Amount Cisatracurium 200 mg In 64.638 Sodium Chloride 0.9% 180 ml @ 1 MCG/KG/MIN 3.78 mls/hr IV .Q24H [facility] Rx#: [id number] Insulin Regular 100 unit 182.532 96.6 31.5 In Sodium Chloride 0.9% 100 ml @ Per Protocol IV .Q0M [facility] Rx#:[id number] Norepinephrin 16 mg-0.9% 28.646 Ns Pmx 16 mg In 250 ml @ Titrate IV .Q0M [facility] Rx#: [id number] Propofol 1,000 mg In 200 100 99.62 Empty Bag 1 bag @ Titrate IV .Q0M [facility] Rx#: [id number] fentaNYL (PF) 2,500 mcg 74.500 116.517 In Sodium Chloride 0.9% 200 ml @ 100 MCG/HR 10 mls/hr IV .Q24H [facility] Rx#: [id number] Tube Feeding 528 192 144 Other 150 30 90 Output: Urine 92 85 37 Other: Voiding Method Indwelling Catheter Indwelling Catheter Indwelling Catheter ABP, PAP, CO, CI - Last Documented Arterial Blood Pressure 133/56 - Labs CBC & Chem 7: 09/27/17 03:50 09/27/17 03:50 Labs: Abnormal Lab Results - Last 24 Hours (Table) 09/26/17 09/26/17 09/26/17 Range/Units 14:03 15:48 18:11 WBC (3.8-10.6) k/uL RBC (4.30-5.90) m/uL Hgb (13.0-17.5) gm/dL Hct (39.0-53.0) % MCHC (31.0-37.0) g/dL RDW (11.5-15.5) % Neutrophils # (Manual) (1.3-7.7) k/uL Lymphocytes # (Manual) (1.0-4.8) k/uL Monocytes # (Manual) (0-1.0) k/uL Metamyelocytes # (Man) (0) k/uL Myelocytes # (Manual) (0) k/uL ABG pH (7.35-7.45) ABG pCO2 (35-45) mmHg ABG pO2 (83-108) mmHg ABG Total CO2 (19-24) mmol/L ABG O2 Saturation (94-97) % Potassium (3.5-5.1) mmol/L BUN (9-20) mg/dL Creatinine (0.66-1.25) mg/dL Glucose (74-99) mg/dL POC Glucose (mg/dL) 228 H 186 H 116 H (75-99) mg/dL Calcium (8.4-10.2) mg/dL Phosphorus (2.5-4.5) mg/dL Magnesium (1.6-2.3) mg/dL 09/26/17 09/26/17 09/26/17 Range/Units 20:00 22:07 23:43 WBC (3.8-10.6) k/uL RBC (4.30-5.90) m/uL Hgb (13.0-17.5) gm/dL Hct (39.0-53.0) % MCHC (31.0-37.0) g/dL RDW (11.5-15.5) % Neutrophils # (Manual) (1.3-7.7) k/uL Lymphocytes # (Manual) (1.0-4.8) k/uL Monocytes # (Manual) (0-1.0) k/uL Metamyelocytes # (Man) (0) k/uL Myelocytes # (Manual) (0) k/uL ABG pH (7.35-7.45) ABG pCO2 (35-45) mmHg ABG pO2 (83-108) mmHg ABG Total CO2 (19-24) mmol/L ABG O2 Saturation (94-97) % Potassium (3.5-5.1) mmol/L BUN (9-20) mg/dL Creatinine (0.66-1.25) mg/dL Glucose (74-99) mg/dL POC Glucose (mg/dL) 132 H 197 H 172 H (75-99) mg/dL Calcium (8.4-10.2) mg/dL Phosphorus (2.5-4.5) mg/dL Magnesium (1.6-2.3) mg/dL 09/27/17 09/27/17 09/27/17 Range/Units 01:52 03:45 03:50 WBC (3.8-10.6) k/uL RBC (4.30-5.90) m/uL Hgb (13.0-17.5) gm/dL Hct (39.0-53.0) % MCHC (31.0-37.0) g/dL RDW (11.5-15.5) % Neutrophils # (Manual) (1.3-7.7) k/uL Lymphocytes # (Manual) (1.0-4.8) k/uL Monocytes # (Manual) (0-1.0) k/uL Metamyelocytes # (Man) (0) k/uL Myelocytes # (Manual) (0) k/uL ABG pH (7.35-7.45) ABG pCO2 (35-45) mmHg ABG pO2 (83-108) mmHg ABG Total CO2 (19-24) mmol/L ABG O2 Saturation (94-97) % Potassium 5.2 H (3.5-5.1) mmol/L BUN 84 H* (9-20) mg/dL Creatinine 5.00 H* (0.66-1.25) mg/dL Glucose 109 H (74-99) mg/dL POC Glucose (mg/dL) 111 H 116 H (75-99) mg/dL Calcium 7.2 L (8.4-10.2) mg/dL Phosphorus (2.5-4.5) mg/dL Magnesium (1.6-2.3) mg/dL 09/27/17 09/27/17 09/27/17 Range/Units 03:50 03:50 05:51 WBC 19.9 H (3.8-10.6) k/uL RBC 2.95 L (4.30-5.90) m/uL Hgb 8.0 L (13.0-17.5) gm/dL Hct 26.6 L (39.0-53.0) % MCHC 30.1 L (31.0-37.0) g/dL RDW 19.4 H (11.5-15.5) % Neutrophils # (Manual) 16.90 H (1.3-7.7) k/uL Lymphocytes # (Manual) 0.20 L (1.0-4.8) k/uL Monocytes # (Manual) 1.59 H (0-1.0) k/uL Metamyelocytes # (Man) 0.60 H (0) k/uL Myelocytes # (Manual) 0.80 H (0) k/uL ABG pH (7.35-7.45) ABG pCO2 (35-45) mmHg ABG pO2 (83-108) mmHg ABG Total CO2 (19-24) mmol/L ABG O2 Saturation (94-97) % Potassium (3.5-5.1) mmol/L BUN (9-20) mg/dL Creatinine (0.66-1.25) mg/dL Glucose (74-99) mg/dL POC Glucose (mg/dL) 198 H (75-99) mg/dL Calcium (8.4-10.2) mg/dL Phosphorus 7.8 H (2.5-4.5) mg/dL Magnesium 2.5 H (1.6-2.3) mg/dL 09/27/17 09/27/17 09/27/17 Range/Units 08:19 08:25 09:09 WBC (3.8-10.6) k/uL RBC (4.30-5.90) m/uL Hgb (13.0-17.5) gm/dL Hct (39.0-53.0) % MCHC (31.0-37.0) g/dL RDW (11.5-15.5) % Neutrophils # (Manual) (1.3-7.7) k/uL Lymphocytes # (Manual) (1.0-4.8) k/uL Monocytes # (Manual) (0-1.0) k/uL Metamyelocytes # (Man) (0) k/uL Myelocytes # (Manual) (0) k/uL ABG pH 7.21 L (7.35-7.45) ABG pCO2 62 H (35-45) mmHg ABG pO2 110 H (83-108) mmHg ABG Total CO2 11 L (19-24) mmol/L ABG O2 Saturation 98.0 H (94-97) % Potassium (3.5-5.1) mmol/L BUN (9-20) mg/dL Creatinine (0.66-1.25) mg/dL Glucose (74-99) mg/dL POC Glucose (mg/dL) 139 H 138 H (75-99) mg/dL Calcium (8.4-10.2) mg/dL Phosphorus (2.5-4.5) mg/dL Magnesium (1.6-2.3) mg/dL 09/27/17 09/27/17 Range/Units 10:08 12:03 WBC (3.8-10.6) k/uL RBC (4.30-5.90) m/uL Hgb (13.0-17.5) gm/dL Hct (39.0-53.0) % MCHC (31.0-37.0) g/dL RDW (11.5-15.5) % Neutrophils # (Manual) (1.3-7.7) k/uL Lymphocytes # (Manual) (1.0-4.8) k/uL Monocytes # (Manual) (0-1.0) k/uL Metamyelocytes # (Man) (0) k/uL Myelocytes # (Manual) (0) k/uL ABG pH (7.35-7.45) ABG pCO2 (35-45) mmHg ABG pO2 (83-108) mmHg ABG Total CO2 (19-24) mmol/L ABG O2 Saturation (94-97) % Potassium (3.5-5.1) mmol/L BUN (9-20) mg/dL Creatinine (0.66-1.25) mg/dL Glucose (74-99) mg/dL POC Glucose (mg/dL) 154 H 129 H (75-99) mg/dL Calcium (8.4-10.2) mg/dL Phosphorus (2.5-4.5) mg/dL Magnesium (1.6-2.3) mg/dL Microbiology - Last 24 Hours (Table) 09/21/17 14:29 Blood Culture - Preliminary Blood No Growth after 120 hours 09/21/17 14:23 Blood Culture - Preliminary Blood No Growth after 120 hours 09/23/17 12:40 Blood Culture - Preliminary Blood No Growth after 72 hours 09/24/17 11:15 Gram Stain - Final Bronchial Washings - Right Bronchial Washings Culture - Final
[2017-09-27] MEDS: fentaNYL (PF) 2,500 MCG in SODIUM CHLORIDE 0.9% 200 ML IV SCH (14:31)
[2017-09-27 14:49] LABS: Glucose,Whole Blood 110 mg/dL (75-99)
[2017-09-27] MEDS: CISATRACURIUM 200 MG in SODIUM CHLORIDE 0.9% 180 ML IV SCH (14:50)
[2017-09-27] MEDS: METOCLOPRAMIDE 5 MG/ML 2 ML VIAL IVP SCH ×2 (14:59→18:04)
[2017-09-27 15:53] LABS: Glucose,Whole Blood 95 mg/dL (75-99)
[2017-09-27 17:05] LABS: Glucose,Whole Blood 145 mg/dL (75-99)
[2017-09-27 18:00] LABS: Glucose,Whole Blood 118 mg/dL (75-99)
[2017-09-27 19:18] LABS: Glucose,Whole Blood 99 mg/dL (75-99)
[2017-09-27] MEDS: ASPIRIN 81 MG PO SCH (20:13)
[2017-09-27] MEDS: ATORVASTATIN 40 MG TAB PO SCH (20:13)
[2017-09-27 20:27] LABS: Glucose,Whole Blood 138 mg/dL (75-99)
--- NOTE | 2017-09-27 21:47 | P.PN ---
Subjective Progress Note Date: 09/27/17 62-year-old male who has a long-standing history of pulmonary fibrosis which is treated with Ofev, Presented to Hospital with rapidly progressive shortness of breath. He had x-rays performed that shows evidence of right upper lobe and left upper lobe worsening infiltration and there is evidence of progressive hypoxemia. At the time he presents to Hospital after being seen in the office there is evidence of acute renal failure. It is noted that the patient was having headache associated with the increasing shortness of breath and was taking [id number] Motrin and somewhat high dose for at least 3 days before he came in. He also is having some difficulty with some diarrhea and progressive weakness. At presentation he is with evidence of significant shortness of breath he required intubation with sedation and mechanical ventilation. Today there has been some further difficulties and likely will require paralysis and vasopressor therapy. 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 They have a pond in the utilize their well to pump some of the water to the pond. The patient apparently was working on the pump with the filters last week. It neck she has just a few days before he started to get sick with the progressive shortness of breath and then the diarrhea. The patient's is not ill at all. They do live in the same home. She relates that there is been no work on the hot water tank for the home. There is one well that supplies water for the home as well as the barn. The barn his home to a miniature horse a goat and a pig. The patient himself provides most of the care for the animals. Including taking care of the maneuver. The however do not have chickens or other bird exposures. The relates that he's had no recent travel. He does not have experience or international travel. Pets dog and cat do live in the home. 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 09/25/2017 Patient remains in the intensive care unit intubated sedated and mechanically ventilated now paralyzed because of the difficulties with ventilation. He is he hemodynamically stable at this point in time but is requiring norepinephrine. There has been a slight improvement in his oxygenation at the FiO2 has been dropped to 60% with ongoing adequate oxygenation with his high frequency and high PEEP 09/26/2017 patient remains profoundly ill , intubated sedated and mechanically ventilated and paralyzed at this time however vasopressor therapy has been discontinued. If the patient has Legionnaires' disease as etiology of his respiratory failure and sepsis and multisystem organ failure. Risk factor is his pulmonary fibrosis. The leukocytosis and renal failure related to this profound infection. 09/27/2017 patient has had some slight improvement in that his PEEP is down to 10 and if there is further improvement will have a trial off of paralysis tomorrow. No new positive cultures to date only Legionella noted Objective - Vital Signs Vital signs: Vital Signs Temp 97.9 F 09/27/17 20:00 Pulse 86 09/27/17 20:00 Resp 34 H 09/27/17 20:00 BP 97/50 09/27/17 19:00 Pulse Ox 96 09/27/17 20:00 Intake & Output 09/27/17 09/27/17 09/28/17 06:59 18:59 06:59 Intake Total 814.6 1547.260 128 Output Total 85 112 25 Balance 729.6 1435.260 103 Weight 71.6 kg 71.6 kg Intake: IV 396 546 99 0.9 carriers 360 360 90 Cefepime 2 gm In Sodium 50 Chloride 0.9% 50 ml @ 100 mls/hr IVPB DAILY [facility] Rx #:[id number] Levofloxacin 500Mg-D5w 100 Pmx 500 mg In Dextrose/ Water 1 100ml.bag @ 100 mls/hr IVPB Q48H J[facility] Rx#: [id number] pressure bag 0.9 36 36 9 Intake, IV Titration 196.6 524.260 Amount Cisatracurium 200 mg In 89.523 Sodium Chloride 0.9% 180 ml @ 1 MCG/KG/MIN 3.78 mls/hr IV .Q24H J[facility]Z Rx#: [id number] Insulin Regular 100 unit 96.6 118.6 In Sodium Chloride 0.9% 100 ml @ Per Protocol IV .Q0M [facility] Rx#:[id number] Propofol 1,000 mg In 100 199.62 Empty Bag 1 bag @ Titrate IV .Q0M J[facility]ENEZ Rx#: [id number] fentaNYL (PF) 2,500 mcg 116.517 In Sodium Chloride 0.9% 200 ml @ 100 MCG/HR 10 mls/hr IV .Q24H J[facility]Z Rx#: [id number] Tube Feeding 192 327 29 Other 30 150 Output: Urine 85 112 25 Other: Voiding Method Indwelling Catheter Indwelling Catheter ABP, PAP, CO, CI - Last Documented Arterial Blood Pressure 121/50 - Exam 62-year-old male who is intubated sedated and mechanically ventilated, and now paralyzed, blood pressure is improved with norepinephrine therapy. HEENT: Anicteric conjunctiva are pink and moist nasal mucosa grossly intact without significant lesions, there is no thrush. Pupils were reactive. Neck: The neck is supple without significant lymphadenopathy or thyromegaly. Lungs: There is symmetrical bilateral air entry. There are coarse crackles and wheezes to the lung sanchez. Heart: Tachycardic but regular with an audible S1 and S2 soft S4 no distinct murmur click or rub Abdomen: Positive bowel sounds soft nonrigid without palpable masses or organomegaly. Extremities: The upper extremities have excellent pulses they are symmetric, no significant petechiae or telangiectasia. No splinter hemorrhages were noted. The lower extremities are free from significant edema. The peripheral pulses were 2+ and symmetric. IV sites are intact Neuro: Intubated sedated and mechanically ventilated and paralyzed. - Labs CBC & Chem 7: 09/27/17 03:50 09/27/17 03:50 Labs: Abnormal Lab Results - Last 24 Hours (Table) 09/26/17 09/26/17 09/27/17 Range/Units 22:07 23:43 01:52 WBC (3.8-10.6) k/uL RBC (4.30-5.90) m/uL Hgb (13.0-17.5) gm/dL Hct (39.0-53.0) % MCHC (31.0-37.0) g/dL RDW (11.5-15.5) % Neutrophils # (Manual) (1.3-7.7) k/uL Lymphocytes # (Manual) (1.0-4.8) k/uL Monocytes # (Manual) (0-1.0) k/uL Metamyelocytes # (Man) (0) k/uL Myelocytes # (Manual) (0) k/uL ABG pH (7.35-7.45) ABG pCO2 (35-45) mmHg ABG pO2 (83-108) mmHg ABG Total CO2 (19-24) mmol/L ABG O2 Saturation (94-97) % Potassium (3.5-5.1) mmol/L BUN (9-20) mg/dL Creatinine (0.66-1.25) mg/dL Glucose (74-99) mg/dL POC Glucose (mg/dL) 197 H 172 H 111 H (75-99) mg/dL Calcium (8.4-10.2) mg/dL Phosphorus (2.5-4.5) mg/dL Magnesium (1.6-2.3) mg/dL 09/27/17 09/27/17 09/27/17 Range/Units 03:45 03:50 03:50 WBC 19.9 H (3.8-10.6) k/uL RBC 2.95 L (4.30-5.90) m/uL Hgb 8.0 L (13.0-17.5) gm/dL Hct 26.6 L (39.0-53.0) % MCHC 30.1 L (31.0-37.0) g/dL RDW 19.4 H (11.5-15.5) % Neutrophils # (Manual) 16.90 H (1.3-7.7) k/uL Lymphocytes # (Manual) 0.20 L (1.0-4.8) k/uL Monocytes # (Manual) 1.59 H (0-1.0) k/uL Metamyelocytes # (Man) 0.60 H (0) k/uL Myelocytes # (Manual) 0.80 H (0) k/uL ABG pH (7.35-7.45) ABG pCO2 (35-45) mmHg ABG pO2 (83-108) mmHg ABG Total CO2 (19-24) mmol/L ABG O2 Saturation (94-97) % Potassium 5.2 H (3.5-5.1) mmol/L BUN 84 H* (9-20) mg/dL Creatinine 5.00 H* (0.66-1.25) mg/dL Glucose 109 H (74-99) mg/dL POC Glucose (mg/dL) 116 H (75-99) mg/dL Calcium 7.2 L (8.4-10.2) mg/dL Phosphorus (2.5-4.5) mg/dL Magnesium (1.6-2.3) mg/dL 09/27/17 09/27/17 09/27/17 Range/Units 03:50 05:51 08:19 WBC (3.8-10.6) k/uL RBC (4.30-5.90) m/uL Hgb (13.0-17.5) gm/dL Hct (39.0-53.0) % MCHC (31.0-37.0) g/dL RDW (11.5-15.5) % Neutrophils # (Manual) (1.3-7.7) k/uL Lymphocytes # (Manual) (1.0-4.8) k/uL Monocytes # (Manual) (0-1.0) k/uL Metamyelocytes # (Man) (0) k/uL Myelocytes # (Manual) (0) k/uL ABG pH (7.35-7.45) ABG pCO2 (35-45) mmHg ABG pO2 (83-108) mmHg ABG Total CO2 (19-24) mmol/L ABG O2 Saturation (94-97) % Potassium (3.5-5.1) mmol/L BUN (9-20) mg/dL Creatinine (0.66-1.25) mg/dL Glucose (74-99) mg/dL POC Glucose (mg/dL) 198 H 139 H (75-99) mg/dL Calcium (8.4-10.2) mg/dL Phosphorus 7.8 H (2.5-4.5) mg/dL Magnesium 2.5 H (1.6-2.3) mg/dL 09/27/17 09/27/17 09/27/17 Range/Units 08:25 09:09 10:08 WBC (3.8-10.6) k/uL RBC (4.30-5.90) m/uL Hgb (13.0-17.5) gm/dL Hct (39.0-53.0) % MCHC (31.0-37.0) g/dL RDW (11.5-15.5) % Neutrophils # (Manual) (1.3-7.7) k/uL Lymphocytes # (Manual) (1.0-4.8) k/uL Monocytes # (Manual) (0-1.0) k/uL Metamyelocytes # (Man) (0) k/uL Myelocytes # (Manual) (0) k/uL ABG pH 7.21 L (7.35-7.45) ABG pCO2 62 H (35-45) mmHg ABG pO2 110 H (83-108) mmHg ABG Total CO2 11 L (19-24) mmol/L ABG O2 Saturation 98.0 H (94-97) % Potassium (3.5-5.1) mmol/L BUN (9-20) mg/dL Creatinine (0.66-1.25) mg/dL Glucose (74-99) mg/dL POC Glucose (mg/dL) 138 H 154 H (75-99) mg/dL Calcium (8.4-10.2) mg/dL Phosphorus (2.5-4.5) mg/dL Magnesium (1.6-2.3) mg/dL 09/27/17 09/27/17 09/27/17 Range/Units 12:03 14:33 17:02 WBC (3.8-10.6) k/uL RBC (4.30-5.90) m/uL Hgb (13.0-17.5) gm/dL Hct (39.0-53.0) % MCHC (31.0-37.0) g/dL RDW (11.5-15.5) % Neutrophils # (Manual) (1.3-7.7) k/uL Lymphocytes # (Manual) (1.0-4.8) k/uL Monocytes # (Manual) (0-1.0) k/uL Metamyelocytes # (Man) (0) k/uL Myelocytes # (Manual) (0) k/uL ABG pH (7.35-7.45) ABG pCO2 (35-45) mmHg ABG pO2 (83-108) mmHg ABG Total CO2 (19-24) mmol/L ABG O2 Saturation (94-97) % Potassium (3.5-5.1) mmol/L BUN (9-20) mg/dL Creatinine (0.66-1.25) mg/dL Glucose (74-99) mg/dL POC Glucose (mg/dL) 129 H 110 H 145 H (75-99) mg/dL Calcium (8.4-10.2) mg/dL Phosphorus (2.5-4.5) mg/dL Magnesium (1.6-2.3) mg/dL 09/27/17 09/27/17 Range/Units 17:59 20:26 WBC (3.8-10.6) k/uL RBC (4.30-5.90) m/uL Hgb (13.0-17.5) gm/dL Hct (39.0-53.0) % MCHC (31.0-37.0) g/dL RDW (11.5-15.5) % Neutrophils # (Manual) (1.3-7.7) k/uL Lymphocytes # (Manual) (1.0-4.8) k/uL Monocytes # (Manual) (0-1.0) k/uL Metamyelocytes # (Man) (0) k/uL Myelocytes # (Manual) (0) k/uL ABG pH (7.35-7.45) ABG pCO2 (35-45) mmHg ABG pO2 (83-108) mmHg ABG Total CO2 (19-24) mmol/L ABG O2 Saturation (94-97) % Potassium (3.5-5.1) mmol/L BUN (9-20) mg/dL Creatinine (0.66-1.25) mg/dL Glucose (74-99) mg/dL POC Glucose (mg/dL) 118 H 138 H (75-99) mg/dL Calcium (8.4-10.2) mg/dL Phosphorus (2.5-4.5) mg/dL Magnesium (1.6-2.3) mg/dL Microbiology - Last 24 Hours (Table) 09/21/17 14:29 Blood Culture - Final Blood No Growth after 144 hours 09/21/17 14:23 Blood Culture - Final Blood No Growth after 144 hours 09/23/17 12:40 Blood Culture - Preliminary Blood No Growth after 96 hours Laboratory Results WBC 19.9 k/uL (3.8-10.6) H 09/27/17 03:50 RBC 2.95 m/uL (4.30-5.90) L 09/27/17 03:50 Hgb 8.0 gm/dL (13.0-17.5) L 09/27/17 03:50 Hct 26.6 % (39.0-53.0) L 09/27/17 03:50 MCV 90.1 fL (80.0-100.0) 09/27/17 03:50 MCH 27.1 pg (25.0-35.0) 09/27/17 03:50 MCHC 30.1 g/dL (31.0-37.0) L 09/27/17 03:50 RDW 19.4 % (11.5-15.5) H 09/27/17 03:50 Plt Count 284 k/uL (150-450) 09/27/17 03:50 Neutrophils % 94 % 09/24/17 05:05 Neutrophils % (Manual) 82 % 09/27/17 03:50 Band Neutrophils % 3 % 09/27/17 03:50 Lymphocytes % 1 % 09/24/17 05:05 Lymphocytes % (Manual) 1 % 09/27/17 03:50 Monocytes % 4 % 09/24/17 05:05 Monocytes % (Manual) 8 % 09/27/17 03:50 Eosinophils % 0 % 09/24/17 05:05 Basophils % 0 % 09/24/17 05:05 Metamyelocytes % 3 % 09/27/17 03:50 Myelocytes % 4 % 09/27/17 03:50 Promyelocytes % 1 % 09/26/17 05:32 Neutrophils # 15.6 k/uL (1.3-7.7) H 09/24/17 05:05 Neutrophils # (Manual) 16.90 k/uL (1.3-7.7) H 09/27/17 03:50 Lymphocytes # 0.2 k/uL (1.0-4.8) L 09/24/17 05:05 Lymphocytes # (Manual) 0.20 k/uL (1.0-4.8) L 09/27/17 03:50 Monocytes # 0.7 k/uL (0-1.0) 09/24/17 05:05 Monocytes # (Manual) 1.59 k/uL (0-1.0) H 09/27/17 03:50 Eosinophils # 0.0 k/uL (0-0.7) 09/24/17 05:05 Basophils # 0.0 k/uL (0-0.2) 09/24/17 05:05 Metamyelocytes # (Man) 0.60 k/uL (0) H 09/27/17 03:50 Myelocytes # (Manual) 0.80 k/uL (0) H 09/27/17 03:50 Promyelocytes # (Man) 0.21 k/uL (0) H 09/26/17 05:32 Nucleated RBCs 0 /100 WBC (0-0) 09/27/17 03:50 Manual Slide Review Performed 09/27/17 03:50 Toxic Granulation Present 09/26/17 05:32 Toxic Vacuolation Present 09/26/17 05:32 Hypochromasia Marked 09/27/17 03:50 Poikilocytosis Slight 09/27/17 03:50 Anisocytosis Slight 09/27/17 03:50 Target Cells Present 09/27/17 03:50 Ovalocytes Present 09/27/17 03:50 PT 11.0 sec (9.0-12.0) 09/26/17 10:00 INR 1.1 (<1.2) 09/26/17 10:00 APTT 28.1 sec (22.0-30.0) 09/21/17 16:16 Sample Site a line 09/27/17 08:25 ABG pH 7.21 (7.35-7.45) L 09/27/17 08:25 ABG pCO2 62 mmHg (35-45) H 09/27/17 08:25 ABG pO2 110 mmHg (83-108) H 09/27/17 08:25 ABG HCO3 24 mmol/L (21-25) 09/27/17 08:25 ABG Total CO2 11 mmol/L (19-24) L 09/27/17 08:25 ABG O2 Saturation 98.0 % (94-97) H 09/27/17 08:25 ABG Base Excess -3.5 mmol/L 09/27/17 08:25 Xavi Test no 09/27/17 08:25 FiO2 50 % 09/27/17 08:25 Sodium 139 mmol/L (137-145) 09/27/17 03:50 Potassium 5.2 mmol/L (3.5-5.1) H 09/27/17 03:50 Chloride 106 mmol/L (98-107) 09/27/17 03:50 Carbon Dioxide 23 mmol/L (22-30) 09/27/17 03:50 Anion Gap 10 mmol/L 09/27/17 03:50 BUN 84 mg/dL (9-20) H* 09/27/17 03:50 Creatinine 5.00 mg/dL (0.66-1.25) H* 09/27/17 03:50 Est GFR (CKD-EPI)AfAm 13 (>60 ml/min/1.73 sqM) 09/27/17 03:50 Est GFR (CKD-EPI)NonAf 11 (>60 ml/min/1.73 sqM) 09/27/17 03:50 Glucose 109 mg/dL (74-99) H 09/27/17 03:50 POC Glucose (mg/dL) 138 mg/dL (75-99) H 09/27/17 20:26 POC Glu Shutdown Planner ID Leti Tompkins 09/27/17 20:[address] Glu mg/dL 151 09/21/17 14:23 Hemoglobin A1c 6.9 % (4.0-6.0) H 09/21/17 14:23 Lactic Ac Sepsis Rflx Y 09/22/17 20:26 Plasma Lactic Acid Heriberto 1.7 mmol/L (0.7-2.0) 09/23/17 12:34 Uric Acid 5.0 mg/dL (3.5-8.5) 09/27/17 14:45 Calcium 7.2 mg/dL (8.4-10.2) L 09/27/17 03:50 Phosphorus 7.8 mg/dL (2.5-4.5) H 09/27/17 03:50 Magnesium 2.5 mg/dL (1.6-2.3) H 09/27/17 03:50 Total Bilirubin 0.5 mg/dL (0.2-1.3) 09/24/17 05:05 AST 91 U/L (17-59) H 09/24/17 05:05 ALT 79 U/L (21-72) H 09/24/17 05:05 Alkaline Phosphatase 179 U/L (38-126) H 09/24/17 05:05 Total Protein 5.7 g/dL (6.3-8.2) L 09/24/17 05:05 Albumin 2.7 g/dL (3.5-5.0) L 09/24/17 05:05 Urine Color Light Yellow 09/23/17 04:58 Urine Appearance Clear (Clear) 09/23/17 04:58 Urine pH 5.5 (5.0-8.0) 09/23/17 04:58 Ur Specific Lockhart 1.009 (1.001-1.035) 09/23/17 04:58 Urine Protein Trace (Negative) H 09/23/17 04:58 Urine Glucose (UA) 2+ (Negative) H 09/23/17 04:58 Urine Ketones Negative (Negative) 09/23/17 04:58 Urine Blood Negative (Negative) 09/23/17 04:58 Urine Nitrite Negative (Negative) 09/23/17 04:58 Urine Bilirubin Negative (Negative) 09/23/17 04:58 Urine Urobilinogen <2.0 mg/dL (<2.0) 09/23/17 04:58 Ur Leukocyte Esterase Negative (Negative) 09/23/17 04:58 Fluid Source Bronchial Wash 09/24/17 11:15 Fluid Color Red 09/24/17 11:15 Fluid Appearance Bloody 09/24/17 11:15 Fluid RBC 66122 /uL 09/24/17 11:15 Fluid Nucleated Cells 60 /uL 09/24/17 11:15 Fluid Polynuclear WBCs 90 % 09/24/17 11:15 Fluid Mononuclear WBCs 10 % 09/24/17 11:15 Random Vancomycin 25.6 ug/mL 09/27/17 03:50 Urine Legionella Ag DETECTED (Not detected) H 09/21/17 17:41 Microbiology 09/21/17 14:29 Blood Blood Culture - Final No Growth after 144 hours 09/21/17 14:23 Blood Blood Culture - Final No Growth after 144 hours 09/23/17 12:40 Blood Blood Culture - Preliminary No Growth after 96 hours 09/24/17 11:15 Bronchial Washings - Right Gram Stain - Final 09/24/17 11:15 Bronchial Washings - Right Bronchial Washings Culture - Final 09/24/17 11:15 Bronchial Washings - Right Acid Fast Bacilli Smear - Final 09/24/17 11:15 Bronchial Washings - Right Acid Fast Bacilli Culture - Preliminary 09/24/17 11:15 Bronchial Washings - Right Fungal Culture - Preliminary Assessment and Plan (1) Legionella pneumonia Narrative/Plan: 62-year-old male with a known history of pulmonary fibrosis 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 Receives Ofev from the wood mill supervisor and has been relatively stable until this onset of Acute illness. The patient now is evidence of bilateral pneumonia which is on the basis of Legionella infection. Patient's does relate that one of their family friends did have pneumonia recently hospitalized only for a couple of days and has recovered well. We do discuss that Legionella is an environmental pathogen and does not have person-to -person transmission. She is at risk if there is Legionella with no water to the home, is at less risk if the Legionella is only related to the filtering system for the pond. That system would require chlorination if Legionella is present there. The patient's is well and she knows to present if she becomes ill at all. For treatment he does have acute renal failure and levofloxacin is being dosed at the appropriate renally adjusted dose. Given his severe underlying illness and until we have final cultures will also treat for other gram-negative pathogens and cefepime is being used and this has now been dose adjusted also for his current renal failure. Blood cultures and sputum cultures are process. The patient is profoundly ill and there are increasing difficulties with his oxygenation. The patient's understands that he is very ill at this point in time although he is comfortable. The patient has been an ongoing smoker despite his underlying pulmonary disease and is receiving multiple breathing treatments at this time also Leukocytosis is increased a bit and is likely in the basis of the utilization of steroids to improve his pulmonary status. Patient does have acute renal failure but this is improving is being followed by nephrology. Maintaining adequate blood pressure and hydration are part of goals. Prognosis is poor. 09/25/2017 reveals the patient to be profoundly ill. He is on high PEEP with high-frequency ventilation, and is hypotensive requiring vasopressor therapy. As noted the patient appears to have Legionella infection and is on appropriate antibiotic therapy. Bronchoscopy was performed and antibiotic therapy is also being utilized for other gram-negative pathogens until those results are available. Blood cultures are process. He has profound leukocytosis and the base of underlying severe pneumonia and the steroids are being utilized. 09/26/2017 patient remains profoundly ill with high-frequency ventilation, high PEEP and multisystem organ failure. Fortunately he is no longer hypotensive requiring vasopressor therapy. With current available cultures the vancomycin therapy is discontinued continue the levofloxacin and Maxipime for now pending further culture results. Bronchoscopy was performed which may further help direct antimicrobial therapy. Regardless will need to complete a multiweek course of fluoroquinolone for his Legionella if he continues to survive. 09/27/2017 there is been slight improvement of his status and that his PEEP has decreased from 15-10. There is discussion of removing paralysis tomorrow to monitor his course. Cultures are process will further evaluate tomorrow. Blood cultures are negative. Leukocytosis is showing a downward trend. creatinine was Yesterday 5.3 and is 5.0 today. Patient is showing stability of his multisystem organ failure but is profoundly ill Current Visit: Yes Status: Acute Code(s): A48.1 - LEGIONNAIRES' DISEASE SNOMED Code(s): 067604575
[2017-09-27 22:02] LABS: Glucose,Whole Blood 185 mg/dL (75-99)
[2017-09-27 22:49] LABS: Glucose,Whole Blood 188 mg/dL (75-99)
[2017-09-28 00:15] LABS: Glucose,Whole Blood 151 mg/dL (75-99)
[2017-09-28] MEDS ORDERED: IPRATROPIUM-ALBUTEROL 3 ML NEB ONE ×2 (00:25)
[2017-09-28] MEDS ORDERED: PROPOFOL 10 MG/ML 100 ML VIAL IV ONE (00:25)
[2017-09-28] MEDS ORDERED: HEPARIN SODIUM,PORCINE 5,000 UNIT/ML 1 ML VIAL ONE (00:25)
[2017-09-28] MEDS ORDERED: methylPREDNISolone SOD SUCCI 40 MG/ML 1 ML VIAL ONE (00:25)
[2017-09-28] MEDS ORDERED: METOCLOPRAMIDE 5 MG/ML 2 ML VIAL ONE (00:25)
[2017-09-28 01:18] LABS: Glucose,Whole Blood 126 mg/dL (75-99)
[2017-09-28 01:19] LABS: Hepatitis B Surface AB- Quant 3.5 mIU/mL
[2017-09-28 02:02] LABS: Glucose,Whole Blood 116 mg/dL (75-99)
[2017-09-28 02:51] LABS: Glucose,Whole Blood 148 mg/dL (75-99)
[2017-09-28 04:14] LABS: Glucose,Whole Blood 148 mg/dL (75-99)
[2017-09-28 05:21] LABS: Glucose,Whole Blood 129 mg/dL (75-99)
[2017-09-28] MEDS: INSULIN REGULAR 100 UNIT in SODIUM CHLORIDE 0.9% 100 ML IV SCH (05:23)
[2017-09-28] MEDS: METOCLOPRAMIDE 5 MG/ML 2 ML VIAL IVP SCH ×5 (05:25→23:57)
[2017-09-28 05:26] LABS: Calcium 7.1 mg/dL (8.4-10.2); Magnesium 2.4 mg/dL (1.6-2.3); Phosphorus 7.2 mg/dL (2.5-4.5)
[2017-09-28] MEDS: ARTIFICIAL TEARS-HYPROMELLOSE DROPS 15 ML BTL BOTH EYES SCH ×6 (05:31→23:56)
[2017-09-28] MEDS: HEPARIN SODIUM,PORCINE 5,000 UNIT/ML 1 ML VIAL SQ SCH ×4 (05:32→23:56)
[2017-09-28] MEDS: methylPREDNISolone SOD SUCCI 40 MG/ML 1 ML VIAL IV SCH ×4 (05:32→23:57)
[2017-09-28 05:33] LABS: Anisocytosis Slight; HCT 22.3 % (39.0-53.0); HGB 7.1 gm/dL (13.0-17.5); MCH 27.5 pg (25.0-35.0); MCHC 31.8 g/dL (31.0-37.0); MCV 86.4 fL (80.0-100.0); Mean Platelet Volume 8.5; Platelet Count 270 k/uL (150-450); RBC 2.58 m/uL (4.30-5.90); RDW 19.2 % (11.5-15.5); WBC 17.6 k/uL (3.8-10.6)
[2017-09-28 06:20] LABS: Glucose,Whole Blood 116 mg/dL (75-99)
[2017-09-28 06:39] LABS: Band Neutrophils % 4 %; Lymphocytes # (M) 1.23 k/uL (1.0-4.8); Monocytes # (M) 0.18 k/uL (0-1.0); Neutrophils % (M) 88 %; Nucleated Red Blood Cells 0 /100 WBC (0-0); Poikilocytosis (M) Present; Target Cells Present; Total Cells Counted 100
[2017-09-28] MEDS: PROPOFOL 1,000 MG in EMPTY BAG 1 BAG IV SCH ×3 (06:48→19:40)
[2017-09-28 07:03] LABS: Glucose,Whole Blood 150 mg/dL (75-99)
[2017-09-28] MEDS: BUDESONIDE 0.5 MG/2 ML NEBU INHALATION SCH ×2 (07:14→19:08)
[2017-09-28] MEDS: IPRATROPIUM-ALBUTEROL 3 ML NEB INHALATION SCH ×4 (07:14→19:08)
[2017-09-28 08:00] LABS: Glucose,Whole Blood 149 mg/dL (75-99)
[2017-09-28 08:02] LABS: ABG Base Excess -3.6 mmol/L; ABG HCO3 24 mmol/L (21-25); ABG Oxygen Saturation 96.3 % (94-97); ABG PCO2 56 mmHg (35-45); ABG PH 7.24 (7.35-7.45); ABG PO2 96 mmHg (83-108); ABG TCO2 26 mmol/L (19-24)
--- NOTE | 2017-09-28 08:19 | XR ---
EXAMINATION TYPE: XR chest 1V portable DATE OF EXAM: 09/28/2017 CLINICAL HISTORY: Difficulty breathing progress study. TECHNIQUE: Single AP portable semiupright view of the chest is obtained. COMPARISON: Chest x-ray from one day earlier and older studies. CT chest June 28, 2017 FINDINGS: An endotracheal tube, orogastric tube, and left-sided subclavian central venous catheter a re all stable in appearance. There is moderate multilevel spurring in the right mid to lower thoracic spine. Cardiac silhouette si ze is stable and mildly enlarged. There is background chronic emphysematous change with peripheral re ticular fibrosis seen bilaterally. Diffuse opacity particularly left lung base remains present. No la rge pleural effusion or pneumothorax is seen bilaterally. IMPRESSION: Suspect acute edema and/or infiltrates on background of chronic emphysematous change and parenchymal fibrosis with most prominent acute involvement in the left lung base. No significant tatum ge from chest x-ray one day earlier.
[2017-09-28] MEDS: PANTOPRAZOLE 40 MG TABLET PO SCH (08:57)
[2017-09-28] MEDS: CALCIUM ACETATE 667 MG CAP PO SCH ×3 (08:57→17:48)
[2017-09-28] MEDS: CHLORHEXIDINE GLUCONATE 15 ML CUP MUCOUS MEM SCH ×2 (08:58→20:43)
[2017-09-28] MEDS: ESCITALOPRAM 20 MG TAB PO SCH (08:58)
[2017-09-28] MEDS: buPROPion 75 MG TAB PO SCH ×2 (08:58→20:43)
[2017-09-28] MEDS: SODIUM BICARBONATE TAB 650 MG TAB PO SCH ×3 (08:59→23:23)
[2017-09-28] MEDS: lamoTRIgine 100 MG TAB PO SCH (08:59)
[2017-09-28 09:50] LABS: Glucose,Whole Blood 88 mg/dL (75-99)
[2017-09-28] MEDS ORDERED: FUROSEMIDE 10 MG/ML 10 ML VIAL IV STA (10:23)
[2017-09-28 10:32] LABS: Glucose,Whole Blood 81 mg/dL (75-99)
--- NOTE | 2017-09-28 10:34 | P.PN ---
Subjective Patient is seen in follow-up for acute kidney injury. He remains oliguric. He was started on dialysis on September 26. He is noted to have Legionella pneumonia. Patient was intubated on September 24. He's off vasopressors. He is receiving tube feeds and is also maintained on normal saline at 30 mL an hour. Currently seems well undergoing hemodialysis. Trying for 2 L off today. Vital signs are stable. General: Intubated. HEENT: Head exam is unremarkable. Neck is without jugular venous distension. LUNGS: Scattered rhonchi. HEART: Rate and Rhythm are regular. First and second heart sounds normal. No murmurs, rubs or gallops. ABDOMEN: Abdominal exam reveals normal bowel sounds. Non-tender and non- distended. No evidence of peritonitis. EXTREMITITES: No clubbing, cyanosis, or edema. Objective - Vital Signs Vital signs: Vital Signs Temp 99.1 F 09/28/17 08:00 Pulse 92 09/28/17 10:00 Resp 34 H 09/28/17 10:00 BP 143/72 09/28/17 10:00 Pulse Ox 94 L 09/28/17 10:00 Intake & Output 09/27/17 09/28/17 09/28/17 18:59 06:59 18:59 Intake Total 1547.260 581.871 397.199 Output Total 112 50 55 Balance 1435.260 531.871 342.199 Weight 71.6 kg 75.8 kg Intake: IV 546 231 132 0.9 carriers 360 210 120 Cefepime 2 gm In Sodium 50 Chloride 0.9% 50 ml @ 100 mls/hr IVPB DAILY [facility] Rx #:[id number] Levofloxacin 500Mg-D5w 100 Pmx 500 mg In Dextrose/ Water 1 100ml.bag @ 100 mls/hr IVPB Q48H [facility] Rx#: [id number] pressure bag 0.9 36 21 12 Intake, IV Titration 524.260 234.871 178.199 Amount Cisatracurium 200 mg In 89.523 51.471 Sodium Chloride 0.9% 180 ml @ 1 MCG/KG/MIN 3.78 mls/hr IV .Q24H [facility] Rx#: [id number] Insulin Regular 100 unit 118.6 83.4 31.074 In Sodium Chloride 0.9% 100 ml @ Per Protocol IV .Q0M [facility] Rx#:[id number] Propofol 1,000 mg In 199.62 100 Empty Bag 1 bag @ Titrate IV .Q0M [facility] Rx#: [id number] fentaNYL (PF) 2,500 mcg 116.517 147.125 In Sodium Chloride 0.9% 200 ml @ 100 MCG/HR 10 mls/hr IV .Q24H [facility] Rx#: [id number] Tube Feeding 327 116 87 Other 150 Output: Urine 112 50 55 Other: Voiding Method Indwelling Catheter Indwelling Catheter ABP, PAP, CO, CI - Last Documented Arterial Blood Pressure 184/67 - Labs CBC & Chem 7: 09/28/17 04:33 09/28/17 04:33 Labs: Abnormal Lab Results - Last 24 Hours (Table) 09/27/17 09/27/17 09/27/17 Range/Units 12:03 14:33 17:02 WBC (3.8-10.6) k/uL RBC (4.30-5.90) m/uL Hgb (13.0-17.5) gm/dL Hct (39.0-53.0) % RDW (11.5-15.5) % Neutrophils # (Manual) (1.3-7.7) k/uL ABG pH (7.35-7.45) ABG pCO2 (35-45) mmHg ABG Total CO2 (19-24) mmol/L Sodium (137-145) mmol/L BUN (9-20) mg/dL Creatinine (0.66-1.25) mg/dL Glucose (74-99) mg/dL POC Glucose (mg/dL) 129 H 110 H 145 H (75-99) mg/dL Calcium (8.4-10.2) mg/dL Phosphorus (2.5-4.5) mg/dL Magnesium (1.6-2.3) mg/dL 09/27/17 09/27/17 09/27/17 Range/Units 17:59 20:26 22:00 WBC (3.8-10.6) k/uL RBC (4.30-5.90) m/uL Hgb (13.0-17.5) gm/dL Hct (39.0-53.0) % RDW (11.5-15.5) % Neutrophils # (Manual) (1.3-7.7) k/uL ABG pH (7.35-7.45) ABG pCO2 (35-45) mmHg ABG Total CO2 (19-24) mmol/L Sodium (137-145) mmol/L BUN (9-20) mg/dL Creatinine (0.66-1.25) mg/dL Glucose (74-99) mg/dL POC Glucose (mg/dL) 118 H 138 H 185 H (75-99) mg/dL Calcium (8.4-10.2) mg/dL Phosphorus (2.5-4.5) mg/dL Magnesium (1.6-2.3) mg/dL 09/27/17 09/28/17 09/28/17 Range/Units 22:47 00:14 01:16 WBC (3.8-10.6) k/uL RBC (4.30-5.90) m/uL Hgb (13.0-17.5) gm/dL Hct (39.0-53.0) % RDW (11.5-15.5) % Neutrophils # (Manual) (1.3-7.7) k/uL ABG pH (7.35-7.45) ABG pCO2 (35-45) mmHg ABG Total CO2 (19-24) mmol/L Sodium (137-145) mmol/L BUN (9-20) mg/dL Creatinine (0.66-1.25) mg/dL Glucose (74-99) mg/dL POC Glucose (mg/dL) 188 H 151 H 126 H (75-99) mg/dL Calcium (8.4-10.2) mg/dL Phosphorus (2.5-4.5) mg/dL Magnesium (1.6-2.3) mg/dL 09/28/17 09/28/17 09/28/17 Range/Units 02:00 02:50 04:13 WBC (3.8-10.6) k/uL RBC (4.30-5.90) m/uL Hgb (13.0-17.5) gm/dL Hct (39.0-53.0) % RDW (11.5-15.5) % Neutrophils # (Manual) (1.3-7.7) k/uL ABG pH (7.35-7.45) ABG pCO2 (35-45) mmHg ABG Total CO2 (19-24) mmol/L Sodium (137-145) mmol/L BUN (9-20) mg/dL Creatinine (0.66-1.25) mg/dL Glucose (74-99) mg/dL POC Glucose (mg/dL) 116 H 148 H 148 H (75-99) mg/dL Calcium (8.4-10.2) mg/dL Phosphorus (2.5-4.5) mg/dL Magnesium (1.6-2.3) mg/dL 09/28/17 09/28/17 09/28/17 Range/Units 04:33 04:33 05:19 WBC 17.6 H (3.8-10.6) k/uL RBC 2.58 L (4.30-5.90) m/uL Hgb 7.1 L (13.0-17.5) gm/dL Hct 22.3 L (39.0-53.0) % RDW 19.2 H (11.5-15.5) % Neutrophils # (Manual) 16.10 H (1.3-7.7) k/uL ABG pH (7.35-7.45) ABG pCO2 (35-45) mmHg ABG Total CO2 (19-24) mmol/L Sodium 135 L (137-145) mmol/L BUN 81 H* (9-20) mg/dL Creatinine 4.40 H (0.66-1.25) mg/dL Glucose 127 H (74-99) mg/dL POC Glucose (mg/dL) 129 H (75-99) mg/dL Calcium 7.1 L (8.4-10.2) mg/dL Phosphorus 7.2 H (2.5-4.5) mg/dL Magnesium 2.4 H (1.6-2.3) mg/dL 09/28/17 09/28/17 09/28/17 Range/Units 06:18 07:01 07:58 WBC (3.8-10.6) k/uL RBC (4.30-5.90) m/uL Hgb (13.0-17.5) gm/dL Hct (39.0-53.0) % RDW (11.5-15.5) % Neutrophils # (Manual) (1.3-7.7) k/uL ABG pH (7.35-7.45) ABG pCO2 (35-45) mmHg ABG Total CO2 (19-24) mmol/L Sodium (137-145) mmol/L BUN (9-20) mg/dL Creatinine (0.66-1.25) mg/dL Glucose (74-99) mg/dL POC Glucose (mg/dL) 116 H 150 H 149 H (75-99) mg/dL Calcium (8.4-10.2) mg/dL Phosphorus (2.5-4.5) mg/dL Magnesium (1.6-2.3) mg/dL 09/28/17 Range/Units 08:00 WBC (3.8-10.6) k/uL RBC (4.30-5.90) m/uL Hgb (13.0-17.5) gm/dL Hct (39.0-53.0) % RDW (11.5-15.5) % Neutrophils # (Manual) (1.3-7.7) k/uL ABG pH 7.24 L (7.35-7.45) ABG pCO2 56 H (35-45) mmHg ABG Total CO2 26 H (19-24) mmol/L Sodium (137-145) mmol/L BUN (9-20) mg/dL Creatinine (0.66-1.25) mg/dL Glucose (74-99) mg/dL POC Glucose (mg/dL) (75-99) mg/dL Calcium (8.4-10.2) mg/dL Phosphorus (2.5-4.5) mg/dL Magnesium (1.6-2.3) mg/dL Microbiology - Last 24 Hours (Table) 09/21/17 14:29 Blood Culture - Final Blood No Growth after 144 hours 09/21/17 14:23 Blood Culture - Final Blood No Growth after 144 hours 09/23/17 12:40 Blood Culture - Preliminary Blood No Growth after 96 hours Assessment and Plan Plan: Assessment: 1. Oliguric acute kidney injury secondary to ATN secondary to sepsis/ hypotension. Urinalysis is quite benign. Creatinine up to 5.3 on September 26 and was started on hemodialysis. Currently seen while undergoing third treatment of hemodialysis. 2. Legionella pneumonia. Maintained on antibiotics. 3. Acute hypoxic respiratory failure secondary to pneumonia and ARDS. 4. History of pulmonary fibrosis. 5. Metabolic acidosis secondary to acute kidney injury. Improved. 6. Diabetes mellitus. 7. Hypotension, resolved. Off vasopressors. 8. Hyperkalemia secondary to metabolic acidosis and acute kidney injury. 9. Hyperphosphatemia secondary to acute kidney injury maintained on PhosLo. Improving. Plan: Maintain tube feeds. Avoid nephrotoxic agents and hypotensive episodes. Continue to monitor renal function and urine output closely. Wean FiO2 as tolerated. Lasix 80 mg IV once today. Continue to assess on day-to-day basis for need for renal placement therapy.
[2017-09-28 10:55] LABS: Glucose,Whole Blood 93 mg/dL (75-99)
[2017-09-28 11:51] LABS: Glucose,Whole Blood 109 mg/dL (75-99)
[2017-09-28 12:05] LABS: Glucose,Whole Blood 114 mg/dL (75-99)
[2017-09-28] MEDS: CEFEPIME 2 GM in SODIUM CHLORIDE 0.9% 50 ML IVPB SCH (12:44)
--- NOTE | 2017-09-28 13:38 | P.PN ---
Subjective Progress Note Date: 09/28/17 Principal diagnosis: Acute hypoxic respiratory failure secondary to bilateral pneumonia, ARDS, and underlying interstitial lung disease/pulmonary fibrosis. This is a 62-year-old male patient, 1 on my own patients from the office, was seen today in our office for increased shortness of breath. The patient comes in with a one-week history of cough, fever and chills and shortness of breath and his condition was progressively getting worse. The patient had a chest x- ray showed airspace disease in the right upper lobe and the left upper lobe worse compared to the previous chest x-rays was done our office. He was also found to be more hypoxic and his pulse ox was in the 70s on room air. Note that he was not on any home oxygen prior. The patient was seen in our office and he was advised to be admitted to the hospital for antibiotic treatment for possible pneumonia. For that reason he was sent over to the hospital and a pulmonary consultation was requested also. The initial blood work also showed a component of acute kidney injury. The patient's creatinine was up to 5.8. Upon further questioning, the patient reported that he was having migraine headaches and he was getting high dose Motrin for headaches and he has taken around 5-6 tablets. At the same time he was having some diarrhea approximately 3 days ago which ultimately subsided. Currently does not have any ongoing diarrhea and nausea vomiting or abdominal pain. The patient noted some diminished urine output over the past 24 hours. The patient is not known to have any previous history of kidney injury is of kidney failures. No nephrolithiasis. The patient also admitted to have exposure to a friend who was hospitalized down in amount, as for an underlying pneumonia. This patient is known to me. I saw him in consultation on 06/17/2017. The patient as part of further workup underwent a high-resolution CAT scan of the chest and upon review of the films there is extensive emphysema in the upper lobes bilaterally addition to subpleural pulmonary fibrosis involving the lower lobes and early changes of honeycombing in the lung bases. This was consistent with IPF based on the radiographic findings. The pulmonary function test showed an FVC of 74% and a total lung capacity of 64% with a diffusion capacity of 50% of predicted consistent with a component of restrictive lung disease. His room air pulse ox back then was 97% and the patient back then did not qualify for oxygen. The patient was trying to quit smoking. Based on the overall clinical picture, I recommended this patient to start on anti-fibrotic treatment and the patient was started on Ovef, nintadanib, after confirming the patient's liver function tests her baseline were within normal limits. He was asked to continue the Ventolin rescue inhaler mastoids basis. Smoking cessation counseling was also done in the office back in June 2017. 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 He is living in [facility]. He lives in a farm. He has outdoor animals including a goat and a Pig and a horse. He has no exposure to birds products. No exposure to chicken, pigeons or doves. On 09/22/2017 patient seen again in follow-up on medical surgical floor. Resting in bed, still complaining of weakness and fatigue. But overall is feeling better. Not bringing up any sputum, denies any chest wall tenderness, lung sounds are positive for coarse crackles over left lower lobe, no wheezing. Today's labs were reviewed, and a PVC 7.7, hemoglobin is 10.6, renal profile is improving, BUN is down to 60, creatinine is 4.29. Patient is remains on IV hydration, receiving 0.9 normal saline at a rate of 100 per hour. Patient remains on empiric coverage in the form of Azactam, and Levaquin, today's chest x-ray showed multifocal reticular opacity pneumonia in the left lower and left upper lobe On 09/23/2017, the patient was seen in follow-up. I noted that the patient was progressively getting more short of breath and lethargic. Earlier this morning the patient became significantly hypoxic and he desaturated. He was placed on 100% nonrebreather facemask. A chest x-ray was done and showed worsening of the right the pulmonary infiltrates with increased alveolar infiltrates in the left midlung zone on the left lower lobe as well as the right midlung area. Note that the patient was already covered with antibiotics and was receiving a combination of Levaquin and aztreonam. Afebrile. Hemodynamically stable currently 100% on a beta facemasks. Blood gases was done and showed a pH of 7.29 with a pCO2 of 37 and pO2 100%. The patient got transferred to the ICU. No chest pain. No fever. No chills. No nausea. No vomiting. No diarrhea. He was receiving normal saline at the rate of 100 mL an hour and the creatinine is down to 3.0. On 09/24/2017, the patient ICU yesterday because of worsening shortness of breath and respiratory failure and worsening oxygenation and hypoxic respiratory failure. The patient initially was on 100% nonrebreather facemask. He was placed on high flow oxygen and he failed and subsequently the patient was placed on a BiPAP at a pressure of 10/5 with an FiO2 of 100%. Earlier this morning he was breathing in the mid 40s and he was struggling to breathe and he was very short of breath using excessive muscle breathing and he was having periodic desaturations was pulsatile drop in the low 80s. At that point he was also diagnosed having Legionella pneumonia and a chest x-ray was getting worse. Progressive worsening of breath upon infiltrates and I suspect underlying IPF with a superimposed Legionella pneumonia and ARDS picture. I intubated this patient and put him on assist-control mode at the rate of 26 with a tidal volume of 400 with an FiO2 of 100% and a PEEP of 18. The patient is sedated with Diprivan and is calm and comfortable and hemodynamically stable. Blood gases and chest x-ray post intubation are still pending. Meanwhile a triple lumen catheter and a Artline Was also inserted for hemodynamic monitoring. As mentioned, the Legionella urine antigen was positive. The patient will be kept on cefepime and Levaquin combination. We'll discontinue the vancomycin. We'll continue the IV Solu-Medrol. We'll continue the supportive care. A bronchoscopy will be done to rule out any superimposed infection on top of his Legionella pneumonia. His white count is elevated at 16.7. Hemoglobin stable at 9.4. On 09/25/2017 the patient remains critically ill. He was intubated and placed on a mechanical ventilator. As mentioned, he has IPF and he is course was further complicated by Legionella pneumonia and secondary ARDS. This morning he is sedated with a combination of propofol and fentanyl. He is paralyzed with Nimbex. He is an assist-control mode of ventilation at the rate of 32, tidal volume of 380, FiO2 of 70% with a PEEP of 15. Peak airway pressures around 38. Static pressures around 36. Chest x-ray still showing diffuse but the pulmonary infiltrates. Bronchoscopy was done yesterday and the results of the bronchioloalveolar lavage are still pending. Meanwhile, the patient is on a combination of Levaquin and cefepime. The patient had a blood gases this morning that showed a pH of 7.03 with a pCO2 of 73 and pO2 of 132. Based on this I increased his tidal volume to 410. I also dropped FiO2 down to 60%. A repeat blood gas showed a pH of 7.11 with a pCO2 of 66 and pO2 of 109. He had a potassium of 6.2 today which was probably related to his acute renal failure and his acidosis. Based on this, he was given grams of bicarb, he was given D50 and insulin protocol, and he was started on a bicarb drip and currently bicarb is running at the rate of 75 mL an hour in the form of D5 with 3 ampules of sodium bicarbonate. This will hopefully counteract his respiratory acidosis. Repeat potassium level is down to 4.9. He is on pressors. He became hypotensive yesterday and currently is on norepinephrine infusion at the rate of 15 mics. The patient has diminished urine output in the order of 50-20 mL an hour. He is in a positive fluid balance and overnight he received a total of 2 L of additional IV fluids. His creatinine is up to 3.9. His white cell count is up to 32. Is on enteral feeding for nutritional support. He is critically ill. Family has been updated on his condition. On 09/26/2017, patient remains intubated, on mechanical ventilation, his ventilator settings are tidal volume of 410, assist control rate of 34, FiO2 of 50%, and PEEP is 15. ABG earlier today showed a pO2 of 106 and this was on 60% . PCO2 of 68, and pH of 7.14. Patient remains on Nimbex drip, he is also on fentanyl drip, and propofol. Hemodynamically stable, not requiring any norepinephrine at this point. As a matter of fact his blood pressure is elevated, and I recommended that we increase his fentanyl drip. Based on the ABG and based on his chest x-ray, patient is clearly not ready for any form of weaning trial or spontaneous breathing trial. He is not ready to be taken off Nimbex at this point yet. Patient remains on nutritional support via enteral feeding. He is fully sedated and paralyzed, microbiology remains negative so far including his bronchial washings and cultures. WBC count is down to 21.0 hemoglobin is 8.6. Continues to have significant bandemia of 9%. Renal functioning seems to be getting worse, and renal output is minimal. Hence the patient is going to be dialyzed today by nephrology. Again I have no plans to consider any weaning trials at this point. Reevaluated today on 09/27/2017, remains intubated, on mechanical ventilation. Ventilator settings are tidal volume of 410, assist control rate of 34 FiO2 50% PEEP was 15 and I cut it down to 12. ABG showed a pO2 of 110 pCO2 of 62 pH of 7.21, patient will be dialyzed again today, he is already on sodium bicarb tablets, and I cut down his PEEP from 15-12 since his pO2 is 110 today. The FiO2 at 50%. Renal functioning is worsening, patient is scheduled for dialysis today. WBC count is 19.9 hemoglobin is 8.0. Chest x-ray continues to show diffuse interstitial lung disease minimal improvement in aeration of both lungs. Patient is not requiring any pressors at this point. He is tolerating nutrition okay but frequently has been placed on hold because of high residual, hence I recommended starting Reglan and cutting down on the floor rate of his nutritional formula. Reevaluated today on 09/28/2017, remains on mechanical ventilation, ventilator settings are the same however the PEEP is down to 8. Remains on 50% FiO2, assist control rate of 34, tidal volume of 410. ABG this morning showed a pO2 of 96 pCO2 of 56 pH of 7.24. BUN is 81 creatinine 4.4, patient underwent dialysis and ultrafiltration, 2 L of fluids were removed. Chest x-ray continues to show interstitial lung disease, him improvement noted in the airspace disease involving the left upper lobe and right upper lobe. Considering the patient is down to a PEEP of 8 today, I have decided to discontinue Nimbex, but we'll continue propofol and fentanyl drip. All labs were reviewed, hemoglobin is 7.1, may consider blood transfusion if hemoglobin goes below 7. Cultures from his lavage and bronchoscopy remained negative. However patient has positive Legionella antigen in the urine. Patient clearly has a picture of idiopathic pulmonary fibrosis, and ARDS, and Legionella pneumonia. This is all contributing to his present condition of respiratory failure requiring intubation and mechanical ventilation. Objective - Vital Signs Vital signs: Vital Signs Temp 98.2 F 09/28/17 12:00 Pulse 82 09/28/17 13:00 Resp 39 H 09/28/17 13:00 BP 110/59 09/28/17 13:00 Pulse Ox 94 L 09/28/17 13:00 Intake & Output 09/27/17 09/28/17 09/28/17 18:59 06:59 18:59 Intake Total 1547.260 581.871 691.199 Output Total 112 50 115 Balance 1435.260 531.871 576.199 Weight 71.6 kg 75.8 kg 75.8 kg Intake: IV 546 231 281 0.9 carriers 360 210 210 Cefepime 2 gm In Sodium 50 50 Chloride 0.9% 50 ml @ 100 mls/hr IVPB DAILY [facility] Rx #:[id number] Levofloxacin 500Mg-D5w 100 Pmx 500 mg In Dextrose/ Water 1 100ml.bag @ 100 mls/hr IVPB Q48H [facility] Rx#: [id number] pressure bag 0.9 36 21 21 Intake, IV Titration 524.260 234.871 178.199 Amount Cisatracurium 200 mg In 89.523 51.471 Sodium Chloride 0.9% 180 ml @ 1 MCG/KG/MIN 3.78 mls/hr IV .Q24H [facility] Rx#: [id number] Insulin Regular 100 unit 118.6 83.4 31.074 In Sodium Chloride 0.9% 100 ml @ Per Protocol IV .Q0M [facility] Rx#:[id number] Propofol 1,000 mg In 199.62 100 Empty Bag 1 bag @ Titrate IV .Q0M [facility] Rx#: [id number] fentaNYL (PF) 2,500 mcg 116.517 147.125 In Sodium Chloride 0.9% 200 ml @ 100 MCG/HR 10 mls/hr IV .Q24H [facility] Rx#: [id number] Tube Feeding 327 116 232 Other 150 Output: Urine 112 50 115 Other: Voiding Method Indwelling Catheter Indwelling Catheter Indwelling Catheter ABP, PAP, CO, CI - Last Documented Arterial Blood Pressure 144/56 - Exam Physical Exam: Revealed a 62-year-old white male, sedated and paralyzed, on Nimbex, on mechanical ventilation, in no distress. Nimbex would be discontinued this morning. Head: Atraumatic, normocephalic. Endotracheal tube and orogastric tubes are intact. HEENT:[Neck is supple.] [No neck masses.] [No thyromegaly.] [No JVD.] Moist mucous membranes, PERRLA, EOMI, no icterus. Chest: [Crackles at the bases, no rhonchi, no wheezes. Symmetrical chest expansion was noted.] Cardiac Exam: [Normal S1 and S2, no S3 gallop, no murmur.] Abdomen: [Soft, nontender, no megaly, no rebound, no guarding, normal bowel sounds.] Extremities: [No clubbing, no edema, no cyanosis.] Neurological Exam: Cannot be assessed, patient is on propofol and is also on Nimbex. Lymphatics: No lymphadenopathy. Psychiatric: Could not be assessed. Skin: No rashes. Musculoskeletal: Could not be assessed. Patient is paralyzed and sedated. - Labs CBC & Chem 7: 09/28/17 04:33 09/28/17 04:33 Labs: Abnormal Lab Results - Last 24 Hours (Table) 09/27/17 09/27/17 09/27/17 Range/Units 14:33 17:02 17:59 WBC (3.8-10.6) k/uL RBC (4.30-5.90) m/uL Hgb (13.0-17.5) gm/dL Hct (39.0-53.0) % RDW (11.5-15.5) % Neutrophils # (Manual) (1.3-7.7) k/uL ABG pH (7.35-7.45) ABG pCO2 (35-45) mmHg ABG Total CO2 (19-24) mmol/L Sodium (137-145) mmol/L BUN (9-20) mg/dL Creatinine (0.66-1.25) mg/dL Glucose (74-99) mg/dL POC Glucose (mg/dL) 110 H 145 H 118 H (75-99) mg/dL Calcium (8.4-10.2) mg/dL Phosphorus (2.5-4.5) mg/dL Magnesium (1.6-2.3) mg/dL 09/27/17 09/27/17 09/27/17 Range/Units 20:26 22:00 22:47 WBC (3.8-10.6) k/uL RBC (4.30-5.90) m/uL Hgb (13.0-17.5) gm/dL Hct (39.0-53.0) % RDW (11.5-15.5) % Neutrophils # (Manual) (1.3-7.7) k/uL ABG pH (7.35-7.45) ABG pCO2 (35-45) mmHg ABG Total CO2 (19-24) mmol/L Sodium (137-145) mmol/L BUN (9-20) mg/dL Creatinine (0.66-1.25) mg/dL Glucose (74-99) mg/dL POC Glucose (mg/dL) 138 H 185 H 188 H (75-99) mg/dL Calcium (8.4-10.2) mg/dL Phosphorus (2.5-4.5) mg/dL Magnesium (1.6-2.3) mg/dL 09/28/17 09/28/17 09/28/17 Range/Units 00:14 01:16 02:00 WBC (3.8-10.6) k/uL RBC (4.30-5.90) m/uL Hgb (13.0-17.5) gm/dL Hct (39.0-53.0) % RDW (11.5-15.5) % Neutrophils # (Manual) (1.3-7.7) k/uL ABG pH (7.35-7.45) ABG pCO2 (35-45) mmHg ABG Total CO2 (19-24) mmol/L Sodium (137-145) mmol/L BUN (9-20) mg/dL Creatinine (0.66-1.25) mg/dL Glucose (74-99) mg/dL POC Glucose (mg/dL) 151 H 126 H 116 H (75-99) mg/dL Calcium (8.4-10.2) mg/dL Phosphorus (2.5-4.5) mg/dL Magnesium (1.6-2.3) mg/dL 09/28/17 09/28/17 09/28/17 Range/Units 02:50 04:13 04:33 WBC (3.8-10.6) k/uL RBC (4.30-5.90) m/uL Hgb (13.0-17.5) gm/dL Hct (39.0-53.0) % RDW (11.5-15.5) % Neutrophils # (Manual) (1.3-7.7) k/uL ABG pH (7.35-7.45) ABG pCO2 (35-45) mmHg ABG Total CO2 (19-24) mmol/L Sodium 135 L (137-145) mmol/L BUN 81 H* (9-20) mg/dL Creatinine 4.40 H (0.66-1.25) mg/dL Glucose 127 H (74-99) mg/dL POC Glucose (mg/dL) 148 H 148 H (75-99) mg/dL Calcium 7.1 L (8.4-10.2) mg/dL Phosphorus 7.2 H (2.5-4.5) mg/dL Magnesium 2.4 H (1.6-2.3) mg/dL 09/28/17 09/28/17 09/28/17 Range/Units 04:33 05:19 06:18 WBC 17.6 H (3.8-10.6) k/uL RBC 2.58 L (4.30-5.90) m/uL Hgb 7.1 L (13.0-17.5) gm/dL Hct 22.3 L (39.0-53.0) % RDW 19.2 H (11.5-15.5) % Neutrophils # (Manual) 16.10 H (1.3-7.7) k/uL ABG pH (7.35-7.45) ABG pCO2 (35-45) mmHg ABG Total CO2 (19-24) mmol/L Sodium (137-145) mmol/L BUN (9-20) mg/dL Creatinine (0.66-1.25) mg/dL Glucose (74-99) mg/dL POC Glucose (mg/dL) 129 H 116 H (75-99) mg/dL Calcium (8.4-10.2) mg/dL Phosphorus (2.5-4.5) mg/dL Magnesium (1.6-2.3) mg/dL 09/28/17 09/28/17 09/28/17 Range/Units 07:01 07:58 08:00 WBC (3.8-10.6) k/uL RBC (4.30-5.90) m/uL Hgb (13.0-17.5) gm/dL Hct (39.0-53.0) % RDW (11.5-15.5) % Neutrophils # (Manual) (1.3-7.7) k/uL ABG pH 7.24 L (7.35-7.45) ABG pCO2 56 H (35-45) mmHg ABG Total CO2 26 H (19-24) mmol/L Sodium (137-145) mmol/L BUN (9-20) mg/dL Creatinine (0.66-1.25) mg/dL Glucose (74-99) mg/dL POC Glucose (mg/dL) 150 H 149 H (75-99) mg/dL Calcium (8.4-10.2) mg/dL Phosphorus (2.5-4.5) mg/dL Magnesium (1.6-2.3) mg/dL 09/28/17 09/28/17 Range/Units 11:49 12:03 WBC (3.8-10.6) k/uL RBC (4.30-5.90) m/uL Hgb (13.0-17.5) gm/dL Hct (39.0-53.0) % RDW (11.5-15.5) % Neutrophils # (Manual) (1.3-7.7) k/uL ABG pH (7.35-7.45) ABG pCO2 (35-45) mmHg ABG Total CO2 (19-24) mmol/L Sodium (137-145) mmol/L BUN (9-20) mg/dL Creatinine (0.66-1.25) mg/dL Glucose (74-99) mg/dL POC Glucose (mg/dL) 109 H 114 H (75-99) mg/dL Calcium (8.4-10.2) mg/dL Phosphorus (2.5-4.5) mg/dL Magnesium (1.6-2.3) mg/dL Microbiology - Last 24 Hours (Table) 09/21/17 14:29 Blood Culture - Final Blood No Growth after 144 hours 09/21/17 14:23 Blood Culture - Final Blood No Growth after 144 hours 09/23/17 12:40 Blood Culture - Preliminary Blood No Growth after 96 hours Assessment and Plan Assessment: 1 acute hypoxic secondary to Legionella pneumonia, ARDS, and idiopathic pulmonary fibrosis. As well as underlying COPD,emphysema. 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 Renal function continues to be impaired with a creatinine of 3.9 and the patient has become oliguric condition to an underlying component of respiratory and metabolic acidosis currently on a bicarb orally, and being dialyzed on a every other day basis. Patient will be dialyzed today. 5 acute hypotension possibly secondary to underlying sepsis as the patient developed worsening leukocytosis addition to drop in the blood pressure. Presently hemodynamically stable off levo fed. 6 diabetes mellitus, on insulin drip for BS control 7 smoker 8 depression 9 abnormal LFTs, probably secondary to OVEF 10 hypertension 11 acid reflux 12 non-anion gap metabolic acidosis, resolved. 13 chronic anemia Recommendation: Continue ventilatory support, continue antibiotics , patient remains on cefepime, and Levaquin. Continue nutritional support, PEEP was decreased to 8 today, then I would likely discontinue Nimbex, continue profile and fentanyl drip, continue GI and DVT prophylaxis. Patient remains critically ill, had a long discussion with his regarding his condition, tomorrow we will consider holding propofol and fentanyl, and may start spontaneous breathing trials. Prognosis is extremely poor family updated on his condition. We'll continue to follow. Critical care time is 40 minutes. Time with Patient: Greater than 30
--- NOTE | 2017-09-28 13:51 | CDI ---
Documentation Clarification Form Date: 09/28/17 CDS: Bertha Kelly RN Admit Date: 09/21/17 Patient Name: Kulwant Barone ATTENTION: The Clinical Documentation Specialists (CDI) and [facility] Coding Staff appreciate your assistance in clarifying documentation. Please respond to the clarification below the line at the bottom and electronically sign. The CDI & [facility] Coding staff will review the response and follow-up if needed. Please note: Queries are made part of the Legal Health Record. If you have any questions, please contact the author of this message via ITS. Dr. Ezra Pierre, Can you please render your opinion on the patience Kidney status? Patient was sent in from physician's office for pneumonia. renal function worsened. History/Risk Factors: ETOH, DM, smoker, depression, COPD, Pulmonary fibrosis, GERD, pneumonia Acute Kidney Injury is documented throughout the chart. Clinical Indicators: On admission: BUN 68, CR 5.80, GFR 10: Current: BUN 81, CR 4.40, GFR 13 Pt. was started on dialysis on September 26. Treatment: Patients medications include: Phoslo IVF: .9 @ 75. Bolus x 2 Dialysis Monitor Labs. In order to capture the severity of condition, please clarify if the condition signifies: CKD Stage 1 (GFR > 90) CKD Stage 2 (GFR 60-89) CKD Stage 3 (GFR 30-59) CKD Stage 4 (GFR 15-29) CKD Stage 5 (GFR <15) Other, please specify Unable to determine Please continue to document in your progress notes, under the line below and/or in the discharge summary in order to capture severity of illness and risk of mortality. Include clinical findings that support your diagnosis. MTDD
[2017-09-28 13:57] LABS: Glucose,Whole Blood 172 mg/dL (75-99)
--- NOTE | 2017-09-28 14:11 | CDI ---
Documentation Clarification Form Date: 09/28/17 CDS: Bertha Kelly RN Admit Date: 09/21/17 Patient Name: Kulwant Barone ATTENTION: The Clinical Documentation Specialists (CDI) and [facility] Coding Staff appreciate your assistance in clarifying documentation. Please respond to the clarification below the line at the bottom and electronically sign. The CDI & [facility] Coding staff will review the response and follow-up if needed. Please note: Queries are made part of the Legal Health Record. If you have any questions, please contact the author of this message via ITS. Dr. Joey Manzanares, A diagnosis of anemia lacks specificity to accurately reflect your patients severity of condition and clarification is needed. Presented from physician's office with pneumonia History/Risk Factors: ETOH, DM, smoker, depression, COPD, Pulmonary fibrosis, GERD, pneumonia Clinical indicators: Hemoglobin on admission: 11.8, 09/28: 7.1 Hematocrit on admission 35.9, 09/28: 22.3 Presented with weakness and fatigue, 09/28: still having weakness and fatigue Treatment: Transfuse if HGB goes below 7 (per Orders) Monitor Labs .9 @ 75 In order to capture the severity of condition, please clarify the type of anemia and etiology if known: Acute blood loss anemia Acute on chronic blood loss anemia Chronic blood loss anemia Iron deficiency anemia Unable to determine Other, please specify Please continue to document in your progress notes, under the line below and/or in the discharge summary in order to capture severity of illness and risk of mortality. Include clinical findings that support your diagnosis. MTDD
--- NOTE | 2017-09-28 14:57 | PN ---
PROGRESS NOTE DATE OF SERVICE: 09/28/2017 DATA: FULL CODE, 62 years old, white male, . He is 5 foot 5 inches, weight 75.8 kg, BSA 1.83 m2, BMI 27.8 kg/m2. ALLERGY: To ASPARTAME and PENICILLIN. Patient seen today evaluated in ICU and I did discuss it with his and RN the nursing taking care of the patient. Patient is seen by Dr. Castro today, Pulmonary and Critical and adjusted his PAP. The PAP has been adjusted as well as the other parameter of the ventilator. Patient currently on ventilator with the trial of weaning him off gradually. He is off the paralyzed medication and; however, analgesic with ventilator is still continued and he can respond only to pain so far, and he is intubated with ventilator as well as he is fed with the oral NG tube and other medication through the NG tube. His diabetes mellitus has been given through the NG tube as well. He is on Solu-Medrol as well as Reglan. Today, as we discussed his prognosis, which is still guarded to poor, and his vital sign indicating that temperature is 98.2, his pulse rate 78-82, and this is sinus rhythm. His respiratory rate still 39 to 34. His blood pressure is improving gradually and today that post dialysis is 110/59. He has a mean of 76. Patient underwent dialysis as well and he has received Lasix and there is some function and some urine coming at this time, and his blood pressure currently was 144/56 and one in the 127/55. His FiO2 is 50% at this time. Patient on the examination, his had a Major catheter as well as he is on the ventilator and NG tube as mentioned above. He had the lung was irrigated. He has been taken off fluid with the increase of volume and he has also the chest with the ventilator no acute respiratory rhonchi; however, he had the underlying IPF with the interstitial lung disease and his heart was regular sinus rhythm. The abdomen was soft, positive bowel sounds and the extremity he had now edema and also he had a questionable effusion of both knees and the pulses intact. No evidence of tremor at this time. ASSESSMENT: Patient stable at this time; however, he is very guarded with the underlyin. Legionella pneumonia. 2. The bronchoscopy did not really indicating organism so far, but we find that the urine antigen was positive and he has bilateral pneumonia with the underlying IPF, which is having a prognosis was guarded to poor so at admission, he had acute kidney injury associated with ATN and subsequently become anuric and dialysis was started. As the patient currently continuing on all his medication, patient will continue the current treatment and Critical Care and Nephrology has been following the patient.. YOSEPH / TIFFANY: [id number] /
[2017-09-28 15:17] LABS: Glucose,Whole Blood 188 mg/dL (75-99)
[2017-09-28 15:55] LABS: Glucose,Whole Blood 192 mg/dL (75-99)
[2017-09-28 16:53] LABS: Glucose,Whole Blood 191 mg/dL (75-99)
[2017-09-28] MEDS: fentaNYL (PF) 2,500 MCG in SODIUM CHLORIDE 0.9% 200 ML IV SCH (16:59)
[2017-09-28 17:48] LABS: Glucose,Whole Blood 160 mg/dL (75-99)
[2017-09-28] MEDS: NYSTATIN 100,000 UNIT/ML SUSP 500,000 UNIT/5 ML CUP PO SCH ×2 (17:49→23:23)
[2017-09-28 18:01] LABS: Glucose,Whole Blood 158 mg/dL (75-99)
[2017-09-28 18:54] LABS: Glucose,Whole Blood 144 mg/dL (75-99)
[2017-09-28 19:50] LABS: Glucose,Whole Blood 126 mg/dL (75-99)
[2017-09-28] MEDS: ATORVASTATIN 40 MG TAB PO SCH (20:43)
[2017-09-28] MEDS: ASPIRIN 81 MG PO SCH (20:43)
[2017-09-28 20:47] LABS: Glucose,Whole Blood 107 mg/dL (75-99)
[2017-09-28 21:57] LABS: Glucose,Whole Blood 129 mg/dL (75-99)
[2017-09-28 22:58] LABS: Glucose,Whole Blood 143 mg/dL (75-99)
[2017-09-28 23:54] LABS: Glucose,Whole Blood 166 mg/dL (75-99)
[2017-09-29 00:54] LABS: Glucose,Whole Blood 141 mg/dL (75-99)
[2017-09-29] MEDS: INSULIN REGULAR 100 UNIT in SODIUM CHLORIDE 0.9% 100 ML IV SCH ×2 (01:21→04:29)
[2017-09-29 01:46] LABS: Glucose,Whole Blood 117 mg/dL (75-99)
[2017-09-29 02:53] LABS: Glucose,Whole Blood 127 mg/dL (75-99)
[2017-09-29 04:09] LABS: Glucose,Whole Blood 154 mg/dL (75-99)
[2017-09-29] MEDS: ARTIFICIAL TEARS-HYPROMELLOSE DROPS 15 ML BTL BOTH EYES SCH ×5 (04:30→20:17)
[2017-09-29 04:49] LABS: Glucose,Whole Blood 141 mg/dL (75-99)
[2017-09-29] MEDS: PROPOFOL 1,000 MG in EMPTY BAG 1 BAG IV SCH ×4 (05:33→16:42)
[2017-09-29 05:48] LABS: Anisocytosis Slight; HCT 21.8 % (39.0-53.0); MCHC 31.7 g/dL (31.0-37.0); MCV 85.3 fL (80.0-100.0); Mean Platelet Volume 7.9; Platelet Count 290 k/uL (150-450); RBC 2.55 m/uL (4.30-5.90); RDW 19.1 % (11.5-15.5); WBC 21.6 k/uL (3.8-10.6)
[2017-09-29 05:50] LABS: HGB 6.9 gm/dL (13.0-17.5)
[2017-09-29 05:53] LABS: Glucose,Whole Blood 126 mg/dL (75-99)
[2017-09-29 05:53] LABS: Calcium 7.3 mg/dL (8.4-10.2); Magnesium 2.6 mg/dL (1.6-2.3); Potassium 5.3 mmol/L (3.5-5.1)
[2017-09-29 05:55] LABS: Phosphorus 8.8 mg/dL (2.5-4.5)
[2017-09-29] MEDS: METOCLOPRAMIDE 5 MG/ML 2 ML VIAL IVP SCH ×3 (06:28→17:02)
[2017-09-29 06:58] LABS: Glucose,Whole Blood 120 mg/dL (75-99)
[2017-09-29] MEDS: CALCIUM ACETATE 667 MG CAP PO SCH ×3 (07:08→17:03)
[2017-09-29] MEDS: PANTOPRAZOLE 40 MG TABLET PO SCH (07:08)
[2017-09-29 07:46] LABS: ABG Base Excess -3.4 mmol/L; ABG HCO3 23 mmol/L (21-25); ABG Oxygen Saturation 99.6 % (94-97); ABG PCO2 49 mmHg (35-45); ABG PH 7.28 (7.35-7.45); ABG PO2 276 mmHg (83-108); ABG TCO2 25 mmol/L (19-24)
[2017-09-29 07:48] LABS: Glucose,Whole Blood 146 mg/dL (75-99)
[2017-09-29] MEDS: CHLORHEXIDINE GLUCONATE 15 ML CUP MUCOUS MEM SCH ×2 (07:57→21:14)
[2017-09-29] MEDS: IPRATROPIUM-ALBUTEROL 3 ML NEB INHALATION SCH ×4 (08:03→19:03)
[2017-09-29] MEDS: BUDESONIDE 0.5 MG/2 ML NEBU INHALATION SCH ×2 (08:03→19:03)
[2017-09-29] MEDS: methylPREDNISolone SOD SUCCI 40 MG/ML 1 ML VIAL IV SCH ×2 (08:04→15:59)
[2017-09-29] MEDS: HEPARIN SODIUM,PORCINE 5,000 UNIT/ML 1 ML VIAL SQ SCH ×2 (08:04→15:58)
[2017-09-29] MEDS: NYSTATIN 100,000 UNIT/ML SUSP 500,000 UNIT/5 ML CUP PO SCH ×4 (08:05→21:14)
[2017-09-29] MEDS: SODIUM BICARBONATE TAB 650 MG TAB PO SCH ×3 (08:05→21:14)
[2017-09-29] MEDS: buPROPion 75 MG TAB PO SCH ×2 (08:05→21:14)
[2017-09-29] MEDS: ESCITALOPRAM 20 MG TAB PO SCH (08:05)
[2017-09-29] MEDS: lamoTRIgine 100 MG TAB PO SCH (08:05)
[2017-09-29] MEDS: CEFEPIME 2 GM in SODIUM CHLORIDE 0.9% 50 ML IVPB SCH (08:09)
[2017-09-29] MEDS: LEVOFLOXACIN 500MG-D5W PMX 500 MG in DEXTROSE/WATER 1 100ML.BAG IVPB SCH (08:09)
--- NOTE | 2017-09-29 08:20 | XR ---
EXAMINATION TYPE: XR chest 1V portable DATE OF EXAM: 09/29/2017 Comparison: 09/28/[address] 06/28/2017 Clinical History: 62-year-old male Tube placement Findings: ET tube and NG tube are satisfactory. Left subclavian CVC tip at the cavoatrial junction. Heart borde rline enlarged. Diffuse interstitial opacities with some rounded lucencies suggesting background of C OPD. More confluent interstitial densities at the left base show some interval improvement. Nodular density peripheral left midlung, possible external artifact. Attention on follow-up. Addition al convex margin projecting at the right upper lung suspected external artifact relating to the exter nal device continuing horizontally along the left apex. Impression: 1. Mixed COPD and fibrosis with similar possibly superimposed acute interstitial infiltrate/edema. Ae ration seems to be improving slightly at the left base. 2. Nodularity at the left upper lobe suspected external artifact given that no dominant nodule was se en on the patient's HRCT of 06/28/2017. 3. Convex margin projecting at the right apex suspected external artifact rather than pneumothorax. T here is some external device that continues across the left apex. Attention on the patient's follow-u p.
[2017-09-29] MEDS ORDERED: FUROSEMIDE 10 MG/ML 10 ML VIAL IV STA (08:56)
[2017-09-29] MEDS: fentaNYL (PF) 2,500 MCG in SODIUM CHLORIDE 0.9% 200 ML IV SCH (09:13)
[2017-09-29 09:42] LABS: Glucose,Whole Blood 160 mg/dL (75-99)
--- NOTE | 2017-09-29 10:01 | P.PN ---
Subjective Patient is seen in follow-up for acute kidney injury. He remains oliguric. He was started on dialysis on September 26 and has been undergoing daily dialysis. He is noted to have Legionella pneumonia. Patient was intubated on September 24. He's off vasopressors. He is receiving tube feeds and is also maintained on normal saline at 30 mL an hour. Hemoglobin down to 6.9 today and he's scheduled to receive 1 unit of blood transfusion. Vital signs are stable. General: Intubated. HEENT: Head exam is unremarkable. Neck is without jugular venous distension. LUNGS: Scattered rhonchi. HEART: Rate and Rhythm are regular. First and second heart sounds normal. No murmurs, rubs or gallops. ABDOMEN: Abdominal exam reveals normal bowel sounds. Non-tender and non- distended. No evidence of peritonitis. EXTREMITITES: No clubbing, cyanosis, or edema. Objective - Vital Signs Vital signs: Vital Signs Temp 98.2 F 09/29/17 08:00 Pulse 81 09/29/17 09:00 Resp 37 H 09/29/17 09:00 BP 141/69 09/29/17 09:00 Pulse Ox 92 L 09/29/17 09:00 Intake & Output 09/28/17 09/29/17 09/29/17 18:59 06:59 18:59 Intake Total 1248.434 989.726 398.219 Output Total 2270 245 55 Balance -1021.566 744.726 343.219 Weight 75.8 kg 75.1 kg 75.1 kg Intake: IV 479 396 216 0.9 carriers 390 360 60 Cefepime 2 gm In Sodium 50 50 Chloride 0.9% 50 ml @ 100 mls/hr IVPB DAILY [facility] Rx #:[id number] Levofloxacin 500Mg-D5w 100 Pmx 500 mg In Dextrose/ Water 1 100ml.bag @ 100 mls/hr IVPB Q48H [facility] Rx#: [id number] pressure bag 0.9 39 36 6 Intake, IV Titration 391.434 155.726 95.219 Amount Insulin Regular 100 unit 78.259 43.110 0 In Sodium Chloride 0.9% 100 ml @ Per Protocol IV .Q0M [facility] Rx#:[id number] Propofol 1,000 mg In 87.384 112.616 71.01 Empty Bag 1 bag @ Titrate IV .Q0M [facility] Rx#: [id number] fentaNYL (PF) 2,500 mcg 225.791 24.209 In Sodium Chloride 0.9% 200 ml @ 100 MCG/HR 10 mls/hr IV .Q24H [facility] Rx#: [id number] Tube Feeding 348 348 87 Other 30 90 Output: Urine 270 245 55 Other 1999 Other: Voiding Method Indwelling Catheter Indwelling Catheter ABP, PAP, CO, CI - Last Documented Arterial Blood Pressure 139/54 - Labs CBC & Chem 7: 09/29/17 05:30 09/29/17 05:30 Labs: Abnormal Lab Results - Last 24 Hours (Table) 09/28/17 09/28/17 09/28/17 Range/Units 11:49 12:03 13:56 WBC (3.8-10.6) k/uL RBC (4.30-5.90) m/uL Hgb (13.0-17.5) gm/dL Hct (39.0-53.0) % RDW (11.5-15.5) % ABG pH (7.35-7.45) ABG pCO2 (35-45) mmHg ABG pO2 (83-108) mmHg ABG Total CO2 (19-24) mmol/L ABG O2 Saturation (94-97) % Sodium (137-145) mmol/L Potassium (3.5-5.1) mmol/L BUN (9-20) mg/dL Creatinine (0.66-1.25) mg/dL Glucose (74-99) mg/dL POC Glucose (mg/dL) 109 H 114 H 172 H (75-99) mg/dL Calcium (8.4-10.2) mg/dL Phosphorus (2.5-4.5) mg/dL Magnesium (1.6-2.3) mg/dL 09/28/17 09/28/17 09/28/17 Range/Units 15:15 15:53 16:51 WBC (3.8-10.6) k/uL RBC (4.30-5.90) m/uL Hgb (13.0-17.5) gm/dL Hct (39.0-53.0) % RDW (11.5-15.5) % ABG pH (7.35-7.45) ABG pCO2 (35-45) mmHg ABG pO2 (83-108) mmHg ABG Total CO2 (19-24) mmol/L ABG O2 Saturation (94-97) % Sodium (137-145) mmol/L Potassium (3.5-5.1) mmol/L BUN (9-20) mg/dL Creatinine (0.66-1.25) mg/dL Glucose (74-99) mg/dL POC Glucose (mg/dL) 188 H 192 H 191 H (75-99) mg/dL Calcium (8.4-10.2) mg/dL Phosphorus (2.5-4.5) mg/dL Magnesium (1.6-2.3) mg/dL 09/28/17 09/28/17 09/28/17 Range/Units 17:44 18:00 18:52 WBC (3.8-10.6) k/uL RBC (4.30-5.90) m/uL Hgb (13.0-17.5) gm/dL Hct (39.0-53.0) % RDW (11.5-15.5) % ABG pH (7.35-7.45) ABG pCO2 (35-45) mmHg ABG pO2 (83-108) mmHg ABG Total CO2 (19-24) mmol/L ABG O2 Saturation (94-97) % Sodium (137-145) mmol/L Potassium (3.5-5.1) mmol/L BUN (9-20) mg/dL Creatinine (0.66-1.25) mg/dL Glucose (74-99) mg/dL POC Glucose (mg/dL) 160 H 158 H 144 H (75-99) mg/dL Calcium (8.4-10.2) mg/dL Phosphorus (2.5-4.5) mg/dL Magnesium (1.6-2.3) mg/dL 09/28/17 09/28/17 09/28/17 Range/Units 19:48 20:45 21:56 WBC (3.8-10.6) k/uL RBC (4.30-5.90) m/uL Hgb (13.0-17.5) gm/dL Hct (39.0-53.0) % RDW (11.5-15.5) % ABG pH (7.35-7.45) ABG pCO2 (35-45) mmHg ABG pO2 (83-108) mmHg ABG Total CO2 (19-24) mmol/L ABG O2 Saturation (94-97) % Sodium (137-145) mmol/L Potassium (3.5-5.1) mmol/L BUN (9-20) mg/dL Creatinine (0.66-1.25) mg/dL Glucose (74-99) mg/dL POC Glucose (mg/dL) 126 H 107 H 129 H (75-99) mg/dL Calcium (8.4-10.2) mg/dL Phosphorus (2.5-4.5) mg/dL Magnesium (1.6-2.3) mg/dL 09/28/17 09/28/17 09/29/17 Range/Units 22:56 23:52 00:53 WBC (3.8-10.6) k/uL RBC (4.30-5.90) m/uL Hgb (13.0-17.5) gm/dL Hct (39.0-53.0) % RDW (11.5-15.5) % ABG pH (7.35-7.45) ABG pCO2 (35-45) mmHg ABG pO2 (83-108) mmHg ABG Total CO2 (19-24) mmol/L ABG O2 Saturation (94-97) % Sodium (137-145) mmol/L Potassium (3.5-5.1) mmol/L BUN (9-20) mg/dL Creatinine (0.66-1.25) mg/dL Glucose (74-99) mg/dL POC Glucose (mg/dL) 143 H 166 H 141 H (75-99) mg/dL Calcium (8.4-10.2) mg/dL Phosphorus (2.5-4.5) mg/dL Magnesium (1.6-2.3) mg/dL 09/29/17 09/29/17 09/29/17 Range/Units 01:43 02:51 04:07 WBC (3.8-10.6) k/uL RBC (4.30-5.90) m/uL Hgb (13.0-17.5) gm/dL Hct (39.0-53.0) % RDW (11.5-15.5) % ABG pH (7.35-7.45) ABG pCO2 (35-45) mmHg ABG pO2 (83-108) mmHg ABG Total CO2 (19-24) mmol/L ABG O2 Saturation (94-97) % Sodium (137-145) mmol/L Potassium (3.5-5.1) mmol/L BUN (9-20) mg/dL Creatinine (0.66-1.25) mg/dL Glucose (74-99) mg/dL POC Glucose (mg/dL) 117 H 127 H 154 H (75-99) mg/dL Calcium (8.4-10.2) mg/dL Phosphorus (2.5-4.5) mg/dL Magnesium (1.6-2.3) mg/dL 09/29/17 09/29/17 09/29/17 Range/Units 04:48 05:30 05:30 WBC 21.6 H (3.8-10.6) k/uL RBC 2.55 L (4.30-5.90) m/uL Hgb 6.9 L* (13.0-17.5) gm/dL Hct 21.8 L (39.0-53.0) % RDW 19.1 H (11.5-15.5) % ABG pH (7.35-7.45) ABG pCO2 (35-45) mmHg ABG pO2 (83-108) mmHg ABG Total CO2 (19-24) mmol/L ABG O2 Saturation (94-97) % Sodium 134 L (137-145) mmol/L Potassium 5.3 H (3.5-5.1) mmol/L BUN 81 H* (9-20) mg/dL Creatinine 3.80 H (0.66-1.25) mg/dL Glucose 119 H (74-99) mg/dL POC Glucose (mg/dL) 141 H (75-99) mg/dL Calcium 7.3 L (8.4-10.2) mg/dL Phosphorus 8.8 H* (2.5-4.5) mg/dL Magnesium 2.6 H (1.6-2.3) mg/dL 09/29/17 09/29/17 09/29/17 Range/Units 05:52 06:57 07:44 WBC (3.8-10.6) k/uL RBC (4.30-5.90) m/uL Hgb (13.0-17.5) gm/dL Hct (39.0-53.0) % RDW (11.5-15.5) % ABG pH 7.28 L (7.35-7.45) ABG pCO2 49 H (35-45) mmHg ABG pO2 276 H (83-108) mmHg ABG Total CO2 25 H (19-24) mmol/L ABG O2 Saturation 99.6 H (94-97) % Sodium (137-145) mmol/L Potassium (3.5-5.1) mmol/L BUN (9-20) mg/dL Creatinine (0.66-1.25) mg/dL Glucose (74-99) mg/dL POC Glucose (mg/dL) 126 H 120 H (75-99) mg/dL Calcium (8.4-10.2) mg/dL Phosphorus (2.5-4.5) mg/dL Magnesium (1.6-2.3) mg/dL 09/29/17 09/29/17 Range/Units 07:46 09:22 WBC (3.8-10.6) k/uL RBC (4.30-5.90) m/uL Hgb (13.0-17.5) gm/dL Hct (39.0-53.0) % RDW (11.5-15.5) % ABG pH (7.35-7.45) ABG pCO2 (35-45) mmHg ABG pO2 (83-108) mmHg ABG Total CO2 (19-24) mmol/L ABG O2 Saturation (94-97) % Sodium (137-145) mmol/L Potassium (3.5-5.1) mmol/L BUN (9-20) mg/dL Creatinine (0.66-1.25) mg/dL Glucose (74-99) mg/dL POC Glucose (mg/dL) 146 H 160 H (75-99) mg/dL Calcium (8.4-10.2) mg/dL Phosphorus (2.5-4.5) mg/dL Magnesium (1.6-2.3) mg/dL Microbiology - Last 24 Hours (Table) 09/23/17 12:40 Blood Culture - Preliminary Blood No Growth after 120 hours Assessment and Plan Plan: Assessment: 1. Oliguric acute kidney injury secondary to ATN secondary to sepsis/ hypotension. Urinalysis is quite benign. Creatinine up to 5.3 on September 26 and was started on hemodialysis. 2. Legionella pneumonia. Maintained on antibiotics. 3. Acute hypoxic respiratory failure secondary to pneumonia and ARDS. 4. History of pulmonary fibrosis. 5. Metabolic acidosis secondary to acute kidney injury. Improved. 6. Diabetes mellitus. 7. Hypotension, resolved. Off vasopressors. 8. Hyperkalemia secondary to metabolic acidosis and acute kidney injury. 9. Hyperphosphatemia secondary to acute kidney injury maintained on PhosLo. 10. Acute anemia scheduled to receive 1 unit of blood transfusion today. Plan: Maintain tube feeds. Avoid nephrotoxic agents and hypotensive episodes. Continue to monitor renal function and urine output closely. Wean FiO2 as tolerated. He is also received 2 doses of Lasix 80 mg IV with no significant response and urine output. Hemodialysis today with goal 2-2-1/2 L ultrafiltration. I will also give him a dose of IV DDAVP.
[2017-09-29 10:14] LABS: Glucose,Whole Blood 167 mg/dL (75-99)
[2017-09-29] MEDS ORDERED: DESMOPRESSIN ACETATE 4 MCG/ML VIAL (MDV) IVPB ONE (10:15)
[2017-09-29] MEDS ORDERED: DESMOPRESSIN INJ 24 MCG in SODIUM CHLORIDE 0.9% 50 ML IVPB ONE (10:30)
--- NOTE | 2017-09-29 11:50 | P.PN ---
Subjective Progress Note Date: 09/29/17 Principal diagnosis: Acute hypoxic respiratory failure secondary to bilateral pneumonia, ARDS, and underlying interstitial lung disease/pulmonary fibrosis. This is a 62-year-old male patient, 1 on my own patients from the office, was seen today in our office for increased shortness of breath. The patient comes in with a one-week history of cough, fever and chills and shortness of breath and his condition was progressively getting worse. The patient had a chest x- ray showed airspace disease in the right upper lobe and the left upper lobe worse compared to the previous chest x-rays was done our office. He was also found to be more hypoxic and his pulse ox was in the 70s on room air. Note that he was not on any home oxygen prior. The patient was seen in our office and he was advised to be admitted to the hospital for antibiotic treatment for possible pneumonia. For that reason he was sent over to the hospital and a pulmonary consultation was requested also. The initial blood work also showed a component of acute kidney injury. The patient's creatinine was up to 5.8. Upon further questioning, the patient reported that he was having migraine headaches and he was getting high dose Motrin for headaches and he has taken around 5-6 tablets. At the same time he was having some diarrhea approximately 3 days ago which ultimately subsided. Currently does not have any ongoing diarrhea and nausea vomiting or abdominal pain. The patient noted some diminished urine output over the past 24 hours. The patient is not known to have any previous history of kidney injury is of kidney failures. No nephrolithiasis. The patient also admitted to have exposure to a friend who was hospitalized down in amount, as for an underlying pneumonia. This patient is known to me. I saw him in consultation on 06/17/2017. The patient as part of further workup underwent a high-resolution CAT scan of the chest and upon review of the films there is extensive emphysema in the upper lobes bilaterally addition to subpleural pulmonary fibrosis involving the lower lobes and early changes of honeycombing in the lung bases. This was consistent with IPF based on the radiographic findings. The pulmonary function test showed an FVC of 74% and a total lung capacity of 64% with a diffusion capacity of 50% of predicted consistent with a component of restrictive lung disease. His room air pulse ox back then was 97% and the patient back then did not qualify for oxygen. The patient was trying to quit smoking. Based on the overall clinical picture, I recommended this patient to start on anti-fibrotic treatment and the patient was started on Ovef, nintadanib, after confirming the patient's liver function tests her baseline were within normal limits. He was asked to continue the Ventolin rescue inhaler mastoids basis. Smoking cessation counseling was also done in the office back in June 2017. 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 He is living in [facility]. He lives in a farm. He has outdoor animals including a goat and a Pig and a horse. He has no exposure to birds products. No exposure to chicken, pigeons or doves. On 09/22/2017 patient seen again in follow-up on medical surgical floor. Resting in bed, still complaining of weakness and fatigue. But overall is feeling better. Not bringing up any sputum, denies any chest wall tenderness, lung sounds are positive for coarse crackles over left lower lobe, no wheezing. Today's labs were reviewed, and a PVC 7.7, hemoglobin is 10.6, renal profile is improving, BUN is down to 60, creatinine is 4.29. Patient is remains on IV hydration, receiving 0.9 normal saline at a rate of 100 per hour. Patient remains on empiric coverage in the form of Azactam, and Levaquin, today's chest x-ray showed multifocal reticular opacity pneumonia in the left lower and left upper lobe On 09/23/2017, the patient was seen in follow-up. I noted that the patient was progressively getting more short of breath and lethargic. Earlier this morning the patient became significantly hypoxic and he desaturated. He was placed on 100% nonrebreather facemask. A chest x-ray was done and showed worsening of the right the pulmonary infiltrates with increased alveolar infiltrates in the left midlung zone on the left lower lobe as well as the right midlung area. Note that the patient was already covered with antibiotics and was receiving a combination of Levaquin and aztreonam. Afebrile. Hemodynamically stable currently 100% on a beta facemasks. Blood gases was done and showed a pH of 7.29 with a pCO2 of 37 and pO2 100%. The patient got transferred to the ICU. No chest pain. No fever. No chills. No nausea. No vomiting. No diarrhea. He was receiving normal saline at the rate of 100 mL an hour and the creatinine is down to 3.0. On 09/24/2017, the patient ICU yesterday because of worsening shortness of breath and respiratory failure and worsening oxygenation and hypoxic respiratory failure. The patient initially was on 100% nonrebreather facemask. He was placed on high flow oxygen and he failed and subsequently the patient was placed on a BiPAP at a pressure of 10/5 with an FiO2 of 100%. Earlier this morning he was breathing in the mid 40s and he was struggling to breathe and he was very short of breath using excessive muscle breathing and he was having periodic desaturations was pulsatile drop in the low 80s. At that point he was also diagnosed having Legionella pneumonia and a chest x-ray was getting worse. Progressive worsening of breath upon infiltrates and I suspect underlying IPF with a superimposed Legionella pneumonia and ARDS picture. I intubated this patient and put him on assist-control mode at the rate of 26 with a tidal volume of 400 with an FiO2 of 100% and a PEEP of 18. The patient is sedated with Diprivan and is calm and comfortable and hemodynamically stable. Blood gases and chest x-ray post intubation are still pending. Meanwhile a triple lumen catheter and a Artline Was also inserted for hemodynamic monitoring. As mentioned, the Legionella urine antigen was positive. The patient will be kept on cefepime and Levaquin combination. We'll discontinue the vancomycin. We'll continue the IV Solu-Medrol. We'll continue the supportive care. A bronchoscopy will be done to rule out any superimposed infection on top of his Legionella pneumonia. His white count is elevated at 16.7. Hemoglobin stable at 9.4. On 09/25/2017 the patient remains critically ill. He was intubated and placed on a mechanical ventilator. As mentioned, he has IPF and he is course was further complicated by Legionella pneumonia and secondary ARDS. This morning he is sedated with a combination of propofol and fentanyl. He is paralyzed with Nimbex. He is an assist-control mode of ventilation at the rate of 32, tidal volume of 380, FiO2 of 70% with a PEEP of 15. Peak airway pressures around 38. Static pressures around 36. Chest x-ray still showing diffuse but the pulmonary infiltrates. Bronchoscopy was done yesterday and the results of the bronchioloalveolar lavage are still pending. Meanwhile, the patient is on a combination of Levaquin and cefepime. The patient had a blood gases this morning that showed a pH of 7.03 with a pCO2 of 73 and pO2 of 132. Based on this I increased his tidal volume to 410. I also dropped FiO2 down to 60%. A repeat blood gas showed a pH of 7.11 with a pCO2 of 66 and pO2 of 109. He had a potassium of 6.2 today which was probably related to his acute renal failure and his acidosis. Based on this, he was given grams of bicarb, he was given D50 and insulin protocol, and he was started on a bicarb drip and currently bicarb is running at the rate of 75 mL an hour in the form of D5 with 3 ampules of sodium bicarbonate. This will hopefully counteract his respiratory acidosis. Repeat potassium level is down to 4.9. He is on pressors. He became hypotensive yesterday and currently is on norepinephrine infusion at the rate of 15 mics. The patient has diminished urine output in the order of 50-20 mL an hour. He is in a positive fluid balance and overnight he received a total of 2 L of additional IV fluids. His creatinine is up to 3.9. His white cell count is up to 32. Is on enteral feeding for nutritional support. He is critically ill. Family has been updated on his condition. On 09/26/2017, patient remains intubated, on mechanical ventilation, his ventilator settings are tidal volume of 410, assist control rate of 34, FiO2 of 50%, and PEEP is 15. ABG earlier today showed a pO2 of 106 and this was on 60% . PCO2 of 68, and pH of 7.14. Patient remains on Nimbex drip, he is also on fentanyl drip, and propofol. Hemodynamically stable, not requiring any norepinephrine at this point. As a matter of fact his blood pressure is elevated, and I recommended that we increase his fentanyl drip. Based on the ABG and based on his chest x-ray, patient is clearly not ready for any form of weaning trial or spontaneous breathing trial. He is not ready to be taken off Nimbex at this point yet. Patient remains on nutritional support via enteral feeding. He is fully sedated and paralyzed, microbiology remains negative so far including his bronchial washings and cultures. WBC count is down to 21.0 hemoglobin is 8.6. Continues to have significant bandemia of 9%. Renal functioning seems to be getting worse, and renal output is minimal. Hence the patient is going to be dialyzed today by nephrology. Again I have no plans to consider any weaning trials at this point. Reevaluated today on 09/27/2017, remains intubated, on mechanical ventilation. Ventilator settings are tidal volume of 410, assist control rate of 34 FiO2 50% PEEP was 15 and I cut it down to 12. ABG showed a pO2 of 110 pCO2 of 62 pH of 7.21, patient will be dialyzed again today, he is already on sodium bicarb tablets, and I cut down his PEEP from 15-12 since his pO2 is 110 today. The FiO2 at 50%. Renal functioning is worsening, patient is scheduled for dialysis today. WBC count is 19.9 hemoglobin is 8.0. Chest x-ray continues to show diffuse interstitial lung disease minimal improvement in aeration of both lungs. Patient is not requiring any pressors at this point. He is tolerating nutrition okay but frequently has been placed on hold because of high residual, hence I recommended starting Reglan and cutting down on the floor rate of his nutritional formula. Reevaluated today on 09/28/2017, remains on mechanical ventilation, ventilator settings are the same however the PEEP is down to 8. Remains on 50% FiO2, assist control rate of 34, tidal volume of 410. ABG this morning showed a pO2 of 96 pCO2 of 56 pH of 7.24. BUN is 81 creatinine 4.4, patient underwent dialysis and ultrafiltration, 2 L of fluids were removed. Chest x-ray continues to show interstitial lung disease, him improvement noted in the airspace disease involving the left upper lobe and right upper lobe. Considering the patient is down to a PEEP of 8 today, I have decided to discontinue Nimbex, but we'll continue propofol and fentanyl drip. All labs were reviewed, hemoglobin is 7.1, may consider blood transfusion if hemoglobin goes below 7. Cultures from his lavage and bronchoscopy remained negative. However patient has positive Legionella antigen in the urine. Patient clearly has a picture of idiopathic pulmonary fibrosis, and ARDS, and Legionella pneumonia. This is all contributing to his present condition of respiratory failure requiring intubation and mechanical ventilation. Patient was reevaluated today on 09/29/2017, remains on mechanical ventilation, same ventilator settings, FiO2 remains at 50%, PEEP is at 8, rate is 34 and tidal volume is 410. ABG this morning was showing significant improvement, however the patient did very poorly once the propofol was discontinued, and the patient became extremely agitated, restless, loss of secretions were written and the endotracheal tube, patient became tachypneic, tachycardic, and had to be placed back on propofol and fentanyl immediately. Could not tolerate slightest weaning off propofol. Nurse did not get a chance to assess his mental status had to place him back on propofol because of extreme agitation and desaturation placed back on the percent FiO2 for a short period of time. Diffuse interstitial lung disease is noted bilaterally. Labs were reviewed his ABG on on the percent FiO2 showed a pO2 of 276 pCO2 of 49 pH of 7.28. WBC count is 21.6 hemoglobin is 6.9 hence the patient will be given a unit of packed RBCs today. He was given DDAVP by nephrolog while on dialysis. Although the patient is not showing any signs of bleeding and no oozing around the dialysis catheter. Medications were all reviewed, they basically remained the same. Antibiotics darling remains on cefepime and Levaquin. Objective - Vital Signs Vital signs: Vital Signs Temp 98.2 F 09/29/17 08:00 Pulse 80 09/29/17 11:28 Resp 34 H 09/29/17 10:00 BP 117/57 09/29/17 10:00 Pulse Ox 93 L 09/29/17 10:00 Intake & Output 09/28/17 09/29/17 09/29/17 18:59 06:59 18:59 Intake Total 1248.434 989.726 489.219 Output Total 2270 245 75 Balance -1021.566 744.726 414.219 Weight 75.8 kg 75.1 kg 75.1 kg Intake: IV 479 396 249 0.9 carriers 390 360 90 Cefepime 2 gm In Sodium 50 50 Chloride 0.9% 50 ml @ 100 mls/hr IVPB DAILY [facility] Rx #:[id number] Levofloxacin 500Mg-D5w 100 Pmx 500 mg In Dextrose/ Water 1 100ml.bag @ 100 mls/hr IVPB Q48H [facility] Rx#: [id number] pressure bag 0.9 39 36 9 Intake, IV Titration 391.434 155.726 95.219 Amount Insulin Regular 100 unit 78.259 43.110 0 In Sodium Chloride 0.9% 100 ml @ Per Protocol IV .Q0M [facility] Rx#:[id number] Propofol 1,000 mg In 87.384 112.616 71.01 Empty Bag 1 bag @ Titrate IV .Q0M [facility] Rx#: [id number] fentaNYL (PF) 2,500 mcg 225.791 24.209 In Sodium Chloride 0.9% 200 ml @ 100 MCG/HR 10 mls/hr IV .Q24H [facility] Rx#: [id number] Tube Feeding 348 348 145 Other 30 90 Output: Urine 270 245 75 Other 2000 Other: Voiding Method Indwelling Catheter Indwelling Catheter Indwelling Catheter ABP, PAP, CO, CI - Last Documented Arterial Blood Pressure 139/54 - Exam Physical Exam: Revealed a 62-year-old white male, sedated and paralyzed, off Nimbex but he is on propofol and fentanyl. Head: Atraumatic, normocephalic. Endotracheal tube and orogastric tubes are intact. HEENT:[Neck is supple.] [No neck masses.] [No thyromegaly.] [No JVD.] Moist mucous membranes, PERRLA, EOMI, no icterus. Chest: [Crackles at the bases, no rhonchi, no wheezes. Symmetrical chest expansion was noted.] Cardiac Exam: [Normal S1 and S2, no S3 gallop, no murmur.] Abdomen: [Soft, nontender, no megaly, no rebound, no guarding, normal bowel sounds.] Extremities: [No clubbing, no edema, no cyanosis.] Neurological Exam: Cannot be assessed, patient is on propofol and fentanyl Lymphatics: No lymphadenopathy. Psychiatric: Could not be assessed. Skin: No rashes. Musculoskeletal: Could not be assessed. - Labs CBC & Chem 7: 09/29/17 05:30 09/29/17 05:30 Labs: Abnormal Lab Results - Last 24 Hours (Table) 09/28/17 09/28/17 09/28/17 Range/Units 11:49 12:03 13:56 WBC (3.8-10.6) k/uL RBC (4.30-5.90) m/uL Hgb (13.0-17.5) gm/dL Hct (39.0-53.0) % RDW (11.5-15.5) % ABG pH (7.35-7.45) ABG pCO2 (35-45) mmHg ABG pO2 (83-108) mmHg ABG Total CO2 (19-24) mmol/L ABG O2 Saturation (94-97) % Sodium (137-145) mmol/L Potassium (3.5-5.1) mmol/L BUN (9-20) mg/dL Creatinine (0.66-1.25) mg/dL Glucose (74-99) mg/dL POC Glucose (mg/dL) 109 H 114 H 172 H (75-99) mg/dL Calcium (8.4-10.2) mg/dL Phosphorus (2.5-4.5) mg/dL Magnesium (1.6-2.3) mg/dL Crossmatch 09/28/17 09/28/17 09/28/17 Range/Units 15:15 15:53 16:51 WBC (3.8-10.6) k/uL RBC (4.30-5.90) m/uL Hgb (13.0-17.5) gm/dL Hct (39.0-53.0) % RDW (11.5-15.5) % ABG pH (7.35-7.45) ABG pCO2 (35-45) mmHg ABG pO2 (83-108) mmHg ABG Total CO2 (19-24) mmol/L ABG O2 Saturation (94-97) % Sodium (137-145) mmol/L Potassium (3.5-5.1) mmol/L BUN (9-20) mg/dL Creatinine (0.66-1.25) mg/dL Glucose (74-99) mg/dL POC Glucose (mg/dL) 188 H 192 H 191 H (75-99) mg/dL Calcium (8.4-10.2) mg/dL Phosphorus (2.5-4.5) mg/dL Magnesium (1.6-2.3) mg/dL Crossmatch 09/28/17 09/28/17 09/28/17 Range/Units 17:44 18:00 18:52 WBC (3.8-10.6) k/uL RBC (4.30-5.90) m/uL Hgb (13.0-17.5) gm/dL Hct (39.0-53.0) % RDW (11.5-15.5) % ABG pH (7.35-7.45) ABG pCO2 (35-45) mmHg ABG pO2 (83-108) mmHg ABG Total CO2 (19-24) mmol/L ABG O2 Saturation (94-97) % Sodium (137-145) mmol/L Potassium (3.5-5.1) mmol/L BUN (9-20) mg/dL Creatinine (0.66-1.25) mg/dL Glucose (74-99) mg/dL POC Glucose (mg/dL) 160 H 158 H 144 H (75-99) mg/dL Calcium (8.4-10.2) mg/dL Phosphorus (2.5-4.5) mg/dL Magnesium (1.6-2.3) mg/dL Crossmatch 09/28/17 09/28/17 09/28/17 Range/Units 19:48 20:45 21:56 WBC (3.8-10.6) k/uL RBC (4.30-5.90) m/uL Hgb (13.0-17.5) gm/dL Hct (39.0-53.0) % RDW (11.5-15.5) % ABG pH (7.35-7.45) ABG pCO2 (35-45) mmHg ABG pO2 (83-108) mmHg ABG Total CO2 (19-24) mmol/L ABG O2 Saturation (94-97) % Sodium (137-145) mmol/L Potassium (3.5-5.1) mmol/L BUN (9-20) mg/dL Creatinine (0.66-1.25) mg/dL Glucose (74-99) mg/dL POC Glucose (mg/dL) 126 H 107 H 129 H (75-99) mg/dL Calcium (8.4-10.2) mg/dL Phosphorus (2.5-4.5) mg/dL Magnesium (1.6-2.3) mg/dL Crossmatch 09/28/17 09/28/17 09/29/17 Range/Units 22:56 23:52 00:53 WBC (3.8-10.6) k/uL RBC (4.30-5.90) m/uL Hgb (13.0-17.5) gm/dL Hct (39.0-53.0) % RDW (11.5-15.5) % ABG pH (7.35-7.45) ABG pCO2 (35-45) mmHg ABG pO2 (83-108) mmHg ABG Total CO2 (19-24) mmol/L ABG O2 Saturation (94-97) % Sodium (137-145) mmol/L Potassium (3.5-5.1) mmol/L BUN (9-20) mg/dL Creatinine (0.66-1.25) mg/dL Glucose (74-99) mg/dL POC Glucose (mg/dL) 143 H 166 H 141 H (75-99) mg/dL Calcium (8.4-10.2) mg/dL Phosphorus (2.5-4.5) mg/dL Magnesium (1.6-2.3) mg/dL Crossmatch 09/29/17 09/29/17 09/29/17 Range/Units 01:43 02:51 04:07 WBC (3.8-10.6) k/uL RBC (4.30-5.90) m/uL Hgb (13.0-17.5) gm/dL Hct (39.0-53.0) % RDW (11.5-15.5) % ABG pH (7.35-7.45) ABG pCO2 (35-45) mmHg ABG pO2 (83-108) mmHg ABG Total CO2 (19-24) mmol/L ABG O2 Saturation (94-97) % Sodium (137-145) mmol/L Potassium (3.5-5.1) mmol/L BUN (9-20) mg/dL Creatinine (0.66-1.25) mg/dL Glucose (74-99) mg/dL POC Glucose (mg/dL) 117 H 127 H 154 H (75-99) mg/dL Calcium (8.4-10.2) mg/dL Phosphorus (2.5-4.5) mg/dL Magnesium (1.6-2.3) mg/dL Crossmatch 09/29/17 09/29/17 09/29/17 Range/Units 04:48 05:30 05:30 WBC 21.6 H (3.8-10.6) k/uL RBC 2.55 L (4.30-5.90) m/uL Hgb 6.9 L* (13.0-17.5) gm/dL Hct 21.8 L (39.0-53.0) % RDW 19.1 H (11.5-15.5) % ABG pH (7.35-7.45) ABG pCO2 (35-45) mmHg ABG pO2 (83-108) mmHg ABG Total CO2 (19-24) mmol/L ABG O2 Saturation (94-97) % Sodium 134 L (137-145) mmol/L Potassium 5.3 H (3.5-5.1) mmol/L BUN 81 H* (9-20) mg/dL Creatinine 3.80 H (0.66-1.25) mg/dL Glucose 119 H (74-99) mg/dL POC Glucose (mg/dL) 141 H (75-99) mg/dL Calcium 7.3 L (8.4-10.2) mg/dL Phosphorus 8.8 H* (2.5-4.5) mg/dL Magnesium 2.6 H (1.6-2.3) mg/dL Crossmatch 09/29/17 09/29/17 09/29/17 Range/Units 05:52 06:57 07:44 WBC (3.8-10.6) k/uL RBC (4.30-5.90) m/uL Hgb (13.0-17.5) gm/dL Hct (39.0-53.0) % RDW (11.5-15.5) % ABG pH 7.28 L (7.35-7.45) ABG pCO2 49 H (35-45) mmHg ABG pO2 276 H (83-108) mmHg ABG Total CO2 25 H (19-24) mmol/L ABG O2 Saturation 99.6 H (94-97) % Sodium (137-145) mmol/L Potassium (3.5-5.1) mmol/L BUN (9-20) mg/dL Creatinine (0.66-1.25) mg/dL Glucose (74-99) mg/dL POC Glucose (mg/dL) 126 H 120 H (75-99) mg/dL Calcium (8.4-10.2) mg/dL Phosphorus (2.5-4.5) mg/dL Magnesium (1.6-2.3) mg/dL Crossmatch 09/29/17 09/29/17 09/29/17 Range/Units 07:46 09:20 09:22 WBC (3.8-10.6) k/uL RBC (4.30-5.90) m/uL Hgb (13.0-17.5) gm/dL Hct (39.0-53.0) % RDW (11.5-15.5) % ABG pH (7.35-7.45) ABG pCO2 (35-45) mmHg ABG pO2 (83-108) mmHg ABG Total CO2 (19-24) mmol/L ABG O2 Saturation (94-97) % Sodium (137-145) mmol/L Potassium (3.5-5.1) mmol/L BUN (9-20) mg/dL Creatinine (0.66-1.25) mg/dL Glucose (74-99) mg/dL POC Glucose (mg/dL) 146 H 160 H (75-99) mg/dL Calcium (8.4-10.2) mg/dL Phosphorus (2.5-4.5) mg/dL Magnesium (1.6-2.3) mg/dL Crossmatch See Detail 09/29/17 Range/Units 09:54 WBC (3.8-10.6) k/uL RBC (4.30-5.90) m/uL Hgb (13.0-17.5) gm/dL Hct (39.0-53.0) % RDW (11.5-15.5) % ABG pH (7.35-7.45) ABG pCO2 (35-45) mmHg ABG pO2 (83-108) mmHg ABG Total CO2 (19-24) mmol/L ABG O2 Saturation (94-97) % Sodium (137-145) mmol/L Potassium (3.5-5.1) mmol/L BUN (9-20) mg/dL Creatinine (0.66-1.25) mg/dL Glucose (74-99) mg/dL POC Glucose (mg/dL) 167 H (75-99) mg/dL Calcium (8.4-10.2) mg/dL Phosphorus (2.5-4.5) mg/dL Magnesium (1.6-2.3) mg/dL Crossmatch Microbiology - Last 24 Hours (Table) 09/23/17 12:40 Blood Culture - Preliminary Blood No Growth after 120 hours Assessment and Plan Assessment: 1 acute hypoxic secondary to Legionella pneumonia, ARDS, and idiopathic pulmonary fibrosis. As well as underlying COPD,emphysema. 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 Renal function continues to be impaired with a creatinine of 3.9 and the patient has become oliguric condition to an underlying component of respiratory and metabolic acidosis currently on a bicarb orally, and being dialyzed on a every other day basis. Patient will be dialyzed today. 5 acute hypotension possibly secondary to underlying sepsis resolved 6 diabetes mellitus, on insulin drip for BS control 7 smoker 8 depression 9 abnormal LFTs, improved 10 hypertension 11 acid reflux 12 non-anion gap metabolic acidosis, resolved. 13 chronic anemia, patient will be given a unit of blood today for hemoglobin of 6.9 Recommendation: Continue ventilatory support, continue antibiotics , patient remains on cefepime, and Levaquin. Continue nutritional support, PEEP will stay at 8, , continue propofol and fentanyl drip, continue GI and DVT prophylaxis. Patient remains critically ill, we'll update the family on his condition today again. Prognosis remains very poor and guarded. Patient again is critically ill, and critical care time is 32 minutes. Time with Patient: Greater than 30
[2017-09-29 11:52] LABS: Glucose,Whole Blood 101 mg/dL (75-99)
[2017-09-29 14:04] LABS: Glucose,Whole Blood 103 mg/dL (75-99)
[2017-09-29 14:44] LABS: Glucose,Whole Blood 126 mg/dL (75-99)
[2017-09-29 15:25] LABS: Glucose,Whole Blood 135 mg/dL (75-99)
[2017-09-29 15:41] VITALS: BMI 27.5
[2017-09-29 15:59] LABS: Glucose,Whole Blood 135 mg/dL (75-99)
[2017-09-29 16:59] LABS: Glucose,Whole Blood 148 mg/dL (75-99)
[2017-09-29 18:07] LABS: Glucose,Whole Blood 146 mg/dL (75-99)
[2017-09-29 19:16] LABS: Glucose,Whole Blood 131 mg/dL (75-99)
--- NOTE | 2017-09-29 19:58 | PN ---
PROGRESS NOTE DATE OF SERVICE: 09/29/2017 FULL CODE. White male, . Height 5 feet 5 inches, weight 75.1 kg. BSA 1.83 m2. BMI 27.6 kg/m2. ALLERGIES: PENICILLIN AND ASPARTAME. The patient was seen and evaluated in the ICU before he was transferred from [facility] to [facility]. The patient is still on the ventilator with the underlying legionella pneumonia, bilateral, as well as interstitial pulmonary disease and fibrosis. He has also acute kidney injury with anuria and was started on hemodialysis by Dr. Pierre . He received his third dialysis today. The dialysis catheter was placed by the vascular surgeon, Dr. Phillips. The patient is monitored by Critical Care and Pulmonary; before Dr. Cervantes and now Dr. Castro. Infectious Disease, Dr. Nimesh Mcdermott, is adjusting his antibiotic. Nephrology is currently Dr. Pierre. On exam today, the patient is still under analgesic effect. The paralyzing medication has been discontinued. He is on an orogastric tube and he is fed through it with protein high-calorie mixture. Today his temperature was 98.4 Fahrenheit orally, his heart rate 77, sinus and regular, his respiratory rate 32 on the vent, his blood pressure 110/60 with a mean 76 and repeat 137/57 with oxygen saturation with mechanical ventilation 99%. His FiO2 was 50%. His parameters have been adjusted by Dr. Castro. His diabetes mellitus has been monitored with CBG and he is on insulin drip and the blood sugar today was ranging from 103 to 148 with good control. His last ABGs indicated a pH of 7.28, still acidotic, pCO2 of 49, PO2 of 276, and bicarb was 23. The carbon dioxide was 25 and oxygen saturation was 99.6 with the base excess -3.4 with FiO2 of 50%. The CBC done in the morning indicated white count 21.6, RBC 2.55, hemoglobin 6.9, which dropped, and platelet count 290. His chemistry indicated sodium 134, potassium 5.3, chloride 101, carbon dioxide 23, anion gap 10 and BUN of 81, creatinine 3.80. Glucose 119, calcium 7.3, phosphorus 8.8 and magnesium 2.6. That has been managed with the dialysis and Dr. Pierre, Nephrology. PHYSICAL EXAMINATION: The patient is sedated. He has the orogastric tube with the supplement. His chest is aerated with bilateral rales. HEART: Regular sinus rhythm. ABDOMEN: Soft, nontender. Positive bowel sounds. EXTREMITIES: No edema. He has the swelling and he has been pulling out ultrafiltration fluid during dialysis. Skin was pale. Conjunctivae were pale with the underlying drop of the hemoglobin. 1. Dr. Jessica Castro, Pulmonary and Critical, indicates in his assessment that he had acute hypoxic secondary to legionella pneumonia, ARDS, idiopathic pulmonary fibrosis as well as COPD and emphysema. 2. He had idiopathic pulmonary fibrosis involving the lung bases and he was on antifibrotic treatment OVEF as outpatient. 3. Chronic obstructive pulmonary disease and bullous emphysema involving the left lobe bilaterally. 4. Acute kidney injury due to component of intravascular volume depletion, diarrhea. 5. In addition to non-steroidal anti-inflammatory medication, renal function continued to be impaired with creatinine 3.9. He became oliguric and underwent dialysis. 6. Metabolic acidosis. 7. Acute hypotension secondary to underlying sepsis. 8. Diabetes mellitus with insulin drip. 9. History of smoking. 10.Depression. 11.Abnormal liver function. 12.Acid reflux. 13.[id number] metabolic acidosis. That has resolved with the current respiratory acidosis, mild. He continues with ventilatory support and continues the antibiotic. Patient currently remains on cefepime and Levaquin, nutritional support, the PEEP down to 8, and he continues propofol and fentanyl drip. GI and DVT prophylaxis. The patient remains critically ill. He stated that he will update the family with his condition. The prognosis is very poor and guarded. Also patient was seen today by the blast furnace auxiliaries supervisor, Dr. Pierre, and his note indicates that the patient remains oliguric. He started the dialysis on September 26 and he was undergoing dialysis daily. He was intubated on September 24. He is off the vasodepressor. Hemoglobin is 6.9. He received one unit of blood transfusion. IMPRESSION: 1. Oliguric acute kidney injury secondary to acute tubular necrosis and due to sepsis. Creatinine was up to 5.3 on September 26 when he started the hemodialysis. 2. Legionella pneumonia, maintained on antibiotic. 3. Acute hypoxic respiratory failure secondary to pneumonia and ARDS. 4. History of pulmonary fibrosis. 5. Metabolic acidosis secondary to acute kidney injury, improved. 6. Diabetes mellitus. 7. Hypotension, resolved. He is off the vasodepressor. 8. Hyperkalemia secondary to metabolic acidosis and acute kidney injury. 9. Hyperphosphatemia secondary to acute kidney injury and maintained on PhosLo. 10.Acute anemia. He is scheduled to receive one unit of packed RBCs today. RECOMMENDATION: Continuation of the dialysis and ultrafiltration with pulling out 2 to 2.5 L. He received a dose of DDAVP as well. Monitoring the renal function and the urine output. Avoid nephrotoxic agents and hypotension. CONCLUSION: The patient still is in critical position, with his assessment as mentioned above. His prognosis is guarded to poor. He is still maintained in the ICU. NOTE: I will be out of town and Dr. Yao Beavers will be following the patient, starting tomorrow morning until my return on Tuesday. He will see the patient on the weekend, as he is electronic device monitor, as well as next Tuesday. YOSEPH / TIFFANY: [id number] / MTDD
[2017-09-29 20:20] LABS: Glucose,Whole Blood 151 mg/dL (75-99)
[2017-09-29] MEDS: ATORVASTATIN 40 MG TAB PO SCH (21:14)
[2017-09-29] MEDS: ASPIRIN 81 MG PO SCH (21:14)
[2017-09-29 21:39] LABS: Glucose,Whole Blood 162 mg/dL (75-99)
[2017-09-29 22:23] LABS: Glucose,Whole Blood 172 mg/dL (75-99)
[2017-09-29] MEDS ORDERED: PROPOFOL 10 MG/ML 100 ML VIAL IV ONE ×2 (22:30)
[2017-09-30] MEDS ORDERED: methylPREDNISolone SOD SUCCI 40 MG/ML 1 ML VIAL ONE
[2017-09-30] MEDS ORDERED: PROPOFOL 10 MG/ML 100 ML VIAL IV ONE ×2
[2017-09-30] MEDS ORDERED: HEPARIN SODIUM,PORCINE 5,000 UNIT/ML 1 ML VIAL ONE
[2017-09-30] MEDS ORDERED: METOCLOPRAMIDE 5 MG/ML 2 ML VIAL ONE
[2017-09-30 00:15] LABS: Glucose,Whole Blood 138 mg/dL (75-99)
[2017-09-30 01:38] LABS: Glucose,Whole Blood 137 mg/dL (75-99)
[2017-09-30 03:14] LABS: Glucose,Whole Blood 159 mg/dL (75-99)
[2017-09-30 04:12] LABS: Glucose,Whole Blood 167 mg/dL (75-99)
[2017-09-30 05:23] LABS: Glucose,Whole Blood 166 mg/dL (75-99)
[2017-09-30 05:28] LABS: Anisocytosis Slight; HCT 23.1 % (39.0-53.0); HGB 7.6 gm/dL (13.0-17.5); MCHC 32.6 g/dL (31.0-37.0); MCV 85.9 fL (80.0-100.0); Mean Platelet Volume 8.1; Platelet Count 260 k/uL (150-450); RBC 2.69 m/uL (4.30-5.90); RDW 18.5 % (11.5-15.5); WBC 23.5 k/uL (3.8-10.6)
[2017-09-30 06:31] LABS: Calcium 7.4 mg/dL (8.4-10.2); Magnesium 2.5 mg/dL (1.6-2.3)
[2017-09-30 06:43] LABS: Phosphorus 8.2 mg/dL (2.5-4.5)
[2017-09-30 06:49] LABS: Glucose,Whole Blood 144 mg/dL (75-99)
[2017-09-30 07:26] LABS: ABG Base Excess -3.4 mmol/L; ABG HCO3 23 mmol/L (21-25); ABG Oxygen Saturation 97.9 % (94-97); ABG PCO2 47 mmHg (35-45); ABG PO2 108 mmHg (83-108); ABG TCO2 25 mmol/L (19-24)
--- NOTE | 2017-09-30 08:09 | XR ---
EXAMINATION TYPE: XR chest 1V portable DATE OF EXAM: 09/30/2017 COMPARISON: 09/29/2017 HISTORY: Shortness of breath. Ventilatory dependent respiratory failure. TECHNIQUE: Single frontal view of the chest is obtained. FINDINGS: The previously seen density overlying the right lung apex represented external tubing as n o pneumothorax is seen on today's examination. Endotracheal tube, enteric tube and left subclavian ce ntral venous catheter appropriately placed. Unchanged diffuse interstitial reticular opacities throug hout the lungs most confluent in the left lower lobe. Cardia mediastinal silhouette is again enlarged . Moderate degenerative changes of the thoracic spine are noted. IMPRESSION: Persistent and unchanged diffuse reticular interstitial opacities again there is continu ed suspicion of chronic fibrosis an interstitial lung disease with superimposed acute pneumonitis.
[2017-09-30] MEDS: INSULIN REGULAR 100 UNIT in SODIUM CHLORIDE 0.9% 100 ML IV SCH (08:15)
[2017-09-30 08:43] LABS: Glucose,Whole Blood 127 mg/dL (75-99)
[2017-09-30] MEDS: BUDESONIDE 0.5 MG/2 ML NEBU INHALATION SCH ×2 (08:54→20:25)
[2017-09-30] MEDS: IPRATROPIUM-ALBUTEROL 3 ML NEB INHALATION SCH ×4 (08:54→20:25)
[2017-09-30 10:09] LABS: Glucose,Whole Blood 151 mg/dL (75-99)
[2017-09-30] MEDS: HEPARIN SODIUM,PORCINE 5,000 UNIT/ML 1 ML VIAL SQ SCH ×3 (10:22→16:33)
[2017-09-30] MEDS: METOCLOPRAMIDE 5 MG/ML 2 ML VIAL IVP SCH ×4 (10:22→19:01)
[2017-09-30] MEDS: methylPREDNISolone SOD SUCCI 40 MG/ML 1 ML VIAL IV SCH ×3 (10:22→16:32)
[2017-09-30] MEDS: ARTIFICIAL TEARS-HYPROMELLOSE DROPS 15 ML BTL BOTH EYES SCH ×6 (10:22→20:30)
[2017-09-30] MEDS: PANTOPRAZOLE 40 MG TABLET PO SCH (10:24)
[2017-09-30] MEDS: CALCIUM ACETATE 667 MG CAP PO SCH ×3 (10:24→16:33)
[2017-09-30] MEDS: CEFEPIME 2 GM in SODIUM CHLORIDE 0.9% 50 ML IVPB SCH (10:25)
[2017-09-30] MEDS: buPROPion 75 MG TAB PO SCH ×2 (10:25→20:32)
[2017-09-30] MEDS: NYSTATIN 100,000 UNIT/ML SUSP 500,000 UNIT/5 ML CUP PO SCH ×4 (10:47→21:02)
[2017-09-30] MEDS: lamoTRIgine 100 MG TAB PO SCH (10:47)
[2017-09-30] MEDS: SODIUM BICARBONATE TAB 650 MG TAB PO SCH ×3 (10:47→21:03)
[2017-09-30] MEDS: ESCITALOPRAM 20 MG TAB PO SCH (10:47)
[2017-09-30] MEDS: CHLORHEXIDINE GLUCONATE 15 ML CUP MUCOUS MEM SCH ×2 (10:47→20:32)
--- NOTE | 2017-09-30 11:10 | P.PN ---
Subjective Progress Note Date: 09/30/17 Principal diagnosis: Acute hypoxic respiratory failure secondary to bilateral pneumonia, ARDS, and underlying interstitial lung disease/pulmonary fibrosis. This is a 62-year-old male patient, 1 on my own patients from the office, was seen today in our office for increased shortness of breath. The patient comes in with a one-week history of cough, fever and chills and shortness of breath and his condition was progressively getting worse. The patient had a chest x- ray showed airspace disease in the right upper lobe and the left upper lobe worse compared to the previous chest x-rays was done our office. He was also found to be more hypoxic and his pulse ox was in the 70s on room air. Note that he was not on any home oxygen prior. The patient was seen in our office and he was advised to be admitted to the hospital for antibiotic treatment for possible pneumonia. For that reason he was sent over to the hospital and a pulmonary consultation was requested also. The initial blood work also showed a component of acute kidney injury. The patient's creatinine was up to 5.8. Upon further questioning, the patient reported that he was having migraine headaches and he was getting high dose Motrin for headaches and he has taken around 5-6 tablets. At the same time he was having some diarrhea approximately 3 days ago which ultimately subsided. Currently does not have any ongoing diarrhea and nausea vomiting or abdominal pain. The patient noted some diminished urine output over the past 24 hours. The patient is not known to have any previous history of kidney injury is of kidney failures. No nephrolithiasis. The patient also admitted to have exposure to a friend who was hospitalized down in amount, as for an underlying pneumonia. This patient is known to me. I saw him in consultation on 06/17/2017. The patient as part of further workup underwent a high-resolution CAT scan of the chest and upon review of the films there is extensive emphysema in the upper lobes bilaterally addition to subpleural pulmonary fibrosis involving the lower lobes and early changes of honeycombing in the lung bases. This was consistent with IPF based on the radiographic findings. The pulmonary function test showed an FVC of 74% and a total lung capacity of 64% with a diffusion capacity of 50% of predicted consistent with a component of restrictive lung disease. His room air pulse ox back then was 97% and the patient back then did not qualify for oxygen. The patient was trying to quit smoking. Based on the overall clinical picture, I recommended this patient to start on anti-fibrotic treatment and the patient was started on Ovef, nintadanib, after confirming the patient's liver function tests her baseline were within normal limits. He was asked to continue the Ventolin rescue inhaler mastoids basis. Smoking cessation counseling was also done in the office back in June 2017. 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 He is living in [facility]. He lives in a farm. He has outdoor animals including a goat and a Pig and a horse. He has no exposure to birds products. No exposure to chicken, pigeons or doves. On 09/22/2017 patient seen again in follow-up on medical surgical floor. Resting in bed, still complaining of weakness and fatigue. But overall is feeling better. Not bringing up any sputum, denies any chest wall tenderness, lung sounds are positive for coarse crackles over left lower lobe, no wheezing. Today's labs were reviewed, and a PVC 7.7, hemoglobin is 10.6, renal profile is improving, BUN is down to 60, creatinine is 4.29. Patient is remains on IV hydration, receiving 0.9 normal saline at a rate of 100 per hour. Patient remains on empiric coverage in the form of Azactam, and Levaquin, today's chest x-ray showed multifocal reticular opacity pneumonia in the left lower and left upper lobe On 09/23/2017, the patient was seen in follow-up. I noted that the patient was progressively getting more short of breath and lethargic. Earlier this morning the patient became significantly hypoxic and he desaturated. He was placed on 100% nonrebreather facemask. A chest x-ray was done and showed worsening of the right the pulmonary infiltrates with increased alveolar infiltrates in the left midlung zone on the left lower lobe as well as the right midlung area. Note that the patient was already covered with antibiotics and was receiving a combination of Levaquin and aztreonam. Afebrile. Hemodynamically stable currently 100% on a beta facemasks. Blood gases was done and showed a pH of 7.29 with a pCO2 of 37 and pO2 100%. The patient got transferred to the ICU. No chest pain. No fever. No chills. No nausea. No vomiting. No diarrhea. He was receiving normal saline at the rate of 100 mL an hour and the creatinine is down to 3.0. On 09/24/2017, the patient ICU yesterday because of worsening shortness of breath and respiratory failure and worsening oxygenation and hypoxic respiratory failure. The patient initially was on 100% nonrebreather facemask. He was placed on high flow oxygen and he failed and subsequently the patient was placed on a BiPAP at a pressure of 10/5 with an FiO2 of 100%. Earlier this morning he was breathing in the mid 40s and he was struggling to breathe and he was very short of breath using excessive muscle breathing and he was having periodic desaturations was pulsatile drop in the low 80s. At that point he was also diagnosed having Legionella pneumonia and a chest x-ray was getting worse. Progressive worsening of breath upon infiltrates and I suspect underlying IPF with a superimposed Legionella pneumonia and ARDS picture. I intubated this patient and put him on assist-control mode at the rate of 26 with a tidal volume of 400 with an FiO2 of 100% and a PEEP of 18. The patient is sedated with Diprivan and is calm and comfortable and hemodynamically stable. Blood gases and chest x-ray post intubation are still pending. Meanwhile a triple lumen catheter and a Artline Was also inserted for hemodynamic monitoring. As mentioned, the Legionella urine antigen was positive. The patient will be kept on cefepime and Levaquin combination. We'll discontinue the vancomycin. We'll continue the IV Solu-Medrol. We'll continue the supportive care. A bronchoscopy will be done to rule out any superimposed infection on top of his Legionella pneumonia. His white count is elevated at 16.7. Hemoglobin stable at 9.4. On 09/25/2017 the patient remains critically ill. He was intubated and placed on a mechanical ventilator. As mentioned, he has IPF and he is course was further complicated by Legionella pneumonia and secondary ARDS. This morning he is sedated with a combination of propofol and fentanyl. He is paralyzed with Nimbex. He is an assist-control mode of ventilation at the rate of 32, tidal volume of 380, FiO2 of 70% with a PEEP of 15. Peak airway pressures around 38. Static pressures around 36. Chest x-ray still showing diffuse but the pulmonary infiltrates. Bronchoscopy was done yesterday and the results of the bronchioloalveolar lavage are still pending. Meanwhile, the patient is on a combination of Levaquin and cefepime. The patient had a blood gases this morning that showed a pH of 7.03 with a pCO2 of 73 and pO2 of 132. Based on this I increased his tidal volume to 410. I also dropped FiO2 down to 60%. A repeat blood gas showed a pH of 7.11 with a pCO2 of 66 and pO2 of 109. He had a potassium of 6.2 today which was probably related to his acute renal failure and his acidosis. Based on this, he was given grams of bicarb, he was given D50 and insulin protocol, and he was started on a bicarb drip and currently bicarb is running at the rate of 75 mL an hour in the form of D5 with 3 ampules of sodium bicarbonate. This will hopefully counteract his respiratory acidosis. Repeat potassium level is down to 4.9. He is on pressors. He became hypotensive yesterday and currently is on norepinephrine infusion at the rate of 15 mics. The patient has diminished urine output in the order of 50-20 mL an hour. He is in a positive fluid balance and overnight he received a total of 2 L of additional IV fluids. His creatinine is up to 3.9. His white cell count is up to 32. Is on enteral feeding for nutritional support. He is critically ill. Family has been updated on his condition. On 09/26/2017, patient remains intubated, on mechanical ventilation, his ventilator settings are tidal volume of 410, assist control rate of 34, FiO2 of 50%, and PEEP is 15. ABG earlier today showed a pO2 of 106 and this was on 60% . PCO2 of 68, and pH of 7.14. Patient remains on Nimbex drip, he is also on fentanyl drip, and propofol. Hemodynamically stable, not requiring any norepinephrine at this point. As a matter of fact his blood pressure is elevated, and I recommended that we increase his fentanyl drip. Based on the ABG and based on his chest x-ray, patient is clearly not ready for any form of weaning trial or spontaneous breathing trial. He is not ready to be taken off Nimbex at this point yet. Patient remains on nutritional support via enteral feeding. He is fully sedated and paralyzed, microbiology remains negative so far including his bronchial washings and cultures. WBC count is down to 21.0 hemoglobin is 8.6. Continues to have significant bandemia of 9%. Renal functioning seems to be getting worse, and renal output is minimal. Hence the patient is going to be dialyzed today by nephrology. Again I have no plans to consider any weaning trials at this point. Reevaluated today on 09/27/2017, remains intubated, on mechanical ventilation. Ventilator settings are tidal volume of 410, assist control rate of 34 FiO2 50% PEEP was 15 and I cut it down to 12. ABG showed a pO2 of 110 pCO2 of 62 pH of 7.21, patient will be dialyzed again today, he is already on sodium bicarb tablets, and I cut down his PEEP from 15-12 since his pO2 is 110 today. The FiO2 at 50%. Renal functioning is worsening, patient is scheduled for dialysis today. WBC count is 19.9 hemoglobin is 8.0. Chest x-ray continues to show diffuse interstitial lung disease minimal improvement in aeration of both lungs. Patient is not requiring any pressors at this point. He is tolerating nutrition okay but frequently has been placed on hold because of high residual, hence I recommended starting Reglan and cutting down on the floor rate of his nutritional formula. Reevaluated today on 09/28/2017, remains on mechanical ventilation, ventilator settings are the same however the PEEP is down to 8. Remains on 50% FiO2, assist control rate of 34, tidal volume of 410. ABG this morning showed a pO2 of 96 pCO2 of 56 pH of 7.24. BUN is 81 creatinine 4.4, patient underwent dialysis and ultrafiltration, 2 L of fluids were removed. Chest x-ray continues to show interstitial lung disease, him improvement noted in the airspace disease involving the left upper lobe and right upper lobe. Considering the patient is down to a PEEP of 8 today, I have decided to discontinue Nimbex, but we'll continue propofol and fentanyl drip. All labs were reviewed, hemoglobin is 7.1, may consider blood transfusion if hemoglobin goes below 7. Cultures from his lavage and bronchoscopy remained negative. However patient has positive Legionella antigen in the urine. Patient clearly has a picture of idiopathic pulmonary fibrosis, and ARDS, and Legionella pneumonia. This is all contributing to his present condition of respiratory failure requiring intubation and mechanical ventilation. Patient was reevaluated today on 09/29/2017, remains on mechanical ventilation, same ventilator settings, FiO2 remains at 50%, PEEP is at 8, rate is 34 and tidal volume is 410. ABG this morning was showing significant improvement, however the patient did very poorly once the propofol was discontinued, and the patient became extremely agitated, restless, loss of secretions were written and the endotracheal tube, patient became tachypneic, tachycardic, and had to be placed back on propofol and fentanyl immediately. Could not tolerate slightest weaning off propofol. Nurse did not get a chance to assess his mental status had to place him back on propofol because of extreme agitation and desaturation placed back on the percent FiO2 for a short period of time. Diffuse interstitial lung disease is noted bilaterally. Labs were reviewed his ABG on on the percent FiO2 showed a pO2 of 276 pCO2 of 49 pH of 7.28. WBC count is 21.6 hemoglobin is 6.9 hence the patient will be given a unit of packed RBCs today. He was given DDAVP by nephrolog while on dialysis. Although the patient is not showing any signs of bleeding and no oozing around the dialysis catheter. Medications were all reviewed, they basically remained the same. Antibiotics darling remains on cefepime and Levaquin. Patient was reevaluated today on 09/30/2017, remains on mechanical ventilation with tidal volume of 410 FiO2 of 45% respiratory rate of 34 PEEP of 8. ABG this morning is showing definite improvement with a pO2 of 108 pCO2 of 47 pH of 7.30. The ABG was done on 50%, hence I cut down the FiO2 to 45%, and kept him on a PEEP of 8. Patient is sedated, he is on propofol and he is also on fentanyl. Both were placed on hold, patient became extremely agitated, blood pressure was over 190 systolic, his respiratory rate was in the 40s, became tachycardic, and he was not responding to any verbal stimuli. Hence patient was placed back on a lower dose of propofol half of his initial dose, and fentanyl was placed back on the 50 g instead of 100 per hour. That seemed to calm him down, and I kept him on the same ventilator settings plan to gradually taper down his sedation, and at least give him a sedation holiday, and assess mental status, and possibly consider a spontaneous breathing trial today again. CBC continues to show leukocytosis with WBC count of 23.5 hemoglobin is 7.6, basic metabolic profile is normal BUN is up to 65 creatinine is 3.40, cultures from the bronchial washings remain negative. Chest x-ray continues to show diffuse fibrosis, and possibly superimposed pneumonitis. Not much of a change is noted on the chest x-ray, but his gases are improving, and his overall lung mechanics are also improving. Objective - Vital Signs Vital signs: Vital Signs Temp 97.5 F L 09/30/17 08:00 Pulse 84 09/30/17 10:00 Resp 40 H 09/30/17 10:00 BP 146/66 09/30/17 10:00 Pulse Ox 92 L 09/30/17 10:00 Intake & Output 09/29/17 09/30/17 09/30/17 18:59 06:59 18:59 Intake Total 1498.538 483.148 266 Output Total 3240 87 30 Balance -1741.462 396.148 236 Weight 75.1 kg 75 kg 75 kg Intake: IV 437 125 92 0.9 carriers 260 110 80 Cefepime 2 gm In Sodium 50 Chloride 0.9% 50 ml @ 100 mls/hr IVPB DAILY JIMENEZ Rx #:[id number] Levofloxacin 500Mg-D5w 100 Pmx 500 mg In Dextrose/ Water 1 100ml.bag @ 100 mls/hr IVPB Q48H JIMENEZ Rx#: [id number] pressure bag 0.9 27 15 12 Intake, IV Titration 345.538 67.148 Amount Desmopressin Inj 24 mcg 50 In Sodium Chloride 0.9% 50 ml @ 200 mls/hr IVPB ONCE ONE Rx#:[id number] Insulin Regular 100 unit 20.065 67.148 In Sodium Chloride 0.9% 100 ml @ Per Protocol IV .Q0M JIMENEZ Rx#:[id number] Propofol 1,000 mg In 251.264 Empty Bag 1 bag @ Titrate IV .Q0M JIMENEZ Rx#: [id number] fentaNYL (PF) 2,500 mcg 24.209 In Sodium Chloride 0.9% 200 ml @ 100 MCG/HR 10 mls/hr IV .Q24H JIMENEZ Rx#: [id number] Tube Feeding 406 261 174 Blood Product 310 Rc As-1 Unit 310 [id number] Other 30 Output: Urine 240 87 30 Other 3000 Other: Voiding Method Indwelling Catheter Indwelling Catheter # Voids 0 ABP, PAP, CO, CI - Last Documented Arterial Blood Pressure 163/62 - Exam Physical Exam: Revealed a 62-year-old white male, sedated, but not paralyzed, noted to be extremely agitated once sedation was completely placed on hold. But would not follow any instructions. Head: Atraumatic, normocephalic. Endotracheal tube and orogastric tubes are intact. HEENT:[Neck is supple.] [No neck masses.] [No thyromegaly.] [No JVD.] Moist mucous membranes, PERRLA, EOMI, no icterus. Chest: [Crackles at the bases, no rhonchi, no wheezes. Symmetrical chest expansion was noted.] No chest wall tenderness Cardiac Exam: [Normal S1 and S2, no S3 gallop, no murmur.] Abdomen: [Soft, nontender, no megaly, no rebound, no guarding, normal bowel sounds.] Extremities: [No clubbing, no edema, no cyanosis.] Neurological Exam: Patient was sedated earlier on propofol and fentanyl, however when the sedation was placed on hold, patient became extremely agitated and did not follow any instructions. Sedation was placed back at a lower dose. Lymphatics: No lymphadenopathy. Psychiatric: Could not be assessed. Skin: No rashes. Musculoskeletal: Could not be assessed. - Labs CBC & Chem 7: 09/30/17 05:18 09/30/17 05:18 Labs: Abnormal Lab Results - Last 24 Hours (Table) 09/29/17 09/29/17 09/29/17 Range/Units 09:20 11:50 13:45 WBC (3.8-10.6) k/uL RBC (4.30-5.90) m/uL Hgb (13.0-17.5) gm/dL Hct (39.0-53.0) % RDW (11.5-15.5) % ABG pH (7.35-7.45) ABG pCO2 (35-45) mmHg ABG Total CO2 (19-24) mmol/L ABG O2 Saturation (94-97) % Sodium (137-145) mmol/L Chloride (98-107) mmol/L BUN (9-20) mg/dL Creatinine (0.66-1.25) mg/dL Glucose (74-99) mg/dL POC Glucose (mg/dL) 101 H 103 H (75-99) mg/dL Calcium (8.4-10.2) mg/dL Phosphorus (2.5-4.5) mg/dL Magnesium (1.6-2.3) mg/dL Crossmatch See Detail 09/29/17 09/29/17 09/29/17 Range/Units 14:41 15:24 15:57 WBC (3.8-10.6) k/uL RBC (4.30-5.90) m/uL Hgb (13.0-17.5) gm/dL Hct (39.0-53.0) % RDW (11.5-15.5) % ABG pH (7.35-7.45) ABG pCO2 (35-45) mmHg ABG Total CO2 (19-24) mmol/L ABG O2 Saturation (94-97) % Sodium (137-145) mmol/L Chloride (98-107) mmol/L BUN (9-20) mg/dL Creatinine (0.66-1.25) mg/dL Glucose (74-99) mg/dL POC Glucose (mg/dL) 126 H 135 H 135 H (75-99) mg/dL Calcium (8.4-10.2) mg/dL Phosphorus (2.5-4.5) mg/dL Magnesium (1.6-2.3) mg/dL Crossmatch 09/29/17 09/29/17 09/29/17 Range/Units 16:56 18:05 19:14 WBC (3.8-10.6) k/uL RBC (4.30-5.90) m/uL Hgb (13.0-17.5) gm/dL Hct (39.0-53.0) % RDW (11.5-15.5) % ABG pH (7.35-7.45) ABG pCO2 (35-45) mmHg ABG Total CO2 (19-24) mmol/L ABG O2 Saturation (94-97) % Sodium (137-145) mmol/L Chloride (98-107) mmol/L BUN (9-20) mg/dL Creatinine (0.66-1.25) mg/dL Glucose (74-99) mg/dL POC Glucose (mg/dL) 148 H 146 H 131 H (75-99) mg/dL Calcium (8.4-10.2) mg/dL Phosphorus (2.5-4.5) mg/dL Magnesium (1.6-2.3) mg/dL Crossmatch 09/29/17 09/29/17 09/29/17 Range/Units 20:18 21:38 22:22 WBC (3.8-10.6) k/uL RBC (4.30-5.90) m/uL Hgb (13.0-17.5) gm/dL Hct (39.0-53.0) % RDW (11.5-15.5) % ABG pH (7.35-7.45) ABG pCO2 (35-45) mmHg ABG Total CO2 (19-24) mmol/L ABG O2 Saturation (94-97) % Sodium (137-145) mmol/L Chloride (98-107) mmol/L BUN (9-20) mg/dL Creatinine (0.66-1.25) mg/dL Glucose (74-99) mg/dL POC Glucose (mg/dL) 151 H 162 H 172 H (75-99) mg/dL Calcium (8.4-10.2) mg/dL Phosphorus (2.5-4.5) mg/dL Magnesium (1.6-2.3) mg/dL Crossmatch 09/30/17 09/30/17 09/30/17 Range/Units 00:13 01:37 03:11 WBC (3.8-10.6) k/uL RBC (4.30-5.90) m/uL Hgb (13.0-17.5) gm/dL Hct (39.0-53.0) % RDW (11.5-15.5) % ABG pH (7.35-7.45) ABG pCO2 (35-45) mmHg ABG Total CO2 (19-24) mmol/L ABG O2 Saturation (94-97) % Sodium (137-145) mmol/L Chloride (98-107) mmol/L BUN (9-20) mg/dL Creatinine (0.66-1.25) mg/dL Glucose (74-99) mg/dL POC Glucose (mg/dL) 138 H 137 H 159 H (75-99) mg/dL Calcium (8.4-10.2) mg/dL Phosphorus (2.5-4.5) mg/dL Magnesium (1.6-2.3) mg/dL Crossmatch 09/30/17 09/30/17 09/30/17 Range/Units 04:11 05:18 05:18 WBC 23.5 H (3.8-10.6) k/uL RBC 2.69 L (4.30-5.90) m/uL Hgb 7.6 L (13.0-17.5) gm/dL Hct 23.1 L (39.0-53.0) % RDW 18.5 H (11.5-15.5) % ABG pH (7.35-7.45) ABG pCO2 (35-45) mmHg ABG Total CO2 (19-24) mmol/L ABG O2 Saturation (94-97) % Sodium 132 L (137-145) mmol/L Chloride 97 L (98-107) mmol/L BUN 65 H (9-20) mg/dL Creatinine 3.40 H (0.66-1.25) mg/dL Glucose 149 H (74-99) mg/dL POC Glucose (mg/dL) 167 H (75-99) mg/dL Calcium 7.4 L (8.4-10.2) mg/dL Phosphorus 8.2 H* (2.5-4.5) mg/dL Magnesium 2.5 H (1.6-2.3) mg/dL Crossmatch 09/30/17 09/30/17 09/30/17 Range/Units 05:22 06:47 07:24 WBC (3.8-10.6) k/uL RBC (4.30-5.90) m/uL Hgb (13.0-17.5) gm/dL Hct (39.0-53.0) % RDW (11.5-15.5) % ABG pH 7.30 L (7.35-7.45) ABG pCO2 47 H (35-45) mmHg ABG Total CO2 25 H (19-24) mmol/L ABG O2 Saturation 97.9 H (94-97) % Sodium (137-145) mmol/L Chloride (98-107) mmol/L BUN (9-20) mg/dL Creatinine (0.66-1.25) mg/dL Glucose (74-99) mg/dL POC Glucose (mg/dL) 166 H 144 H (75-99) mg/dL Calcium (8.4-10.2) mg/dL Phosphorus (2.5-4.5) mg/dL Magnesium (1.6-2.3) mg/dL Crossmatch 09/30/17 09/30/17 Range/Units 08:41 10:07 WBC (3.8-10.6) k/uL RBC (4.30-5.90) m/uL Hgb (13.0-17.5) gm/dL Hct (39.0-53.0) % RDW (11.5-15.5) % ABG pH (7.35-7.45) ABG pCO2 (35-45) mmHg ABG Total CO2 (19-24) mmol/L ABG O2 Saturation (94-97) % Sodium (137-145) mmol/L Chloride (98-107) mmol/L BUN (9-20) mg/dL Creatinine (0.66-1.25) mg/dL Glucose (74-99) mg/dL POC Glucose (mg/dL) 127 H 151 H (75-99) mg/dL Calcium (8.4-10.2) mg/dL Phosphorus (2.5-4.5) mg/dL Magnesium (1.6-2.3) mg/dL Crossmatch Microbiology - Last 24 Hours (Table) 09/23/17 12:40 Blood Culture - Final Blood No Growth after 144 hours Assessment and Plan Assessment: 1 acute hypoxic secondary to Legionella pneumonia, ARDS, and idiopathic pulmonary fibrosis. As well as underlying COPD,emphysema. 2 idiopathic pulmonary fibrosis involving the lung bases maintained on anti- fibrotic treatment/OVEF on outpatient basis 3 COPD with bullous emphysematous changes i 4 acute kidney injury, probably due to a component of intravascular volume depletion/diarrhea in addition to use of nonsteroidal anti-inflammatory medications. Renal function continues to be impaired with a creatinine of 3.9 and the patient has become oliguric condition to an underlying component of respiratory and metabolic acidosis currently on a bicarb orally, and being dialyzed on a every other day basis. May be dialyzed again today. 5 acute hypotension possibly secondary to underlying sepsis resolved 6 diabetes mellitus, on insulin drip for BS control 7 smoker 8 depression 9 abnormal LFTs, improved 10 hypertension 11 acid reflux 12 non-anion gap metabolic acidosis, resolved. 13 chronic anemia, patient was transfused a unit of blood yesterday. 14 chronic constipation, a suppository was ordered this morning, no bowel movement in the last few days, however the abdomen is soft, and positive bowel sounds noted. Recommendation: Continue ventilatory support, continue antibiotics , patient remains on cefepime, and Levaquin. Continue nutritional support, PEEP will stay at 8, , patient will be given a sedation holiday today, however will gradually taper the dose of profile and fentanyl, and I plan to give the patient at least a spontaneous breathing trial if possible today. We'll continue to try this on a daily basis, however comes next week and the patient is not extubated, may have to consider tracheostomy and PEG tube placement. Ordered approach the family regarding CODE STATUS and possibly comfort care. Over the last few days, I have been noticing some improvement. Hence would be reasonable to discuss tracheostomy and PEG tube placement in the next few days. Critical care time is 40 minutes. Time with Patient: Greater than 30
--- NOTE | 2017-09-30 11:21 | CDI ---
Last Revision, February 2017 Documentation Clarification Form Date: 09/28/2017 2:11:00 PM From: Bertha Kelly Admit Date: 09/21/2017 11:52:00 AM Patient Name: Kulwant Henao Visit Number: [id number] ATTENTION: The Clinical Documentation Specialists (CDI) and [facility] Coding Staff appreciate your assistance in clarifying documentation. Please respond to the clarification below the line at the bottom and electronically sign. The CDI & [facility] Coding staff will review the response and follow-up if needed. Please note: Queries are made part of the Legal Health Record. If you have any questions, please contact the author of this message via ITS. Dr. Joey Manzanares, A diagnosis of anemia lacks specificity to accurately reflect your patients severity of condition and clarification is needed. Presented from physician's office with pneumonia Pt. admitted with Legionella pneumonia Intubated in ICU at this time. Anemia is documented 19 times in the chart History/Risk Factors: ETOH, DM, x smoker, pneumonia, IPF Pt. was immunocompromised under treatment for IPF ASA daily, NSAIDS for headaches Clinical indicators: Hemoglobin on admission: 11.8, 09/28: 7.1, 09/29: 6.9 Hematocrit on admission 35.9, 09/28: 22.3, 09/29 21.8 Presented with weakness and fatigue, 09/28: still having weakness and fatigue Acute anemia is documented 09/29 in PN with blood transfusion Chronic anemia is documented PN 09/29 Treatment: Transfuse when HGB goes below 7 Monitor Labs .9 @ 75 In order to capture the severity of condition, please clarify the type of anemia and etiology if known: Acute blood loss anemia Acute on chronic blood loss anemia Chronic blood loss anemia Iron deficiency anemia Unable to determine Other, please specify Please continue to document in your progress notes, under the line below and/or in the discharge summary in order to capture severity of illness and risk of mortality. Include clinical findings that support your diagnosis. MTDD
[2017-09-30 12:13] LABS: Glucose,Whole Blood 140 mg/dL (75-99)
[2017-09-30] MEDS: PROPOFOL 1,000 MG in EMPTY BAG 1 BAG IV SCH ×3 (12:46→21:00)
[2017-09-30] MEDS ORDERED: BISACODYL 10 MG SUPP RECTAL STA (12:50)
--- NOTE | 2017-09-30 13:25 | P.PN ---
Subjective Patient is seen in follow-up for acute kidney injury. He remains oliguric. He was started on dialysis on September 26 and has been undergoing daily dialysis. He is noted to have Legionella pneumonia. Patient was intubated on September 24. He's off vasopressors. He is receiving tube feeds and is also maintained on normal saline at 30 mL an hour. Hemoglobin down to 6.9 on September 29 and he did receive 1 unit of blood transfusion - 7.6 today. Currently seen while undergoing hemodialysis. Still requiring 50% FiO2. Vital signs are stable. General: Intubated. HEENT: Head exam is unremarkable. Neck is without jugular venous distension. LUNGS: Scattered rhonchi. HEART: Rate and Rhythm are regular. First and second heart sounds normal. No murmurs, rubs or gallops. ABDOMEN: Abdominal exam reveals normal bowel sounds. Non-tender and non- distended. No evidence of peritonitis. EXTREMITITES: No clubbing, cyanosis, or edema. Objective - Vital Signs Vital signs: Vital Signs Temp 97.7 F 09/30/17 12:00 Pulse 83 09/30/17 12:00 Resp 42 H 09/30/17 12:00 BP 155/66 09/30/17 12:00 Pulse Ox 91 L 09/30/17 12:00 Intake & Output 09/29/17 09/30/17 09/30/17 18:59 06:59 18:59 Intake Total 1498.538 483.148 520 Output Total 3240 87 50 Balance -1741.462 396.148 470 Weight 75.1 kg 75 kg 75 kg Intake: IV 437 125 188 0.9 carriers 260 110 120 Cefepime 2 gm In Sodium 50 50 Chloride 0.9% 50 ml @ 100 mls/hr IVPB DAILY [facility] Rx #:[id number] Levofloxacin 500Mg-D5w 100 Pmx 500 mg In Dextrose/ Water 1 100ml.bag @ 100 mls/hr IVPB Q48H [facility] Rx#: [id number] pressure bag 0.9 27 15 18 Intake, IV Titration 345.538 67.148 100 Amount Desmopressin Inj 24 mcg 50 In Sodium Chloride 0.9% 50 ml @ 200 mls/hr IVPB ONCE ONE Rx#:[id number] Insulin Regular 100 unit 20.065 67.148 In Sodium Chloride 0.9% 100 ml @ Per Protocol IV .Q0M [facility] Rx#:[id number] Propofol 1,000 mg In 251.264 100 Empty Bag 1 bag @ Titrate IV .Q0M [facility] Rx#: [id number] fentaNYL (PF) 2,500 mcg 24.209 In Sodium Chloride 0.9% 200 ml @ 100 MCG/HR 10 mls/hr IV .Q24H [facility] Rx#: [id number] Tube Feeding 406 261 232 Blood Product 310 Rc As-1 Unit 310 [id number] Other 30 Output: Urine 240 87 50 Other 3000 Other: Voiding Method Indwelling Catheter Indwelling Catheter # Voids 0 ABP, PAP, CO, CI - Last Documented Arterial Blood Pressure 174/68 - Labs CBC & Chem 7: 09/30/17 05:18 09/30/17 05:18 Labs: Abnormal Lab Results - Last 24 Hours (Table) 09/29/17 09/29/17 09/29/17 Range/Units 09:20 13:45 14:41 WBC (3.8-10.6) k/uL RBC (4.30-5.90) m/uL Hgb (13.0-17.5) gm/dL Hct (39.0-53.0) % RDW (11.5-15.5) % ABG pH (7.35-7.45) ABG pCO2 (35-45) mmHg ABG Total CO2 (19-24) mmol/L ABG O2 Saturation (94-97) % Sodium (137-145) mmol/L Chloride (98-107) mmol/L BUN (9-20) mg/dL Creatinine (0.66-1.25) mg/dL Glucose (74-99) mg/dL POC Glucose (mg/dL) 103 H 126 H (75-99) mg/dL Calcium (8.4-10.2) mg/dL Phosphorus (2.5-4.5) mg/dL Magnesium (1.6-2.3) mg/dL Crossmatch See Detail 09/29/17 09/29/17 09/29/17 Range/Units 15:24 15:57 16:56 WBC (3.8-10.6) k/uL RBC (4.30-5.90) m/uL Hgb (13.0-17.5) gm/dL Hct (39.0-53.0) % RDW (11.5-15.5) % ABG pH (7.35-7.45) ABG pCO2 (35-45) mmHg ABG Total CO2 (19-24) mmol/L ABG O2 Saturation (94-97) % Sodium (137-145) mmol/L Chloride (98-107) mmol/L BUN (9-20) mg/dL Creatinine (0.66-1.25) mg/dL Glucose (74-99) mg/dL POC Glucose (mg/dL) 135 H 135 H 148 H (75-99) mg/dL Calcium (8.4-10.2) mg/dL Phosphorus (2.5-4.5) mg/dL Magnesium (1.6-2.3) mg/dL Crossmatch 09/29/17 09/29/17 09/29/17 Range/Units 18:05 19:14 20:18 WBC (3.8-10.6) k/uL RBC (4.30-5.90) m/uL Hgb (13.0-17.5) gm/dL Hct (39.0-53.0) % RDW (11.5-15.5) % ABG pH (7.35-7.45) ABG pCO2 (35-45) mmHg ABG Total CO2 (19-24) mmol/L ABG O2 Saturation (94-97) % Sodium (137-145) mmol/L Chloride (98-107) mmol/L BUN (9-20) mg/dL Creatinine (0.66-1.25) mg/dL Glucose (74-99) mg/dL POC Glucose (mg/dL) 146 H 131 H 151 H (75-99) mg/dL Calcium (8.4-10.2) mg/dL Phosphorus (2.5-4.5) mg/dL Magnesium (1.6-2.3) mg/dL Crossmatch 09/29/17 09/29/17 09/30/17 Range/Units 21:38 22:22 00:13 WBC (3.8-10.6) k/uL RBC (4.30-5.90) m/uL Hgb (13.0-17.5) gm/dL Hct (39.0-53.0) % RDW (11.5-15.5) % ABG pH (7.35-7.45) ABG pCO2 (35-45) mmHg ABG Total CO2 (19-24) mmol/L ABG O2 Saturation (94-97) % Sodium (137-145) mmol/L Chloride (98-107) mmol/L BUN (9-20) mg/dL Creatinine (0.66-1.25) mg/dL Glucose (74-99) mg/dL POC Glucose (mg/dL) 162 H 172 H 138 H (75-99) mg/dL Calcium (8.4-10.2) mg/dL Phosphorus (2.5-4.5) mg/dL Magnesium (1.6-2.3) mg/dL Crossmatch 09/30/17 09/30/17 09/30/17 Range/Units 01:37 03:11 04:11 WBC (3.8-10.6) k/uL RBC (4.30-5.90) m/uL Hgb (13.0-17.5) gm/dL Hct (39.0-53.0) % RDW (11.5-15.5) % ABG pH (7.35-7.45) ABG pCO2 (35-45) mmHg ABG Total CO2 (19-24) mmol/L ABG O2 Saturation (94-97) % Sodium (137-145) mmol/L Chloride (98-107) mmol/L BUN (9-20) mg/dL Creatinine (0.66-1.25) mg/dL Glucose (74-99) mg/dL POC Glucose (mg/dL) 137 H 159 H 167 H (75-99) mg/dL Calcium (8.4-10.2) mg/dL Phosphorus (2.5-4.5) mg/dL Magnesium (1.6-2.3) mg/dL Crossmatch 09/30/17 09/30/17 09/30/17 Range/Units 05:18 05:18 05:22 WBC 23.5 H (3.8-10.6) k/uL RBC 2.69 L (4.30-5.90) m/uL Hgb 7.6 L (13.0-17.5) gm/dL Hct 23.1 L (39.0-53.0) % RDW 18.5 H (11.5-15.5) % ABG pH (7.35-7.45) ABG pCO2 (35-45) mmHg ABG Total CO2 (19-24) mmol/L ABG O2 Saturation (94-97) % Sodium 132 L (137-145) mmol/L Chloride 97 L (98-107) mmol/L BUN 65 H (9-20) mg/dL Creatinine 3.40 H (0.66-1.25) mg/dL Glucose 149 H (74-99) mg/dL POC Glucose (mg/dL) 166 H (75-99) mg/dL Calcium 7.4 L (8.4-10.2) mg/dL Phosphorus 8.2 H* (2.5-4.5) mg/dL Magnesium 2.5 H (1.6-2.3) mg/dL Crossmatch 09/30/17 09/30/17 09/30/17 Range/Units 06:47 07:24 08:41 WBC (3.8-10.6) k/uL RBC (4.30-5.90) m/uL Hgb (13.0-17.5) gm/dL Hct (39.0-53.0) % RDW (11.5-15.5) % ABG pH 7.30 L (7.35-7.45) ABG pCO2 47 H (35-45) mmHg ABG Total CO2 25 H (19-24) mmol/L ABG O2 Saturation 97.9 H (94-97) % Sodium (137-145) mmol/L Chloride (98-107) mmol/L BUN (9-20) mg/dL Creatinine (0.66-1.25) mg/dL Glucose (74-99) mg/dL POC Glucose (mg/dL) 144 H 127 H (75-99) mg/dL Calcium (8.4-10.2) mg/dL Phosphorus (2.5-4.5) mg/dL Magnesium (1.6-2.3) mg/dL Crossmatch 09/30/17 09/30/17 Range/Units 10:07 12:11 WBC (3.8-10.6) k/uL RBC (4.30-5.90) m/uL Hgb (13.0-17.5) gm/dL Hct (39.0-53.0) % RDW (11.5-15.5) % ABG pH (7.35-7.45) ABG pCO2 (35-45) mmHg ABG Total CO2 (19-24) mmol/L ABG O2 Saturation (94-97) % Sodium (137-145) mmol/L Chloride (98-107) mmol/L BUN (9-20) mg/dL Creatinine (0.66-1.25) mg/dL Glucose (74-99) mg/dL POC Glucose (mg/dL) 151 H 140 H (75-99) mg/dL Calcium (8.4-10.2) mg/dL Phosphorus (2.5-4.5) mg/dL Magnesium (1.6-2.3) mg/dL Crossmatch Microbiology - Last 24 Hours (Table) 09/23/17 12:40 Blood Culture - Final Blood No Growth after 144 hours Assessment and Plan Plan: Assessment: 1. Oliguric acute kidney injury secondary to ATN secondary to sepsis/ hypotension. Urinalysis is quite benign. Creatinine up to 5.3 on September 26 and was started on hemodialysis. 2. Legionella pneumonia. Maintained on antibiotics. 3. Acute hypoxic respiratory failure secondary to pneumonia and ARDS. 4. History of pulmonary fibrosis. 5. Metabolic acidosis secondary to acute kidney injury. Improved. 6. Diabetes mellitus. 7. Hypotension, resolved. Off vasopressors. 8. Hyperkalemia secondary to metabolic acidosis and acute kidney injury. 9. Hyperphosphatemia secondary to acute kidney injury maintained on PhosLo. 10. Acute anemia status post 1 unit of blood transfusion on September 29. Plan: Maintain tube feeds. Avoid nephrotoxic agents and hypotensive episodes. Continue to monitor renal function and urine output closely. Wean FiO2 as tolerated. He has also received 2 doses of Lasix 80 mg IV with no significant response and urine output. Another hemodialysis treatment tomorrow. Can likely hold off on HD Tuesday.
[2017-09-30 14:52] LABS: Glucose,Whole Blood 70 mg/dL (75-99)
[2017-09-30 15:33] LABS: Glucose,Whole Blood 87 mg/dL (75-99)
[2017-09-30 16:43] LABS: Glucose,Whole Blood 113 mg/dL (75-99)
[2017-09-30] MEDS: fentaNYL (PF) 2,500 MCG in SODIUM CHLORIDE 0.9% 200 ML IV SCH (16:44)
--- NOTE | 2017-09-30 16:47 | PN ---
PROGRESS NOTE DATE OF SERVICE: 09/30/2017 This is a 62-year-old white male who is who has had multiple medical problems. He has respiratory failure and he is on a ventilator. Dr. Castro saw the patient in consultation and he is following the patient for the ventilator and ICU management. He also has acute renal failure due to acute kidney injury. Buffer Nickel Dr. Pierre is following the patient. He also has some pneumonia, and Dr. Mcdermott is in consultation from Infectious Disease. The patient's primary care physician is Dr. Manzanares, and I am overing Dr. Manzanares this weekend. Patient was seen by me for Dr. Manzanares today. He is sedated because he is on ventilator; however, his prognosis is guarded and apparently he is not responding to the antibiotics. Also he is on the ventilator and he is currently receiving hemodialysis. The prognosis is guarded. We will continue current treatments, the ventilator, hemodialysis and IV antibiotics. He is closely followed by Dr. 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 Castro. [id number] / JINGN: [id number] /
[2017-09-30 18:41] LABS: Glucose,Whole Blood 174 mg/dL (75-99)
[2017-09-30 20:26] LABS: Glucose,Whole Blood 181 mg/dL (75-99)
[2017-09-30] MEDS: ATORVASTATIN 40 MG TAB PO SCH (20:32)
[2017-09-30] MEDS: ASPIRIN 81 MG PO SCH (20:32)
[2017-09-30 21:14] LABS: Glucose,Whole Blood 159 mg/dL (75-99)
[2017-09-30 22:20] LABS: Glucose,Whole Blood 97 mg/dL (75-99)
[2017-09-30] MEDS ORDERED: CISATRACURIUM 200 MG in SODIUM CHLORIDE 0.9% 180 ML IV SCH (23:00)
[2017-09-30 23:04] LABS: Glucose,Whole Blood 138 mg/dL (75-99)
--- NOTE | 2017-09-30 23:27 | P.PN ---
Subjective Progress Note Date: 09/30/17 62-year-old male who has a long-standing history of pulmonary fibrosis which is treated with Ofev, Presented to Hospital with rapidly progressive shortness of breath. He had x-rays performed that shows evidence of right upper lobe and left upper lobe worsening infiltration and there is evidence of progressive hypoxemia. At the time he presents to Hospital after being seen in the office there is evidence of acute renal failure. It is noted that the patient was having headache associated with the increasing shortness of breath and was taking [id number] Motrin and somewhat high dose for at least 3 days before he came in. He also is having some difficulty with some diarrhea and progressive weakness. At presentation he is with evidence of significant shortness of breath he required intubation with sedation and mechanical ventilation. Today there has been some further difficulties and likely will require paralysis and vasopressor therapy. 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 They have a pond in the utilize their well to pump some of the water to the pond. The patient apparently was working on the pump with the filters last week. It neck she has just a few days before he started to get sick with the progressive shortness of breath and then the diarrhea. The patient's is not ill at all. They do live in the same home. She relates that there is been no work on the hot water tank for the home. There is one well that supplies water for the home as well as the barn. The barn his home to a miniature horse a goat and a pig. The patient himself provides most of the care for the animals. Including taking care of the maneuver. The however do not have chickens or other bird exposures. The relates that he's had no recent travel. He does not have experience or international travel. Pets dog and cat do live in the home. 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 09/25/2017 Patient remains in the intensive care unit intubated sedated and mechanically ventilated now paralyzed because of the difficulties with ventilation. He is he hemodynamically stable at this point in time but is requiring norepinephrine. There has been a slight improvement in his oxygenation at the FiO2 has been dropped to 60% with ongoing adequate oxygenation with his high frequency and high PEEP 09/26/2017 patient remains profoundly ill , intubated sedated and mechanically ventilated and paralyzed at this time however vasopressor therapy has been discontinued. If the patient has Legionnaires' disease as etiology of his respiratory failure and sepsis and multisystem organ failure. Risk factor is his pulmonary fibrosis. The leukocytosis and renal failure related to this profound infection. 09/27/2017 patient has had some slight improvement in that his PEEP is down to 10 and if there is further improvement will have a trial off of paralysis tomorrow. No new positive cultures to date only Legionella noted 09/30/2017 patient is withno big improvement in the last day remains on PEEP of 8 and 50% FiO2 and is unable to be weaned due to severe agitation but is no longer paralyzed. Objective - Vital Signs Vital signs: Vital Signs Temp 97.7 F 09/30/17 12:00 Pulse 84 09/30/17 20:40 Resp 34 H 09/30/17 20:40 BP 100/55 09/30/17 16:00 Pulse Ox 95 09/30/17 19:00 Intake & Output 09/30/17 09/30/17 10/01/17 06:59 18:59 06:59 Intake Total 729.740 8244.708 236.950 Output Total 87 2125 10 Balance 396.148 -968.292 226.950 Weight 75 kg 75 kg Intake: IV 125 326 23 0.9 carriers 110 240 20 Cefepime 2 gm In Sodium 50 Chloride 0.9% 50 ml @ 100 mls/hr IVPB DAILY JIMENEZ Rx #:[id number] pressure bag 0.9 15 36 3 Intake, IV Titration 67.148 424.708 184.950 Amount Insulin Regular 100 unit 67.148 15.908 14.224 In Sodium Chloride 0.9% 100 ml @ Per Protocol IV .Q0M JIMENEZ Rx#:[id number] Propofol 1,000 mg In 158.8 132.55 Empty Bag 1 bag @ Titrate IV .Q0M JIMENEZ Rx#: [id number] fentaNYL (PF) 2,500 mcg 250 38.176 In Sodium Chloride 0.9% 200 ml @ 100 MCG/HR 10 mls/hr IV .Q24H JIMENEZ Rx#: [id number] Tube Feeding 261 406 29 Other 30 Output: Urine 87 125 10 Other 2000 Other: Voiding Method Indwelling Catheter Indwelling Catheter ABP, PAP, CO, CI - Last Documented Arterial Blood Pressure 188/72 - Exam 62-year-old male who is intubated sedated and mechanically ventilated, no longer paralyzed, blood pressure is improved without norepinephrine therapy. HEENT: Anicteric conjunctiva are pink and moist nasal mucosa grossly intact without significant lesions, there is no thrush. Pupils were reactive. Neck: The neck is supple without significant lymphadenopathy or thyromegaly. Lungs: There is symmetrical bilateral air entry. There are coarse crackles and wheezes to the lung sanchez. Heart: Tachycardic but regular with an audible S1 and S2 soft S4 no distinct murmur click or rub Abdomen: Positive bowel sounds soft nonrigid without palpable masses or organomegaly. Extremities: The upper extremities have excellent pulses they are symmetric, no significant petechiae or telangiectasia. No splinter hemorrhages were noted. The lower extremities are free from significant edema. The peripheral pulses were 2+ and symmetric. IV sites are intact Neuro: Intubated sedated and mechanically ventilated become severely agitated with decreased sedation - Labs CBC & Chem 7: 09/30/17 05:18 09/30/17 05:18 Labs: Abnormal Lab Results - Last 24 Hours (Table) 09/30/17 09/30/17 09/30/17 Range/Units 00:13 01:37 03:11 WBC (3.8-10.6) k/uL RBC (4.30-5.90) m/uL Hgb (13.0-17.5) gm/dL Hct (39.0-53.0) % RDW (11.5-15.5) % ABG pH (7.35-7.45) ABG pCO2 (35-45) mmHg ABG Total CO2 (19-24) mmol/L ABG O2 Saturation (94-97) % Sodium (137-145) mmol/L Chloride (98-107) mmol/L BUN (9-20) mg/dL Creatinine (0.66-1.25) mg/dL Glucose (74-99) mg/dL POC Glucose (mg/dL) 138 H 137 H 159 H (75-99) mg/dL Calcium (8.4-10.2) mg/dL Phosphorus (2.5-4.5) mg/dL Magnesium (1.6-2.3) mg/dL 09/30/17 09/30/17 09/30/17 Range/Units 04:11 05:18 05:18 WBC 23.5 H (3.8-10.6) k/uL RBC 2.69 L (4.30-5.90) m/uL Hgb 7.6 L (13.0-17.5) gm/dL Hct 23.1 L (39.0-53.0) % RDW 18.5 H (11.5-15.5) % ABG pH (7.35-7.45) ABG pCO2 (35-45) mmHg ABG Total CO2 (19-24) mmol/L ABG O2 Saturation (94-97) % Sodium 132 L (137-145) mmol/L Chloride 97 L (98-107) mmol/L BUN 65 H (9-20) mg/dL Creatinine 3.40 H (0.66-1.25) mg/dL Glucose 149 H (74-99) mg/dL POC Glucose (mg/dL) 167 H (75-99) mg/dL Calcium 7.4 L (8.4-10.2) mg/dL Phosphorus 8.2 H* (2.5-4.5) mg/dL Magnesium 2.5 H (1.6-2.3) mg/dL 09/30/17 09/30/17 09/30/17 Range/Units 05:22 06:47 07:24 WBC (3.8-10.6) k/uL RBC (4.30-5.90) m/uL Hgb (13.0-17.5) gm/dL Hct (39.0-53.0) % RDW (11.5-15.5) % ABG pH 7.30 L (7.35-7.45) ABG pCO2 47 H (35-45) mmHg ABG Total CO2 25 H (19-24) mmol/L ABG O2 Saturation 97.9 H (94-97) % Sodium (137-145) mmol/L Chloride (98-107) mmol/L BUN (9-20) mg/dL Creatinine (0.66-1.25) mg/dL Glucose (74-99) mg/dL POC Glucose (mg/dL) 166 H 144 H (75-99) mg/dL Calcium (8.4-10.2) mg/dL Phosphorus (2.5-4.5) mg/dL Magnesium (1.6-2.3) mg/dL 09/30/17 09/30/17 09/30/17 Range/Units 08:41 10:07 12:11 WBC (3.8-10.6) k/uL RBC (4.30-5.90) m/uL Hgb (13.0-17.5) gm/dL Hct (39.0-53.0) % RDW (11.5-15.5) % ABG pH (7.35-7.45) ABG pCO2 (35-45) mmHg ABG Total CO2 (19-24) mmol/L ABG O2 Saturation (94-97) % Sodium (137-145) mmol/L Chloride (98-107) mmol/L BUN (9-20) mg/dL Creatinine (0.66-1.25) mg/dL Glucose (74-99) mg/dL POC Glucose (mg/dL) 127 H 151 H 140 H (75-99) mg/dL Calcium (8.4-10.2) mg/dL Phosphorus (2.5-4.5) mg/dL Magnesium (1.6-2.3) mg/dL 09/30/17 09/30/17 09/30/17 Range/Units 14:33 16:41 18:39 WBC (3.8-10.6) k/uL RBC (4.30-5.90) m/uL Hgb (13.0-17.5) gm/dL Hct (39.0-53.0) % RDW (11.5-15.5) % ABG pH (7.35-7.45) ABG pCO2 (35-45) mmHg ABG Total CO2 (19-24) mmol/L ABG O2 Saturation (94-97) % Sodium (137-145) mmol/L Chloride (98-107) mmol/L BUN (9-20) mg/dL Creatinine (0.66-1.25) mg/dL Glucose (74-99) mg/dL POC Glucose (mg/dL) 70 L 113 H 174 H (75-99) mg/dL Calcium (8.4-10.2) mg/dL Phosphorus (2.5-4.5) mg/dL Magnesium (1.6-2.3) mg/dL 09/30/17 09/30/17 09/30/17 Range/Units 20:23 21:12 23:02 WBC (3.8-10.6) k/uL RBC (4.30-5.90) m/uL Hgb (13.0-17.5) gm/dL Hct (39.0-53.0) % RDW (11.5-15.5) % ABG pH (7.35-7.45) ABG pCO2 (35-45) mmHg ABG Total CO2 (19-24) mmol/L ABG O2 Saturation (94-97) % Sodium (137-145) mmol/L Chloride (98-107) mmol/L BUN (9-20) mg/dL Creatinine (0.66-1.25) mg/dL Glucose (74-99) mg/dL POC Glucose (mg/dL) 181 H 159 H 138 H (75-99) mg/dL Calcium (8.4-10.2) mg/dL Phosphorus (2.5-4.5) mg/dL Magnesium (1.6-2.3) mg/dL Laboratory Results WBC 23.5 k/uL (3.8-10.6) H 09/30/17 05:18 RBC 2.69 m/uL (4.30-5.90) L 09/30/17 05:18 Hgb 7.6 gm/dL (13.0-17.5) L 09/30/17 05:18 Hct 23.1 % (39.0-53.0) L 09/30/17 05:18 MCV 85.9 fL (80.0-100.0) 09/30/17 05:18 MCH 28.0 pg (25.0-35.0) 09/30/17 05:18 MCHC 32.6 g/dL (31.0-37.0) 09/30/17 05:18 RDW 18.5 % (11.5-15.5) H 09/30/17 05:18 Plt Count 260 k/uL (150-450) 09/30/17 05:18 Neutrophils % 94 % 09/24/17 05:05 Neutrophils % (Manual) 88 % 09/28/17 04:33 Band Neutrophils % 4 % 09/28/17 04:33 Lymphocytes % 1 % 09/24/17 05:05 Lymphocytes % (Manual) 7 % 09/28/17 04:33 Monocytes % 4 % 09/24/17 05:05 Monocytes % (Manual) 1 % 09/28/17 04:33 Eosinophils % 0 % 09/24/17 05:05 Basophils % 0 % 09/24/17 05:05 Metamyelocytes % 3 % 09/27/17 03:50 Myelocytes % 4 % 09/27/17 03:50 Promyelocytes % 1 % 09/26/17 05:32 Neutrophils # 15.6 k/uL (1.3-7.7) H 09/24/17 05:05 Neutrophils # (Manual) 16.10 k/uL (1.3-7.7) H 09/28/17 04:33 Lymphocytes # 0.2 k/uL (1.0-4.8) L 09/24/17 05:05 Lymphocytes # (Manual) 1.23 k/uL (1.0-4.8) 09/28/17 04:33 Monocytes # 0.7 k/uL (0-1.0) 09/24/17 05:05 Monocytes # (Manual) 0.18 k/uL (0-1.0) 09/28/17 04:33 Eosinophils # 0.0 k/uL (0-0.7) 09/24/17 05:05 Basophils # 0.0 k/uL (0-0.2) 09/24/17 05:05 Metamyelocytes # (Man) 0.60 k/uL (0) H 09/27/17 03:50 Myelocytes # (Manual) 0.80 k/uL (0) H 09/27/17 03:50 Promyelocytes # (Man) 0.21 k/uL (0) H 09/26/17 05:32 Nucleated RBCs 0 /100 WBC (0-0) 09/28/17 04:33 Manual Slide Review Performed 09/28/17 04:33 Toxic Granulation Present 09/26/17 05:32 Toxic Vacuolation Present 09/26/17 05:32 Hypochromasia Marked 09/27/17 03:50 Poikilocytosis Slight 09/27/17 03:50 Poikilocytosis (manual Present 09/28/17 04:33 Anisocytosis Slight 09/30/17 05:18 Target Cells Present 09/28/17 04:33 Ovalocytes Present 09/27/17 03:50 PT 11.0 sec (9.0-12.0) 09/26/17 10:00 INR 1.1 (<1.2) 09/26/17 10:00 APTT 28.1 sec (22.0-30.0) 09/21/17 16:16 Sample Site bon 09/30/17 07:24 ABG pH 7.30 (7.35-7.45) L 09/30/17 07:24 ABG pCO2 47 mmHg (35-45) H 09/30/17 07:24 ABG pO2 108 mmHg (83-108) 09/30/17 07:24 ABG HCO3 23 mmol/L (21-25) 09/30/17 07:24 ABG Total CO2 25 mmol/L (19-24) H 09/30/17 07:24 ABG O2 Saturation 97.9 % (94-97) H 09/30/17 07:24 ABG Base Excess -3.4 mmol/L 09/30/17 07:24 Xavi Test no 09/30/17 07:24 FiO2 50 % 09/30/17 07:24 Sodium 132 mmol/L (137-145) L 09/30/17 05:18 Potassium 5.0 mmol/L (3.5-5.1) 09/30/17 05:18 Chloride 97 mmol/L (98-107) L 09/30/17 05:18 Carbon Dioxide 25 mmol/L (22-30) 09/30/17 05:18 Anion Gap 10 mmol/L 09/30/17 05:18 BUN 65 mg/dL (9-20) H 09/30/17 05:18 Creatinine 3.40 mg/dL (0.66-1.25) H 09/30/17 05:18 Est GFR (CKD-EPI)AfAm 21 (>60 ml/min/1.73 sqM) 09/30/17 05:18 Est GFR (CKD-EPI)NonAf 18 (>60 ml/min/1.73 sqM) 09/30/17 05:18 Glucose 149 mg/dL (74-99) H 09/30/17 05:18 POC Glucose (mg/dL) 138 mg/dL (75-99) H 09/30/17 23:02 POC Glu It Technician ID Argelia Watson 09/30/17 23:[address] Glu mg/dL 151 09/21/17 14:23 Hemoglobin A1c 6.9 % (4.0-6.0) H 09/21/17 14:23 Lactic Ac Sepsis Rflx Y 09/22/17 20:26 Plasma Lactic Acid Heriberto 1.7 mmol/L (0.7-2.0) 09/23/17 12:34 Uric Acid 5.0 mg/dL (3.5-8.5) 09/27/17 14:45 Calcium 7.4 mg/dL (8.4-10.2) L 09/30/17 05:18 Phosphorus 8.2 mg/dL (2.5-4.5) H* 09/30/17 05:18 Magnesium 2.5 mg/dL (1.6-2.3) H 09/30/17 05:18 Total Bilirubin 0.5 mg/dL (0.2-1.3) 09/24/17 05:05 AST 91 U/L (17-59) H 09/24/17 05:05 ALT 79 U/L (21-72) H 09/24/17 05:05 Alkaline Phosphatase 179 U/L (38-126) H 09/24/17 05:05 Total Protein 5.7 g/dL (6.3-8.2) L 09/24/17 05:05 Albumin 2.7 g/dL (3.5-5.0) L 09/24/17 05:05 Urine Color Light Yellow 09/23/17 04:58 Urine Appearance Clear (Clear) 09/23/17 04:58 Urine pH 5.5 (5.0-8.0) 09/23/17 04:58 Ur Specific [place] 1.009 (1.001-1.035) 09/23/17 04:58 Urine Protein Trace (Negative) H 09/23/17 04:58 Urine Glucose (UA) 2+ (Negative) H 09/23/17 04:58 Urine Ketones Negative (Negative) 09/23/17 04:58 Urine Blood Negative (Negative) 09/23/17 04:58 Urine Nitrite Negative (Negative) 09/23/17 04:58 Urine Bilirubin Negative (Negative) 09/23/17 04:58 Urine Urobilinogen <2.0 mg/dL (<2.0) 09/23/17 04:58 Ur Leukocyte Esterase Negative (Negative) 09/23/17 04:58 Fluid Source Bronchial Wash 09/24/17 11:15 Fluid Color Red 09/24/17 11:15 Fluid Appearance Bloody 09/24/17 11:15 Fluid RBC 04985 /uL 09/24/17 11:15 Fluid Nucleated Cells 60 /uL 09/24/17 11:15 Fluid Polynuclear WBCs 90 % 09/24/17 11:15 Fluid Mononuclear WBCs 10 % 09/24/17 11:15 Random Vancomycin 25.6 ug/mL 09/27/17 03:50 Hep Bs Antigen Non-Reactive (Non-Reactive) 09/27/17 14:45 Hep Bs Antibody Non-Reactive (Non-Reactive) 09/27/17 14:45 Hep Bs Antibody, Quant 3.5 mIU/mL 09/27/17 14:45 Urine Legionella Ag DETECTED (Not detected) H 09/21/17 17:41 Miscellaneous Test Legionella PCR 09/24/17 11:15 Misc Test Result See comment 09/24/17 11:15 Blood Type A Positive 09/29/17 09:20 Blood Type Confirm A Positive 09/29/17 05:30 Blood Type Recheck CABO Indicated 09/29/17 09:20 Antibody Screen NEGATIVE 09/29/17 09:20 Crossmatch See Detail 09/29/17 09:20 Spec Expiration Date 10/02/2017231909/29/17 09:20 Microbiology 09/23/17 12:40 Blood Blood Culture - Final No Growth after 144 hours 09/21/17 14:29 Blood Blood Culture - Final No Growth after 144 hours 09/21/17 14:23 Blood Blood Culture - Final No Growth after 144 hours 09/24/17 11:15 Bronchial Washings - Right Gram Stain - Final 09/24/17 11:15 Bronchial Washings - Right Bronchial Washings Culture - Final 09/24/17 11:15 Bronchial Washings - Right Acid Fast Bacilli Smear - Final 09/24/17 11:15 Bronchial Washings - Right Acid Fast Bacilli Culture - Preliminary 09/24/17 11:15 Bronchial Washings - Right Fungal Culture - Preliminary Assessment and Plan (1) Legionella pneumonia Narrative/Plan: 62-year-old male with a known history of pulmonary fibrosis who is 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 Receives Ofev from the piano maker and has been relatively stable until this onset of Acute illness. The patient now is evidence of bilateral pneumonia which is on the basis of Legionella infection. Patient's does relate that one of their family friends did have pneumonia recently hospitalized only for a couple of days and has recovered well. We do discuss that Legionella is an environmental pathogen and does not have person-to -person transmission. She is at risk if there is Legionella with no water to the home, is at less risk if the Legionella is only related to the filtering system for the pond. That system would require chlorination if Legionella is present there. The patient's is well and she knows to present if she becomes ill at all. For treatment he does have acute renal failure and levofloxacin is being dosed at the appropriate renally adjusted dose. Given his severe underlying illness and until we have final cultures will also treat for other gram-negative pathogens and cefepime is being used and this has now been dose adjusted also for his current renal failure. Blood cultures and sputum cultures are process. The patient is profoundly ill and there are increasing difficulties with his oxygenation. The patient's understands that he is very ill at this point in time although he is comfortable. The patient has been an ongoing smoker despite his underlying pulmonary disease and is receiving multiple breathing treatments at this time also Leukocytosis is increased a bit and is likely in the basis of the utilization of steroids to improve his pulmonary status. Patient does have acute renal failure but this is improving is being followed by nephrology. Maintaining adequate blood pressure and hydration are part of goals. Prognosis is poor. 09/25/2017 reveals the patient to be profoundly ill. He is on high PEEP with high-frequency ventilation, and is hypotensive requiring vasopressor therapy. As noted the patient appears to have Legionella infection and is on appropriate antibiotic therapy. Bronchoscopy was performed and antibiotic therapy is also being utilized for other gram-negative pathogens until those results are available. Blood cultures are process. He has profound leukocytosis and the base of underlying severe pneumonia and the steroids are being utilized. 09/26/2017 patient remains profoundly ill with high-frequency ventilation, high PEEP and multisystem organ failure. Fortunately he is no longer hypotensive requiring vasopressor therapy. With current available cultures the vancomycin therapy is discontinued continue the levofloxacin and Maxipime for now pending further culture results. Bronchoscopy was performed which may further help direct antimicrobial therapy. Regardless will need to complete a multiweek course of fluoroquinolone for his Legionella if he continues to survive. 09/27/2017 there is been slight improvement of his status and that his PEEP has decreased from 15-10. There is discussion of removing paralysis tomorrow to monitor his course. Cultures are process will further evaluate tomorrow. Blood cultures are negative. Leukocytosis is showing a downward trend. creatinine was Yesterday 5.3 and is 5.0 today. Patient is showing stability of his multisystem organ failure but is profoundly ill 09/30/2017 patient is stable but not improved. His paralysis has been released is still extremely agitated with any attempts for weaning. Has been tolerating dialysis well. Multisystem organ failure is stable but he is not showing any improvement in the last day. No other new cultures are noted bronchoscopy was negative only positive finding is of Legionella. The cefepime be discontinued at this time. Supportive care continues, unclear if we'll be a candidate for trach and PEG Current Visit: Yes Status: Acute Code(s): A48.1 - LEGIONNAIRES' DISEASE SNOMED Code(s): 229218877
[2017-10-01 00:12] LABS: Glucose,Whole Blood 143 mg/dL (75-99)
[2017-10-01] MEDS: HEPARIN SODIUM,PORCINE 5,000 UNIT/ML 1 ML VIAL SQ SCH ×2 (00:24→07:29)
[2017-10-01] MEDS: methylPREDNISolone SOD SUCCI 40 MG/ML 1 ML VIAL IV SCH ×2 (00:27→07:31)
[2017-10-01] MEDS: ARTIFICIAL TEARS-HYPROMELLOSE DROPS 15 ML BTL BOTH EYES SCH ×4 (00:27→13:26)
[2017-10-01] MEDS: METOCLOPRAMIDE 5 MG/ML 2 ML VIAL IVP SCH ×2 (00:33→05:50)
[2017-10-01 01:10] LABS: Glucose,Whole Blood 148 mg/dL (75-99)
[2017-10-01] MEDS: PROPOFOL 1,000 MG in EMPTY BAG 1 BAG IV SCH ×2 (02:04→07:27)
[2017-10-01 02:10] LABS: Glucose,Whole Blood 122 mg/dL (75-99)
[2017-10-01 03:02] LABS: Glucose,Whole Blood 151 mg/dL (75-99)
[2017-10-01 04:02] LABS: Glucose,Whole Blood 139 mg/dL (75-99)
[2017-10-01 05:01] LABS: Glucose,Whole Blood 141 mg/dL (75-99)
[2017-10-01 05:10] LABS: Anisocytosis Slight; HCT 25.7 % (39.0-53.0); HGB 8.6 gm/dL (13.0-17.5); MCH 29.1 pg (25.0-35.0); MCHC 33.5 g/dL (31.0-37.0); MCV 86.9 fL (80.0-100.0); Mean Platelet Volume 8.4; Platelet Count 316 k/uL (150-450); RBC 2.96 m/uL (4.30-5.90); RDW 18.5 % (11.5-15.5)
[2017-10-01 05:16] LABS: WBC 42.9 k/uL (3.8-10.6)
[2017-10-01 05:29] LABS: Calcium 7.7 mg/dL (8.4-10.2); Magnesium 2.7 mg/dL (1.6-2.3); Potassium 5.8 mmol/L (3.5-5.1)
[2017-10-01 05:38] LABS: Phosphorus 11.7 mg/dL (2.5-4.5)
[2017-10-01 05:50] LABS: Glucose,Whole Blood 137 mg/dL (75-99)
[2017-10-01 06:09] VITALS: RESP 34
[2017-10-01] MEDS: IPRATROPIUM-ALBUTEROL 3 ML NEB INHALATION SCH ×4 (07:09→19:29)
[2017-10-01] MEDS: BUDESONIDE 0.5 MG/2 ML NEBU INHALATION SCH ×2 (07:09→19:28)
[2017-10-01 07:17] LABS: Glucose,Whole Blood 129 mg/dL (75-99)
--- NOTE | 2017-10-01 07:18 | XR ---
EXAMINATION TYPE: XR chest 1V portable DATE OF EXAM: 10/01/2017 HISTORY: Mech vent. REFERENCE: Previous study dated 09/30/2017. FINDINGS: The patient is ET tube, NG tube and left subclavian catheter remain in place, unchanged in appearance. There is diffuse interstitial and airspace disease, this has worsened from the previous examination. The heart is enlarged. There are bilateral effusions. IMPRESSION: 1. CARDIOMEGALY. 2. ACUTE ON CHRONIC INTERSTITIAL AND AIRSPACE DISEASE MAY REPRESENT WORSENING EDEMA OR PNEUMONIA. CLI NICAL CORRELATION WOULD BE SUGGESTED. 3. SMALL, BILATERAL EFFUSIONS.
[2017-10-01 07:58] LABS: Glucose,Whole Blood 101 mg/dL (75-99)
[2017-10-01] MEDS: CHLORHEXIDINE GLUCONATE 15 ML CUP MUCOUS MEM SCH (08:00)
[2017-10-01] MEDS: SODIUM BICARBONATE TAB 650 MG TAB PO SCH (08:00)
[2017-10-01] MEDS: lamoTRIgine 100 MG TAB PO SCH (08:00)
[2017-10-01] MEDS: CALCIUM ACETATE 667 MG CAP PO SCH (08:00)
[2017-10-01] MEDS: PANTOPRAZOLE 40 MG TABLET PO SCH (08:00)
[2017-10-01] MEDS: buPROPion 75 MG TAB PO SCH (08:00)
[2017-10-01] MEDS: ESCITALOPRAM 20 MG TAB PO SCH (08:00)
[2017-10-01] MEDS: NYSTATIN 100,000 UNIT/ML SUSP 500,000 UNIT/5 ML CUP PO SCH (08:00)
[2017-10-01 08:03] LABS: ABG Base Excess -8.6 mmol/L; ABG HCO3 19 mmol/L (21-25); ABG PCO2 48 mmHg (35-45); ABG PH 7.21 (7.35-7.45); ABG PO2 80 mmHg (83-108); ABG TCO2 21 mmol/L (19-24)
[2017-10-01] MEDS: CEFEPIME 2 GM in SODIUM CHLORIDE 0.9% 50 ML IVPB SCH (08:03)
[2017-10-01 09:06] LABS: Glucose,Whole Blood 143 mg/dL (75-99)
[2017-10-01 09:15] VITALS: BP 118/57; TEMP 97.4
[2017-10-01] MEDS ORDERED: DEXTROSE 5% IN WATER 1,000 ML with SODIUM BICARB (1 MEQ/ML) 150 ML IV SCH (10:00)
[2017-10-01 10:04] LABS: Glucose,Whole Blood 155 mg/dL (75-99)
[2017-10-01] MEDS: LEVOFLOXACIN 500MG-D5W PMX 500 MG in DEXTROSE/WATER 1 100ML.BAG IVPB SCH (10:45)
[2017-10-01 11:07] LABS: Glucose,Whole Blood 166 mg/dL (75-99)
[2017-10-01] MEDS ORDERED: ATROPINE OPHTH SOLN 1% 5ML BTL SUBLINGUAL PRN (11:26)
[2017-10-01] MEDS ORDERED: LORazepam 2 MG/ML INJ IV PRN (11:26)
[2017-10-01] MEDS ORDERED: SODIUM CHLORIDE 0.9% 1,000 ML IV SCH (11:30)
[2017-10-01 11:46] VITALS: PULSE 85
[2017-10-01] MEDS ORDERED: SCOPOLAMINE 1.5MG/72HR PATCH TRANSDERM PRN (12:00)
[2017-10-01] MEDS: MORPHINE SULFATE 2 MG/ML SYRINGE IV PRN ×3 (12:50→13:18)
--- NOTE | 2017-10-01 14:00 | P.PN ---
Subjective Progress Note Date: 10/01/17 Principal diagnosis: Acute hypoxic respiratory failure secondary to bilateral pneumonia, ARDS, and underlying interstitial lung disease/pulmonary fibrosis. This is a 62-year-old male patient, 1 on my own patients from the office, was seen today in our office for increased shortness of breath. The patient comes in with a one-week history of cough, fever and chills and shortness of breath and his condition was progressively getting worse. The patient had a chest x- ray showed airspace disease in the right upper lobe and the left upper lobe worse compared to the previous chest x-rays was done our office. He was also found to be more hypoxic and his pulse ox was in the 70s on room air. Note that he was not on any home oxygen prior. The patient was seen in our office and he was advised to be admitted to the hospital for antibiotic treatment for possible pneumonia. For that reason he was sent over to the hospital and a pulmonary consultation was requested also. The initial blood work also showed a component of acute kidney injury. The patient's creatinine was up to 5.8. Upon further questioning, the patient reported that he was having migraine headaches and he was getting high dose Motrin for headaches and he has taken around 5-6 tablets. At the same time he was having some diarrhea approximately 3 days ago which ultimately subsided. Currently does not have any ongoing diarrhea and nausea vomiting or abdominal pain. The patient noted some diminished urine output over the past 24 hours. The patient is not known to have any previous history of kidney injury is of kidney failures. No nephrolithiasis. The patient also admitted to have exposure to a friend who was hospitalized down in amount, as for an underlying pneumonia. This patient is known to me. I saw him in consultation on 06/17/2017. The patient as part of further workup underwent a high-resolution CAT scan of the chest and upon review of the films there is extensive emphysema in the upper lobes bilaterally addition to subpleural pulmonary fibrosis involving the lower lobes and early changes of honeycombing in the lung bases. This was consistent with IPF based on the radiographic findings. The pulmonary function test showed an FVC of 74% and a total lung capacity of 64% with a diffusion capacity of 50% of predicted consistent with a component of restrictive lung disease. His room air pulse ox back then was 97% and the patient back then did not qualify for oxygen. The patient was trying to quit smoking. Based on the overall clinical picture, I recommended this patient to start on anti-fibrotic treatment and the patient was started on Ovef, nintadanib, after confirming the patient's liver function tests her baseline were within normal limits. He was asked to continue the Ventolin rescue inhaler mastoids basis. Smoking cessation counseling was also done in the office back in June 2017. 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 He is living in [facility]. He lives in a farm. He has outdoor animals including a goat and a Pig and a horse. He has no exposure to birds products. No exposure to chicken, pigeons or doves. On 09/22/2017 patient seen again in follow-up on medical surgical floor. Resting in bed, still complaining of weakness and fatigue. But overall is feeling better. Not bringing up any sputum, denies any chest wall tenderness, lung sounds are positive for coarse crackles over left lower lobe, no wheezing. Today's labs were reviewed, and a PVC 7.7, hemoglobin is 10.6, renal profile is improving, BUN is down to 60, creatinine is 4.29. Patient is remains on IV hydration, receiving 0.9 normal saline at a rate of 100 per hour. Patient remains on empiric coverage in the form of Azactam, and Levaquin, today's chest x-ray showed multifocal reticular opacity pneumonia in the left lower and left upper lobe On 09/23/2017, the patient was seen in follow-up. I noted that the patient was progressively getting more short of breath and lethargic. Earlier this morning the patient became significantly hypoxic and he desaturated. He was placed on 100% nonrebreather facemask. A chest x-ray was done and showed worsening of the right the pulmonary infiltrates with increased alveolar infiltrates in the left midlung zone on the left lower lobe as well as the right midlung area. Note that the patient was already covered with antibiotics and was receiving a combination of Levaquin and aztreonam. Afebrile. Hemodynamically stable currently 100% on a beta facemasks. Blood gases was done and showed a pH of 7.29 with a pCO2 of 37 and pO2 100%. The patient got transferred to the ICU. No chest pain. No fever. No chills. No nausea. No vomiting. No diarrhea. He was receiving normal saline at the rate of 100 mL an hour and the creatinine is down to 3.0. On 09/24/2017, the patient ICU yesterday because of worsening shortness of breath and respiratory failure and worsening oxygenation and hypoxic respiratory failure. The patient initially was on 100% nonrebreather facemask. He was placed on high flow oxygen and he failed and subsequently the patient was placed on a BiPAP at a pressure of 10/5 with an FiO2 of 100%. Earlier this morning he was breathing in the mid 40s and he was struggling to breathe and he was very short of breath using excessive muscle breathing and he was having periodic desaturations was pulsatile drop in the low 80s. At that point he was also diagnosed having Legionella pneumonia and a chest x-ray was getting worse. Progressive worsening of breath upon infiltrates and I suspect underlying IPF with a superimposed Legionella pneumonia and ARDS picture. I intubated this patient and put him on assist-control mode at the rate of 26 with a tidal volume of 400 with an FiO2 of 100% and a PEEP of 18. The patient is sedated with Diprivan and is calm and comfortable and hemodynamically stable. Blood gases and chest x-ray post intubation are still pending. Meanwhile a triple lumen catheter and a Artline Was also inserted for hemodynamic monitoring. As mentioned, the Legionella urine antigen was positive. The patient will be kept on cefepime and Levaquin combination. We'll discontinue the vancomycin. We'll continue the IV Solu-Medrol. We'll continue the supportive care. A bronchoscopy will be done to rule out any superimposed infection on top of his Legionella pneumonia. His white count is elevated at 16.7. Hemoglobin stable at 9.4. On 09/25/2017 the patient remains critically ill. He was intubated and placed on a mechanical ventilator. As mentioned, he has IPF and he is course was further complicated by Legionella pneumonia and secondary ARDS. This morning he is sedated with a combination of propofol and fentanyl. He is paralyzed with Nimbex. He is an assist-control mode of ventilation at the rate of 32, tidal volume of 380, FiO2 of 70% with a PEEP of 15. Peak airway pressures around 38. Static pressures around 36. Chest x-ray still showing diffuse but the pulmonary infiltrates. Bronchoscopy was done yesterday and the results of the bronchioloalveolar lavage are still pending. Meanwhile, the patient is on a combination of Levaquin and cefepime. The patient had a blood gases this morning that showed a pH of 7.03 with a pCO2 of 73 and pO2 of 132. Based on this I increased his tidal volume to 410. I also dropped FiO2 down to 60%. A repeat blood gas showed a pH of 7.11 with a pCO2 of 66 and pO2 of 109. He had a potassium of 6.2 today which was probably related to his acute renal failure and his acidosis. Based on this, he was given grams of bicarb, he was given D50 and insulin protocol, and he was started on a bicarb drip and currently bicarb is running at the rate of 75 mL an hour in the form of D5 with 3 ampules of sodium bicarbonate. This will hopefully counteract his respiratory acidosis. Repeat potassium level is down to 4.9. He is on pressors. He became hypotensive yesterday and currently is on norepinephrine infusion at the rate of 15 mics. The patient has diminished urine output in the order of 50-20 mL an hour. He is in a positive fluid balance and overnight he received a total of 2 L of additional IV fluids. His creatinine is up to 3.9. His white cell count is up to 32. Is on enteral feeding for nutritional support. He is critically ill. Family has been updated on his condition. On 09/26/2017, patient remains intubated, on mechanical ventilation, his ventilator settings are tidal volume of 410, assist control rate of 34, FiO2 of 50%, and PEEP is 15. ABG earlier today showed a pO2 of 106 and this was on 60% . PCO2 of 68, and pH of 7.14. Patient remains on Nimbex drip, he is also on fentanyl drip, and propofol. Hemodynamically stable, not requiring any norepinephrine at this point. As a matter of fact his blood pressure is elevated, and I recommended that we increase his fentanyl drip. Based on the ABG and based on his chest x-ray, patient is clearly not ready for any form of weaning trial or spontaneous breathing trial. He is not ready to be taken off Nimbex at this point yet. Patient remains on nutritional support via enteral feeding. He is fully sedated and paralyzed, microbiology remains negative so far including his bronchial washings and cultures. WBC count is down to 21.0 hemoglobin is 8.6. Continues to have significant bandemia of 9%. Renal functioning seems to be getting worse, and renal output is minimal. Hence the patient is going to be dialyzed today by nephrology. Again I have no plans to consider any weaning trials at this point. Reevaluated today on 09/27/2017, remains intubated, on mechanical ventilation. Ventilator settings are tidal volume of 410, assist control rate of 34 FiO2 50% PEEP was 15 and I cut it down to 12. ABG showed a pO2 of 110 pCO2 of 62 pH of 7.21, patient will be dialyzed again today, he is already on sodium bicarb tablets, and I cut down his PEEP from 15-12 since his pO2 is 110 today. The FiO2 at 50%. Renal functioning is worsening, patient is scheduled for dialysis today. WBC count is 19.9 hemoglobin is 8.0. Chest x-ray continues to show diffuse interstitial lung disease minimal improvement in aeration of both lungs. Patient is not requiring any pressors at this point. He is tolerating nutrition okay but frequently has been placed on hold because of high residual, hence I recommended starting Reglan and cutting down on the floor rate of his nutritional formula. Reevaluated today on 09/28/2017, remains on mechanical ventilation, ventilator settings are the same however the PEEP is down to 8. Remains on 50% FiO2, assist control rate of 34, tidal volume of 410. ABG this morning showed a pO2 of 96 pCO2 of 56 pH of 7.24. BUN is 81 creatinine 4.4, patient underwent dialysis and ultrafiltration, 2 L of fluids were removed. Chest x-ray continues to show interstitial lung disease, him improvement noted in the airspace disease involving the left upper lobe and right upper lobe. Considering the patient is down to a PEEP of 8 today, I have decided to discontinue Nimbex, but we'll continue propofol and fentanyl drip. All labs were reviewed, hemoglobin is 7.1, may consider blood transfusion if hemoglobin goes below 7. Cultures from his lavage and bronchoscopy remained negative. However patient has positive Legionella antigen in the urine. Patient clearly has a picture of idiopathic pulmonary fibrosis, and ARDS, and Legionella pneumonia. This is all contributing to his present condition of respiratory failure requiring intubation and mechanical ventilation. Patient was reevaluated today on 09/29/2017, remains on mechanical ventilation, same ventilator settings, FiO2 remains at 50%, PEEP is at 8, rate is 34 and tidal volume is 410. ABG this morning was showing significant improvement, however the patient did very poorly once the propofol was discontinued, and the patient became extremely agitated, restless, loss of secretions were written and the endotracheal tube, patient became tachypneic, tachycardic, and had to be placed back on propofol and fentanyl immediately. Could not tolerate slightest weaning off propofol. Nurse did not get a chance to assess his mental status had to place him back on propofol because of extreme agitation and desaturation placed back on the percent FiO2 for a short period of time. Diffuse interstitial lung disease is noted bilaterally. Labs were reviewed his ABG on on the percent FiO2 showed a pO2 of 276 pCO2 of 49 pH of 7.28. WBC count is 21.6 hemoglobin is 6.9 hence the patient will be given a unit of packed RBCs today. He was given DDAVP by nephrolog while on dialysis. Although the patient is not showing any signs of bleeding and no oozing around the dialysis catheter. Medications were all reviewed, they basically remained the same. Antibiotics darling remains on cefepime and Levaquin. Patient was reevaluated today on 09/30/2017, remains on mechanical ventilation with tidal volume of 410 FiO2 of 45% respiratory rate of 34 PEEP of 8. ABG this morning is showing definite improvement with a pO2 of 108 pCO2 of 47 pH of 7.30. The ABG was done on 50%, hence I cut down the FiO2 to 45%, and kept him on a PEEP of 8. Patient is sedated, he is on propofol and he is also on fentanyl. Both were placed on hold, patient became extremely agitated, blood pressure was over 190 systolic, his respiratory rate was in the 40s, became tachycardic, and he was not responding to any verbal stimuli. Hence patient was placed back on a lower dose of propofol half of his initial dose, and fentanyl was placed back on the 50 g instead of 100 per hour. That seemed to calm him down, and I kept him on the same ventilator settings plan to gradually taper down his sedation, and at least give him a sedation holiday, and assess mental status, and possibly consider a spontaneous breathing trial today again. CBC continues to show leukocytosis with WBC count of 23.5 hemoglobin is 7.6, basic metabolic profile is normal BUN is up to 65 creatinine is 3.40, cultures from the bronchial washings remain negative. Chest x-ray continues to show diffuse fibrosis, and possibly superimposed pneumonitis. Not much of a change is noted on the chest x-ray, but his gases are improving, and his overall lung mechanics are also improving. Patient was reevaluated today on 10/01/2017, took a downhill course last night, desaturated, he was stacking his breath, and could not be ventilated until I recommended placing back on Nimbex. His FiO2 was increased to 60%, PEEP was increased this morning up to 10. Patient is being dialyzed, and overall the patient is not making any significant improvement. was made aware of the findings, and apparently she had a discussion with her other family members, she is recommending DO NOT RESUSCITATE CODE STATUS, and comfort care measures. She is going to start making arrangements for his burial. And she will let us know as went to extubate the patient and proceed with comfort care measures. In the meantime I have recommended that we discontinue Nimbex, and eventually discontinue propofol, and maintain only on fentanyl drip. We can also use morphine instead of fentanyl if necessary. Chest x-ray was reviewed, continues to show severe interstitial lung disease, cannot tell if there is any underlying pneumonia. Or possibly some component of interstitial edema. ABG this morning showed a pO2 of 80 pCO2 of 48 and pH of 7.21. Renal profile is about the same. His WBC count took a jump up to 42.9. And his hemoglobin is 8.6. Patient remains on mechanical ventilation, he is also on Nimbex and upper fall as well as fentanyl drip. Objective - Vital Signs Vital signs: Vital Signs Temp 97.4 F L 10/01/17 08:00 Pulse 85 10/01/17 11:44 Resp 34 H 10/01/17 07:00 BP 118/57 10/01/17 09:00 Pulse Ox 96 10/01/17 11:00 Intake & Output 09/30/17 10/01/17 10/01/17 18:59 06:59 18:59 Intake Total 0640.694 9593.760 582.455 Output Total 2125 210 55 Balance -968.292 964.760 527.455 Weight 75 kg 72 kg 72 kg Intake: IV 326 276 187 0.9 carriers 240 240 90 Cefepime 2 gm In Sodium 50 50 Chloride 0.9% 50 ml @ 100 mls/hr IVPB DAILY J[facility] Rx #:[id number] pressure bag 0.9 36 36 47 Intake, IV Titration 424.708 489.760 221.455 Amount Cisatracurium 200 mg In 64.425 81.188 Sodium Chloride 0.9% 180 ml @ 2 MCG/KG/MIN 9 mls/ hr IV .[id number] JIM[facility]Z Rx#: [id number] Insulin Regular 100 unit 15.908 22.742 0 In Sodium Chloride 0.9% 100 ml @ Per Protocol IV .Q0M [facility] Rx#:[id number] Propofol 1,000 mg In 158.8 300.000 88.5 Empty Bag 1 bag @ Titrate IV .Q0M [facility] Rx#: [id number] fentaNYL (PF) 2,500 mcg 250 102.593 51.767 In Sodium Chloride 0.9% 200 ml @ 100 MCG/HR 10 mls/hr IV .Q24H JIM[facility]Z Rx#: [id number] Tube Feeding 406 319 174 Other 90 Output: Urine 125 210 55 Other 2000 Other: Voiding Method Indwelling Catheter Indwelling Catheter ABP, PAP, CO, CI - Last Documented Arterial Blood Pressure 126/52 - Exam Physical Exam: Revealed a 62-year-old white male, sedated, and paralyzed, Head: Atraumatic, normocephalic. Endotracheal tube and orogastric tubes are intact. HEENT:[Neck is supple.] [No neck masses.] [No thyromegaly.] [No JVD.] Moist mucous membranes, PERRLA, EOMI, no icterus. Chest: [Crackles at the bases, no rhonchi, no wheezes. Symmetrical chest expansion was noted.] No chest wall tenderness Cardiac Exam: [Normal S1 and S2, no S3 gallop, no murmur.] Abdomen: [Soft, nontender, no megaly, no rebound, no guarding, normal bowel sounds.] Extremities: [No clubbing, no edema, no cyanosis.] Neurological Exam: Patient was sedated earlier on propofol and fentanyl, and on a paralytic agent./Nimbex. Lymphatics: No lymphadenopathy. Psychiatric: Could not be assessed. Skin: No rashes. Musculoskeletal: Could not be assessed. - Labs CBC & Chem 7: 10/01/17 05:00 10/01/17 05:00 Labs: Abnormal Lab Results - Last 24 Hours (Table) 09/21/17 09/30/17 09/30/17 Range/Units 17:41 14:33 16:41 WBC (3.8-10.6) k/uL RBC (4.30-5.90) m/uL Hgb (13.0-17.5) gm/dL Hct (39.0-53.0) % RDW (11.5-15.5) % ABG pH (7.35-7.45) ABG pCO2 (35-45) mmHg ABG pO2 (83-108) mmHg ABG HCO3 (21-25) mmol/L ABG Lactic Acid (0.5-1.6) mmol/L Sodium (137-145) mmol/L Potassium (3.5-5.1) mmol/L BUN (9-20) mg/dL Creatinine (0.66-1.25) mg/dL Glucose (74-99) mg/dL POC Glucose (mg/dL) 70 L 113 H (75-99) mg/dL Calcium (8.4-10.2) mg/dL Phosphorus (2.5-4.5) mg/dL Magnesium (1.6-2.3) mg/dL Urine Legionella Ag DETECTED H (Not detected) 09/30/17 09/30/17 09/30/17 Range/Units 18:39 20:23 21:12 WBC (3.8-10.6) k/uL RBC (4.30-5.90) m/uL Hgb (13.0-17.5) gm/dL Hct (39.0-53.0) % RDW (11.5-15.5) % ABG pH (7.35-7.45) ABG pCO2 (35-45) mmHg ABG pO2 (83-108) mmHg ABG HCO3 (21-25) mmol/L ABG Lactic Acid (0.5-1.6) mmol/L Sodium (137-145) mmol/L Potassium (3.5-5.1) mmol/L BUN (9-20) mg/dL Creatinine (0.66-1.25) mg/dL Glucose (74-99) mg/dL POC Glucose (mg/dL) 174 H 181 H 159 H (75-99) mg/dL Calcium (8.4-10.2) mg/dL Phosphorus (2.5-4.5) mg/dL Magnesium (1.6-2.3) mg/dL Urine Legionella Ag (Not detected) 09/30/17 10/01/17 10/01/17 Range/Units 23:02 00:11 01:08 WBC (3.8-10.6) k/uL RBC (4.30-5.90) m/uL Hgb (13.0-17.5) gm/dL Hct (39.0-53.0) % RDW (11.5-15.5) % ABG pH (7.35-7.45) ABG pCO2 (35-45) mmHg ABG pO2 (83-108) mmHg ABG HCO3 (21-25) mmol/L ABG Lactic Acid (0.5-1.6) mmol/L Sodium (137-145) mmol/L Potassium (3.5-5.1) mmol/L BUN (9-20) mg/dL Creatinine (0.66-1.25) mg/dL Glucose (74-99) mg/dL POC Glucose (mg/dL) 138 H 143 H 148 H (75-99) mg/dL Calcium (8.4-10.2) mg/dL Phosphorus (2.5-4.5) mg/dL Magnesium (1.6-2.3) mg/dL Urine Legionella Ag (Not detected) 10/01/17 10/01/17 10/01/17 Range/Units 02:09 03:00 04:00 WBC (3.8-10.6) k/uL RBC (4.30-5.90) m/uL Hgb (13.0-17.5) gm/dL Hct (39.0-53.0) % RDW (11.5-15.5) % ABG pH (7.35-7.45) ABG pCO2 (35-45) mmHg ABG pO2 (83-108) mmHg ABG HCO3 (21-25) mmol/L ABG Lactic Acid (0.5-1.6) mmol/L Sodium (137-145) mmol/L Potassium (3.5-5.1) mmol/L BUN (9-20) mg/dL Creatinine (0.66-1.25) mg/dL Glucose (74-99) mg/dL POC Glucose (mg/dL) 122 H 151 H 139 H (75-99) mg/dL Calcium (8.4-10.2) mg/dL Phosphorus (2.5-4.5) mg/dL Magnesium (1.6-2.3) mg/dL Urine Legionella Ag (Not detected) 10/01/17 10/01/17 10/01/17 Range/Units 04:59 05:00 05:00 WBC 42.9 H* (3.8-10.6) k/uL RBC 2.96 L (4.30-5.90) m/uL Hgb 8.6 L (13.0-17.5) gm/dL Hct 25.7 L (39.0-53.0) % RDW 18.5 H (11.5-15.5) % ABG pH (7.35-7.45) ABG pCO2 (35-45) mmHg ABG pO2 (83-108) mmHg ABG HCO3 (21-25) mmol/L ABG Lactic Acid (0.5-1.6) mmol/L Sodium 134 L (137-145) mmol/L Potassium 5.8 H (3.5-5.1) mmol/L BUN 73 H (9-20) mg/dL Creatinine 3.40 H (0.66-1.25) mg/dL Glucose 134 H (74-99) mg/dL POC Glucose (mg/dL) 141 H (75-99) mg/dL Calcium 7.7 L (8.4-10.2) mg/dL Phosphorus 11.7 H* (2.5-4.5) mg/dL Magnesium 2.7 H (1.6-2.3) mg/dL Urine Legionella Ag (Not detected) 10/01/17 10/01/17 10/01/17 Range/Units 05:43 05:47 07:15 WBC (3.8-10.6) k/uL RBC (4.30-5.90) m/uL Hgb (13.0-17.5) gm/dL Hct (39.0-53.0) % RDW (11.5-15.5) % ABG pH (7.35-7.45) ABG pCO2 (35-45) mmHg ABG pO2 (83-108) mmHg ABG HCO3 (21-25) mmol/L ABG Lactic Acid <0.5 L (0.5-1.6) mmol/L Sodium (137-145) mmol/L Potassium (3.5-5.1) mmol/L BUN (9-20) mg/dL Creatinine (0.66-1.25) mg/dL Glucose (74-99) mg/dL POC Glucose (mg/dL) 137 H 129 H (75-99) mg/dL Calcium (8.4-10.2) mg/dL Phosphorus (2.5-4.5) mg/dL Magnesium (1.6-2.3) mg/dL Urine Legionella Ag (Not detected) 10/01/17 10/01/17 10/01/17 Range/Units 07:56 07:57 09:05 WBC (3.8-10.6) k/uL RBC (4.30-5.90) m/uL Hgb (13.0-17.5) gm/dL Hct (39.0-53.0) % RDW (11.5-15.5) % ABG pH 7.21 L (7.35-7.45) ABG pCO2 48 H (35-45) mmHg ABG pO2 80 L (83-108) mmHg ABG HCO3 19 L (21-25) mmol/L ABG Lactic Acid (0.5-1.6) mmol/L Sodium (137-145) mmol/L Potassium (3.5-5.1) mmol/L BUN (9-20) mg/dL Creatinine (0.66-1.25) mg/dL Glucose (74-99) mg/dL POC Glucose (mg/dL) 101 H 143 H (75-99) mg/dL Calcium (8.4-10.2) mg/dL Phosphorus (2.5-4.5) mg/dL Magnesium (1.6-2.3) mg/dL Urine Legionella Ag (Not detected) 10/01/17 10/01/17 Range/Units 10:02 11:06 WBC (3.8-10.6) k/uL RBC (4.30-5.90) m/uL Hgb (13.0-17.5) gm/dL Hct (39.0-53.0) % RDW (11.5-15.5) % ABG pH (7.35-7.45) ABG pCO2 (35-45) mmHg ABG pO2 (83-108) mmHg ABG HCO3 (21-25) mmol/L ABG Lactic Acid (0.5-1.6) mmol/L Sodium (137-145) mmol/L Potassium (3.5-5.1) mmol/L BUN (9-20) mg/dL Creatinine (0.66-1.25) mg/dL Glucose (74-99) mg/dL POC Glucose (mg/dL) 155 H 166 H (75-99) mg/dL Calcium (8.4-10.2) mg/dL Phosphorus (2.5-4.5) mg/dL Magnesium (1.6-2.3) mg/dL Urine Legionella Ag (Not detected) Assessment and Plan Assessment: 1 acute hypoxic secondary to Legionella pneumonia, ARDS, and idiopathic pulmonary fibrosis. As well as underlying COPD,emphysema. 2 idiopathic pulmonary fibrosis involving the lung bases maintained on anti- fibrotic treatment/OVEF on outpatient basis 3 COPD with bullous emphysematous changes i 4 acute kidney injury, probably due to a component of intravascular volume depletion/diarrhea in addition to use of nonsteroidal anti-inflammatory medications. Renal function continues to be impaired with a creatinine of 3.9 and the patient has become oliguric condition to an underlying component of respiratory and metabolic acidosis currently on a bicarb orally, and being dialyzed on a every other day basis. May be dialyzed again today. 5 acute hypotension possibly secondary to underlying sepsis resolved 6 diabetes mellitus, on insulin drip for BS control 7 smoker 8 depression 9 abnormal LFTs, improved 10 hypertension 11 acid reflux 12 non-anion gap metabolic acidosis, resolved. 13 chronic anemia, 14 chronic constipation, Recommendation: Had a long discussion with his and son at bedside, they were made aware of his poor prognostic picture and his overall clinical status seems to be deteriorating. I even touch bases regarding tracheostomy and PEG tube placement next week, but the and the son are both agreeable to comfort care measures and he would have never wanted to undergo tracheostomy and PEG tube placement at any point in time. We will change the CODE STATUS to DO NOT RESUSCITATE CODE STATUS, and we will proceed with comfort care measures once the starts making burial arrangements. The patient will be allowed to pass in peace comfort and dignity. Critical care time is 40 minutes. Time with Patient: Greater than 30
--- NOTE | 2017-10-01 16:36 | PN ---
PROGRESS NOTE The patient is seen on hemodialysis. He is tolerating his treatment well. Urine output remains low. The patient had issues with oxygenation last night. His FiO2 is increased and PEEP was increased. His blood pressure remains on the higher side. I will increase ultrafiltration with hemodialysis today. EXAMINATION: This morning blood pressure was 155/60, heart rate 94 per minute. Patient is afebrile. He is currently intubated and on the vent. The examination of the heart: S1, S2. Examination lungs: Bilateral breath sounds are heard. Decreased breath sounds at bases. Abdomen is soft, nontender. Examination lower extremities shows trace edema bilaterally. GENERAL ASSIGNMENT REPORTER exam cannot be performed. LABS: Show sodium 134, potassium 5.8, chloride 98, BUN 73, creatinine 3.4, hemoglobin of 8.6, white cell count 42.9. ASSESSMENT: 1. Acute kidney injury. Currently oliguric and hemodialysis dependent. Increase ultrafiltration with hemodialysis today. 2. Hyperkalemia. Expect improvement with dialysis. 3. Severe hyperphosphatemia associated with renal failure. The phosphate binders will be restarted when patient is maintained on tube feedings. 4. Vent dependent respiratory failure associated with pneumonia, ARDS with recent deterioration last night. 5. Hyperkalemia associated with advanced renal failure. 6. Legionella pneumonia/ARDS. PLAN: Increase ultrafiltration with hemodialysis. Blood pressure remains stable. MMODL / IJN: [id number] /
--- NOTE | 2017-10-01 21:09 | PN ---
PROGRESS NOTE This is a 62-year-old white male who has longstanding history of idiopathic pulmonary fibrosis and he was admitted to the hospital with pneumonia, sepsis, acute on chronic hypoxic respiratory failure, acute on chronic renal failure and also congestive heart failure. He was intubated and he was on a ventilator. He was seen by a tower cleaner in consultation and the patient was started on hemodialysis. Also he has was seen by Cardiology, tower cleaner and incident response manager in consultation. Dr. Castro was following the patient for ICU and ventilator management. The patient was found to have Legionella, pneumonia and sepsis and Dr. Mcdermott saw the patient and has been following the patient for infectious disease. In spite of all this care and treatment, his condition was progressively deteriorating. Today, the chest x-ray showed some worsening of the pneumonia and apparently Dr. Castro discussed his prognosis and his overall condition with the family and apparently the family has agreed to make him a NO CODE patient and just continue with the comfort care. Apparently Dr. Castro has already made him a comfort care patient and probably he will be weaned off from the ventilator and may be extubated by Dr. Castro. MMNEELAML / JINGN: [id number] /
--- NOTE | 2017-10-27 22:39 | DS ---
DISCHARGE SUMMARY DATE OF ADMISSION: 09/21/2017. DATE OF EXPIRATION: 10/01/2017. ATTENDING PHYSICIAN: Dr. Manzanares FINAL DIAGNOSES: 1. Acute hypoxic respiratory failure. 2. Bilateral pneumonia with sepsis. 3. Legionella pneumonia. 4. ARDS. 5. Idiopathic pulmonary fibrosis. 6. Acute on chronic renal failure due to acute kidney injury. 7. 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 8. Acute on chronic anemia. HISTORY OF PRESENT ILLNESS: This is a 62-year-old male who was known to have longstanding history of idiopathic pulmonary fibrosis and he has been seeing Dr. Castro for his pulmonary disease and patient was found to be extremely short of breath with cough and this was progressively getting worse and he was admitted to the hospital for further evaluation and treatment. He was also found to have bilateral pneumonia. For details of the physical examination at the time of admission, please refer to the history and physical by Dr. Manzanares. HOSPITAL COURSE: The patient was started on IV antibiotics and updraft treatments and IV Solu-Medrol and his blood sugar was controlled with NovoLog sliding scale. In the hospital, the patient's respiratory status progressively worsened and he had to be transferred to ICU. Dr. Lopez had also followed the patient for ICU management and also he is his interchange agent and has been following for his pulmonary fibrosis. In the ICU his condition progressively got worse and he had to be intubated on 09/24/2017. He also developed acute renal failure due to acute kidney injury. He was seen by pipe organ tuner and repairer, Dr. Angeles, and he was started on hemodialysis. Dr. Mcdermott also saw the patient for appropriate IV antibiotics. His urine was positive for the Legionella antigen. In spite of all these and diminished his condition was progressively deteriorating and Dr. Castro felt that he could not be extubated because his pneumonia was progressively getting worse. The hemodialysis also continued and Dr. Castro talked to the family that his condition continues to be worsening and with family's consent the hemodialysis was discontinued and also family that he could be extubated and placed him on comfort measures. Accordingly Dr. Castro extubated him and he was placed on comfort measures and his condition unfortunately deteriorated and patient on 10/01/2017. MMODL / IJN: [id number] /
== END 2017-10-01 20:16 | disposition expired | DRG 853 ==
LOC: 5MS5E 11:52 → 6ICU 09-23 13:45
PROVIDERS: ADMIT Internal Medicine; ATTEND Internal Medicine
PROC: 0B9H8ZX Drainage of Lung Lingula, Via Natural or Artificial Opening Endoscopic, Diagnostic (ICD-10-PCS; principal; 2017-09-24)
PROC: 5A1955Z Respiratory Ventilation, Greater than 96 Consecutive Hours (ICD-10-PCS; 2017-09-24)
PROC: 0BH17EZ Insertion of Endotracheal Airway into Trachea, Via Natural or Artificial Opening (ICD-10-PCS; 2017-09-24)
PROC: 06HY33Z Insertion of Infusion Device into Lower Vein, Percutaneous Approach (ICD-10-PCS; 2017-09-24)
PROC: 05H633Z Insertion of Infusion Device into Left Subclavian Vein, Percutaneous Approach (ICD-10-PCS; 2017-09-24)
PROC: 03HY32Z Insertion of Monitoring Device into Upper Artery, Percutaneous Approach (ICD-10-PCS; 2017-09-24)
PROC: 4A133B1 Monitoring of Arterial Pressure, Peripheral, Percutaneous Approach (ICD-10-PCS; 2017-09-24)
PROC: 4A133J1 Monitoring of Arterial Pulse, Peripheral, Percutaneous Approach (ICD-10-PCS; 2017-09-24)
PROC: 5A1D70Z Performance of Urinary Filtration, Intermittent, Less than 6 Hours Per Day (ICD-10-PCS; 2017-09-26)
PROC: 30240N1 Transfusion of Nonautologous Red Blood Cells into Central Vein, Open Approach (ICD-10-PCS; 2017-09-29)
DX: A41.9 Sepsis, unspecified organism (principal); A48.1 Legionnaires' disease; J96.01 Acute respiratory failure with hypoxia; N17.0 Acute kidney failure with tubular necrosis; E87.4 Mixed disorder of acid-base balance; D64.9 Anemia, unspecified; D89.9 Disorder involving the immune mechanism, unspecified; E11.65 Type 2 diabetes mellitus with hyperglycemia; E78.5 Hyperlipidemia, unspecified; E83.39 Other disorders of phosphorus metabolism; E86.1 Hypovolemia; E87.5 Hyperkalemia; F17.200 Nicotine dependence, unspecified, uncomplicated; J43.9 Emphysema, unspecified; J84.112 Idiopathic pulmonary fibrosis; K21.9 Gastro-esophageal reflux disease without esophagitis; K59.09 Other constipation; T38.0X5A Adverse effect of glucocorticoids and synthetic analogues, initial encounter; E55.9 Vitamin D deficiency, unspecified; Z66 Do not resuscitate; Z51.5 Encounter for palliative care; G43.909 Migraine, unspecified, not intractable, without status migrainosus; R65.20 Severe sepsis without septic shock; I10 Essential (primary) hypertension; K76.0 Fatty (change of) liver, not elsewhere classified; L30.9 Dermatitis, unspecified; F32.9 Major depressive disorder, single episode, unspecified; D72.829 Elevated white blood cell count, unspecified; Z79.82 Long term (current) use of aspirin; Z79.899 Other long term (current) drug therapy; Z79.84 Long term (current) use of oral hypoglycemic drugs; Z88.0 Allergy status to penicillin; Z88.8 Allergy status to other drugs, medicaments and biological substances; Z80.3 Family history of malignant neoplasm of breast; Z82.49 Family history of ischemic heart disease and other diseases of the circulatory system
CPT/HCPCS: 36600; 71045; 71046; 76770; 80048; 80053; 80202; 81003; 82805; 83036; 83605; 83735; 84100; 84132; 84550; 85025; 85027; 85610; 85730; 86706; 86850; 86900; 86901; 86920; 87040; 87070; 87102; 87116; 87205; 87206; 87324; 87340; 87449; 87541; 87798; 88108; 88305; 89050; 90935; 93306; 94002; 94003; 94640; 94660; 94760